=== PATIENT | female | born 1955 | race Caucasian/White ===

== ENCOUNTER 2018-07-26 14:33 | Emergency (ER) | payer MEDICARE, MEDICAID, SELFPAY ==
[2018-07-26 14:34] VITALS: BP 142/93; PULSE 95; RESP 18; TEMP 35.7; O2SAT 98; BMI 23.3
[2018-07-26 16:33] LABS: Absolute Lymphocyte Count 1.51 X10^3/ul (0.83-4.51); Absolute Neutrophil Count 7.2 X10^3/uL (2.0-7.7); Basophil# 0.06 X10^3/uL; Basophil% 0.6 % (0-1); Eosinophil# 0.08 X10^3/uL; Eosinophils% 0.8 % (0-5); Hematocrit 46.2 % (37-47); Hemoglobin 15.4 g/dl (12.0-15.0); Lymphocyte # 1.51 X10^3/ul (4.0); Mean Corp Hgb Conc 33.3 g/gl (32-36); Mean Corpuscular Hgb 28.5 pg (27.0-32.0); Mean Corpuscular Volume 85.4 fL (81-99); Mean Platelet Vol. 11.2 fl (6.2-12.0); Monocyte# 0.58 X10^3/uL; Monocyte% 6.2 % (0-10); Neutrophil # 7.18 X10^3/uL (2.7-7.7); Neutrophil % 76.3 % (47-70); Platelet Count 330 K/mm3 (150-450); RBC Distribution Width CV 13.2 % (11.6-14.6); RBC Distribution Width SD 40.9 fl (35.1-43.9); Red Blood Count 5.41 M/mm3 (4.2-5.4); White Blood Count 9.4 K/mm3 (4.4-11.0)
[2018-07-26 16:34] LABS: POSITIVE COUNT NO; POSITIVE DIFFERENTIAL NO; POSITIVE MORPHOLOGY NO
[2018-07-26 16:39] LABS: Anion Gap 11 (5-15); BUN 21 mg/dL (7-18); BUN/Creat Ratio 22.4 RATIO (10-20); Calcium,Total 8.9 mg/dL (8.5-10.1); Chloride 109 mmol/L (98-107); Creatinine, Serum 0.94 mg/dL (0.55-1.02); EST Glomerular Filtration Rate 65 mL/min (>60); Est Glom Filt Rate - Afr Amer 78 mL/min (>60); Estimated Creatinine Clearance 58.84 ml/min; Glucose 91 mg/dL (74-106); Potassium 3.7 mmol/L (3.5-5.1); Sodium Level 142 mmol/L (136-145)
[2018-07-26 16:40] LABS: Mucous, Urine 0 SEEN /hpf (<or=2+)
[2018-07-26 16:43] LABS: Color, Urine Yellow (Yellow); Glucose, Dipstick Normal (Normal); Ketone-Dipstick 15 mg/dl (Negative); Leukocyte Esterase-Dipstick 100 /ul (Negative); Nitrite-Dipstick Positive (Negative); Occult Blood-Urine Negative /ul (Negative); Protein-Dipstick Negative (Negative); Specific Gravity, Urine 1.015 (1.002-1.030); Urine Bilirubin Dipstick Negative (Negative); Urine Clarity Clear (Clear); Urine Urobilinogen Normal (Normal)
[2018-07-26 16:53] LABS: Red Blood Cells-Urine 0-5 SEEN /hpf (0-5); White Blood Cells 25-50 SEEN /hpf (0-5)
[2018-07-26 16:54] LABS: Bacteria 4+ /hpf (None Seen); Squamous Epithelial Cells - UA 0-5 SEEN /hpf (5-10)
[2018-07-26 17:08] VITALS: RESP 18
--- NOTE | 2018-07-26 17:24 | ED.VISSUMM ---
- ER Visit Summary Date of Service: 07/26/18 Chief Complaint: Emesis x1, not eating well and possible UTI History of Present Illness: The patient is a 63 F who is profoundly cognitively impaired and nonverbal who was sent from her primary care physician because of emesis x1. According to caregiver she is not appear in any distress. There is no documented fever. She has not been eating as much as she normally has for the past 1-3 weeks. History is limited Physical Examination: Vital signs noted. She is afebrile. She is not tachycardic. Examination is limited. HEENT is grossly unremarkable with no evidence of exam tonsillitis or otitis media. Lungs are clear to auscultation. Abdomen is soft uncertain whether she does or does not have discomfort. Unable to determine she has CVA tenderness. Lungs are clear to auscultation. She moves all extremities. Test Results: CBC is unremarkable. Basic metabolic panel is unremarkable. UA is consistent with infection positive leukoesterase and nitrites with 25-50 WBCs 0-5 RBCs and 4+ bacteria on a cath specimen. Emergency Department Course and Treatment: Evaluation for UTI and kidney function since she has not been eating well. Treatment Plan: Patient was given first dose of Macrobid in the department and prescription for Macrobid. Disposition: Discharge to senior living Impression: 1. UTI 2. Emesis x1 3. MRDD 4. Nonverbal This note was generated with Musicplayr dictation software. It may contain incorrect words, spelling, and punctuation that were not noted in review of the chart prior to signing ED Disposition - Plan for ED Patient: Disposition: Home or Assisted Living Chief Complaint: Nausea/Vomiting Instructions: ED UTI Cystitis Female Prescriptions: Nitrofurantoin Macrocrystals [Macrobid] 100 mg PO Q12 #10 cap Referrals: Issac Buchanan MD [Primary Care Provider] - 3-5 Days if not improving
--- NOTE | 2018-07-26 17:28 | ED.DCSUM_ITS ---
- ER Visit Summary Date of Service: 07/26/18 Chief Complaint: Emesis x1, not eating well and possible UTI History of Present Illness: The patient is a 63 F who is profoundly cognitively impaired and nonverbal who was sent from her primary care physician because of emesis x1. According to caregiver she is not appear in any distress. There is no documented fever. She has not been eating as much as she normally has for the past 1-3 weeks. History is limited Physical Examination: Vital signs noted. She is afebrile. She is not tachycardic. Examination is limited. HEENT is grossly unremarkable with no evidence of exam tonsillitis or otitis media. Lungs are clear to auscultation. Abdomen is soft uncertain whether she does or does not have discomfort. Unable to determine she has CVA tenderness. Lungs are clear to auscultation. She moves all extremities. Test Results: CBC is unremarkable. Basic metabolic panel is unremarkable. UA is consistent with infection positive leukoesterase and nitrites with 25-50 WBCs 0-5 RBCs and 4+ bacteria on a cath specimen. Emergency Department Course and Treatment: Evaluation for UTI and kidney function since she has not been eating well. Treatment Plan: Patient was given first dose of Macrobid in the department and prescription for Macrobid. Disposition: Discharge to detention Impression: 1. UTI 2. Emesis x1 3. MRDD 4. Nonverbal This note was generated with Balaya dictation software. It may contain incorrect words, spelling, and punctuation that were not noted in review of the chart p rior to signing ED Disposition - Plan for ED Patient: Disposition: Home or Assisted Living Chief Complaint: Nausea/Vomiting Instructions: ED UTI Cystitis Female Prescriptions: Nitrofurantoin Macrocrystals [Macrobid] 100 mg PO Q12 #10 cap Referrals: sIsac Buchanan MD [Primary Care Provider] - 3-5 Days if not improving
[2018-07-26 17:49] VITALS: RESP 18
[2018-07-26] MEDS: Nitrofurantoin Macrocrystals 100 MG Capsule PO (17:49)
== END 2018-07-26 17:51 | disposition home or self-care (01) ==
PROVIDERS: Emergency Provider Emergency Medicine; Family Provider Family Medicine; PCP Family Medicine
DX: N39.0 Urinary tract infection, site not specified (principal); R11.10 Vomiting, unspecified; F79 Unspecified intellectual disabilities
CPT/HCPCS: 80048; 81001; 85025; 87086; 87088; 87186; 99285; P9612; A4216

== ENCOUNTER → 2018-08-15 13:28 | Outpatient (CLI) | payer MEDICARE, MEDICAID, SELFPAY ==
--- NOTE | 2018-08-15 13:34 | RAD_ITS ---
STUDY: SWALLOWING STUDY REASON FOR EXAM: Female, 63 years old. Dysphagia. TECHNIQUE: The examination was performed with Speech Pathology in attendance. Under fluoroscopic observation, the patient ingested thin barium, thick barium, barium pudding, and barium coated cracker. FLUOROSCOPY TIME: 2:44 minutes/seconds. [id number] fluoroscopic images were obtained. RADIOLOGIST INVOLVEMENT: Radiologist was present and providing direct supervision. COMPARISON: None. FINDINGS: The following was observed during swallowing of the various mixtures of barium: Thin Barium: Silent aspiration with thin liquids. Thick Barium: Silent aspiration with ingestion of nectar thickened liquids. Penetration with evacuation with ingestion of honey thickened liquids. Barium Pudding: There was no evidence of aspiration or laryngeal penetration. RAD/Swallowing Function w/Video IMPRESSION: Solid aspiration with ingestion of thin liquids and nectar thickened liquids. Penetration with evacuation with ingestion of honey thickened liquids. The swallow study findings were discussed with the patient by the speech pathologist at the conclusion of the examination. Please see speech pathology report for more information and recommendations. Electronically Signed: Jose Bhakta MD at 15:42 EST Tel [phone], Service support ,
--- NOTE | 2018-08-15 13:45 | SP.MBSS_ITS ---
PRIMARY / SECONDARY DIAGNOSIS: dysphagia (R13.10) REFERRING PHYSICIAN: Dr. Eric Santana MD CURRENT DIET: pureed textures, thin liquids DENTITION: edentulous MENTAL STATUS: profoundly impaired RESPIRATORY STATUS: O2 via room air PREVIOUS MODIFIED BARIUM SWALLOW STUDY: none REASON FOR REFERRAL: Patient is a 63 year old female referred for a modified barium swallow (MBS) study to objectively assess the Patients oropharyngeal swallow function under fluoroscopy secondary to concerns with PO intake tolerance, with the Patient reportedly ?gagging? during PO intake that is not directly associated with any texture / consistency, flavor, temperature, etc., with occurrences unexplained and inconsistent. The Patient was accompanied by her caregiver; the Patient resides in a long term, and is profoundly cognitively impaired. The Patient has recently lost upwards of 20lbs, though this is a common occurrence, with the Patients caregiver reporting that the Patient has fluctuated between 180 and 130 lbs. frequently across a 27 year span. Recently, the Patient has begun gagging during intake, with the Patient recently treated in the emergency department on 07/26/2018 (urinary tract infection) with noted emesis prior to admission (1 additional bout of emesis following treatment). The Patient is currently placed on a pureed textured, thin liquid diet, with all liquids via nose cup, typically messy with double portions provided; occasionally able to feed self through routinely requires assistance; strong tendency to rapidly ingest food (tachyphagia) with supports in place (reduced utensil size). 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 STUDY FINDINGS: Patient participated in a Modified Barium Swallow (MBS) study on 08/15/2018. Dr. Bhakta was the radiologist present for this evaluation. This study was recorded in the lateral view and images were sent to PACs for storage. The following consistencies were presented to this patient for analysis of oropharyngeal swallow function: thin liquids, nectar thickened liquids, honey thickened liquids, and pudding textures. Results of the MBS are as follows: PENETRATION / ASPIRATION SCALE (NINA): 1 = does not enter airway 2 = enters airway/above vocal folds/ejected 3 = enters airway/above vocal folds/not ejected 4 = enters airway/contacts vocal folds/ejected 5 = enters airway/contacts vocal folds/not ejected 6 = enters airway/below vocal folds/ejected 7 = enters airway/below vocal folds/not ejected despite effort 8 = enters airway/below vocal folds/no effort VIDEOFLOROSCOPIC SCALE SCORE (NINA): Grade I = aspiration of material that has penetrated into the laryngeal vestibule, intact cough reflex Grade II = aspiration < 10 % of the bolus, intact cough reflex Grade III = aspiration of < 10 % of the bolus, reduced cough reflex or aspiration of > 10 % of the bolus, intact cough reflex Grade IV = aspiration of > 10 % of the bolus, reduced cough reflex PENETRATION / ASPIRATION SCALE (SCORE) WITH VIDEOFLOROSCOPIC SCALE SCORE: Thin liquid - 5 mL tsp.: 1 Thin liquids via cup (single sip): 1 Thin liquids via cup (single sip): 1 Thin liquids via cup (single sip): 1 Thin liquids via cup (single sip): 1, 6* - Grade III Thin liquids via cup (single sip): 1, 6* - Grade III Thin liquids via cup (single sip): 1, 8* - Grade III [place] thickened liquids via cup (single sip): 2 [place] thickened liquids via cup (single sip): 3 [place] thickened liquids via cup (single sip): 3, 5* [place] thickened liquids via cup (single sip): 3, 8* - Grade III Honey thickened liquids via cup (single sip): 1 Honey thickened liquids via cup (single sip): 2 Honey thickened liquids via cup (single sip): 1 Pudding via spoon: 2 Pudding via spoon: 1 Pudding via spoon: 1 Pudding via spoon: 1 * denotes continuous consolidation and eventual aspiration of residue that was not ejected from the laryngeal vestibule IMPRESSION: DIAGNOSIS: moderate oropharyngeal dysphagia (R13.12) ORAL PHASE CHARACTERIZED BY: LABIAL SEAL: escape beyond mid chin TONGUE CONTROL DURING BOLUS MANIPULATION: posterior escape of greater than half of bolus BOLUS TRANSPORT / LINGUAL MOTION: brisk albeit disorganized tongue motion ORAL RESIDUE: residue collection on oral structures PHARYNGEAL PHASE CHARACTERIZED BY: INITIATION OF PHARYNGEAL SWALLOW: bolus head in pyriforms at first hyoid excursion SOFT PALATE ELEVATION: no bolus between soft palate and pharyngeal wall LARYNGEAL ELEVATION: complete superior movement of thyroid cartilage with complete approximation of arytenoids cartilage to epiglottic petiole ANTERIOR HYOID EXCURSION: partial anterior movement EPIGLOTTIC MOVEMENT: complete epiglottic inversion LARYNGEAL VESTIBULE CLOSURE AT HEIGHT OF SWALLOW: incomplete laryngeal vestibule closure with narrow column of air/contrast in laryngeal vestibule PHARYNGEAL STRIPPING WAVE: pharyngeal stripping wave present / complete PHARYNGOESOPHAGEAL SEGMENT OPENING: complete distension and complete duration with no obstruction of flow TONGUE BASE RETRACTION: trace column of contrast between tongue base and posterior pharyngeal wall PHARYNGEAL RESIDUE: trace residue within or on pharyngeal structures ESOPHAGEAL PHASE CHARACTERIZED BY: ESOPHAGEAL BOLUS CLEARANCE IN THE UPRIGHT POSITION: complete clearance; esophageal coating DIET TEXTURE RECOMMENDATIONS: Will recommend a pureed textured, honey thickened liquid diet. COMPENSATORY STRATEGIES RECOMMENDED: Direct supervision with assistance as needed, all liquids via nose cup, reduced bolus size with reduced utensil size to combat tachyphagia if independently feeding, reduced rate of intake, seated upright at 90 degrees during PO intake, remain upright for 30-60 minutes post meal (GERD precaution), medications with liquid chaser, medications crushed with purees, INTERPRETATION OF RESULTS: Patient presents with moderate oropharyngeal dysphagia (R13.12) secondary to baseline profound developmental disabilities. Oral phase primarily marked by rather quick oral transpiration lacking bolus formation, with resulting intermittent posterior bolus loss and inconsistent oral clearance; noted anterior bolus loss likely increased due to feeding dependency (furthermore cannot utilize a straw due to significance of cognitive impairment); unnecessary chewing / munching movements with all viscosities. Pharyngeal phase primarily marked by impaired pharyngeal swallow onset timing / coordination with intermittent pharyngeal bolus dwell time between 1-3 seconds directly contributing to persistent penetration of thin and nectar thickened liquids; and insufficient laryngeal vestibule pressure generated to expel penetrated material particularly with less viscous textures leading to consolidation of penetrated materials and eventual aspiration. All deficits appear to be managed with bolus viscosity adjustments. No response to aspiration (atussia), with the Patient unable to generate a volitional cough due to the extent of cognitive impairments. No anatomic or physiologic abnormalities noted that would explain the Patients ?gagging? response, with said reactions occurring during ingestion of pureed textures with the bolus notably within the middle portions of the oral cavity, no occurrence with any significant amounts of contrast anywhere near the nasopharynx or pharyngeal burnette. Patient noted to SILENTLY aspirate with trace amounts of thin and nectar thickened liquids, with clinical assessment at bedside relying on identification of classic overt signs and symptoms of aspiration unreliable. RECOMMENDATIONS: Cannot guarantee placement on more restrictive diet will result in intermediate teacher reduction in aspiration and subsequent pulmonary complication risk, particularly when considering the Patients intake patterns (tachyphagia, intermittent ?gagging? without a clear physiologic cause). Would consider this Patient to be at higher risk for both malnutrition and dehydration due to the recommended diet texture restrictions, as increased liquid viscosities may lead to reduced liquid intake, desire for PO intake, and quicker satiety during meals. Would consider the Patient at higher risk of penetration and subsequent aspiration with volume overload during ingestion of larger bolus volumes / rapid ingestion (tachyphagia). Anticipate uptake in ?gagging? response that is likely behavioral in nature with adjustments in liquid viscosity. Would consider this Patient to be at higher risk for pulmonary complications associated with aspiration (due to the profound nature of the Patient?s cognitive impairments). Would consider implementation of the Kay Free Water Protocol (FFWP) following Patient caregiver education. The Patient may benefit from continued skilled speech-language intervention targeting continued diet texture management; caregiver training / implementation of recommended compensatory strategies; caregiver training / education regarding implementation of the FFWP if clinically appropriate; caregiver training targeting meal preparation / thickened liquid preparation; though the Patients primary caregiver present for the evaluation clearly demonstrates excellent insight, knowledge, and awareness in regards to the Patients abilities; would recommend intervention focusing on training other staff members if needed. The Patient is unable to follow any directions to suggest that any intervention strategies targeting oropharyngeal strengthening or Patient training focusing on posture / strategy adjustments would not be remotely beneficial. Recommend an aggressive oral care promote optimal oral health and reduce aspiration risk despite edentulous status. Would consider quality of life if the Patient?s family request advancement to less restrictive diet, with no anticipated improvement in performance, ONLY if all parties comprehend the severity of the Patient?s swallow deficits and concomitant medical complications associated with silent aspiration. Will otherwise strongly discourage advancement past honey thickened liquids without completion of a repeat modified barium swallow study due to the extent of aspirate identified that was SILENT in nature. ADDITIONAL COMMENTS/RECOMMENDATIONS: Results and recommendations were discussed with the Patient's caregiver immediately following MBS completion, with the Patient's caregiver verbalizing understanding and agreement with all recommendations and education provided. IMAGE COUNT: [id number] G-CODES: SWALLOWING [id number] Current Status: CK SWALLOWING G8997 Goal Status: CJ SWALLOWING G8998 Discharge Status: CK Gage Joseph M.A., CCC-CONTINUOUS IMPROVEMENT ANALYST [facility] Speech-Language Pathology Department [email or web address]
--- NOTE | 2018-08-15 14:12 | CT_ITS ---
STUDY: CT BRAIN WITHOUT CONTRAST REASON FOR EXAM: Female, 63 years old. Dysphagia RADIATION DOSAGE (If Supplied By Facility): CTDIvol = ( 60.81 ) mGy, DLP = ( 2088.55 ) mGycm TECHNIQUE: Transaxial CT imaging of the brain was performed without administration of intravenous contrast material. Individualized dose optimization techniques were used for this CT. COMPARISON: None. FINDINGS: There is no acute bleed or infarct. There are mild chronic ischemic changes. The ventricles are normal in configuration. There is no hydrocephalus. The visualized paranasal sinuses are clear. The mastoid air cells are well aerated. There is no skull fracture. CT/Brain/Head without Contrast IMPRESSION: Mild chronic ischemic changes. No acute bleed or infarct. Electronically Signed: Nick Gong, at 15:19 EST Tel , Service support ,
== END ==
PROVIDERS: Family Provider Family Medicine; PCP Family Medicine; Referring Provider Family Medicine; Visit Provider Family Medicine
DX: R19.8 Other specified symptoms and signs involving the digestive system and abdomen (principal)
CPT/HCPCS: 70450; 74230; 92611; G8996; G8997; G8998

== ENCOUNTER 2018-12-10 10:55 | Emergency (ER) | payer MEDICARE, MEDICAID, SELFPAY ==
[2018-12-10 10:56] VITALS: BP 124/56; PULSE 100; RESP 16; TEMP 36.8; O2SAT 96; BMI 21.6
--- NOTE | 2018-12-10 11:23 | RAD_ITS ---
STUDY: X-RAY - LEFT ANKLE REASON FOR EXAM: Female, 63 years old. Vein swelling TECHNIQUE: 3 view(s) of the ankle. COMPARISON: None. FINDINGS: Demineralized distal tibia and fibula. Normal medial and lateral malleoli. Normal tibiotalar articulation and ankle mortise. Normal visualized talus and calcaneus. The visualized subtalar, talonavicular, calcaneocuboid and tarsal articulations are normal. There is mild soft tissue edema. RAD/Ankle min 3 Views IMPRESSION: Bony osteopenia. No evidence of an acute fracture. Mild diffuse soft tissue swelling. Electronically Signed: Carol Frank MD at 12:06 EDT Tel , Service support ,
--- NOTE | 2018-12-10 11:30 | RAD_ITS ---
STUDY: X-RAY - LEFT FOOT CLINICAL: Female, 63 years old. Pain and swelling. Patient continuously banging foot against bladder floor. TECHNIQUE: 3 view(s) of the foot. COMPARISON: None. FINDINGS: Normal talus, calcaneus, and tarsal bones. Normal visualized subtalar, talonavicular, calcaneocuboid, tarsal and tarsometatarsal articulations. Normal metatarsi. Normal metatarsophalangeal joint of the great toe. Normal tibial and fibular sesamoid bones. Normal interphalangeal joint of the great toe. Normal phalanges of the great toe. Normal second through fifth metatarsophalangeal joints. Normal interphalangeal joints and phalanges of the lesser toes. The soft tissue structures are unremarkable. RAD/Foot min 3 Views IMPRESSION: Normal x-ray examination of the foot. Electronically Signed: Marcos Ahmadi DO at 12:48 EDT Tel [phone], Service support ,
--- NOTE | 2018-12-10 13:08 | ED.DCSUM_ITS ---
- ER Visit Summary Date of Service: 12/10/18 Chief Complaint: Right foot and ankle swelling History of Present Illness: The patient is a 63 F here with caregivers, history of MRDD, reports after awakening would not put weight on left foot. Patient ambulates without assistance. Reports she does stop her feet for extension. There is no witness injuries. Reports on arrival she did start bearing weight. She is baseline. No history of fractures. Physical Examination: General: Awake, baseline, no acute distress HEENT: Normocephalic, atraumatic. Moist mucosa membranes Neck: supple, nontender. Cardiovascular: Regular rate and rhythm, no murmurs Respiratory: Normal breath sounds, symmetric, no distress Abdomen: Soft, nontender, nondistended Extremities: Left lower extremity: No knee tenderness. There is no tenderness of leg deformities. Slight swelling lateral malleolus and tenderness lateral aspect of the foot. No proximal fifth base or midfoot tenderness. Skin intact. Neurovascular intact distally. Neuro: no focal neurological deficits. Test Results: X-ray right foot and ankle: No acute process soft tissue swelling lateral malleolus. Emergency Department Course and Treatment: Patient's history, with no witnessed injuries. There is swelling. X-rays negative. Patient placed in a air cast, ambulated in the department with no difficulties. Discussed monitoring symptoms. Following up with PCP. All questions were answered. Treatment Plan: [] Disposition: Discharge Impression: Left ankle and foot sprain This note was generated with Flotype dictation software. It may contain incorrect words, spelling, and punctuation that were not noted in review of the chart prior to signing ED Disposition - Plan for ED Patient: Disposition: Home or Assisted Living Diagnosis: Left ankle and foot sprain Instructions: ED Sprain Ankle W X Ray, ED Sprain Foot Referrals: Issac Buchanan MD [Primary Care Provider] - 1 Week
[2018-12-10 13:16] VITALS: BP 147/80; PULSE 92; RESP 18
== END 2018-12-10 13:16 | disposition home or self-care (01) ==
PROVIDERS: Emergency Provider Emergency Medicine; Family Provider Family Medicine; PCP Family Medicine
DX: S93.602A Unspecified sprain of left foot, initial encounter (principal); S93.402A Sprain of unspecified ligament of left ankle, initial encounter; X58.XXXA Exposure to other specified factors, initial encounter; Y93.89 Activity, other specified; Y92.9 Unspecified place or not applicable; Y99.9 Unspecified external cause status
CPT/HCPCS: 73610; 73630; 99283

== ENCOUNTER 2020-10-21 10:23 | Emergency (ER) | payer MEDICARE, MEDICAID, SELFPAY ==
[2020-10-21 10:24] VITALS: BP 93/75; PULSE 82; RESP 20; TEMP 37.3; O2SAT 93; BMI 27.3
--- NOTE | 2020-10-21 10:48 | CT_ITS ---
STUDY: CT BRAIN WITHOUT CONTRAST REASON FOR EXAM: Female, 65 years old. Syncopal episode, eyes rolled up into head per jail staff, MRDD, COVID + RADIATION DOSAGE (If Supplied By Facility): CTDIvol = ( 44.99 ) mGy, DLP = ( 796.11 ) mGycm TECHNIQUE: Transaxial CT imaging of the brain was performed without administration of intravenous contrast material. Individualized dose optimization techniques were used for this CT. COMPARISON: No relevant priors. FINDINGS: Normal soft tissue structures. There is hyperostosis frontalis internus. There is mild cerebral atrophy with widening of the extra-axial spaces and ventricular dilatation. Normal white matter tracts of the cerebral hemispheres. Normal basal ganglia and thalami. Normal brainstem. Normal cerebellum. There is no intracranial hemorrhage. There are no findings of an acute ischemic infarction. Mild mucosal thickening of the right maxillary sinus as well as the ethmoid sinuses. Mucosal thickening of the left frontal sinus. CT/Brain/Head without Contrast IMPRESSION: Chronic involutional changes of the brain. Electronically Signed: Jose Bhakta MD at 12:58 EST , Service support ,
--- NOTE | 2020-10-21 10:48 | RAD_ITS ---
STUDY: X-RAY CHEST REASON FOR EXAM: Female, 65 years old. Pt lives in a custodial. Pt is non verbal and mrdd. per staff at home eyes rolled in the back of her head and she was unresponsive for a few seconds. pt is at baseline now. someone in the custodial is pos for covid TECHNIQUE: Single AP portable view of the chest. COMPARISON: None. FINDINGS: EKG electrodes are seen. Elevation of the right hemidiaphragm. No acute infiltrate is seen. There is no demonstrated pleural abnormality. Normal size heart. Normal mediastinum and denisha. Normal visualized pulmonary arteries. Normal visualized aortic arch and descending thoracic aorta. Normal visualized thoracic spine. Normal visualized ribs, clavicles, and shoulders. There is no demonstrated abnormality of the visualized soft tissue structures of the upper abdomen. RAD/Chest 1 View (Portable) IMPRESSION: No acute abnormality is seen. Electronically Signed: Jose Bhakta MD at 12:08 EST , Service support ,
--- NOTE | 2020-10-21 10:48 | EKG12_ITS ---
Test Reason : HYPERTENSION Blood Pressure : / mmHG Vent. Rate : 080 BPM Atrial Rate : 080 BPM P-R Int : 136 ms QRS Dur : 056 ms QT Int : 352 ms P-R-T Axes : 048 -30 024 degrees QTc Int : 405 ms Sinus rhythm with Premature atrial complexes with Aberrant conduction Possible Left atrial enlargement Left axis deviation Nonspecific ST abnormality Abnormal ECG Confirmed by EDUARDO BAIRD, RICHARD ([id number]), clinical editor KATERIN ASCENCIO ([id number]) on 10/23/2020 1:29:18 PM Referred By: RICCI Confirmed By:RICHARD CLARK MD
--- NOTE | 2020-10-21 10:51 | ED.VISSUMM ---
- ER Visit Summary Date of Service: 10/21/20 Chief Complaint: Syncope History of Present Illness: The patient is a 65 F presenting after syncopal episode. Patient is nonverbal at baseline and lives in a care home. nursing home staff stated that she was seated at the breakfast table her eyes rolled back and she was unresponsive for a few seconds. Her mental status is now back to baseline. Another resident of the care home tested positive for Covid recently. Physical Examination: Blood pressure 93/70, temperature 99.1, heart rate 82, respiratory 20, pulse ox 93% on room air. Alert no acute distress. HEENT exam dry mucous membranes Neck is supple. Lungs are clear and equal bilaterally. Heart is regular rate and rhythm. Abdomen is soft nontender nondistended. Extremities are unremarkable. Skin is warm and dry. No focal neurologic deficit. Remainder of exam is unremarkable. Emergency Department Course and Treatment: Patient was given IV fluids. EKG is sinus rhythm rate of 80 with no acute ischemic changes. CBC, chemistries unremarkable. Troponin is negative. Lactic acid normal. Chest x-ray read by myself and radiology shows no acute process. Covid is positive. CT head shows chronic involutional changes of the brain. She has had no hypoxia or tachycardia. She remains hemodynamically stable. She will be discharged back to the care home. Advised to return to the ED for worsening complaints. Disposition: Discharge home Impression: Syncope, Covid-19 This note was generated with EDMdesigner dictation software. It may contain incorrect words, spelling, and punctuation that were not noted in review of the chart prior to signing ED Disposition - Plan for ED Patient: Instructions: Coronavirus Disease 2019 (COVID-19): Overview, ED Fainting, Uncertain Cause Referrals: Issac Buchanan MD [Primary Care Provider] -
[2020-10-21] MEDS: 0.9% Normal Saline 1,000 ML 1000 ML IV (11:28)
[2020-10-21 11:45] LABS: Absolute Lymphocyte Count 0.83 X10^3/uL (0.83-4.51); Absolute Neutrophil Count 2.7 X10^3/uL (2.0-7.7); Basophil# 0.01 X10^3/uL; Basophil% 0.3 % (0-1); Eosinophil# 0.01 X10^3/uL; Eosinophils% 0.3 % (0-5); Hematocrit 45.3 % (37-47); Lymphocyte # 0.83 X10^3/ul (4.0); Lymphocyte % 21.3 % (19-41); Mean Corp Hgb Conc 30.9 g/dL (32-36); Mean Corpuscular Hgb 26.6 pg (27.0-32.0); Mean Corpuscular Volume 86.1 fL (81-99); Mean Platelet Vol. 11.4 fl (6.2-12.0); Monocyte# 0.37 X10^3/uL; Monocyte% 9.5 % (0-10); NRBC Flagged by Analyzer 0 % (0-5); Neutrophil # 2.66 X10^3/uL (2.7-7.7); Neutrophil % 68.3 % (47-70); Platelet Count 166 K/mm3 (150-450); RBC Distribution Width SD 40.8 fl (35.1-43.9); Red Blood Count 5.26 M/mm3 (4.2-5.4); White Blood Count 3.9 K/mm3 (4.4-11.0)
[2020-10-21 12:04] VITALS: BP 108/83; PULSE 79; RESP 20; O2SAT 97
[2020-10-21 12:05] LABS: Lactic Acid 1.3 mmol/L (0.4-1.9)
[2020-10-21 12:06] LABS: ALB/GLOB Ratio 0.8 RATIO (0.9-2.4); AST(SGOT) 22 U/L (15-37); Alanine Aminotransfer ALT/SGPT 22 U/L (13-56); Albumin, Serum 3.2 g/dL (3.2-5.0); Alkaline Phosphatase 108 U/L (45-117); Anion Gap 8 (5-15); BUN 20 mg/dL (7-18); Calcium,Total 8.5 mg/dL (8.5-10.1); Chloride 107 mmol/L (98-107); Creatinine, Serum 1.05 mg/dL (0.55-1.02); EST Glomerular Filtration Rate 56 mL/min (>60); Est Glom Filt Rate - Afr Amer 68 mL/min (>60); Estimated Creatinine Clearance 47.36 ml/min; Globulin 4.2 g/dL (2.2-4.2); Glucose 99 mg/dL (74-106); Potassium 3.6 mmol/L (3.5-5.1); Protein, Total 7.4 g/dL (6.4-8.2); Sodium Level 142 mmol/L (136-145)
[2020-10-21 13:02] LABS: Mucous, Urine 0 SEEN /hpf (<or=2+); Red Blood Cells-Urine 0 SEEN /hpf (0-5); Squamous Epithelial Cells - UA 0 SEEN /hpf (5-10)
[2020-10-21 13:04] LABS: Color, Urine Yellow (Yellow); Glucose, Dipstick Normal (Normal); Ketone-Dipstick 50 mg/dl (Negative); Leukocyte Esterase-Dipstick 25 /ul (Negative); Nitrite-Dipstick Negative (Negative); Occult Blood-Urine 10 /ul (Negative); Protein-Dipstick Negative (Negative); Urine Bilirubin Dipstick Negative (Negative); Urine Clarity Clear (Clear); Urine Urobilinogen Normal (Normal)
[2020-10-21 13:11] LABS: Bacteria RARE /hpf (None Seen); White Blood Cells 0-5 SEEN /hpf (0-5)
--- NOTE | 2020-10-21 13:56 | DCINST.ED_ITS ---
ED Disposition - Plan for ED Patient: Instructions: ED Fainting, Uncertain Cause, Coronavirus Disease 2019 (COVID- 19): Overview Referrals: Issac Buchanan MD [Primary Care Provider] -
--- NOTE | 2020-10-21 13:56 | ED.DEP ---
ED Disposition - Plan for ED Patient: Instructions: ED Fainting, Uncertain Cause, Coronavirus Disease 2019 (COVID-19): Overview Referrals: Issac Buchanan MD [Primary Care Provider] -
[2020-10-21 14:23] VITALS: BP 127/83; PULSE 72; RESP 16; O2SAT 98
--- NOTE | 2020-10-21 14:35 | ED.RN ---
IV DC'ED, CATHETER INTACT, SMALL GAUZE DRESSING PLACED. DISCHARGE INSTRUCTIONS GIVEN TO AND REVIEWED WITH CAREGIVER WHO DENIES QUESTIONS OR CONCERNS AND VOICES UNDERSTANDING OF DISCHARGE INSTRUCTIONS. PT TO PRIVATE VEHICLE VIA WHEELCHAIR.
== END 2020-10-21 14:36 | disposition home or self-care (01) ==
PROVIDERS: Emergency Provider Emergency Medicine; PCP Family Medicine
DX: R55 Syncope and collapse (principal); U07.1 COVID-19; F79 Unspecified intellectual disabilities
CPT/HCPCS: 70450; 71045; 80053; 81001; 83605; 84484; 85025; 87426; 93005; 96360; 99285; J7030; P9612

== ENCOUNTER 2021-08-11 16:50 | Emergency (ER) | payer MEDICARE, MEDICAID, SELFPAY ==
[2021-08-11 16:51] VITALS: BP 136/108; PULSE 88; RESP 14; TEMP 36.4; O2SAT 94; BMI 23.1
--- NOTE | 2021-08-11 17:22 | RAD_ITS ---
STUDY: X-RAY - LEFT ANKLE REASON FOR EXAM: Female, 66 years old. trauma TECHNIQUE: 3 view(s) of the ankle. COMPARISON: None. FINDINGS: Diffuse osteopenia. Nondisplaced fracture of the lateral malleolus the left tibiotalar joint. Sclerotic defect along the medial talar dome, likely OCD. Mild widening of the medial tibiotalar joint. Normal visualized talus and calcaneus. The visualized subtalar, talonavicular, calcaneocuboid and tarsal articulations are normal. There is lateral ankle soft tissue swelling. RAD/Ankle min 3 Views IMPRESSION: 1. Beltran B lateral malleolus fracture. Soft tissue swelling. 2. Mild widening of the medial ankle mortice. 3. OCD of the medial talus. Electronically Signed: Curtis Garcia MD ([place]) at 18:00 EST , Service support ,
--- NOTE | 2021-08-11 17:44 | ED.VIS.LOWEX ---
HPI History of Present Illness Chief Complaint: Lower Extremity Injury Informant: friend Narrative Narrative: History her provider who is known her for 30 years. This patient evidently stepped down off the bus and complained of her left ankle hurting. It is not certain if she twisted it when stepping down or if there was a prior injury today. But the ankle now has some swelling and bruising that was not present this morning. The patient also has a history of stomping her feet very hard if she is upset or stressed and the provider is wondering if this could have happened today. Nothing new or different other than the lateral left ankle. She does have a history of osteoporosis. Palpation or walking makes it worse and rest makes it better. PFSH PFSH Home Medications Lactobacillus acidophilus [Acidophilus] 2 ea PO BID 07/26/18 [History Last Taken Unknown] calcium carbonate-vitamin D3 [Oyster Shell Calcium-Vit D Tab] 1 ea PO BID 07/26/18 [History Last Taken Unknown] cetirizine [24Hour Allergy] 10 mg PO QHS 07/26/18 [History Last Taken Unknown] lactulose 15 g PO DAILY 07/26/18 [History Last Taken Unknown] oxybutynin chloride 5 mg PO BID 07/26/18 [History Last Taken Unknown] Pinxav 30% 1 applic TP BID 10/21/20 [History Last Taken Unknown] acetaminophen 650 mg PO Q4H PRN PRN 10/21/20 [History Last Taken Unknown] acetaminophen 1,000 mg PO TID #20 tab 08/11/21 [Rx Last Taken Unknown] Allergy/AdvReac Type Severity Reaction Status Date / Time shellfish derived Allergy Hives Verified 08/11/21 16:54 Social History Smoking Status: Never smoker ROS ROS ED Review of Systems ROS Unobtainable: due to mental condition Constitutional Constitutional ED: Denies fever(s) Gastrointestinal Gastrointestinal: Denies diarrhea or vomiting Musculoskeletal Musculoskeletal: Reports other Details: See history of present illness Integumentary Denies rash EXAM Physical Exam Const Vital Signs: 08/11/21 16:51 Temperature 97.5 F L Temperature Source Temporal Pulse Rate 88 Respiratory Rate 14 Blood Pressure 136/108 H Blood Pressure Mean 117 Pulse Ox 94 Oxygen Delivery Method Room Air Positive well nourished and well developed; Negative for unkempt General Appearance ED: well developed and NAD; Negative for unkempt HEENT atraumatic Resp normal respiratory effort Extremity Extremity Narrative: There is prominence, swelling and some mild ecchymosis over the lateral malleolus of the left foot ankle area. No tenderness of the calcaneus foot proximal leg or knee. Neuro Neuro Narrative: Patient is acting normally per her care provider who is known her for 30 years. Sensorium / Orientation: alert Psych mental status grossly normal Appearance: Negative for unkempt Skin Skin Narrative: Slight bruising as above. MDM MDM MDM Narrative Medical decision making narrative: X-ray looked at by me and read by radiology shows a Beltran B fracture. There is some questionable slight tilt of the mortise. There is an osteochondral defect in the medial talus that does not definitively look new. Do this patient's developmental disabilities, it is a little harder to manage. Rather than a splint I will placed her in a boot orthosis that can be removed so we can check skin frequently. Also, if she pulls at her remove this boot it can be replaced easily. I think this is the best way to manage this at this time. I did tell her care provider that she needs to follow-up with orthopedics. She will need repeat x-ray. Some of these do end up getting surgery and because of the mortise change it is possible this will need surgery. She will use Tylenol for pain. She can go to her daytime activities but she should be nonweightbearing in a wheel chair. She does have a wheelchair already. Radiography Diagnostic Testing: Clinical Impression(s) from Imaging Studies Ankle X-Ray 08/11/21 17:22 IMPRESSION: 1. Beltran B lateral malleolus fracture. Soft tissue swelling. 2. Mild widening of the medial ankle mortice. 3. OCD of the medial talus. Electronically Signed: Curtis Garcia MD ([place]) at 18:00 EST , Service support , Discharge Plan Triage Chief Complaint: Lower Extremity Injury ED Provider: Mathesu Ramsey Dx/Rx/DC Orders Clinical Impression: Fracture of distal end of left fibula Instructions: ED Ankle Fracture, Distal Fibula Prescriptions: New acetaminophen 500 mg tablet 1,000 mg PO TID Qty: 20 RF: 0 No Action cetirizine [24Hour Allergy] 10 MG tablet 10 mg PO QHS RF: 0 Lactobacillus acidophilus [Acidophilus] 1 EACH capsule 2 ea PO BID RF: 0 oxybutynin chloride 5 MG tablet 5 mg PO BID RF: 0 lactulose 10 GM/15 ML solution 15 g PO DAILY RF: 0 calcium carbonate-vitamin D3 [Oyster Shell Calcium-Vit D3] 1 EACH tablet 1 ea PO BID RF: 0 acetaminophen 325 MG capsule 650 mg PO Q4H PRN PRN (Reason: pain/fever) RF: 0 Pinxav 30% 1 applic TP BID RF: 0 Stand Alone Forms: ED Work / School Excuse Primary Care Provider: Issac Buchanan Referrals: Umang Costello DO [STAFF PHYSICIAN] - As soon as possible Issac Buchanan MD [Primary Care Provider] - Disposition Disposition: Home, Self Care
[2021-08-11 19:13] VITALS: BP 152/102; PULSE 76; RESP 16; O2SAT 98
[2021-08-11] MEDS: Acetaminophen 500 MG Tablet 1000 MG PO (19:21)
--- NOTE | 2021-08-11 19:23 | ED.RN ---
Patient caregiver has yellow copy of DME for walking boot and is aware patient is non-weight bearing and can have 1000mg tylenol tid. 8am, 4pm, 12am. She is aware can go to her day activity as long as non-weight baring. Aware can do this with her wheel chair that has a seatbelt. Will follow up with Dr Costello next jacky and will call in the am
== END 2021-08-11 19:22 | disposition home or self-care (01) ==
PROVIDERS: Emergency Provider Emergency Medicine; PCP Family Medicine
DX: S82.62XA Displaced fracture of lateral malleolus of left fibula, initial encounter for closed fracture (principal); X58.XXXA Exposure to other specified factors, initial encounter; F42.9 Obsessive-compulsive disorder, unspecified; M81.0 Age-related osteoporosis without current pathological fracture
CPT/HCPCS: 73610; 99283

== ENCOUNTER 2023-01-08 12:37 | Outpatient (RCR) | payer MEDICARE, MEDICAID, SELFPAY ==
--- NOTE | 2023-01-08 13:54 | HP.PTEVAL ---
Patient's Visit Information ZO AMIN is a 67 year old F referred to Physical Therapy by ADY Crocker with a diagnosis of Profound intellectual disability. Date of Evaluation: 01/08/23 Physical Therapist: Jim Yadav PT, ATC - Visit Plan Frequency: 1x/Week Duration: 1 Week Plan: Pt was assessed for a wheelchair today. Pt is now discharged with the recommendation for a custom wheelchair at this time secondary to limited mobility and overall weakness - Subjective 5'8 female who weighs 150 # enters the clinic today with her caregiver for an evaluation for a new wheelchair. Pt is mentally handicapped and non verbal. History is given by her caregiver. Pt is non ambulatory at this time. Pt sits in her manual wheelchair and caregiver is concerned about patient developing pressure ulcers secondary to her sliding down in her chair. Pt also relies on caregiver to eat at this time secondary to poor posture and having no support from her trunk region. Pt's L leg is contractured at approximately 90 degrees at this time secondary to an injury that occurred 1 1/2 years ago which resulted in a L ankle fracture. Pt lives in a long term and has the same caregiver 24 hours per day. Pt appears not to be in pain at this time. Pt has no History of falls. - Objective Posture: Pt sits with sig decrease in L/S lordosis, and increase in T/S kyphosis. Pt sits with L concavity througtout T/S with R sided convexity. Pt is unable to sit with proper posture secondary to core weakness. MMT: L knee is contractured and unable to assess. All other UE and LE MMT is grossly rated at 3-/5 as she is able to lift her extremities against gravity throughout a limited ROM. ROM: L knee is contractured at 100 degrees of flexion. R LE is WFL. B shoulder elevation to approximately 90 degrees. Transfers: Pt is Dependent with all transfers. Gait: Pt is non ambulatory at this time. - Goals Goal 1:: NA - Rehabilitation Potential Physical Therapy Diagnosis: Pt is in need of a custom wheelchair at this time secondary to poor posture and overall weakness Rehabilitation Potential: Fair - Anticipated Interventions Patient/Client Instruction: Educate patient on: Condition, Plan of Care For the Purpose of:: To facilitate caregiver knowledge Thank you for the opportunity to evaluate your patient. For Medicare and Medicare HMO plans, please review the plan of care and approve it. It will need to be FAXED BACK to us at [phone] for Medicare purposes. For Medicare only, by signing this I certify the plan of care. Please let me know if there are questions or concerns regarding this plan of care. Physician Signature: Date:
== END 2023-01-08 19:00 | disposition home or self-care (01) ==
LOC: PT 12:37
PROVIDERS: PCP Family Medicine; Referring Provider Registered Nurse; Visit Provider Registered Nurse
DX: M24.562 Contracture, left knee (principal); F89 Unspecified disorder of psychological development; R26.89 Other abnormalities of gait and mobility
CPT/HCPCS: 97161

== ENCOUNTER 2023-07-16 13:51 | Outpatient (CLI) | payer MEDICARE, MEDICAID, SELFPAY ==
[2023-07-16 14:12] VITALS: BP 117/95; PULSE 91; RESP 16; TEMP 36.7; O2SAT 95; BMI 22.7
[2023-07-16] MEDS: DENOSUMAB 60 MG/ML SC (14:18)
== END 2023-07-16 13:52 | disposition home or self-care (01) ==
PROVIDERS: PCP Family Medicine; Referring Provider Family Medicine; Visit Provider Family Medicine
DX: M81.0 Age-related osteoporosis without current pathological fracture (principal)
CPT/HCPCS: 96372; J0897

== ENCOUNTER 2024-01-12 14:11 | Outpatient (CLI) | payer MEDICARE, MEDICAID, SELFPAY ==
[2024-01-12 14:41] VITALS: BP 114/52; PULSE 64; RESP 16; TEMP 36; O2SAT 96
[2024-01-12] MEDS: DENOSUMAB 60 MG/ML SC (14:44)
== END 2024-01-12 14:12 | disposition home or self-care (01) ==
PROVIDERS: PCP Family Medicine; Referring Provider Family Medicine; Visit Provider Family Medicine
DX: M81.0 Age-related osteoporosis without current pathological fracture (principal)
CPT/HCPCS: 96372; J0897

== ENCOUNTER 2024-08-22 14:18 | Outpatient (CLI) | payer MEDICARE, MEDICAID, SELFPAY ==
[2024-08-22 14:28] VITALS: BP 110/54; PULSE 64; RESP 16; TEMP 35.9; BMI 20.7
[2024-08-22] MEDS: DENOSUMAB 60 MG/ML SC (14:59)
== END 2024-08-22 23:59 | disposition home or self-care (01) ==
LOC: MEDOUTP 14:18
PROVIDERS: PCP Family Medicine; Referring Provider Family Medicine; Visit Provider Family Medicine
DX: M81.0 Age-related osteoporosis without current pathological fracture (principal)
CPT/HCPCS: 96372; J0897

== ENCOUNTER 2025-02-23 10:32 | Outpatient (CLI) | payer MEDICARE, MEDICAID, SELFPAY ==
[2025-02-23 10:49] VITALS: BP 115/89; PULSE 81; RESP 16; TEMP 35.9; O2SAT 99; BMI 19.2
[2025-02-23] MEDS: DENOSUMAB 60 MG/ML SC (10:50)
== END 2025-02-23 23:59 | disposition home or self-care (01) ==
PROVIDERS: PCP Family Medicine; Referring Provider Family Medicine; Visit Provider Family Medicine
DX: M81.0 Age-related osteoporosis without current pathological fracture (principal)
CPT/HCPCS: 96372; J0897

== ENCOUNTER → 2025-03-16 | Outpatient (CLI) | payer MEDICARE, MEDICAID, SELFPAY ==
[2025-03-16 18:42] LABS: Hemoglobin A1c 5.4 % (<=5.6)
[2025-03-16 18:52] LABS: T3 Total - Triiodothyronine 0.93 ng/mL (0.80-2.00); T4 Total, Thyroxin 6.7 ug/dL (4.8-13.9)
== END | disposition home or self-care (01) ==
PROVIDERS: PCP Family Medicine; Referring Provider Family Medicine; Visit Provider Family Medicine
DX: R73.9 Hyperglycemia, unspecified (principal); E78.1 Pure hyperglyceridemia
CPT/HCPCS: 36415; 83036; 84436; 84443; 84480

== ENCOUNTER 2025-08-31 12:01 | Outpatient (CLI) | payer MEDICARE, MEDICAID, SELFPAY ==
[2025-08-31 12:08] VITALS: BP 133/71; PULSE 62; RESP 16; TEMP 36.6; O2SAT 100; BMI 21.4
[2025-08-31] MEDS: DENOSUMAB 60 MG/ML SC (12:19)
--- OUTSIDE RECORDS SUMMARY | 2025-08-31 12:25 | XMS RPT_ITS | CCD ---
Author Organization [facility] Care Team Providers Care Welding Pantograph Operator Name Role Phone Issac Wilkes MD Primary Care Provider Issac Wilkes MD Primary Care Provider Yolanda BAIRD, Jennifer P Unavailable Yolanda ABIRD, Jennifer P Unavailable Merly PT, Isha Unavailable Issac Wilkes MD Primary Care Provider Yolanda BAIRD, Jennifer P Unavailable Yolanda BAIRD, Jennifer P Unavailable Merly PT, Isha Unavailable Merly PT, Isha Unavailable Issac Wilkes MD Primary Care Provider Haagen ASSOCIATE SOFTWARE DEVELOPMENT ENGINEER.PHOTOENGRAVING PROOFER APPRENTICE, Debi Unavailable Suppan ASSOCIATE SOFTWARE DEVELOPMENT ENGINEER.PHOTOENGRAVING PROOFER APPRENTICE, Meg A Unavailable Suppan ASSOCIATE SOFTWARE DEVELOPMENT ENGINEER.PHOTOENGRAVING PROOFER APPRENTICE, Meg A Unavailable [phone] Suppan ASSOCIATE SOFTWARE DEVELOPMENT ENGINEER.PHOTOENGRAVING PROOFER APPRENTICE, Meg A Unavailable [phone] Dr. Issac Wilkes MD Primary Care Provider Dr. Issac Wilkes MD Attending Provider Dr. Issac Wilkes MD Referring Provider Issac Wilkes Attending Unavailable Issac Wilkes Primary Care Unavailable Issac Wilkes Referring Unavailable Issac Wilkes Attending Unavailable Issac Wilkes Primary Care Unavailable Issac Wilkes Referring Unavailable Issac Wilkes Attending Unavailable Issac Wilkes Primary Care Unavailable Issac Wilkes Referring Unavailable DEBI MEJIA Attending Unavailable ISSAC WILKES Primary Care Unavailable ISSAC WILKES Primary Care Unavailable ISSAC WILKES Attending Unavailable ISSAC WILKES Primary Care Unavailable ISSAC WILKES Attending Unavailable ISSAC WILKES Primary Care Unavailable ISSAC WILKES Referring Unavailable ISSAC WILKES Primary Care Unavailable DEBI MEJIA Attending Unavailable SELF Referring Unavailable ISSAC WILKES Primary Care Unavailable Medications Current Medications Medication Drug Class(es) Dates Sig (Normalized) Sig (Original) acetaminophen 325 mg oral tablet (20 sources) Start: 11-20-2022 End: 11-20-2023 take 2 tablets by mouth every six hours as needed acetaminophen (TYLENOL) 325 mg tablet Take 2 tablets by mouth every 6 hours as needed (of 100.4 F or greater.). Not to exceed 8 tablets in 24 hours. 30 tablet 11 11/20/2022 11/20/2023 Active Start: 08-11-2021 End: 01-12-2024 take 2 tablets by mouth three times daily Acetaminophen 500 mg tablet Discontinued 1000 mg PO THREE TIMES A DAY August 11, 2021 1:00am January 12, 2024 2:38pm Start: 08-11-2021 End: 01-12-2024 take 1000 mg by mouth three times daily Acetaminophen Discontinued 1000 MG PO THREE TIMES A DAY August 11, 2021 1:00am January 12, 2024 2:38pm Start: 10-21-2020 take 2 capsules by m outh every four hours as needed for pain Acetaminophen 325 MG capsule Active 650 mg PO EVERY 4 HOURS NEEDED as needed for pain/fever October 21, 2020 1:00am Start: 10-21-2020 take 650 mg by mouth every four hours as needed Acetaminophen Active 650 MG PO EVERY 4 HOURS NEEDED October 21, 2020 1:00am Comment on above: Take 2 tablets by mo uth every 6 hours as needed (of 100.4 F or greater.). Not to exceed 8 tablets in 24 hours. baclofen 10 mg oral tablet (20 sources) gamma-Aminobutyric Acid-ergic Agonist Start: 01-19-2025 take 1 tablet by mouth every twelve hours baclofen 10 mg tablet Take 1 tablet by mouth every 12 hours. 180 tablet 3 01/19/2025 Active Start: 09-03-2023 End: 01-19-2025 take 1 tablet by mouth every twelve hours baclofen 10 mg tablet take 1 tablet by mouth twice a day 180 tablet 3 02/01/2024 01/19/2025 Discontinued Start: 07-16-2023 take 1 tablet by helene once daily Baclofen 10 mg tablet Active 10 mg PO DAILY July 16, 2023 12:00am Start: 03-25-2023 take 1 tablet by helene twice daily baclofen 10 mg tablet TAKE 1 TABLET BY MOUTH TWICE A DAY 60 tablet 5 03/25/2023 Active Start: 01-16-2022 End: 11-09-2022 take 1 tablet by mouth twice daily baclofen (LIORESAL) 10 mg tablet TAKE 1 TABLET BY MOUTH TWICE A DAY 60 tablet 5 11/09/2022 Active Comment on above: Take 1 tablet by helene twice daily. TAKE 1 TABLET BY HELENE TWICE A DAY calcium carbonate 1250 mg / cholecalciferol 200 unt oral tablet (20 sources) Vitamin D Start: 07-26-20 End: 02-01-20 25 take 1 tablet by mouth twice daily at mealtime calcium-carbonate- vitamin D3 ([place] CALCIUM-VITAMIN D) 500 mg-5 mcg (200 unit) per tablet Indications: Well adult exam Take 1 tablet by mouth two times a day with meals. Take with meals or food. 62 tablet 01/31/2025 Active Comment on above: Take 1 tablet by helene twice daily with meals. TAKE 1 TABLET BY HELENE TWICE A DAY WITH MEALS Take 1 tablet by helene twice daily with meals. Take with meals or food. cetirizine hydrochloride 10 mg oral tablet (20 sources) Histamine-1 Receptor Antagonist Start: 07-26-20 End: 11-01-19 25 take 1 tablet by mouth once daily at bedtime cetirizine (ZYRTEC) 10 mg tablet Indications: Dermatitis Take 1 tablet by mouth daily at bedtime. 31 tablet 11/01/2024 Active Comment on above: Take 1 tablet by helene daily at bedtime. 1 ml denosumab 60 mg/ml prefilled syringe (20 sources) RANK Ligand Inhibitor Start: 11-19-19 End: 11-12-19 24 denosumab 60 mg injection (PROLIA) Start: 11-17-2022 End: 11-17-2022 inject 1 mL by subcutaneous injection once denosumab (PROLIA) 60 mg/mL Inject 1 mL subcutaneously one time only for 1 dose. 1 mL 0 11/17/2022 11/17/2022 Comment on above: Inject 1 mL subcutan eously one time only for 1 dose. Diaper,Brief, Adult,Disposable (20 sources) Start: 03-03-2021 Diaper,Brief, Adult,Disposable Indications: Other urinary incontinence , Sensory deprivation, initial encounter Use as directed. Size XL (N39.498) Other urinary incontinence, (T73.8XXA) Sensory deprivation, initial encounter 170 Each 03/03/2021 Active Comment on above: Use as directed. Siz e XL (N39.498) Other urinary incontinence, (T73.8XXA) Sensory deprivation, initial encounter Diaper,Brief, Adult,Disposable (BRIEFS) misc (20 sources) Start: 02-07-2019 Diaper,Brief, Adult,Disposable (BRIEFS) misc Indications: Other urinary incontinence , Sensory deprivation, initial encounter Pull ups size XL Use as directed (N39.498) Other urinary incontinence, (T73.8XXA) Sensory deprivation, initial encounter 30 Each 02/07/2019 Active Comment on above: Pull ups size XL Use as directed (N39.498) Other urinary incontinence, (T73.8XXA) Sensory deprivation, initial encounter Diaper,Brief, Adult,Disposable misc (20 sources) Start: 02-18-2017 Diaper,Brief, Adult,Disposable misc Indications: Other urinary incontinence , Sensory deprivation, initial encounter Use as directed. Size XL (N39.498) Other urinary incontinence, (T73.8XXA) Sensory deprivation, initial encounter 30 Each 02/18/2017 Active Comment on above: Use as directed. Siz e XL (N39.498) Other urinary incontinence, (T73.8XXA) Sensory deprivation, initial encounter Disposable Gloves misc (20 sources) Start: 03-03-2021 Disposable Gloves misc Indications: Other urinary incontinence , Sensory deprivation, initial encounter Use as directed, latex, XL, N39.498, T73.8XXA 300 Each 03/03/2021 Active Comment on above: Use as directed, lat ex, XL, N39.498, T73.8XXA Lactobacillus Acidophilus (Acidophilus) 1 EACH capsule (5 sources) Start: 07-26-2018 Lactobacillus Acidophilus (Acidophilus) 1 EACH capsule Active 2 NMA PO TWICE A DAY July 26, 2018 1:00am Start: 07-26-2018 Lactobacillus Acidophilus (Acidophilus) 1 EACH capsule Active 2 EACH PO TWICE A DAY July 26, 2018 1:00am Miscellaneous Medical Supply (20 sources) Start: 03-03-2021 Miscellaneous Medical Supply Indications: Other urinary incontinence , Sensory deprivation, initial encounter Washable chux pads 6 Each 1 03/03/2021 Active Comment on above: Washable chux pads nzotqxjjmjtf-ybc-zsb n-FA-vit K (ONE DAILY WOMEN'S) 18 mg iron-400 mcg-25 mcg tab (20 sources) Start: 10-06-2024 take 2 tablets by mouth once daily mslfuobmqzae-fvd-mh on-FA-vit K (ONE DAILY WOMEN'S) 18 mg iron-400 mcg-25 mcg tab Take 2 tablets by mouth once daily. 60 tablet 11 10/06/2024 Active Start: 11-12-2023 End: 10-06-2024 take 2 tablets by mouth once daily ultjcdqbpvka-hiq-ukjw-FA-vit K (ONE VERN Y WOMEN'S) 18 mg iron-400 mcg-25 mcg tab Take 2 tablets by mouth once daily. 60 tablet 11 11/12/2023 10/06/2024 Discontinued Start: 11-12-2023 take 2 tablets by mo [facility] once daily tkpsazrajckd-nld-urdu-FA-vit K (ONE VERN Y WOMEN'S) 18 mg iron-400 mcg-25 mcg tab Take 2 tablets by mouth once daily. 60 tablet 11 11/12/2023 Active Start: 11-08-2023 End: 11-12-2023 take 1 tablet by mouth once daily pcnfmjtuhkqt-eqv-ycqg-FA-vit K (ONE VERN Y WOMEN'S) 18 mg iron-400 mcg-25 mcg tab Take 1 tablet by mouth once daily. 30 tablet 11 11/08/2023 11/12/2023 Discontinued Start: 11-08-2023 take 1 tablet by helene once daily ucvrzjjtrdda-oco-xgqf-FA-vit K (ONE VERN Y WOMEN'S) 18 mg iron-400 mcg-25 mcg tab Take 1 tablet by mouth once daily. 30 tablet 11 11/08/2023 Active Start: 11-18-2022 End: 11-08-2023 take 1 tablet by mouth once daily zbkoocokjugp-luz-memp-FA-vit K (ONE VERN Y WOMEN'S) 18 mg iron-400 mcg-25 mcg tab Take 1 tablet by mouth once daily. 30 tablet 11 11/18/2022 11/08/2023 Discontinued Start: 11-18-2022 take 1 tablet by helene once daily rnklghhqzgwq-gzo-cyzb-FA-vit K (ONE VERN Y WOMEN'S) 18 mg iron-400 mcg-25 mcg tab Take 1 tablet by mouth once daily. 30 tablet 11 11/18/2022 Active Start: 10-05-2022 End: 11-18-2022 take 2 tablets by mouth once daily ljxdfadfdzpn-yvg-exxy-FA-vit K (ONE VERN Y WOMEN'S) 18 mg iron-400 mcg-25 mcg tab Take 2 tablets by mouth once daily. 60 tablet 11 10/05/2022 11/18/2022 Discontinued Start: 10-05-2022 take 2 tablets by mo ut once daily dtodnleljiuv-dny-zpkg-FA-vit K (ONE VERN Y WOMEN'S) 18 mg iron-400 mcg-25 mcg tab Take 2 tablets by mouth once daily. 60 tablet 10/05/2022 Active Start: 10-02-2022 End: 10-02-2022 take 1 tablet by mouth once daily rsxrckpxhuts-bwn-vuci-FA-vit K (ONE VERN Y WOMEN'S) 18 mg iron-400 mcg-25 mcg tab Take 1 tablet by mouth once daily. 31 tablet 11 10/02/2022 10/02/2022 Discontinued Start: 10-02-2022 End: 10-05-2022 take 1 tablet by mouth once daily wlzwizlqwtyy-hvq-chea-FA-vit K (ONE VERN Y WOMEN'S) 18 mg iron-400 mcg-25 mcg tab Take 1 tablet by mouth once daily. 60 tablet 11 10/02/2022 10/05/2022 Discontinued Comment on above: Take 2 tablets by mo uth once daily. Take 1 tablet by helene once daily. omeprazole 20 mg delayed release oral capsule (20 sources) Proton Pump Inhibitor Start: 07-16-2023 Omeprazole Active MG July 16, 2023 12:00am Start: 10-03-2021 End: 08-29-2025 take 1 capsule by mouth once daily at mealtime omeprazole (PRILOSEC) 20 mg capsule Indications: Decreased appetite Take 1 capsule by mouth once daily. Take 30 -60 minutes before first meal of the day. Okay to use gloves, open capsule and sprinkle contents on food (ie applesauce, etc). 30 capsule 03/02/2025 08/29/2025 Active Comment on above: Take 1 capsule by mo uth once daily. Take 1 capsule by mo uth once daily. Take 30 -60 minutes before first meal of the day. Okay to use gloves, open capsule and sprinkle contents on food (ie applesauce, etc). oxybutynin chloride 5 mg oral tablet (20 sources) Cholinergic Muscarinic Antagonist Start: 07-26-2018 End: 11-01-2024 take 1 tablet by mouth twice daily oxybutynin (DITROPAN) 5 mg tablet Indications: Drooling Take 1 tablet by mouth two times a day. (for drooling) 62 tablet 11/01/2024 Active Comment on above: Take 1 tablet by helene th twice daily. (for drooling) Take 1 tablet by helene th two times a day. (for drooling) Pinxav 30% (5 sources) Start: 10-21-2020 Pinxav 30% Active 1 NMA TP TWICE A DAY October 21, 2020 1:00am Start: 10-21-2020 Pinxav 30% Act anna 1 APPLIC TP TWICE A DAY October 21, 2020 1:00am traZODone hydrochloride 50 mg oral tablet (6 sources) Serotonin Reuptake Inhibitor Start: 02-28-2025 End: 02-28-2026 take 1 tablet by mouth once daily at bedtime traZODone (DESYREL) 50 mg tablet Indications: Chronic insomnia Take 1 tablet by mouth daily at bedtime. 30 tablet 02/28/2025 02/28/2026 Active zinc bfsna-zvbm-zcihqcw E-clove oil (PINXAV) oint (20 sources) Start: 11-24-2024 zinc gnxbj-srov-chxexto E-clove oil (PINXAV) oint Indications: Developmental disability , Drooling Apply liberally topically to chest and topically to buttocks with each diaper change 341.2 g 11 11/24/2024 Active Start: 12-08-2023 End: 11-24-2024 zinc ggeiu-hhxh-lztemlb E-cl ove oil (PINXAV) oint Indications: Developmental disability , Drooling Apply liberally topically to chest and topically to buttocks with each diaper change 341.2 g 11 12/08/2023 11/24/2024 Discontinued Start: 12-08-2023 zinc oxide-manohar e-vitamin E-clove oil (PINXAV) oint Indications: Developmental disability , Drooling Apply liberally topically to chest and topically to buttocks with each diaper change 341.2 g 11 12/08/2023 Active Start: 12-09-2022 End: 12-08-2023 zinc erooc-xxrs-zzlejfu E-cl ove oil (PINXAV) oint Indications: Developmental disability , Drooling Apply liberally topically to chest and topically to buttocks with each diaper change 341.2 g 11 12/09/2022 12/08/2023 Discontinued Start: 12-09-2022 zinc oxide-manohar e-vitamin E-clove oil (PINXAV) oint Indications: Developmental disability , Drooling Apply liberally topically to chest and topically to buttocks with each diaper change 341.2 g 11 12/09/2022 Active Start: 11-18-2022 End: 12-09-2022 zinc ipzuu-ggrq-bynrpiy E-cl ove oil (PINXAV) oint Indications: Developmental disability , Drooling Apply 1 application topically with each diaper change. Apply liberally to chest and buttocks. 341.2 g 11/18/2022 12/09/2022 Discontinued Start: 11-18-2022 zinc oxide-manohar e-vitamin E-clove oil (PINXAV) oint Indications: Developmental disability , Drooling Apply 1 application topically with each diaper change. Apply liberally to chest and buttocks. 341.2 g 11 11/18/2022 Active Start: 03-12-2022 End: 11-18-2022 zinc xdzew-fxnb-xfwcvjc E-cl ove oil (PINXAV) oint Indications: Developmental disability , Drooling [The details of the medication are not available because there are pending changes by a home health clinician.] 341.2 g 11 03/12/2022 11/18/2022 Discontinued (Adjust Sig - Block E-Cancel) Start: 03-12-2022 End: 03-12-2023 zinc thhsp-xccf-wpdyfuy E-cl ove oil (PINXAV) oint Indications: Developmental disability , Drooling [The details of the medication are not available because there are pending changes by a home health clinician.] 341.2 g 03/12/2022 03/12/2023 Active Start: 03-12-2022 End: 03-12-2023 zinc glkvf-dxwr-shhurjm E-cl ove oil (PINXAV) oint Indications: Developmental disability , Drooling Apply with each diaper change. 341.2 g 03/12/2022 03/12/2023 Active Start: 03-10-2022 End: 03-10-2023 zinc lxyqo-kuvw-awzowwy E-cl ove oil (PINXAV) oint Indications: Developmental disability , Drooling Apply with each diaper change. 341.2 g 11 03/10/2022 03/10/2023 Active Start: 02-25-2022 End: 03-10-2022 zinc igjoi-xbrx-ilevgxv E-cl ove oil (PINXAV) oint Indications: Developmental disability , Drooling Apply with each diaper change. 341.2 g 11 02/25/2022 03/10/2022 Discontinued Start: 02-25-2022 End: 02-25-2023 zinc nlrkz-oxjk-oezkwkw E-cl ove oil (PINXAV) oint Indications: Developmental disability , Drooling Apply with each diaper change. 341.2 g 11 02/25/2022 02/25/2023 Active Start: 03-03-2021 End: 02-25-2022 zinc hlbsc-xuim-vcwbrtn E-cl ove oil (PINXAV) oint Indications: Developmental disability , Drooling Apply with each diaper change. 341.2 g 11 03/03/2021 02/25/2022 Discontinued Start: 03-03-2021 zinc oxide-manohar e-vitamin E-clove oil (PINXAV) oint Indications: Developmental disability , Drooling Apply with each diaper change. 341.2 g 11 03/03/2021 Active Comment on above: Apply with each diap er change. [The details of the medication are not available because there are pending changes by a home health clinician.] Apply 1 application topically with each diaper change. Apply liberally to chest and buttocks. Apply liberally topi nitish to chest and topically to buttocks with each diaper change Completed/Discontinued Medications Medication Drug Class(es) Dates Sig (Normalized) Sig (Original) onabotulinumtoxina 100 unt injection (20 sources) Acetylcholine Release Inhibitor Start: 01-16-2022 End: 11-18-2022 onabotulinum toxin type A (BOTOX) 100 unit solr Injected every 3 months for spasticity as directed. 0 01/16/2022 11/18/2022 Discontinued (Other) Comment on above: Injected every 3 mon ths for spasticity as directed. calcium carbonate 500 mg chewable tablet (20 sources) Start: 10-23-2020 End: 11-18-2022 take 1 tablet by mouth twice daily calcium carbonate (TUMS) 500 mg chew Take 1 tablet by mouth twice daily for 7 days. 14 tablet 0 10/23/2020 11/18/2022 Discontinued (Other) Comment on above: Take 1 tablet by helene th twice daily for 7 days. COMPOUNDED PRESCRIPTION (20 sources) Start: 05-09-2019 End: 11-18-2022 COMPOUNDED PRESCRIPTION Indications: Silent aspiration, subsequent encounter Liquid thickener. All liquids should be consistency of honey-thickened liquid. 1 Container 5 05/09/2019 11/18/2022 Discontinued Start: 05-09-2019 COMPOUNDED PRE SCRIPTION Indications: Silent aspiration, subsequent encounter Liquid thickener. All liquids should be consistency of honey-thickened liquid. 1 Container 5 05/09/2019 Active Start: 07-19-2018 COMPOUNDED PRE SCRIPTION Indications: Other urinary incontinence , Sensory deprivation, initial encounter Washable cloth chux pad, use as directed. (N39.498) Other urinary incontinence, (T73.8XXA) Sensory deprivation, initial encounter 6 Device 1 07/19/2018 Active Start: 03-12-2017 COMPOUNDED PRE SCRIPTION Washable chucks: urinary incontinence n39.498, sensory deprivation t73.8xxa 6 Each 11 03/12/2017 Active Start: 02-09-2017 COMPOUNDED PRE SCRIPTION Washable chucks: urinary incontinence n39.498, sensory deprivation t73.8xxa 1 Each 11 02/09/2017 Active Comment on above: Washable chucks: uri nary incontinence n39.498, sensory deprivation t73.8xxa Washable cloth chux pad, use as directed. (N39.498) Other urinary incontinence, (T73.8XXA) Sensory deprivation, initial encounter Liquid thickener. Al l liquids should be consistency of honey-thickened liquid. fluticasone propionate 0.05 mg/actuat metered dose nasal spray (20 sources) Corticosteroid Start: 10-22-19 End: 11-19-19 23 take 2 spray(s) nasal route once daily fluticasone (FLONASE) 50 mcg/actuation nasal spray Indications: COVID-19 virus infection Use 2 Sprays in each nostril once daily. X 2 weeks. 1 Bottle 0 10/22/2020 11/18/2022 Discontinued (Other) Comment on above: Use 2 Sprays in each nostril once daily. X 2 weeks. 12 hr guaiFENesin 600 mg extended release oral tablet (20 sources) Start: 10-22-19 End: 11-19-19 23 take 2 tablets by mouth twice daily guaiFENesin (MUCINEX) 600 mg 12 hr tablet Indications: COVID-19 virus infection Take 2 tablets by mouth twice daily. X 2 week. Okay to crush 56 tablet 0 10/22/2020 11/18/2022 Discontinued (Other) Comment on above: Take 2 tablets by mo uth twice daily. X 2 week. Okay to crush Lactobacillus acidophilus (20 sources) Start: 11-01-19 25 take 2 tablets by mouth twice daily Lactobacillus Acidophilus (ACIDOPHILUS) chew Indications: Recurrent urinary tract infection , Constipation, unspecified constipation type 2 caplets by mouth twice daily. Pt with complete edentulism -- please crush. 124 tablet 11 11/01/2024 Active Start: 11-08-2023 End: 11-01-2024 take 2 tablets by mouth twice daily Lactobacillus Acidophilus (ACIDOPHILUS) chew Indications: Recurrent urinary tract infection , Constipation, unspecified constipation type 2 caplets by mouth twice daily. Pt with complete edentulism -- please crush. 124 tablet 11 11/08/2023 11/01/2024 Discontinued Start: 11-08-2023 take 2 tablets by mo uth twice daily Lactobacillus Acidophilus (ACIDOPHILUS) chew Indications: Recurrent urinary tract infection , Constipation, unspecified constipation type 2 caplets by mouth twice daily. Pt with complete edentulism -- please crush. 124 tablet 11 11/08/2023 Active Start: 11-18-2022 End: 11-08-2023 take 2 tablets by mouth twice daily Lactobacillus Acidophilus (ACIDOPHILUS) chew Indications: Recurrent urinary tract infection , Constipation, unspecified constipation type 2 caplets by mouth twice daily. Pt with complete edentulism -- please crush. 124 tablet 11 11/18/2022 11/08/2023 Discontinued Start: 11-18-2022 take 2 tablets by mo uth twice daily Lactobacillus Acidophilus (ACIDOPHILUS) chew Indications: Recurrent urinary tract infection , Constipation, unspecified constipation type 2 caplets by mouth twice daily. Pt with complete edentulism -- please crush. 124 tablet 11 11/18/2022 Active Start: 11-05-2022 End: 11-18-2022 take 2 tablets by mouth twice daily Lactobacillus Acidophilus (ACIDOPHILUS) chew Indications: Recurrent urinary tract infection , Constipation, unspecified constipation type 2 caplets by mouth twice daily 124 tablet 11 11/05/2022 11/18/2022 Discontinued (Adjust Sig - Block E-Cancel) Start: 11-05-2022 take 2 tablets by mo uth twice daily Lactobacillus Acidophilus (ACIDOPHILUS) chew Indications: Recurrent urinary tract infection , Constipation, unspecified constipation type 2 caplets by mouth twice daily 124 tablet 11 11/05/2022 Active Start: 11-05-2021 End: 11-04-2022 take 2 tablets by mouth twice daily Lactobacillus Acidophilus (ACIDOPHILUS) chew Indications: Recurrent urinary tract infection , Constipation, unspecified constipation type 2 caplets by mouth twice daily 124 tablet 11 11/05/2021 11/04/2022 Discontinued Start: 11-05-2021 take 2 tablets by mo uth twice daily Lactobacillus Acidophilus (ACIDOPHILUS) chew Indications: Recurrent urinary tract infection , Constipation, unspecified constipation type 2 caplets by mouth twice daily 124 tablet 11 11/05/2021 Active Comment on above: 2 caplets by mouth t wice daily 2 caplets by mouth t wice daily. Pt with complete edentulism -- please crush. lactulose 667 mg/ml oral solution (20 sources) Osmotic Laxative Start: End: take 15 g by mouth once daily Lactulose 10 GM/15 ML solution Discontinued 15 g PO DAILY July 26, 2018 1:00am July 16, 2023 2:11pm Comment on above: Take 15 mL by mouth once daily. Take 15 mL by mouth once daily as needed. [The details of the medication are not available because there are pending changes by a home health clinician.] Take 15 mL by mouth once daily as needed (constipation). mirtazapine 30 mg oral tablet (20 sources) Start: Mirtazapine Active MG July 16, 2023 12:00am Start: 07-31-2021 End: 11-04-2025 take 1 tablet by mouth once daily at bedtime mirtazapine (REMERON) 30 mg tablet Indications: Difficulty sleeping Take 1 tablet by mouth daily at bedtime. 30 tablet 5 11/24/2024 05/08/2025 Discontinued Comment on above: Take 1 tablet by helene th daily at bedtime. cmnhliwm-otmt-UR-calc ium-mins (ONE-A-DAY WOMEN'S PETITES) 9 mg iron-200 mcg tab (20 sources) Start: 04-30-2022 End: 11-18-2022 cglrgsuv-uvlg-ZT-calcium-m ins (ONE-A-DAY WOMEN'S PETITES) 9 mg iron-200 mcg tab Take 2 tablets by mouth once daily. 60 tablet 5 04/30/2022 11/18/2022 Discontinued (Other) Start: 04-30-2022 multivit-iron- AF-jotkzkv-puyq (ONE-A-DAY WOMEN'S PETITES) 9 mg iron-200 mcg tab Take 2 tablets by mouth once daily. 60 tablet 5 04/30/2022 Active Comment on above: Take 2 tablets by mo [facility] once daily. ch-yi-fydd-FA-Ca carb-vit K (WOMEN'S MULTIVITAMIN) 18 mg iron-400 mcg-500 mg tab (14 sources) Start: 02-21-20 21 take 1 tablet by mouth once daily mu-gf-iqzd-FA-Ca carb-vit K (WOMEN'S MULTIVITAMIN) 18 mg iron-400 mcg-500 mg tab Take 1 tablet by mouth once daily. 30 tablet 11 02/20/2021 Active Comment on above: Take 1 tablet by helene once daily. ondansetron 4 mg disintegrating oral tablet (20 sources) Serotonin-3 Receptor Antagonist Start: 10-23-19 21 End: 11-19-19 23 take 1 tablet by mouth twice daily ondansetron orally disintegrating (ZOFRAN ODT) 4 mg disintegrating tablet Take 1 tablet by mouth twice daily. X 1 week 14 tablet 0 10/23/2020 11/18/2022 Discontinued (Other) Comment on above: [facility] ONE DAILY W[facility]EN'S 18 mg iron-400 mcg-25 mcg tab (20 sources) Start: 01-31-20 22 take 1 tablet by mouth once daily ONE DAILY WOMEN'S 18 mg iron-400 mcg-25 mcg tab TAKE 1 TABLET BY MOUTH DAILY 31 tablet 11 01/30/2022 Active Comment on above: TAKE 1 TABLET BY HELENE DAILY salmon calcitonin 200 unt/actuat nasal spray (20 sources) Calcitonin Start: 07-15-20 End: 11-19-19 23 take 1 spray(s) nasal route once daily calcitonin,salmon, (MIACALCIN, FORTICAL) 200 unit/actuation nasal spray Indications: Age-related osteoporosis without current pathological fracture Use 1 [place] in the nose once daily. Alternate nostrils. Discontinue the day before prolia started. 3.7 mL 5 11/16/2022 11/18/2022 Discontinued (Other) Comment on above: Use 1 [place] in the n ose once daily. Alternate nostrils. Use 1 [place] in the n ose once daily. Alternate nostrils. Discontinue the day before prolia started. Starch, Thickening, (THICK-IT) powd (20 sources) Start: 08-19-20 25 Starch, Thickening, (THICK-IT) powd Indications: Complete edentulism, unspecified edentulism class Honey-thickened liquids every liquid except pleasure foods (ie jello, ice cream) 1020 g 5 05/08/2025 Active Start: 11-01-2024 End: 05-08-2025 Starch, Thickening, (THICK-I T) powd Indications: Complete edentulism, unspecified edentulism class Honey-thickened liquids every liquid except pleasure foods (ie jello, ice cream) 1020 g 5 11/01/2024 05/08/2025 Discontinued Start: 11-01-2024 Starch, Thicke david, (THICK-IT) powd Indications: Complete edentulism, unspecified edentulism class Honey-thickened liquids every liquid except pleasure foods (ie jello, ice cream) 1020 g 5 11/01/2024 Active Start: 05-03-2024 End: 11-01-2024 Starch, Thickening, (THICK-I T) powd Indications: Complete edentulism, unspecified edentulism class Honey-thickened liquids every liquid except pleasure foods (ie jello, ice cream) 1020 g 5 05/03/2024 11/01/2024 Discontinued Start: 05-03-2024 Starch, Thicke david, (THICK-IT) powd Indications: Complete edentulism, unspecified edentulism class Honey-thickened liquids every liquid except pleasure foods (ie jello, ice cream) 1020 g 5 05/03/2024 Active Start: 11-08-2023 End: 05-03-2024 Starch, Thickening, (THICK-I T) powd Indications: Complete edentulism, unspecified edentulism class Honey-thickened liquids every liquid except pleasure foods (ie jello, ice cream) 1020 g 5 11/08/2023 05/03/2024 Discontinued Start: 11-08-2023 Starch, Thicke david, (THICK-IT) powd Indications: Complete edentulism, unspecified edentulism class Honey-thickened liquids every liquid except pleasure foods (ie jello, ice cream) 1020 g 5 11/08/2023 Active Start: 05-04-2023 End: 11-08-2023 Starch, Thickening, (THICK-I T) powd Indications: Complete edentulism, unspecified edentulism class Honey-thickened liquids every liquid except pleasure foods (ie jello, ice cream) 1020 g 5 05/04/2023 11/08/2023 Discontinued Start: 05-04-2023 Starch, Thicke david, (THICK-IT) powd Indications: Complete edentulism, unspecified edentulism class Honey-thickened liquids every liquid except pleasure foods (ie jello, ice cream) 1020 g 5 05/04/2023 Active Start: 11-18-2022 End: 05-04-2023 Starch, Thickening, (THICK-I T) powd Indications: Complete edentulism, unspecified edentulism class Honey-thickened liquids every liquid except pleasure foods (ie jello, ice cream) 1020 g 5 11/18/2022 05/04/2023 Discontinued Start: 11-18-2022 Starch, Thicke david, (THICK-IT) powd Indications: Complete edentulism, unspecified edentulism class Honey-thickened liquids every liquid except pleasure foods (ie jello, ice cream) 1020 g 5 11/18/2022 Active Start: 11-05-2022 End: 11-18-2022 take 1020 g by mouth once daily Starch, Thickening, (THICK-IT) powd Take by mouth daily as indicated. 1020 g 5 11/05/2022 11/18/2022 Discontinued (Adjust Sig - Block E-Cancel) Start: 11-05-2022 take 1020 g by mouth once daily Starch, Thickening, (THICK-IT) powd Take by mouth daily as indicated. 1020 g 5 11/05/2022 Active Start: 04-24-2022 End: 11-04-2022 Starch, Thickening, (THICK-I T) powd [The details of the medication are not available because there are pending changes by a home health clinician.] 1020 g 5 04/24/2022 11/04/2022 Discontinued Start: 04-24-2022 Starch, Thicke david, (THICK-IT) powd [The details of the medication are not available because there are pending changes by a home health clinician.] 1020 g 5 04/24/2022 Active Start: 04-24-2022 take 1020 g by mouth once daily Starch, Thickening, (THICK-IT) powd Take by mouth daily as indicated. 1020 g 5 04/24/2022 Active Start: 11-05-2021 End: 04-24-2022 take 1020 g by mouth once daily Starch, Thickening, (THICK-IT) powd Take by mouth daily as indicated. 1020 g 5 11/05/2021 04/24/2022 Discontinued Start: 11-05-2021 take 1020 g by mouth once daily Starch, Thickening, (THICK-IT) powd Take by mouth daily as indicated. 1020 g 5 11/05/2021 Active Comment on above: Take by mouth daily as indicated. [The details of the medication are not available because there are pending changes by a home health clinician.] Honey-thickened liqu ids every liquid except pleasure foods (ie jello, ice cream) sunscreen lotn (20 sources) Start: 02-28-2016 End: 11-18-2022 sunscreen lotn Indications: History of sunburn Apply 1 application to affected area as needed. SPF 30 240 mL 0 02/28/2016 11/18/2022 Discontinued (Other) Start: 02-28-2016 sunscreen lotn Indications: History of sunburn Apply 1 application to affected area as needed. SPF 30 240 mL 0 02/28/2016 Active Comment on above: Apply 1 application to affected area as needed. SPF 30 Problems Active Problems Problem Classification Problem Date Documented Date Episodic/Chronic Developmental disorders (20 sources) Intellectual disability; Translations: [Unspecified intellectual disabilities] Onset: 03-01-2016 03-28-2020 Chronic Diabetes mellitus without complication (3 sources) Increased glucose level; Translations: [Other abnormal glucose] Onset: 03-21-2025 07-16-2023 Episodic Disorders of lipid metabolism (3 sources) Hypertriglyceridemia; Translations: [Pure hyperglyceridemia] Onset: 02-28-2025 02-28-2025 Chronic Disorders of teeth and jaw (20 sources) Acquired absence of all teeth; Translations: [Complete loss of teeth, unspecified cause, unspecified class] Onset: 11-18-2022 Chronic Esophageal disorders (2 sources) Gastroesophageal reflux disease without esophagitis; Translations: [Gastro-esophageal reflux disease without esophagitis] Chronic Fluid and electrolyte disorders (1 source) Hypokalemia; Translations: [Hypokalemia] Episodic Fracture of lower limb (5 sources) Fracture of distal end of fibula; Translations: [Other fracture of upper and lower end of left fibula, initial encounter for closed fracture] 08-19-2021 Episodic Genitourinary symptoms and ill-defined conditions (20 sources) Urinary incontinence; Translations: [Unspecified urinary incontinence] Onset: 03-01-2016 03-01-2016 Chronic Miscellaneous mental health disorders (2 sources) Chronic insomnia; Translations: [Psychophysiologic insomnia] Onset: 02-28-2025 02-28-2025 Chronic Nutritional deficiencies (20 sources) Vitamin D deficiency; Translations: [Vitamin D deficiency, unspecified] Onset: 03-01-2016 03-01-2016 Chronic Osteoporosis (20 sources) Osteoporosis; Translations: [Age-related osteoporosis without current pathological fracture] Onset: 09-08-2021 09-08-2021 Chronic Other acquired deformities (9 sources) Contracture of left knee joint; Translations: [Contracture, left knee] Chronic Other acquired deformities (1 source) Contracture, unspecified hand; Translations: [Contracture of hand] Onset: 06-11-2025 Chronic Other connective tissue disease (2 sources) Spasticity; Translations: [Cramp and spasm] Episodic Other endocrine disorders (20 sources) Hypoglycemia; Translations: [Hypoglycemia, unspecified] 02-18-2017 Chronic Other endocrine disorders (1 source) Hypoglycemia, unspecified; Translations: [Hypoglycemia] Onset: 11-18-2022 Chronic Other eye disorders (1 source) Ptosis of eyelid; Translations: [Unspecified ptosis of bilateral eyelids] 02-28-2025 Episodic Other hereditary and degenerative nervous system conditions (2 sources) Dystonia; Translations: [Dystonia, unspecified] Chronic Other liver diseases (1 source) Alkaline phosphatase raised; Translations: [Abnormal levels of other serum enzymes] Episodic Other nervous system disorders (1 source) Abnormal gait; Translations: [Unspecified abnormalities of gait and mobility] Episodic Other nervous system disorders (5 sources) Reduced mobility; Translations: [Other abnormalities of gait and mobility] Episodic Other non-traumatic joint disorders (4 sources) Pain in left knee; Translations: [Pain in joint, lower leg] Episodic Other nutritional; endocrine; and metabolic disorders (10 sources) Decrease in appetite; Translations: [Anorexia] Episodic Other screening for suspected conditions (not mental disorders or infectious disease) (9 sources) Patient encounter status; Translations: [Encounter for screening for malignant neoplasm of colon] Episodic Other upper respiratory disease (20 sources) Allergic rhinitis; Translations: [Allergic rhinitis, unspecified] Onset: 03-01-2016 03-01-2016 Chronic Paralysis (20 sources) Cerebral palsy; Translations: [Cerebral palsy, unspecified] Onset: 02-29-2024 Chronic Residual codes; unclassified (7 sources) Difficulty sleeping ; Translations: [Sleep disorder, unspecified] Episodic Residual codes; unclassified (1 source) Postmenopausal state; Translations: [Asymptomatic menopausal state] 08-10-2023 Episodic Residual codes; unclassified (1 source) Physical activity finding; Translations: [Other general symptoms and signs] 02-29-2024 Episodic Unclassified (1 source) NO SHOW 01-03-2025 Urinary tract infections (4 sources) Recurrent urinary tract infection; Translations: [Urinary tract infection, site not specified] Episodic Past or Other Problems Problem Classification Problem Date Documented Da te Episodic/Chronic Allergic reactions (20 sources) Diaper rash; Translations: [Diaper dermatitis] Onset: 03-01-2016 03-01-2016 Episodic Diseases of mouth; excluding dental (20 sources) Dribbling from mouth; Translations: [Disturbances of salivary secretion] Onset: 03-01-2016 03-01-2016 Episodic Other ear and sense organ disorders (20 sources) Impacted cerumen of bilateral ears; Translations: [Impacted cerumen, bilateral] Onset: 03-01-2016 Resolved: 09-08-2021 09-08-2021 Episodic Other ear and sense organ disorders (1 source) Impacted cerumen, bilateral; Translations: [Bilateral impacted cerumen] Onset: 02-28-2025 Episodic Other eye disorders (1 source) Unspecified ptosis of bilateral eyelids; Translations: [Ptosis of both eyelids] Onset: 02-28-2025 Episodic Other gastrointestinal disorders (20 sources) Constipation; Translations: [Constipation, unspecified] Onset: 03-01-2016 03-01-2016 Episodic Other gastrointestinal disorders (1 source) Constipation, unspecified; Translations: [Constipation, unspecified constipation type] Onset: 03-01-2016 Episodic Other injuries and conditions due to external causes (20 sources) Aspiration into respiratory tract; Translations: [Unspecified foreign body in respiratory tract, part unspecified causing other injury, initial encounter] Onset: 09-06-2018 09-06-2018 Episodic Other injuries and conditions due to external causes (1 source) Unspecified foreign body in respiratory tract, part unspecified causing other injury, subsequent encounter; Translations: [Aspiration into airway, subsequent encounter] Onset: 09-06-2018 Episodic Residual codes; unclassified (20 sources) Procedure and treatment not carried out because of patient's decision for other reasons; Translations: [Surgical or other procedure not carried out because of patient's decision] Onset: 11-18-2022 11-18-2022 Episodic Results Test Name Value Interpretation Reference Range Facility [facility] 06-21-[facility]25 T[facility] Telephone (NATHAN) MALKA KIMBALL ([id number]) 1955 F Date Time Provider Department 06/21/25 DEBI MEJIA During your visit today, we recorded the following information about you: Theresa Boateng 06/21/2025 2:14 PM Signed Patients career based intervention coordinator Eliza Morris called requesting a bone density scan to be ordered Can be reached at [phone] Please advise Debi Mejia APRN.RILEY 06/22/2025 8:41 AM Signed Orders are in. Debi Mejia APRN.Lilia Ferraro 06/22/2025 10:38 AM Signed Contacted caregiver scheduled Bone density for Darren Allergies As of Date: 06/21/2025 (No Known Allergies) Date Reviewed: 02/28/2025 Reviewed by: Igor Manuel LPN - Fully Assessed Reason for Visit: Orders [681] Cmt: bone density Primary Visit Diagnosis:Asymptomati c postmenopausal state [Z78.0] Other Visit Diagnosis:Osteoporosi s, unspecified osteoporosis type, unspecified pathological fracture presence [M81.0] Order(s):DXA-AXIAL SKELETON [0041285] Order #: [id number] FUTURE BD DXA TRABECULAR BONE SCORE (TBS) [[id number]] Order #: [id number] FUTURE Prescriptions as of 06/22/2025 - mirtazapine (REMERON) 30 mg tablet Take 1 tablet by mouth daily at bedtime. - Starch, Thickening, (THICK-IT) powd Honey-thickened liquids every liquid except pleasure foods (ie jello, ice cream) - omeprazole (PRILOSEC) 20 mg capsule Take 1 capsule by mouth once daily. Take 30 -60 minutes before first meal of the day. Okay to use gloves, open capsule and sprinkle contents on food (ie applesauce, etc). - traZODone (DESYREL) 50 mg tablet Take 1 tablet by mouth daily at bedtime. - brqahda-orgrcefnx-mvt dennis D3 (OYSTER SHELL CALCIUM-VITAMIN D) 500 mg-5 mcg (200 unit) per tablet Take 1 tablet by mouth two times a day with meals. Take with meals or food. - baclofen 10 mg tablet Take 1 tablet by mouth every 12 hours. - zinc sjkad-cqri-xfdnegm E-clove oil (PINXAV) oint Apply liberally topically to chest and topically to buttocks with each diaper change - cetirizine (ZYRTEC) 10 mg tablet Take 1 tablet by mouth daily at bedtime. - Lactobacillus Acidophilus (ACIDOPHILUS) chew 2 caplets by mouth twice daily. Pt with complete edentulism -- please crush. - oxybutynin (DITROPAN) 5 mg tablet Take 1 tablet by mouth two times a day. (for drooling) - coexqlnqevcp-nhx-zexp -FA-vit K (ONE DAILY WOMEN'S) 18 mg iron-400 mcg-25 mcg tab Take 2 tablets by mouth once daily. - Diaper,Brief, Adult,Disposable Use as directed. Size XL (N39.498) Other urinary incontinence, (T73.8XXA) Sensory deprivation, initial encounter - Disposable Gloves misc Use as directed, latex, XL, N39.498, T73.8XXA - Miscellaneous Medical Supply Washable chux pads - Diaper,Brief, Adult,Disposable (BRIEFS) misc Pull ups size XL Use as directed (N39.498) Other urinary incontinence, (T73.8XXA) Sensory deprivation, initial encounter ? - COMPOUNDED PRESCRIPTION Washable cloth chux pad, use as directed. (N39.498) Other urinary incontinence, (T73.8XXA) Sensory deprivation, initial encounter - COMPOUNDED PRESCRIPTION Washable chucks: urinary incontinence n39.498, sensory deprivation t73.8xxa - Diaper,Brief, Adult,Disposable misc Use as directed. Size XL (N39.498) Other urinary incontinence, (T73.8XXA) Sensory deprivation, initial encounter - COMPOUNDED PRESCRIPTION Washable chucks: urinary incontinence n39.498, sensory deprivation t73.8xxa Problem List As Of Date 06/21/2025 Noted Resolved Intellectual disability [F79] 03/01/2016 Urinary incontinence [R32] 03/01/2016 Constipation [K59.00] 03/01/2016 Bilateral impacted cerumen [H61.23] 03/01/2016 09/08/2021 Mixed incontinence [N39.46] 03/01/2016 Drooling [K11.7] 03/01/2016 Diaper dermatitis [L22] 03/01/2016 Vitamin D deficiency [E55.9] 03/01/2016 Allergic rhinitis [J30.9] 03/01/2016 Hypoglycemia [E16.2] Aspiration into airway [T17.908A] 09/06/2018 Developmental disability [F89] 09/06/2018 Osteoporosis [M81.0] 09/08/2021 Complete edentulism [K08.109] 11/18/2022 Care refused by patient [Z53.29] 11/18/2022 Cerebral palsy, unspecified type (HCC) [G80.9] 02/29/2024 Encounter Status:Closed by LILIA ISAAC on 06/22/25 [facility][id number]) 1955 F Date Time Provider Department 06/14/25 ISSAC WILKES During your visit today, we recorded the following information about you: Erinn Vergara RN 06/14/2025 4:23 PM Signed Vivi Pt's caregiver called in and was asking if the Pt has to get the Cologuard done. She states she had the IFOBT done on 08/28/24 and it came back negative. I told her I didn't see the order or results for that. She said she thought that Dr Wilkes had told them they didn't need to get it again right now. I didn't see anything about this in OV note. I told her I would have provider get back to them. She was going to have [facility] send Pt's last labs to PCP. FOX Castellano William J, MD 06/15/2025 8:49 AM Signed I am not sure what is going on with cologuard unless insurance sent in? Will be due for another stool test in just about two months. If she has a cologuard and does it, would not need redone again for three years instead of one. Igor Manuel LPN 06/15/2025 1:32 PM Signed Spoke with Vivi and this is something that insurance ordered. She isn't going to complete will wait until she is due from our office. Allergies As of Date: 06/14/2025 (No Known Allergies) Date Reviewed: 02/28/2025 Reviewed by: Igor Manuel LPN - Fully Assessed Reason for Visit: Patient Question [1477] Prescriptions as of 06/15/2025 - mirtazapine (REMERON) 30 mg tablet Take 1 tablet by mouth daily at bedtime. - Starch, Thickening, (THICK-IT) powd Honey-thickened liquids every liquid except pleasure foods (ie jello, ice cream) - omeprazole (PRILOSEC) 20 mg capsule Take 1 capsule by mouth once daily. Take 30 -60 minutes before first meal of the day. Okay to use gloves, open capsule and sprinkle contents on food (ie applesauce, etc). - traZODone (DESYREL) 50 mg tablet Take 1 tablet by mouth daily at bedtime. - yuaxmwp-xdvzdzamr-aai dennis D3 (OYSTER SHELL CALCIUM-VITAMIN D) 500 mg-5 mcg (200 unit) per tablet Take 1 tablet by mouth two times a day with meals. Take with meals or food. - baclofen 10 mg tablet Take 1 tablet by mouth every 12 hours. - zinc fekmz-lpnx-qjzamyj E-clove oil (PINXAV) oint Apply liberally topically to chest and topically to buttocks with each diaper change - cetirizine (ZYRTEC) 10 mg tablet Take 1 tablet by mouth daily at bedtime. - Lactobacillus Acidophilus (ACIDOPHILUS) chew 2 caplets by mouth twice daily. Pt with complete edentulism -- please crush. - oxybutynin (DITROPAN) 5 mg tablet Take 1 tablet by mouth two times a day. (for drooling) - wqjpvnykkklk-tot-pxro -FA-vit K (ONE DAILY WOMEN'S) 18 mg iron-400 mcg-25 mcg tab Take 2 tablets by mouth once daily. - Diaper,Brief, Adult,Disposable Use as directed. Size XL (N39.498) Other urinary incontinence, (T73.8XXA) Sensory deprivation, initial encounter - Disposable Gloves misc Use as directed, latex, XL, N39.498, T73.8XXA - Miscellaneous Medical Supply Washable chux pads - Diaper,Brief, Adult,Disposable (BRIEFS) misc Pull ups size XL Use as directed (N39.498) Other urinary incontinence, (T73.8XXA) Sensory deprivation, initial encounter ? - COMPOUNDED PRESCRIPTION Washable cloth chux pad, use as directed. (N39.498) Other urinary incontinence, (T73.8XXA) Sensory deprivation, initial encounter - COMPOUNDED PRESCRIPTION Washable chucks: urinary incontinence n39.498, sensory deprivation t73.8xxa - Diaper,Brief, Adult,Disposable misc Use as directed. Size XL (N39.498) Other urinary incontinence, (T73.8XXA) Sensory deprivation, initial encounter - COMPOUNDED PRESCRIPTION Washable chucks: urinary incontinence n39.498, sensory deprivation t73.8xxa Problem List As Of Date 06/14/2025 Noted Resolved Intellectual disability [F79] 03/01/2016 Urinary incontinence [R32] 03/01/2016 Constipation [K59.00] 03/01/2016 Bilateral impacted cerumen [H61.23] 03/01/2016 09/08/2021 Mixed incontinence [N39.46] 03/01/2016 Drooling [K11.7] 03/01/2016 Diaper dermatitis [L22] 03/01/2016 Vitamin D deficiency [E55.9] 03/01/2016 Allergic rhinitis [J30.9] 03/01/2016 Hypoglycemia [E16.2] Aspiration into airway [T17.908A] 09/06/2018 Developmental disability [F89] 09/06/2018 Osteoporosis [M81.0] 09/08/2021 Complete edentulism [K08.109] 11/18/2022 Care refused by patient [Z53.29] 11/18/2022 Cerebral palsy, unspecified type (HCC) [G80.9] 02/29/2024 En[facility] Status:[facility]NATHAN[facility] MALKA KIMBALL ([id number]) 1955 F Date Time Provider Department 06/11/25 DEBI MEJIA During your visit today, we recorded the following information about you: Debi Mejia APRN.RILEY 06/11/2025 10:56 PM Signed Can please fax OT order to [employer] as caregiver requested. Debi Mejia APRN.Jhonny Navarro LPN 06/12/2025 8:13 AM Signed Order faxed. Jhonny Darling LPN Allergies As of Date: 06/11/2025 (No Known Allergies) Date Reviewed: 02/28/2025 Reviewed by: Igor Manuel LPN - Fully Assessed Prescriptions as of 06/12/2025 - mirtazapine (REMERON) 30 mg tablet Take 1 tablet by mouth daily at bedtime. - Starch, Thickening, (THICK-IT) powd Honey-thickened liquids every liquid except pleasure foods (ie jello, ice cream) - omeprazole (PRILOSEC) 20 mg capsule Take 1 capsule by mouth once daily. Take 30 -60 minutes before first meal of the day. Okay to use gloves, open capsule and sprinkle contents on food (ie applesauce, etc). - traZODone (DESYREL) 50 mg tablet Take 1 tablet by mouth daily at bedtime. - kzrgjcq-gypnkivwf-xjf dennis D3 (OYSTER SHELL CALCIUM-VITAMIN D) 500 mg-5 mcg (200 unit) per tablet Take 1 tablet by mouth two times a day with meals. Take with meals or food. - baclofen 10 mg tablet Take 1 tablet by mouth every 12 hours. - zinc dzssh-oswl-qakdxjp E-clove oil (PINXAV) oint Apply liberally topically to chest and topically to buttocks with each diaper change - cetirizine (ZYRTEC) 10 mg tablet Take 1 tablet by mouth daily at bedtime. - Lactobacillus Acidophilus (ACIDOPHILUS) chew 2 caplets by mouth twice daily. Pt with complete edentulism -- please crush. - oxybutynin (DITROPAN) 5 mg tablet Take 1 tablet by mouth two times a day. (for drooling) - ekuivpgbcchq-ujk-zhlk -FA-vit K (ONE DAILY WOMEN'S) 18 mg iron-400 mcg-25 mcg tab Take 2 tablets by mouth once daily. - Diaper,Brief, Adult,Disposable Use as directed. Size XL (N39.498) Other urinary incontinence, (T73.8XXA) Sensory deprivation, initial encounter - Disposable Gloves misc Use as directed, latex, XL, N39.498, T73.8XXA - Miscellaneous Medical Supply Washable chux pads - Diaper,Brief, Adult,Disposable (BRIEFS) misc Pull ups size XL Use as directed (N39.498) Other urinary incontinence, (T73.8XXA) Sensory deprivation, initial encounter ? - COMPOUNDED PRESCRIPTION Washable cloth chux pad, use as directed. (N39.498) Other urinary incontinence, (T73.8XXA) Sensory deprivation, initial encounter - COMPOUNDED PRESCRIPTION Washable chucks: urinary incontinence n39.498, sensory deprivation t73.8xxa - Diaper,Brief, Adult,Disposable misc Use as directed. Size XL (N39.498) Other urinary incontinence, (T73.8XXA) Sensory deprivation, initial encounter - COMPOUNDED PRESCRIPTION Washable chucks: urinary incontinence n39.498, sensory deprivation t73.8xxa Problem List As Of Date 06/11/2025 Noted Resolved Intellectual disability [F79] 03/01/2016 Urinary incontinence [R32] 03/01/2016 Constipation [K59.00] 03/01/2016 Bilateral impacted cerumen [H61.23] 03/01/2016 09/08/2021 Mixed incontinence [N39.46] 03/01/2016 Drooling [K11.7] 03/01/2016 Diaper dermatitis [L22] 03/01/2016 Vitamin D deficiency [E55.9] 03/01/2016 Allergic rhinitis [J30.9] 03/01/2016 Hypoglycemia [E16.2] Aspiration into airway [T17.908A] 09/06/2018 Developmental disability [F89] 09/06/2018 Osteoporosis [M81.0] 09/08/2021 Complete edentulism [K08.109] 11/18/2022 Care refused by patient [Z53.29] 11/18/2022 Cerebral palsy, unspecified type (HCC) [G80.9] 02/29/2024 Encounter Status:Closed by JHONNY DARLING on 06/12/25 [facility] 03-16-2025 HbA1c (Bld) [Mass fraction] 5.4 % Normal <=5.6 [facility] Comment on above: Result Comment: Norm al < 5.7 % Prediabetic 5.7 - 6.4 % Diabetic >or= 6.5 % Please note range changes. Performed By: #### L 501.9985, L501.9187, L501.9310, L501.9520 #### [facility] [address] [place], [place], [id number] Hemoglobin A1c percentageOrd ered By: Issca Wilkes on 03-16-2025 HbA1c (Bld) [Mass fraction] 5.4 % <5.7 [facility] Comment on above: Normal < 5.7 % Predi abetic 5.7 - 6.4 % Diabetic >or= 6.5 % Please note range changes. L501.9187on 03-16-2025 T3 Total 0.93 ng/mL Normal 0.80-2.00 [facility] Comment on above: Performed By: #### L 501.9985, L501.9187, L501.9310, L501.9520 #### [facility] [address] [place], [place], [id number] Serum or plasma triiodothyro nine (T3) measurement (mass/volume)Ordered By: Issac Wilkes on 03-16-2025 T3 [Mass/Vol] 0.93 ng/mL 0.80-2.00 [facility] T4 Total, Thyroxinon T4 [Mass/Vol] 6.7 ug/dL Normal 4.8-13.9 [facility] Comment on above: Performed By: #### L 501.9985, L501.9187, L501.9310, L501.9520 #### [facility] [address] [place], [place], [id number] TSH DL <= 0.005 mIU/L QnOrde red By: Issac Wilkes on 03-16-2025 TSH Qn 2.530 uIU/mL 0.300-4.200 [facility] Thyroid Stim Hormone (TSH)on 03-16-2025 TSH 2.530 uIU/mL Normal 0.300-4.200 [facility] Comment on above: Performed By: #### L 501.9985, L501.9187, L501.9310, L501.9520 #### [facility] [address] [place], [address] ThyroxineOrdered By: Issac Wilkes on 03-16-2025 T4 [Mass/Vol] 6.7 ug/dL 4.8-13.9 [facility] CNPNon 03-02-2025 CNPN Telephone (FAMWS) MALKA KIMBALL ([id number]) 1955 F Date Time Provider Department 03/02/25 ISSAC WILKES [facility] During your visit today, we recorded the following information about you: Issac Wilkes MD 03/02/2025 5:03 PM Signed Labs are stable. Thyroid is ? Borderline abnormal. Sugar is slightly up. Recheck A1c and tsh and t4, t3 in a few weeks Ernestina Merida RN 03/03/2025 8:30 AM Signed Left vm for Vivi to return call to triage nurse for provider's message. Igor Manuel LPN 03/19/2025 7:26 PM Signed Follow up labs were completed at [facility]. View External Labs - Chemistry [ID [id number]] Allergies As of Date: 03/02/2025 (No Known Allergies) Date Reviewed: 02/28/2025 Reviewed by: Igor Manuel LPN - Fully Assessed Reason for Visit: Results [95] Primary Visit Diagnosis:Hyperglycem ia [R73.9] Other Visit Diagnoses:Abnormal TSH [R79.89] Hypertriglyceridemia [E78.1] Order(s):HEMOGLOBIN A1C [NHTHC4V] Order #: [id number] FUTURE THYROID STIMULATING HORMONE [SQTSH] Order #: [id number] FUTURE T3 [SQT3] Order #: [id number] FUTURE T4/FTI/T4U [VBP2PON] Order #: [id number] FUTURE Prescriptions as of 03/28/2025 - omeprazole (PRILOSEC) 20 mg capsule Take 1 capsule by mouth once daily. Take 30 -60 minutes before first meal of the day. Okay to use gloves, open capsule and sprinkle contents on food (ie applesauce, etc). - traZODone (DESYREL) 50 mg tablet Take 1 tablet by mouth daily at bedtime. - qgxxpok-lqhnwolly-swy dennis D3 (OYSTER SHELL CALCIUM-VITAMIN D) 500 mg-5 mcg (200 unit) per tablet Take 1 tablet by mouth two times a day with meals. Take with meals or food. - baclofen 10 mg tablet Take 1 tablet by mouth every 12 hours. - mirtazapine (REMERON) 30 mg tablet Take 1 tablet by mouth daily at bedtime. - zinc fodvp-nevr-dlwjzjh E-clove oil (PINXAV) oint Apply liberally topically to chest and topically to buttocks with each diaper change - cetirizine (ZYRTEC) 10 mg tablet Take 1 tablet by mouth daily at bedtime. - Lactobacillus Acidophilus (ACIDOPHILUS) chew 2 caplets by mouth twice daily. Pt with complete edentulism -- please crush. - oxybutynin (DITROPAN) 5 mg tablet Take 1 tablet by mouth two times a day. (for drooling) - Starch, Thickening, (THICK-IT) powd Honey-thickened liquids every liquid except pleasure foods (ie jello, ice cream) - zgakxdoktwqt-vbk-mmcn -FA-vit K (ONE DAILY WOMEN'S) 18 mg iron-400 mcg-25 mcg tab Take 2 tablets by mouth once daily. - Diaper,Brief, Adult,Disposable Use as directed. Size XL (N39.498) Other urinary incontinence, (T73.8XXA) Sensory deprivation, initial encounter - Disposable Gloves misc Use as directed, latex, XL, N39.498, T73.8XXA - Miscellaneous Medical Supply Washable chux pads - Diaper,Brief, Adult,Disposable (BRIEFS) misc Pull ups size XL Use as directed (N39.498) Other urinary incontinence, (T73.8XXA) Sensory deprivation, initial encounter ? - COMPOUNDED PRESCRIPTION Washable cloth chux pad, use as directed. (N39.498) Other urinary incontinence, (T73.8XXA) Sensory deprivation, initial encounter - COMPOUNDED PRESCRIPTION Washable chucks: urinary incontinence n39.498, sensory deprivation t73.8xxa - Diaper,Brief, Adult,Disposable misc Use as directed. Size XL (N39.498) Other urinary incontinence, (T73.8XXA) Sensory deprivation, initial encounter - COMPOUNDED PRESCRIPTION Washable chucks: urinary incontinence n39.498, sensory deprivation t73.8xxa Problem List As Of Date 03/02/2025 Noted Resolved Intellectual disability [F79] 03/01/2016 Urinary incontinence [R32] 03/01/2016 Constipation [K59.00] 03/01/2016 Bilateral impacted cerumen [H61.23] 03/01/2016 09/08/2021 Mixed incontinence [N39.46] 03/01/2016 Drooling [K11.7] 03/01/2016 Diaper dermatitis [L22] 03/01/2016 Vitamin D deficiency [E55.9] 03/01/2016 Allergic rhinitis [J30.9] 03/01/2016 Hypoglycemia [E16.2] Aspiration into airway [T17.908A] 09/06/2018 Developmental disability [F89] 09/06/2018 Osteoporosis [M81.0] 09/08/2021 Complete edentulism [K08.109] 11/18/2022 Care refused by patient [Z53.29] 11/18/2022 Cerebral palsy, unspecified type (HCC) [G80.9] 02/29/2024 Encounter Status:Closed by ISSAC WILKES on 03/28/25 Normal [facility] 25(OH)D3 Oren-Bertrand 2024 25-hydroxyvitamin D3 [Mass/Vol] 39.2 ng/mL Normal 31.0-80.0 [facility] Comment on above: Order Comment: Speci men Type: BLOOD SPECIMENOrdering Facility: [facility] [address] [address] [place] [place] [address] Result Comment: Clas sification of 25 [place] Vitamin D status: Deficiency/Insufficiency: < or = 30 ng/ml. Sufficiency/Optimal Levels: 31-80 ng/mL Toxicity: > 100 ng/mL. Test performed by chemiluminescent immunoassay. Performed By: #### 1 989-3 ####[facility] [id number] [place] [address] [place] CBC W Auto Differential pane l (Bld)on 02-28-2025 Basophils (Bld) [#/Vol] 0.09 10*3/uL [facility] Basophils/100 WBC (Bld) 1.1 % [facility] Differential cell count method Nom (Bld) Auto [facility] Eosinophils (Bld) [#/Vol] 0.12 10*3/uL [facility] Eosinophils/100 WBC (Bld) 1.4 % [facility] Erythrocyte distribution width (RBC) [Ratio] 12.4 % 11.5 - 15.0 % [facility] Hematocrit (Bld) [Volume fraction] 43.2 % 36.0 - 46.0 % [facility] Hemoglobin (Bld) [Mass/Vol] 14.5 g/dL 11.5 - 15.5 g/dL [facility] Immature granulocytes (Bld) [#/Vol] [facility] Immature granulocytes/100 WBC (Bld) 0.2 % [facility] Lymphocytes (Bld) [#/Vol] 1.55 10*3/uL [facility] Lymphocytes/100 WBC (Bld) 18.4 % [facility] MCH (RBC) [Entitic mass] 28.5 pg 26.0 - 34.0 pg [facility] MCHC (RBC) [Mass/Vol] 33.6 g/dL 30.5 - 36.0 g/dL [facility] MCV (RBC) [Entitic vol] 85 fL 80.0 - 100.0 fL [facility] Monocytes (Bld) [#/Vol] 0.49 10*3/uL [facility] Monocytes/100 WBC (Bld) 5.8 % [facility] Neutrophils (Bld) [#/Vol] 6.17 10*3/uL [facility] Neutrophils/100 WBC (Bld) 73.1 % [facility] Nucleated RBC (Bld) [#/Vol] [facility] Nucleated RBC/100 WBC (Bld) [Ratio] 0 % /100 WBC [facility] Platelet mean volume (Bld) [Entitic vol] 11.4 fL 9.0 - 12.7 fL [facility] Platelets (Bld) [#/Vol] 286 10*3/uL [facility] RBC (Bld) [#/Vol] 5.08 10*6/uL 3.90 - 5.2 0 m/uL [facility] WBC (Bld) [#/Vol] 8.44 10*3/uL [facility] Basophils (Bld) [#/Vol] 0.09 10*3/uL Normal <0.11 [facility] Comment on above: Order Comment: Speci men Type: BLOOD SPECIMENOrdering Facility: [facility] Address: [address] [place] [address] Performed By: #### 5 7021-8 ####[facility]CLIA [id number] [place] [address] [place] Basophils/100 WBC (Bld) 1.1 % Normal [facility] Comment on above: Order Comment: Speci men Type: BLOOD SPECIMENOrdering Facility: [facility] Address: [address] [place] [address] Performed By: #### 5 7021-8 ####[facility]CLIA [id number] [place] [address] [place] Differential cell count method Nom (Bld) Auto Normal [facility] Comment on above: Order Comment: Speci men Type: BLOOD SPECIMENOrdering Facility: [facility] Address: [address] [place] [address] Performed By: #### 5 7021-8 ####[facility] LABIA [id number] [place] [address] [place] Eosinophils (Bld) [#/Vol] 0.12 10*3/uL Normal <0.46 [facility] Comment on above: Order Comment: Speci men Type: BLOOD SPECIMENOrdering Facility: [facility] Address: [address] [place] [address] Performed By: #### 5 7021-8 ####[facility] LABCLIA [id number] [address] [place] [address] [place] Eosinophils/100 WBC (Bld) 1.4 % Normal [facility] Comment on above: Order Comment: Speci men Type: BLOOD SPECIMENOrdering Facility: [facility] Address: [address] [place] [address] Performed By: #### 5 7021-8 ####[facility] LABCLIA [id number] [address], [place] [address] [place] Erythrocyte distribution width (RBC) [Ratio] 12.4 % Normal 11.5-15.0 [facility] Comment on above: Order Comment: Speci men Type: BLOOD SPECIMENOrdering Facility: [facility] Address: [address] [place] [address] Performed By: #### 5 7021-8 ####[facility] LABCLIA [id number] [address], [place] [address] [place] Hematocrit (Bld) [Volume fraction] 43.2 % Normal 36.0-46.0 [facility] Comment on above: Order Comment: Speci men Type: BLOOD SPECIMENOrdering Facility: [facility] Address: [address] [place] [address] Performed By: #### 5 7021-8 ####[facility] LABCLIA [id number] [address], [place] [address] [place] Hemoglobin (Bld) [Mass/Vol] 14.5 g/dL Normal 11.5-15.5 [facility] Comment on above: Order Comment: Speci men Type: BLOOD SPECIMENOrdering Facility: [facility] Address: [address] [place] [address] Performed By: #### 5 7021-8 ####[facility]CLIA [id number] [address], [facility] [place] Immature granulocytes (Bld) [#/Vol] 10*3/uL Normal <0.10 [facility] Comment on above: Order Comment: Speci men Type: BLOOD SPECIMENOrdering Facility: [facility] Address: [address] [place] [address] Performed By: #### 5 7021-8 ####[facility] LABCLIA [id number] [place] [id number] [place] Immature granulocytes/100 WBC (Bld) 0.2 % Normal [facility] Comment on above: Order Comment: Speci men Type: BLOOD SPECIMENOrdering Facility: [facility] Address: [address] [place] [address] Performed By: #### 5 7021-8 ####[facility] LABIA [id number] [place] [address] [place] Lymphocytes (Bld) [#/Vol] 1.55 10*3/uL Normal 1.00-4.00 [facility] Comment on above: Order Comment: Speci men Type: BLOOD SPECIMENOrdering Facility: [facility] Address: [address] [place] [address] Performed By: #### 5 7021-8 ####[facility] LABIA [id number] [place] [address] [place] Lymphocytes/100 WBC (Bld) 18.4 % Normal [facility] Comment on above: Order Comment: Speci men Type: BLOOD SPECIMENOrdering Facility: [facility] Address: [address] [place] [address] Performed By: #### 5 7021-8 ####[facility] LABCLIA [id number] [place] [id number] [place] MCH (RBC) [Entitic mass] 28.5 pg Normal 26.0-34.0 [facility] Comment on above: Order Comment: Speci men Type: BLOOD SPECIMENOrdering Facility: [facility] Address: [address] [place] [address] Performed By: #### 5 7021-8 ####[facility]CLIA [id number] [place] [address] [place] MCHC (RBC) [Mass/Vol] 33.6 g/dL Normal 30.5-36.0 [facility] Comment on above: Order Comment: Speci men Type: BLOOD SPECIMENOrdering Facility: [facility] Address: [address] [place] [address] Performed By: #### 5 7021-8 ####[facility] LABIA [id number] [place] [address] [place] MCV (RBC) [Entitic vol] 85.0 fL Normal 80.0-100.0 [facility] Comment on above: Order Comment: Speci men Type: BLOOD SPECIMENOrdering Facility: [facility] Address: [address] [place] [address] Performed By: #### 5 7021-8 ####[facility] LABIA [id number] [place] [address] [place] Monocytes (Bld) [#/Vol] 0.49 10*3/uL Normal <0.87 [facility] Comment on above: Order Comment: Speci men Type: BLOOD SPECIMENOrdering Facility: [facility] Address: [address] [place] [address] Performed By: #### 5 7021-8 ####[facility] LABCLIA [id number] [place] [address] [place] Monocytes/100 WBC (Bld) 5.8 % Normal [facility] Comment on above: Order Comment: Speci men Type: BLOOD SPECIMENOrdering Facility: [facility] Address: [address] [place] [address] Performed By: #### 5 7021-8 ####[facility] LABIA [id number] [place] [address] [place] Neutrophils (Bld) [#/Vol] 6.17 10*3/uL Normal 1.45-7.50 [facility] Comment on above: Order Comment: Speci men Type: BLOOD SPECIMENOrdering Facility: [facility] Address: [address] [place] [address] Performed By: #### 5 7021-8 ####[facility] LABCLIA [id number] [place] [address] [place] Neutrophils/100 WBC (Bld) 73.1 % Normal [facility] Comment on above: Order Comment: Speci men Type: BLOOD SPECIMENOrdering Facility: [facility] Address: [address] [place] [address] Performed By: #### 5 7021-8 ####[facility] LABCLIA [id number] [place] [address] [place] Nucleated RBC (Bld) [#/Vol] 10*3/uL Normal <0.01 [facility] Comment on above: Order Comment: Speci men Type: BLOOD SPECIMENOrdering Facility: [facility] Address: [address] [place] [address] Performed By: #### 5 7021-8 ####[facility] LABIA [id number] [place] [address] [place] Nucleated RBC/100 WBC (Bld) [Ratio] 0.0 /100 WBC Normal [facility] Comment on above: Order Comment: Speci men Type: BLOOD SPECIMENOrdering Facility: [facility] Address: [address] [place] [address] Performed By: #### 5 7021-8 ####[facility] LABCLIA [id number] [place] [address] [place] Platelet mean volume (Bld) [Entitic vol] 11.4 fL Normal 9.0-12.7 [facility] Comment on above: Order Comment: Speci men Type: BLOOD SPECIMENOrdering Facility: [facility] Address: [address] [place] [address] Performed By: #### 5 7021-8 ####[facility] LABIA [id number] [place] [address] [place] Platelets (Bld) [#/Vol] 286 10*3/uL Normal 150-400 [facility] Comment on above: Order Comment: Speci men Type: BLOOD SPECIMENOrdering Facility: [facility] Address: [address] [place] [address] Performed By: #### 5 7021-8 ####[facility] LABIA [id number] [place] [address] [place] RBC (Bld) [#/Vol] 5.08 10*6/uL Normal 3.90-5.20 [facility] Comment on above: Order Comment: Speci men Type: BLOOD SPECIMENOrdering Facility: [facility] Address: [address] [place] [address] Performed By: #### 5 7021-8 ####[facility] [id number] [place] [address] [place] WBC (Bld) [#/Vol] 8.44 10*3/uL Normal 3.70-11.00 [facility] Comment on above: Order Comment: Speci men Type: BLOOD SPECIMENOrdering Facility: [facility] Address: [address] [place] [address] Performed By: #### 5 7021-8 ####[facility] LABIA [id number] [place] [id number] [facility] [place] CNOVon 02-28-2025 CNOV Office Visit (FAMPWS ) MALKA [id number]) 1955 F Date Time Provider Department 02/28/25 1:00 PM ISSAC WILKES During your visit today, we recorded the following information about you: Pulse Blood pressure 120/minute 110/72 Issac Wilkes MD 02/28/2025 5:30 PM Signed Makla Kimball is a 70 year old female here for a Medicare wellness visit. Medicare Health Risk Assessment General Health Good. Exercise: Minutes/Day no Exercise: Days/Week no Alcohol: Daily Use no Alcohol: Drinks/Day no Alcohol: 6 or more drinks no Feel off balance Some. Is total assist. Concerns: Teeth/Dentures No teeth. Concerns: Sexual function Inappropriate behavior Troubled by feelings Some anxiety ? Frequency: Eating healthy diet Up and down. Better with remeron. ADLs requiring help Total assist Safety precautions in home/vehicle none Smoke, vape, chews tobacco none Difficulty hearing Issues with ears. Difficulty seeing Functions well. Current Providers Specialists: I have reviewed specialist-related care of the patient in the medical record. Current care team: Patient Care Team: Issac Wilkes MD as PCP - General (Family Medicine) Jennifer Guerrero MD as Referring (Physical Medicine and Rehab) Jennifer Guerrero MD as Home Care Provider (Physical Medicine and Rehab) Debi Mejia APRN.[employer]ENG[employer]ING [employer]OO[employer] APPRENTICE as Phd Intern (Family Medicine) Meg Tomas APRN.RILEY as Phd Intern (Family Medicine) Medical/Family history review Reviewed and updated problem list, medical/surgical/fami ly/social history, medications, and allergies. Opioid use review Opioid Medications (last 90 days) No data to display Anxiety/Depression screening Unable to perform Recommendation: continuing current treatment plan Cognitive screening Unable to perform. Cognitive screening reviewed and Patient has known cognitive impairment. Functional Observation Was the patient's Timed Up AND Go test unsteady or >= 12 seconds? Yes Advance Care Planning Surrogate decision maker and/or advance care plan documented Measurements BP 110/72 Pulse 120 SpO2 96% Vision Screening: Declines visual acuity screen, unable to assess. Suzy Kimball is a 70-year-old female with a history of anxiety, anorexia, and osteoporosis, seen today for an annual wellness visit. HPI Annual Wellness Exam: - Total assist with ADLs. - Edentulous; no known oral issues. - No known vision issues; does not see an eye doctor unless symptomatic. - No known hearing issues; has a history of earwax buildup. - No known skin issues; sensitive skin. - No known swelling in legs or syncope. - No known foul-smelling urine or hematuria. - No known unusual moles or rashes. - No known chronic cough, dyspnea, or wheezing. - No known hematochezia or melena. - No known pain. - No known tobacco use. - No alcohol use; difficult to get her to drink fluids. - Incontinent of bowel and bladder; history of UTIs. - Family history of lung issues in mother and aunt; aunt from it. Anxiety: - Constant movement and pacing, exacerbated by inability to walk due to ankle fracture. - Described as twitching and moving constantly. - Mirtazapine initially helped with anxiety but effects have diminished over time. Anorexia: - History of weight fluctuations; currently on mirtazapine to stabilize weight. - Appetite described as good, but recently recovering from a period of decreased interest in food. - Consumes large amounts of food, including high-calorie items like butter, mayonnaise, and peanut butter. Osteoporosis: - Receiving Prolia injections. MEDICATIONS: Current Outpatient Medications Medication Sig tcdyyxs-vjpihgqmt-ydp dennis D3 (OYSTER SHELL CALCIUM-VITAMIN D) 500 mg-5 mcg (200 unit) per tablet Take 1 tablet by mouth two times a day with meals. Take with meals or food. baclofen 10 mg tablet Take 1 tablet by mouth every 12 hours. mirtazapine (REMERON) 30 mg tablet Take 1 tablet by mouth daily at bedtime. cetirizine (ZYRTEC) 10 mg tablet Take 1 tablet by mouth daily at bedtime. Lactobacillus Acidophilus (ACIDOPHILUS) chew 2 caplets by mouth twice daily. Pt with complete edentulism -- please crush. oxybutynin (DITROPAN) 5 mg tablet Take 1 tablet by mouth two times a day. (for drooling) omeprazole (PRILOSEC) 20 mg capsule Take 1 capsule by mouth once daily. Take 30 -60 minutes before first meal of the day. Okay to use gloves, open capsule and sprinkle contents on food (ie applesauce, etc). traZODone (DESYREL) 50 mg tablet Take 1 tablet by mouth daily at bedtime. zinc zjyry-ewbr-qmcjgxe E-clove oil (PINXAV) oint Apply liberally topically to chest and topically to buttocks with each diaper change Starch, Thickening, (THICK-IT) powd Honey-thickened liquids every liquid except pleasure foods (ie jello, ice cream) multi (more content not included)... Normal [facility] Comprehensive metabolic 2000 panelon 02-28-2025 Albumin [Mass/Vol] 4.2 g/dL Normal 3.9-4.9 [facility] Comment on above: Order Comment: Speci men Type: BLOOD SPECIMENOrdering Facility: [facility] Address: [address] [place] [address] Performed By: #### 2 4323-8, LIPNF, 3015-3 ####[facility] LABIA [id number] [place] [address] [place] ALP [Catalytic activity/Vol] 97 U/L Normal 34-123 [facility] Comment on above: Order Comment: Speci men Type: BLOOD SPECIMENOrdering Facility: [facility] Address: [address] [place] [address] Performed By: #### 2 4323-8, LIPNF, 3015-3 ####[facility] LABIA [id number] [place] [address] [place] ALT [Catalytic activity/Vol] 21 U/L Normal 7-38 [facility] Comment on above: Order Comment: Speci men Type: BLOOD SPECIMENOrdering Facility: [facility] Address: [address] [place] [address] Performed By: #### 2 4323-8, LIPNF, 6-3 ####[facility] LABIA [id number] [place] [address] [place] Anion gap [Moles/Vol] 13 mmol/L Normal 8-15 [facility] Comment on above: Order Comment: Speci men Type: BLOOD SPECIMENOrdering Facility: [facility] Address: [address] [place] [address] Performed By: #### 2 4323-8, LIPNF, 6-3 ####[facility] LABCLIA [id number] [place] [address] [place] AST [Catalytic activity/Vol] 23 U/L Normal 13-35 [facility] Comment on above: Order Comment: Speci men Type: BLOOD SPECIMENOrdering Facility: [facility] Address: [address] [place] [address] Performed By: #### 2 4323-8, LIPNF, 3015-3 ####[facility] LABIA [id number] [place] [address] [place] Bilirubin [Mass/Vol] 0.2 mg/dL Normal 0.2-1.[address] [facility] Comment on above: Order Comment: Speci men Type: BLOOD SPECIMENOrdering Facility: [facility] Address: [address] [place] [address] Performed By: #### 2 4323-8, LIPNF, 6-3 ####[facility] LABIA [id number] [place] [address] [place] Calcium [Mass/Vol] 9.1 mg/dL Normal 8.5-10.2 [facility] Comment on above: Order Comment: Speci men Type: BLOOD SPECIMENOrdering Facility: [facility] [facility] Address: [address] [place] [address] Performed By: #### 2 4323-8, LIPNF, 6-3 ####[facility] LABIA [id number] [place] [address] [place] Chloride [Moles/Vol] 103 mmol/L Normal 98-[address] [facility] Comment on above: Order Comment: Speci men Type: BLOOD SPECIMENOrdering Facility: [facility] Address: [address] [place] [address] Performed By: #### 2 4323-8, LIPNF, 3015-3 ####[facility] LABCLIA [id number] [place] [address] [place] CO2 [Moles/Vol] 21 mmol/L Low 22-30 [facility] Comment on above: Order Comment: Speci men Type: BLOOD SPECIMENOrdering Facility: [facility] Address: [address] [place] [address] Performed By: #### 2 4323-8, LIPNF, 3015-3 ####[facility] LABIA [id number] [place] [address] [place] Creatinine [Mass/Vol] 0.58 mg/dL Normal 0.58-0.96 [facility] Comment on above: Order Comment: Speci men Type: BLOOD SPECIMENOrdering Facility: [facility] Address: [address] [place] [address] Performed By: #### 2 4323-8, LIPNF, 3015-3 ####[facility] LABIA [id number] [place] [address] [place] Creatinine and Glomerular filtration rate.predicted panel (S/P/Bld) 99 mL/min/1.73m??? Normal >=60 [facility] Comment on above: Order Comment: Speci men Type: BLOOD SPECIMENOrdering Facility: [facility] Address: [address] [place] [address] Result Comment: Saida mated Glomerular Filtration Rate (eGFR) is calculated using the 2020 CKD-EPI creatinine equation. This equation utilizes serum creatinine, sex, and age as parameters. The creatinine assay has traceable calibration to isotope dilution-mass spectrometry. Refer to KDIGO guidelines for clinical interpretation. In patients with unstable renal function, e.g. those with acute kidney injury, the eGFR may not accurately reflect actual GFR. Performed By: #### 2 4323-8, LIPNF, 3015-3 ####[facility] LABIA [id number] [address] [address] [place] Glucose [Mass/Vol] 127 mg/dL High 74-99 [facility] Comment on above: Order Comment: Speci men Type: BLOOD SPECIMENOrdering Facility: [facility] Address: [address] [place] [address] Result Comment: The [place] Diabetes Association (ADA) provides guidance for cutoff values for fasting glucose and random glucose. The ADA defines fasting as no caloric intake for at least 8 hours. Fasting plasma glucose results between 100 to 125 mg/dL indicate increased risk for diabetes (prediabetes). Fasting plasma glucose results greater than or equal to 126 mg/dL meet the criteria for diagnosis of diabetes. In the absence of unequivocal hyperglycemia, results should be confirmed by repeat testing. In a patient with classic symptoms of hyperglycemia or hyperglycemic crisis, random plasma glucose results greater than or equal to 200 mg/dL meet the criteria for diagnosis of diabetes. Reference: Standards of Medical Care in Diabetes 2016, [place] Diabetes Association. Diabetes Care. 2016.39(Suppl 1). Performed By: #### 2 4323-8, LIPNF, 3015-3 ####[facility] LABCLIA [id number] [place] [address] [place] Potassium [Moles/Vol] 4.5 mmol/L Normal 3.7-5.1 [facility] Comment on above: Order Comment: Speci men Type: BLOOD SPECIMENOrdering Facility: [facility] Address: [address] [place] [address] Performed By: #### 2 4323-8, LIPNF, 3015-3 ####[facility] LABCLIA [id number] [place] [address] [place] Protein [Mass/Vol] 7.1 g/dL Normal 6.3-8.0 [facility] Comment on above: Order Comment: Speci men Type: BLOOD SPECIMENOrdering Facility: [facility] Address: [address] [place] [address] Performed By: #### 2 4323-8, LIPNF, 6-3 ####[facility] LABCLIA [id number] [address] [address] [place] Sodium [Moles/Vol] 137 mmol/L Normal 136-144 [facility] Comment on above: Order Comment: Speci men Type: BLOOD SPECIMENOrdering Facility: [facility] Address: [address] [place] [address] Performed By: #### 2 4323-8, LIPNF, 3016-3 ####[facility] LABCLIA [id number] [place] [address] [place] Urea nitrogen [Mass/Vol] 15 mg/dL Normal 7-21 [facility] Comment on above: Order Comment: Speci men Type: BLOOD SPECIMENOrdering Facility: [facility] Address: [address] [place] [address] Performed By: #### 2 4323-8, LIPNF, 3016-3 ####[facility] LABIA [id number] [place] [address] [place] LIPID PANEL, NONFASTINGon Cholesterol [Mass/Vol] 177 mg/dL Normal <200 [facility] Comment on above: Order Comment: Speci men Type: BLOOD SPECIMENOrdering Facility: [facility] Address: [address] [place] [address] Result Comment: <200 mg/dL, Desirable 200-239 mg/dL, Borderline high >239 mg/dL, High Performed By: #### 2 4323-8, LIPNF, 3016-3 ####[facility] LABCLIA [id number] [place] [id number] [place] HDL CHOLESTEROL, NF 48 mg/dL Normal >39 [facility] Comment on above: Order Comment: Speci men Type: BLOOD SPECIMENOrdering Facility: [facility] Address: [address] [place] [address] Result Comment: 40-5 9 mg/dL, Acceptable >59 mg/dL, High: Negative risk factor for coronary heart disease <40 mg/dL, Low: Positive risk factor for coronary heart disease Performed By: #### 2 4323-8, LIPNF, 3015-3 ####[facility] LABCLIA [id number] [place] [id number] [facility] [place] LDL CHOLESTEROL CALCULATED, NF 97 mg/dL Normal <100 [facility] Comment on above: Order Comment: Speci men Type: BLOOD SPECIMENOrdering Facility: [facility] Address: [address] [place] [address] Result Comment: <100 mg/dL, Optimal 100-129 mg/dL, Near optimal/above optimal 130-159 mg/dL, Borderline high 160-189 mg/dL, High >189 mg/dL, Very high Secondary prevention optimal LDL Cholesterol levels are recommended to be <70 mg/dL LDL cholesterol is calculated using the Rivera-NIH equation. Performed By: #### 2 4323-8, LIPNF, 3015- ####[facility] LABCLIA [id number] [address] STATES OF [facility] LDL/HDL RATIO, NF 2.02 mg/dL Normal <2.54 [facility] Comment on above: Order Comment: Speci men Type: BLOOD SPECIMENOrdering Facility: [facility] Address: [address] [place] [address] Result Comment: Lester osman: 1. National Cholesterol Education Program ATP III Guideline At-A-Glance Quick Desk Reference: National Heart, Lung, and Blood [place]. National Institutes of Health. 2001: NIH Publication No. 01-3305. 2. An International Atherosclerosis Society position paper: global recommendations for the management of dyslipidemia: executive summary, Atherosclerosis. 2014: 232(2):410-413. Performed By: #### 2 4323-8, LIPNF, 3015-3 ####[facility] LABIA [id number] [place] [id number] [place] [facility] NON HDL CHOL, NF 129 mg/dL Normal <130 [facility] Comment on above: Order Comment: Speci men Type: BLOOD SPECIMENOrdering Facility: [facility] Address: [address] [place] [address] Result Comment: <130 mg/dL, Optimal 130-159 mg/dL, Near optimal/above optimal 160-189 mg/dL, Borderline high 190-219 mg/dL, High >219 mg/dL, Very high Secondary prevention optimal non HDL Cholesterol levels are recommended to be <100 mg/dL Performed By: #### 2 4323-8, LIPNF, 3016-3 ####[facility] LABCLIA [id number] [place] [address] [place] T CHOL/HDL RATIO NF 3.69 mg/dL Normal <5.10 [facility] Comment on above: Order Comment: Speci men Type: BLOOD SPECIMENOrdering Facility: [facility] Address: [address] [place] [address] Performed By: #### 2 4323-8, LIPNF, 6-3 ####[facility] LABCLIA [id number] [place] [address] [place] TRIGLYCERIDES, NF 184 mg/dL High <150 [facility] Comment on above: Order Comment: Speci men Type: BLOOD SPECIMENOrdering Facility: [facility] Address: [address] [place] [address] Result Comment: <150 mg/dL, Normal 150-199 mg/dL, Borderline high 200-499 mg/dL, High >499 mg/dL, Very high Performed By: #### 2 4323-8, LIPNF, 6-3 ####[facility] LABCLIA [id number] [place] [id number] [place] VLDL CHOLESTEROL, NF 30 mg/dL High <[address] [facility] Comment on above: Order Comment: Speci men Type: BLOOD SPECIMENOrdering Facility: [facility] Address: [address] [place] [address] Performed By: #### 2 4323-8, LIPNF, 6-3 ####[facility] LABCLIA [id number] [place] [id number] [place] TSH SerPl-aCncon 02-28-2025 TSH Qn 4.980 m[IU]/L High 0.270-4.200 [facility] Comment on above: Order Comment: Speci men Type: BLOOD SPECIMENOrdering Facility: [facility] Address: [address] [place] [address] Performed By: #### 2 4323-8, LIPMAREK, 3016-3 ####[facility] LABCLIA [id number] DAVIE SARABIADESJacques [address] OF 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 Reports pharmacy called the original prescriber of this medication and they prescriber said he does not want to continue prescribing it. Vivi asking if pcp wants pt to take this medication? Please phone Vivi with reply. If yes, please send refill to [facility]. Issac Wilkes MD 01/19/2025 2:07 PM Signed We did not have that listed. How long has she been on it. Do we know why they won't write it? Ernestina Merida RN 01/19/2025 2:38 PM Signed The medication caregiver called about was baclofen 10 mg bid. Issac Wilkes MD 01/19/2025 3:31 PM Signed Rx sent Erinn Vergara RN 01/19/2025 4:10 PM Signed Pts career based intervention coordinator Vivi called and is notified of providers message. She voices understanding. Erinn Vergara RN Allergies As of Date: 01/19/2025 (No Known Allergies) Date Reviewed: 02/29/2024 Reviewed by: Jhonny Darling LPN - Fully Assessed Reason for Visit: Medication Problem [65] Order(s):baclofen 10 mg tabletTake 1 tablet by mouth every 12 hours.Disp: 180 tabletRfl: 3 Prescriptions as of 01/19/2025 - baclofen 10 mg tablet Take 1 tablet by mouth every 12 hours. - mirtazapine (REMERON) 30 mg tablet Take 1 tablet by mouth daily at bedtime. - zinc cdoak-lkrg-abrwohz E-clove oil (PINXAV) oint Apply liberally topically to chest and topically to buttocks with each diaper change - cetirizine (ZYRTEC) 10 mg tablet Take 1 tablet by mouth daily at bedtime. - Lactobacillus Acidophilus (ACIDOPHILUS) chew 2 caplets by mouth twice daily. Pt with complete edentulism -- please crush. - oxybutynin (DITROPAN) 5 mg tablet Take 1 tablet by mouth two times a day. (for drooling) - Starch, Thickening, (THICK-IT) powd Honey-thickened liquids every liquid except pleasure foods (ie jello, ice cream) - ttswjhwzvxde-jjs-ronr -FA-vit K (ONE DAILY WOMEN'S) 18 mg iron-400 mcg-25 mcg tab Take 2 tablets by mouth once daily. - omeprazole (PRILOSEC) 20 mg capsule Take 1 capsule by mouth once daily. Take 30 -60 minutes before first meal of the day. Okay to use gloves, open capsule and sprinkle contents on food (ie applesauce, etc). - rupdexl-eryonyopg-cxj dennis D3 (OYSTER SHELL CALCIUM-VITAMIN D) 500 mg-5 mcg (200 unit) per tablet Take 1 tablet by mouth two times a day with meals. Take with meals or food. - Diaper,Brief, Adult,Disposable Use as directed. Size XL (N39.498) Other urinary incontinence, (T73.8XXA) Sensory deprivation, initial encounter - Disposable Gloves misc Use as directed, latex, XL, N39.498, T73.8XXA - Miscellaneous Medical Supply Washable chux pads - Diaper,Brief, Adult,Disposable (BRIEFS) misc Pull ups size XL Use as directed (N39.498) Other urinary incontinence, (T73.8XXA) Sensory deprivation, initial encounter ? - COMPOUNDED PRESCRIPTION Washable cloth chux pad, use as directed. (N39.498) Other urinary incontinence, (T73.8XXA) Sensory deprivation, initial encounter - COMPOUNDED PRESCRIPTION Washable chucks: urinary incontinence n39.498, sensory deprivation t73.8xxa - Diaper,Brief, Adult,Disposable misc Use as directed. Size XL (N39.498) Other urinary incontinence, (T73.8XXA) Sensory deprivation, initial encounter - COMPOUNDED PRESCRIPTION Washable chucks: urinary incontinence n39.498, sensory deprivation t73.8xxa Problem List As Of Date 01/19/2025 Noted Resolved Intellectual disability [F79] 03/01/2016 Urinary incontinence [R32] 03/01/2016 Constipation [K59.00] 03/01/2016 Bilateral impacted cerumen [H61.23] 03/01/2016 09/08/2021 Mixed incontinence [N39.46] 03/01/2016 Drooling [K11.7] 03/01/2016 Diaper dermatitis [L22] 03/01/2016 Vitamin D deficiency [E55.9] 03/01/2016 Allergic rhinitis [J30.9] 03/01/2016 Hypoglycemia [E16.2] Aspiration into airway [T17.908A] 09/06/2018 Developmental disability [F89] 09/06/2018 Osteoporosis [M81.0] 09/08/2021 Complete edentulism [K08.109] 11/18/2022 Care refused by patient [Z53.29] 11/18/2022 Cerebral palsy, unspecified type (HCC) [G80.9] 02/29/2024 Prescriptions ordered this encounter Disp Refills Start End BACLOFEN 10 MG TABLET 180 * 3 01/19/2025 Route: ORAL Sig: Take 1 tablet by mouth every 12 hours. Medications Discontinued During This Encounter Prescriptions - baclofen 10 mg tablet (Discontinued) take 1 tablet by mouth twice a day Encounter Status:Closed by ERINN VERGARA on 01/19/25 Normal [facility] RILEYJeimy 12-01-2024 [facility] Telephone (FAMWS) MALKA KIMBALL ([id number]) 1955 F Date Time Provider Department 12/01/24 ISSAC WILKES [facility] During your visit today, we recorded the following information about you: Aicha Gutierrez RN 12/01/2024 3:01 PM Signed Barbara with [facility] calls to check on status of request for Pinxav. Barbara reports they did not receive prescription from 11/24/2024. Reports it is usually faxed to them. Please re-fax. FOX Dennis Tara, LPN 12/01/2024 3:53 PM Signed Faxed as requested. Allergies As of Date: 12/01/2024 (No Known Allergies) Date Reviewed: 02/29/2024 Reviewed by: Jhonny Darling LPN - Fully Assessed Reason for Visit: Medication Problem [65] Prescriptions as of 12/01/2024 - mirtazapine (REMERON) 30 mg tablet Take 1 tablet by mouth daily at bedtime. - zinc idgte-cjdb-rztiuaq E-clove oil (PINXAV) oint Apply liberally topically to chest and topically to buttocks with each diaper change - cetirizine (ZYRTEC) 10 mg tablet Take 1 tablet by mouth daily at bedtime. - Lactobacillus Acidophilus (ACIDOPHILUS) chew 2 caplets by mouth twice daily. Pt with complete edentulism -- please crush. - oxybutynin (DITROPAN) 5 mg tablet Take 1 tablet by mouth two times a day. (for drooling) - Starch, Thickening, (THICK-IT) powd Honey-thickened liquids every liquid except pleasure foods (ie jello, ice cream) - tchszgogkttv-ewy-kzxs -FA-vit K (ONE DAILY WOMEN'S) 18 mg iron-400 mcg-25 mcg tab Take 2 tablets by mouth once daily. - omeprazole (PRILOSEC) 20 mg capsule Take 1 capsule by mouth once daily. Take 30 -60 minutes before first meal of the day. Okay to use gloves, open capsule and sprinkle contents on food (ie applesauce, etc). - baclofen 10 mg tablet take 1 tablet by mouth twice a day - rgzuqym-apslhqxxv-bks dennis D3 (OYSTER SHELL CALCIUM-VITAMIN D) 500 mg-5 mcg (200 unit) per tablet Take 1 tablet by mouth two times a day with meals. Take with meals or food. - Diaper,Brief, Adult,Disposable Use as directed. Size XL (N39.498) Other urinary incontinence, (T73.8XXA) Sensory deprivation, initial encounter - Disposable Gloves misc Use as directed, latex, XL, N39.498, T73.8XXA - Miscellaneous Medical Supply Washable chux pads - Diaper,Brief, Adult,Disposable (BRIEFS) misc Pull ups size XL Use as directed (N39.498) Other urinary incontinence, (T73.8XXA) Sensory deprivation, initial encounter ? - COMPOUNDED PRESCRIPTION Washable cloth chux pad, use as directed. (N39.498) Other urinary incontinence, (T73.8XXA) Sensory deprivation, initial encounter - COMPOUNDED PRESCRIPTION Washable chucks: urinary incontinence n39.498, sensory deprivation t73.8xxa - Diaper,Brief, Adult,Disposable misc Use as directed. Size XL (N39.498) Other urinary incontinence, (T73.8XXA) Sensory deprivation, initial encounter - COMPOUNDED PRESCRIPTION Washable chucks: urinary incontinence n39.498, sensory deprivation t73.8xxa Problem List As Of Date 12/01/2024 Noted Resolved Intellectual disability [F79] 03/01/2016 Urinary incontinence [R32] 03/01/2016 Constipation [K59.00] 03/01/2016 Bilateral impacted cerumen [H61.23] 03/01/2016 09/08/2021 Mixed incontinence [N39.46] 03/01/2016 Drooling [K11.7] 03/01/2016 Diaper dermatitis [L22] 03/01/2016 Vitamin D deficiency [E55.9] 03/01/2016 Allergic rhinitis [J30.9] 03/01/2016 Hypoglycemia [E16.2] Aspiration into airway [T17.908A] 09/06/2018 Developmental disability [F89] 09/06/2018 Osteoporosis [M81.0] 09/08/2021 Complete edentulism [K08.109] 11/18/2022 Care refused by patient [Z53.29] 11/18/2022 Cerebral palsy, unspecified type (HCC) [G80.9] 02/29/2024 Encounter Status:Closed by IGOR [facility]UEL [facility]01/[facility] MALKA KIMBALL ([id number]) 1955 F Date Time Provider Department 08/28/24 ISS[facility] WILKES [facility] During your visit today, we recorded the following information about you: Elif Paiz MA 08/28/2024 3:58 PM Signed ----- Message from Meg Tomas sent at 08/28/2024 3:36 PM EST ----- Stool card is negative for blood. Elif Paiz MA 08/28/2024 4:16 PM Signed Shredding SpecialistVivi was made aware of the results and verbalizes understanding. Elif Paiz Ma Allergies As of Date: 08/28/2024 (No Known Allergies) Date Reviewed: 02/29/2024 Reviewed by: Jhonny Darling LPN - Fully Assessed Reason for Visit: Results [95] Prescriptions as of 08/28/2024 - mirtazapine (REMERON) 30 mg tablet Take 1 tablet by mouth daily at bedtime. - Starch, Thickening, (THICK-IT) powd Honey-thickened liquids every liquid except pleasure foods (ie jello, ice cream) - omeprazole (PRILOSEC) 20 mg capsule Take 1 capsule by mouth once daily. Take 30 -60 minutes before first meal of the day. Okay to use gloves, open capsule and sprinkle contents on food (ie applesauce, etc). - baclofen 10 mg tablet take 1 tablet by mouth twice a day - hcehopc-qpuzfllnt-big dennis D3 (OYSTER SHELL CALCIUM-VITAMIN D) 500 mg-5 mcg (200 unit) per tablet Take 1 tablet by mouth two times a day with meals. Take with meals or food. - zinc dsoue-bsqy-dgilttv E-clove oil (PINXAV) oint Apply liberally topically to chest and topically to buttocks with each diaper change - acvlmppeprli-xwj-veei -FA-vit K (ONE DAILY WOMEN'S) 18 mg iron-400 mcg-25 mcg tab Take 2 tablets by mouth once daily. - Lactobacillus Acidophilus (ACIDOPHILUS) chew 2 caplets by mouth twice daily. Pt with complete edentulism -- please crush. - oxybutynin (DITROPAN) 5 mg tablet Take 1 tablet by mouth two times a day. (for drooling) - cetirizine (ZYRTEC) 10 mg tablet Take 1 tablet by mouth daily at bedtime. - Diaper,Brief, Adult,Disposable Use as directed. Size XL (N39.498) Other urinary incontinence, (T73.8XXA) Sensory deprivation, initial encounter - Disposable Gloves misc Use as directed, latex, XL, N39.498, T73.8XXA - Miscellaneous Medical Supply Washable chux pads - Diaper,Brief, Adult,Disposable (BRIEFS) misc Pull ups size XL Use as directed (N39.498) Other urinary incontinence, (T73.8XXA) Sensory deprivation, initial encounter ? - COMPOUNDED PRESCRIPTION Washable cloth chux pad, use as directed. (N39.498) Other urinary incontinence, (T73.8XXA) Sensory deprivation, initial encounter - COMPOUNDED PRESCRIPTION Washable chucks: urinary incontinence n39.498, sensory deprivation t73.8xxa - Diaper,Brief, Adult,Disposable misc Use as directed. Size XL (N39.498) Other urinary incontinence, (T73.8XXA) Sensory deprivation, initial encounter - COMPOUNDED PRESCRIPTION Washable chucks: urinary incontinence n39.498, sensory deprivation t73.8xxa Problem List As Of Date 08/28/2024 Noted Resolved Intellectual disability [F79] 03/01/2016 Urinary incontinence [R32] 03/01/2016 Constipation [K59.00] 03/01/2016 Bilateral impacted cerumen [H61.23] 03/01/2016 09/08/2021 Mixed incontinence [N39.46] 03/01/2016 Drooling [K11.7] 03/01/2016 Diaper dermatitis [L22] 03/01/2016 Vitamin D deficiency [E55.9] 03/01/2016 Allergic rhinitis [J30.9] 03/01/2016 Hypoglycemia [E16.2] Aspiration into airway [T17.908A] 09/06/2018 Developmental disability [F89] 09/06/2018 Osteoporosis [M81.0] 09/08/2021 Complete edentulism [K08.109] 11/18/2022 Care refused by patient [Z53.29] 11/18/2022 Cerebral palsy, unspecified type (HCC) [G80.9] 02/29/2024 Encounter Status:Closed by ELIF PAIZ on 08/28/24 Normal [facility] Hemoccult Stl Ql IAon 2023 Lower GI hemoglobin IA Ql (Stl) Negative Normal Negative [facility] Comment on above: Order Comment: Speci men Type: STOOL SPECIMENOrdering Facility: [facility] Address: [address] [place] [address] Performed By: #### 2 9771-3 ####[facility] LABCLIA [id number] [place] [address] [place] HbA1c (Bld)on 07-16-2023 Average glucose Estimated from glycated hemoglobin (Bld) [Mass/Vol] 103 mg/dL [facility] HbA1c (Bld) [Mass fraction] 5.2 % 4.3 - 5.6 % [facility] CBC W Auto Differential pane l (Bld)on 05-27-2022 Abs Immature Gran <0.10 k/uL [facility] Basophils (Bld) [#/Vol] 0.09 10*3/uL <0.11 k/uL [facility] Basophils/100 WBC (Bld) 1.4 % [facility] Differential cell count method Nom (Bld) Auto [facility] Eosinophils (Bld) [#/Vol] 0.14 10*3/uL <0.46 k/uL [facility] Eosinophils/100 WBC (Bld) 2.3 % [facility] Erythrocyte distribution width (RBC) [Ratio] 12.6 % 11.5 - 15.0 % [facility] Hematocrit (Bld) [Volume fraction] 47.1 % High 36.0 - 46.0 % [facility] Hemoglobin (Bld) [Mass/Vol] 15.1 g/dL 11.5 - 15.5 g/dL [facility] Immature Gran % 0.2 % [facility] Lymphocytes (Bld) [#/Vol] 1.53 10*3/uL 1.00 - 4.00 k/uL [facility] Lymphocytes/100 WBC (Bld) 24.6 % [facility] MCH (RBC) [Entitic mass] 27.5 pg 26.0 - 34.0 pg [facility] MCHC (RBC) [Mass/Vol] 32.1 g/dL 30.5 - 36.0 g/dL [facility] MCV (RBC) [Entitic vol] 85.8 fL 80.0 - 100.0 fL [facility] Monocytes (Bld) [#/Vol] 0.46 10*3/uL <0.87 k/uL [facility] Monocytes/100 WBC (Bld) 7.4 % [facility] Neutrophils (Bld) [#/Vol] 3.99 10*3/uL 1.45 - 7.50 k/uL [facility] Neutrophils/100 WBC (Bld) 64.1 % [facility] Nucleated RBC (Bld) [#/Vol] <0.01 k/uL [facility] Nucleated RBC/100 WBC (Bld) [Ratio] 0.0 /100 WBC [facility] Platelet mean volume (Bld) [Entitic vol] 11.3 fL 9.0 - 12.7 fL [facility] Platelets (Bld) [#/Vol] 245 10*3/uL 150 - 400 k/uL [facility] RBC (Bld) [#/Vol] 5.49 10*6/uL High 3.90 - 5.2 0 m/uL [facility] WBC (Bld) [#/Vol] 6.22 10*3/uL 3.70 - 11. 00 k/uL [facility] Vital Signs Date Time Vital Sign Value Performing Clinician Facility 02-28-2025 12:54-0400 Diastolic blood pressure 72 mm[Hg] Issac Wilkes MD Work Phone: [facility] 02-28-2025 12:54-0400 Heart rate 120 /min Issac Wilkes MD Work Phone: [facility] 02-28-2025 12:54-0400 SaO2% (BldA) [Mass fraction] 96 % Issac Wilkes MD Work Phone: [facility] 02-28-2025 12:54-0400 Systolic blood pressure 110 mm[Hg] Issac Wilkes MD Work Phone: [facility] 02-23-2025 10:49-0400 Body height 175.[address] Issac Wilkes MD Work Phone: [facility] 02-23-2025 10:49-0400 Body mass index (BMI) [Ratio] 19.2 kg/m2 Dr. Issac Wilkes MD Work Phone: [facility] 02-23-2025 10:49-0400 Body temperature 96.7 [degF] Dr. Issac Wilkes MD Work Phone: [facility] 02-23-2025 10:49-0400 Body weight 58.[address] Issac Wilkes MD Work Phone: [facility] 02-23-2025 10:49-0400 Diastolic blood pressure 89 mm[Hg] Dr. Issac Wilkes MD Work Phone: [facility] 02-23-2025 10:49-0400 Heart rate 81 /min Dr. Issac Wilkes MD Work Phone: [facility] 02-23-2025 10:49-0400 Respiratory rate 16 /min Dr. Issac Wilkes MD Work Phone: [facility] 02-23-2025 10:49-0400 SaO2% (BldA) [Mass fraction] 99 % Dr. Issac Wilkes MD Work Phone: [facility] 02-23-2025 10:49-0400 Systolic blood pressure 115 mm[Hg] Dr. Issac Wilkes MD Work Phone: [facility] 02-29-2024 10:59-0400 Diastolic blood pressure 90 mm[Hg] Debi Haagen ASSOCIATE SOFTWARE DEVELOPMENT ENGINEER.PHOTOENGRAVING PROOFER APPRENTICE Work Phone: [facility] 02-29-2024 10:59-0400 Heart rate 50 /min Debi Haagen ASSOCIATE SOFTWARE DEVELOPMENT ENGINEER.PHOTOENGRAVING PROOFER APPRENTICE Work Phone: [facility] 02-29-2024 10:59-0400 Respiratory rate 16 /min Debi Haagen ASSOCIATE SOFTWARE DEVELOPMENT ENGINEER.PHOTOENGRAVING PROOFER APPRENTICE Work Phone: [facility] 02-29-2024 10:59-0400 Systolic blood pressure 142 mm[Hg] Debi Haagen ASSOCIATE SOFTWARE DEVELOPMENT ENGINEER.PHOTOENGRAVING PROOFER APPRENTICE Work Phone: [facility] 01-12-2024 14:41-0400 Body height 175.26 cm [facility] 01-12-2024 14:41-0400 Body mass index (BMI) [Ratio] 20 kg/m2 [facility] 01-12-2024 14:41-0400 Body temperature 96.8 [degF] [facility] 01-12-2024 14:41-0400 Body weight 61.59 kg [facility] 01-12-2024 14:41-0400 Diastolic blood pressure 52 mm[Hg] [facility] 01-12-2024 14:41-0400 Heart rate 64 /min [facility] 01-12-2024 14:41-0400 Respiratory rate 16 /min [facility] 01-12-2024 14:41-0400 SaO2% (BldA) [Mass fraction] 96 % [facility] 01-12-2024 14:41-0400 Systolic blood pressure 114 mm[Hg] [facility] 07-16-2023 14:12-0400 Body height 170.18 cm [facility] 07-16-2023 14:12-0400 Body mass index (BMI) [Ratio] 22.7 kg/m2 [facility] 07-16-2023 14:12-0400 Body temperature 98.1 [degF] [facility] 07-16-2023 14:12-0400 Body weight 65.77 kg [facility] 07-16-2023 14:12-0400 Diastolic blood pressure 95 mm[Hg] [facility] 07-16-2023 14:12-0400 Heart rate 91 /min [facility] 07-16-2023 14:12-0400 Respiratory rate 16 /min [facility] 07-16-2023 14:12-0400 SaO2% (BldA) [Mass fraction] 95 % [facility] 07-16-2023 14:12-0400 Systolic blood pressure 117 mm[Hg] [facility] 07-14-2023 14:09-0400 Diastolic blood pressure 89 mm[Hg] Debi Haagen ASSOCIATE SOFTWARE DEVELOPMENT ENGINEER.PHOTOENGRAVING PROOFER APPRENTICE Work Phone: [facility] 07-14-2023 14:09-0400 Heart rate 67 /min Debi Haagen ASSOCIATE SOFTWARE DEVELOPMENT ENGINEER.PHOTOENGRAVING PROOFER APPRENTICE Work Phone: [facility] 07-14-2023 14:09-0400 Respiratory rate 16 /min Debi Haagen ASSOCIATE SOFTWARE DEVELOPMENT ENGINEER.PHOTOENGRAVING PROOFER APPRENTICE Work Phone: [facility] 07-14-2023 14:09-0400 Systolic blood pressure 138 mm[Hg] Debi Haagen ASSOCIATE SOFTWARE DEVELOPMENT ENGINEER.PHOTOENGRAVING PROOFER APPRENTICE Work Phone: [facility] 08-17-2022 15:00-0500 Body temperature 98.2 [degF] Isha Moreland PT Work Phone: [facility] 08-17-2022 15:00-0500 Diastolic blood pressure 70 mm[Hg] Isha Moreland PT Work Phone: [facility] 08-17-2022 15:00-0500 Heart rate 64 /min Isha Moreland PT Work Phone: [facility] 08-17-2022 15:00-0500 Respiratory rate 16 /min Isha Moreland PT Work Phone: [facility] 08-17-2022 15:00-0500 SaO2% (BldA) [Mass fraction] 99 % Isha Moreland PT Work Phone: [facility] 08-17-2022 15:00-0500 Systolic blood pressure 110 mm[Hg] Isha Moreland PT Work Phone: [facility] 08-11-2022 13:28-0500 Body temperature 97.7 [degF] Shellie Sylvester DESCRIPTIVE CATALOG LIBRARIAN Work Phone: [facility] 08-11-2022 13:28-0500 Diastolic blood pressure 78 mm[Hg] Shellie Sylvester DESCRIPTIVE CATALOG LIBRARIAN Work Phone: [facility] 08-11-2022 13:28-0500 Heart rate 77 /min Shellie Sylvester DESCRIPTIVE CATALOG LIBRARIAN Work Phone: [facility] 08-11-2022 13:28-0500 Respiratory rate 16 /min Shellie Sylvester DESCRIPTIVE CATALOG LIBRARIAN Work Phone: [facility] 08-11-2022 13:28-0500 SaO2% (BldA) [Mass fraction] 98 % Shellie Sylvester DESCRIPTIVE CATALOG LIBRARIAN Work Phone: [facility] 08-11-2022 13:28-0500 Systolic blood pressure 122 mm[Hg] Shellie Sylvester DESCRIPTIVE CATALOG LIBRARIAN Work Phone: [facility] 08-06-2022 12:06-0500 Heart rate 75 /min Shellie Sylvester DESCRIPTIVE CATALOG LIBRARIAN Work Phone: [facility] 08-06-2022 12:06-0500 SaO2% (BldA) [Mass fraction] 98 % Shellie Sylvester DESCRIPTIVE CATALOG LIBRARIAN Work Phone: [facility] 07-30-2022 15:42-0500 Body temperature 98.91 [degF] Neha Johnson PT Work Phone: [facility] 07-30-2022 15:42-0500 Diastolic blood pressure 78 mm[Hg] Neha Elizabeth PT Work Phone: [facility] 07-30-2022 15:42-0500 Heart rate 80 /min Neha Elizabeth PT Work Phone: [facility] 07-30-2022 15:42-0500 SaO2% (BldA) [Mass fraction] 99 % Neha Elizabeth PT Work Phone: [facility] 07-30-2022 15:42-0500 Systolic blood pressure 126 mm[Hg] Neha Johnson PT Work Phone: [facility] 05-27-2022 10:52-0400 Heart rate 74 /min Debi Haagen ASSOCIATE SOFTWARE DEVELOPMENT ENGINEER.PHOTOENGRAVING PROOFER APPRENTICE Work Phone: [facility] 05-27-2022 10:24-0400 Diastolic blood pressure 70 mm[Hg] Debi Haagen ASSOCIATE SOFTWARE DEVELOPMENT ENGINEER.PHOTOENGRAVING PROOFER APPRENTICE Work Phone: [facility] 05-27-2022 10:24-0400 Respiratory rate 18 /min Debi Haagen ASSOCIATE SOFTWARE DEVELOPMENT ENGINEER.PHOTOENGRAVING PROOFER APPRENTICE Work Phone: [facility] 05-27-2022 10:24-0400 SaO2% (BldA) [Mass fraction] 98 % Debi Haagen ASSOCIATE SOFTWARE DEVELOPMENT ENGINEER.PHOTOENGRAVING PROOFER APPRENTICE Work Phone: [facility] 05-27-2022 10:24-0400 Systolic blood pressure 124 mm[Hg] Debi Haagen ASSOCIATE SOFTWARE DEVELOPMENT ENGINEER.PHOTOENGRAVING PROOFER APPRENTICE Work Phone: [facility] Encounters Encounter Date Encounter Type Care Provider Facility Start: 07-31-2025 End: 07-31-2025 ambulatory [facility] [place] Facility:[facility] Start: 06-11-2025 End: 06-11-2025 ambulatory [facility] [place] Facility:[facility] Start: 05-08-2025 End: 05-08-2025 Refill Issac Wilkes MD Work Phone: [facility] Comment on above: Refill Request Start: 03-19-2025 End: 03-19-2025 ambulatory Issac Wilkes MD Work Phone: [facility] Comment on above: labs Start: 03-19-2025 End: 03-19-2025 E-mail encounter from caregiver Issac Wilkes MD Work Phone: [facility] Start: 03-16-2025 End: 03-16-[address] Issac Wilkes MD Work Phone: [facility] [place] Start: 03-16-2025 End: 03-16-[address] Issac Wilkes MD [facility] [place] Work Phone: Start: 03-16-2025 End: 03-16-2025 ambulatory Issac Wilkes Facility:[facility] Start: 03-06-2025 End: 03-06-2025 ambulatory Michael Rodríguez RN NURSE DATA PROCESSOR Comment on above: FYI-No Action Needed Start: 03-02-2025 End: 03-28-2025 Refill Issac Wilkes MD Work Phone: [facility] Comment on above: Refill Request Results Start: 02-28-2025 End: 02-28-2025 ambulatory ISSAC WILKES Facility:[facility] Start: 02-28-2025 End: 02-28-2025 ambulatory ISSAC WILKES Facility:[facility] Start: 02-28-2025 End: 02-28-2025 Patient encounter procedure Issac Wilkes MD Work Phone: [facility] Comment on above: Medicare annual well ness visit, subsequent (Primary Dx); Cerebral palsy, unspecified type (HCC); Aspiration into airway, subsequent encounter; Constipation, unspecified constipation type; Osteoporosis, unspecified osteoporosis type, unspecified pathological fracture presence; Complete edentulism, unspecified edentulism class; Intellectual disability; Mixed incontinence; Drooling; Hypoglycemia; Developmental disability; Ptosis of both eyelids; Hypertriglyceridemia; Chronic insomnia; Bilateral impacted cerumen Start: 02-23-2025 End: 02-23-[address] Issac Wilkes MD -Medical Out Work Phone: Start: 02-23-2025 End: 02-23-[address] Issac Wilkes MD Work Phone: [facility] Work Phone: Start: 02-15-2025 End: 02-15-2025 ambulatory Issac Wilkes MD Work Phone: [facility] Comment on above: Suzy Bach test Start: 02-05-2025 End: 02-05-2025 ambulatory John Long RN Work Phone: [facility] [employer] [facility] Comment on above: Case Review Start: 01-31-2025 End: 01-31-2025 Patient encounter status Issac Wilkes MD Work Phone: [facility] Start: 01-31-2025 End: 01-31-2025 Refill Issac Wilkes MD Work Phone: [facility] Comment on above: Refill Request Start: 01-19-2025 End: 01-19-2025 Telephone encounter Issac Wilkes MD Work Phone: [facility] Comment on above: Medication Problem Start: 01-03-2025 End: 01-03-2025 ambulatory ISSAC WILKES Facility:[facility] Start: 01-03-2025 End: 01-03-2025 ambulatory Issac Wilkes MD Work Phone: [facility] Comment on above: NO SHOW (Primary Dx) Start: 01-03-2025 End: 01-03-2025 Telemedicine consultation with patient Issac Wilkes MD Work Phone: [facility] Start: 12-13-2024 End: 12-13-2024 ambulatory Calvin Sarmiento MA [facility] Start: 12-13-2024 End: 12-13-2024 Patient encounter procedure Calvin Sarmiento MA [facility] Comment on above: Population Health Na vigation Outreach ([employer] high risk attempt 2) Start: 12-01-2024 End: 12-01-2024 Telephone encounter Issac Wilkes MD Work Phone: [facility] Comment on above: Medication Problem Start: 11-26-2024 End: 11-26-2024 ambulatory Jerri Madrid MA [facility] Start: 11-26-2024 End: 11-26-2024 Patient encounter procedure Jerri Madrid MA [facility] Comment on above: Population Health Na vigation Outreach ([employer] High Risk- Attempt 1 ) Start: 11-24-2024 End: 11-24-2024 Refill Issac Wilkes MD Work Phone: [facility] Comment on above: Refill Request Start: 11-01-2024 End: 11-01-2024 Refill Issac Wilkes MD Work Phone: [facility] Comment on above: Refill Request Start: 10-06-2024 End: 10-06-2024 Refill Issac Wilkes MD Work Phone: [facility] Comment on above: Refill Request Start: 08-28-2024 End: 08-28-2024 Telephone encounter Issac Wilkes MD Work Phone: [facility] Comment on above: Results Start: 08-22-2024 End: 08-22-2024 ambulatory Issac Wilkes Facility:[facility] Start: 08-14-2024 End: 08-14-2024 ambulatory Ernestine Mary Janeen [facility] Start: 08-14-2024 End: 08-14-2024 Patient encounter procedure Ernestine Usman Munozes [facility] Comment on above: Population Health Na vigation Outreach (Arin [facility] [place] ) Start: 07-05-2024 End: 07-06-2024 Refill Issac Wilkes MD Work Phone: [facility] Comment on above: Refill Request Start: 06-21-2024 End: 06-21-2024 ambulatory Issac Wilkes MD Work Phone: [facility] Comment on above: Diapers and disposab le chucks . Gloves and washable pads Start: 06-21-2024 End: 06-21-2024 Telephone encounter Issac Wilkes MD Work Phone: [facility] Comment on above: Forms Start: 05-03-2024 Refill Issac Wilkes MD Work Phone: [facility] Comment on above: Refill Request Start: 04-06-2024 ambulatory Tarah Anguiano MA [facility] [place] Start: 04-06-2024 Patient encounter [facility] Comment on above: Population Health Na vigation Outreach ([employer] AWV/HCC and care gaps ) Start: 02-29-2024 End: 02-29-2024 Office outpatient visit 25 minutes Debi Mejia APRN.CNP Work Phone: [facility] Comment on above: Decreased mobility ( Primary Dx); Developmental disability; Intellectual disability; Complete edentulism, unspecified edentulism class; Gastroesophageal reflux disease without esophagitis; Decreased activity tolerance; Cerebral palsy, unspecified type (HCC) Start: 02-01-2024 Patient encounter status Rl Wilkes MD Work Phone: [facility] Start: 02-01-2024 Refill [facility] MD [facility] Comment on above: Refill Request Start: 02-01-2024 Refill Hector rodriguez PA-C Work Phone: [facility] Comment on above: Refill Request Start: 01-12-2024 End: 01-12-2024 ambulatory [facility] Work Phone: Start: 01-12-2024 End: 01-12-2024 Patient encounter procedure [facility] Work Phone: Start: 01-11-2024 Telephone encounter Issac Wilkes MD Work Phone: [facility] Comment on above: Orders Start: 12-08-2023 Refill Issac Wilkes MD Work Phone: [facility] Comment on above: Refill Request Orders Start: 11-12-2023 Refill Issac Wilkes MD Work Phone: [facility] Comment on above: Refill Request Start: 11-08-2023 Refill Issac Wilkes MD Work Phone: [facility] Comment on above: Refill Request Start: 09-03-2023 Refill Issac Wilkes MD Work Phone: [facility] Comment on above: Refill Request Start: 08-10-2023 End: 08-10-2023 Subsequent hospital visit by physician [facility] Work Phone: Radiology Comment on above: Asymptomatic postmen opausal status [Z78.0] Start: 08-07-2023 Telephone encounter Debi myers APRN.PHOTOENGRAVING PROOFER APPRENTICE Work Phone: [facility] Comment on above: Results Start: 07-30-2023 Telephone encounter Debi myers APRN.PHOTOENGRAVING PROOFER APPRENTICE Work Phone: [facility] Comment on above: Forms Start: 07-16-2023 Telephone encounter Debi myers APRN.PHOTOENGRAVING PROOFER APPRENTICE Work Phone: [facility] Start: 07-16-2023 End: 07-16-2023 ambulatory [facility] Work Phone: Start: 07-16-2023 End: 07-16-2023 Patient encounter procedure [facility] Work Phone: Start: 07-14-2023 End: 07-14-2023 Patient encounter procedure Debi Mejia ASSOCIATE SOFTWARE DEVELOPMENT ENGINEER.PHOTOENGRAVING PROOFER APPRENTICE Work Phone: [facility] Comment on above: Osteoporosis, unspec ified osteoporosis type, unspecified pathological fracture presence (Primary Dx); Encounter for immunization; Screening for colon cancer; Screening for hyperlipidemia; Constipation, unspecified constipation type; Complete edentulism, unspecified edentulism class; Intellectual disability; Decreased appetite Start: 07-01-2023 Refill Issac Wilkes MD Work Phone: [facility] Comment on above: Refill Request Start: 06-09-2023 Telephone encounter Issac Wilkes MD Work Phone: [facility] Comment on above: Forms Start: 05-12-2023 Telephone encounter Issac Wilkes MD Work Phone: [facility] Comment on above: Forms Start: 05-11-2023 Telephone encounter Issac Wilkes MD Work Phone: [facility] Comment on above: Forms Start: 05-04-2023 Refill Issac Wilkes MD Work Phone: [facility] Comment on above: Refill Request Start: 02-02-2023 Patient encounter status Willi aracelis Wilkes MD Work Phone: [facility] Start: 02-02-2023 Refill Issac Wilkes MD Work Phone: [facility] Comment on above: Refill Request Start: 01-26-2023 Telephone encounter Debi myers APRN.PHOTOENGRAVING PROOFER APPRENTICE Work Phone: [facility] Comment on above: Forms Start: 01-08-2023 End: 01-08-2023 ambulatory [facility] Work Phone: Start: 01-08-2023 End: 01-08-2023 Discharged Recurring [facility] Work Phone: Start: 12-09-2022 Telephone encounter Issac Wilkes MD Work Phone: [facility] Comment on above: Orders Start: 12-02-2022 End: 12-02-2022 Nursing evaluation of patient and report Mi Nurse Work Phone: [facility] Comment on above: Osteoporosis, unspec ified osteoporosis type, unspecified pathological fracture presence (Primary Dx) Start: 11-20-2022 Refill Issac Wilkes MD Work Phone: [facility] Comment on above: Refill Request Start: 11-18-2022 End: 11-18-2022 ambulatory Debi Mejia APRN.PHOTOENGRAVING PROOFER APPRENTICE Work Phone: [facility] Comment on above: Complete edentulism, unspecified edentulism class (Primary Dx); Recurrent urinary tract infection; Constipation, unspecified constipation type; Decreased appetite; Developmental disability; Drooling; Well adult exam; Hypoglycemia; Care refused by patient; Screening for hyperlipidemia; Decreased mobility Start: 11-18-2022 End: 11-18-2022 Patient encounter status Debi Mejia ASSOCIATE SOFTWARE DEVELOPMENT ENGINEER.PHOTOENGRAVING PROOFER APPRENTICE Work Phone: [facility] Start: 11-18-2022 End: 11-18-2022 Telemedicine consultation with patient Debi Mejia APRN.PHOTOENGRAVING PROOFER APPRENTICE Work Phone: [facility] Start: 11-16-2022 Telephone encounter Debi myers ASSOCIATE SOFTWARE DEVELOPMENT ENGINEER.PHOTOENGRAVING PROOFER APPRENTICE Work Phone: [facility] [place] Comment on above: Appointment Start: 11-16-2022 End: 11-16-2022 ambulatory Debi Mejia ASSOCIATE SOFTWARE DEVELOPMENT ENGINEER.PHOTOENGRAVING PROOFER APPRENTICE Work Phone: [facility] [place] Comment on above: Osteoporosis, unspec ified osteoporosis type, unspecified pathological fracture presence (Primary Dx); Age-related osteoporosis without current pathological fracture; Contracture of left knee; Decreased mobility; Developmental disability; Constipation, unspecified constipation type Start: 11-16-2022 End: 11-16-2022 Telemedicine consultation with patient Debi Mejia APRN.PHOTOENGRAVING PROOFER APPRENTICE Work Phone: [facility] Start: 11-06-2022 Refill Issac Wilkes MD Work Phone: [facility] Comment on above: Refill Request Start: 11-06-2022 Refill Jamey Sánchez MD Work Phone: [facility] Comment on above: Refill Request Start: 11-04-2022 Refill Issac Wilkes MD Work Phone: [facility] [place] Comment on above: Refill Request Start: 10-13-2022 Telephone encounter Issac Wilkes MD Work Phone: [facility] Comment on above: Orders Start: 10-05-2022 Refill Issac Wilkes MD Work Phone: [facility] Comment on above: Refill Request Start: 10-02-2022 Telephone encounter Issac Wilkes MD Work Phone: [facility] Comment on above: Medication Problem Start: 09-29-2022 End: 09-29-2022 ambulatory Jennifer Guerrero MD Work Phone: [facility] Comment on above: Spasticity (Primary Dx); Contracture of left knee; Cerebral palsy, unspecified type (HCC) Start: 09-29-2022 End: 09-29-2022 Telemedicine consultation with patient Jennifer Guerrero MD Work Phone: [facility] Start: 08-31-2022 Refill Issac Wlikes MD Work Phone: [facility] Comment on above: Refill Request Start: 08-19-2022 End: 08-19-2022 Home visit Isha Moreland PT Work Phone: [facility] Comment on above: PT AGENCY DC WO VISI T Start: 08-18-2022 Telephone encounter Debi myers APRN.PHOTOENGRAVING PROOFER APPRENTICE Work Phone: [facility] Comment on above: Patient Question; Or ders Start: 08-18-2022 End: 08-18-2022 ambulatory Debi Mejia APRN.PHOTOENGRAVING PROOFER APPRENTICE Work Phone: [facility] Comment on above: Contracture of left knee (Primary Dx); Decreased mobility Start: 08-18-2022 End: 08-18-2022 Telemedicine consultation with patient Debi Mejia APRN.PHOTOENGRAVING PROOFER APPRENTICE Work Phone: [facility] Start: 08-17-2022 End: 08-17-2022 Home visit Isha Moreland PT Work Phone: [facility] Comment on above: PT REASSESSMENT Start: 08-17-2022 Telephone encounter Isha Moreland PT Work Phone: [facility] Comment on above: Home Care Start: 08-14-2022 End: 08-14-2022 Home visit Isha Moreland PT Work Phone: [facility] Comment on above: PT UNMADE VISIT Start: 08-11-2022 End: 08-11-2022 Home visit Shellie Phan DESCRIPTIVE CATALOG LIBRARIAN Work Phone: [facility] Comment on above: DESCRIPTIVE CATALOG LIBRARIAN ROUTINE Start: 08-06-2022 End: 08-06-2022 Home visit Shellie Phan DESCRIPTIVE CATALOG LIBRARIAN Work Phone: [facility] Comment on above: DESCRIPTIVE CATALOG LIBRARIAN ROUTINE Start: 08-05-2022 Telephone encounter Isha GilbertjaspreetdandreGeorge PT Work Phone: [facility] Comment on above: Home Care (/Missed v isit) Start: 08-04-2022 End: 08-04-2022 Home visit Isha GilbertjaspreetmistiLeon PT Work Phone: [facility] Comment on above: PT UNMADE VISIT Start: 08-03-2022 Telephone encounter Ezra Júnior sanchez PT Work Phone: [facility] Comment on above: Erroneous encounter- disregard Start: 08-02-2022 Telephone encounter Neha Johnson PT Work Phone: [facility] Comment on above: Home Care (Order nee ded for caregiver training) Start: 07-30-2022 End: 07-30-2022 Home visit Neha Elizabeth PT Work Phone: [facility] Comment on above: PT SOC Start: 07-29-2022 Telephone encounter Ezra bradford PT Work Phone: [facility] Comment on above: Home Care Refill Request Start: 07-29-2022 End: 07-29-2022 Home visit zEra Burgess PT Work Phone: [facility] Comment on above: PT UNMADE VISIT Start: 07-02-2022 Refill Issac Wilkes MD Work Phone: [facility] Comment on above: Refill Request Start: 06-23-2022 ambulatory Issac Wilkes MD Work Phone: [facility] [place] Comment on above: Botox Start: 06-09-2022 Refill Issac Wilkes MD Work Phone: [facility] Comment on above: Refill Request Start: 06-09-2022 Refill Jamey Sánchez MD Work Phone: [facility] Comment on above: Refill Request Start: 05-27-2022 End: 05-27-2022 Office outpatient visit 15 minutes Debi Mejia APRN.PHOTOENGRAVING PROOFER APPRENTICE Work Phone: [facility] Comment on above: Constipation, unspec ified constipation type (Primary Dx); Hypokalemia; Elevated alkaline phosphatase level; Hypoglycemia; Screening for colon cancer; Screening for hyperlipidemia; Gastroesophageal reflux disease without esophagitis; Contracture of left knee Start: 05-19-2022 Telephone encounter sIsac Wilkes MD Work Phone: [facility] [place] Comment on above: Consult Start: 04-24-2022 Refill Issac Wilkes MD Work Phone: [facility] Comment on above: Refill Request Start: 04-09-2022 ambulatory Issac Wilkse MD Work Phone: [facility] Comment on above: Obgyn Start: 04-01-2022 Refill Issac Wilkes MD Work Phone: [facility] Comment on above: Refill Request Start: 03-10-2022 Refill Issac Wilkes MD Work Phone: [facility] Comment on above: Refill Request Start: 02-25-2022 Refill Issac Wilkes MD Work Phone: [facility] [place] Comment on above: Refill Request Start: 02-10-2022 End: 02-10-2022 Patient encounter procedure Lisa Samuel APRN.PHOTOENGRAVING PROOFER APPRENTICE Work Phone: [facility] Comment on above: Spasticity (Primary Dx); Dystonia; Contracture of left knee; Abnormality of gait; Cerebral palsy, unspecified type (HCC) Start: 01-30-2022 Patient encounter status Sophia Chacon APRN.PHOTOENGRAVING PROOFER APPRENTICE Work Phone: [facility] [place] Start: 01-30-2022 Refill Cassidy Chacon APRN.PHOTOENGRAVING PROOFER APPRENTICE Work Phone: [facility] [place] Comment on above: Refill Request Start: 01-16-2022 End: 01-16-2022 Patient encounter procedure Jamey Sánchez MD Work Phone: [facility] Comment on above: Dystonia (Primary Dx ); Cerebral palsy, unspecified type (HCC); Acute pain of left knee; Contracture of left knee Start: 01-05-2022 Refill Issac Wilkes MD Work Phone: [facility] [place] Comment on above: Refill Request Start: 12-22-2021 Telephone encounter Issac Wilkes MD Work Phone: [facility] [place] Comment on above: fish bait picker letter from 12-18-21 Start: 12-18-2021 Telephone encounter Issac Wilkes MD Work Phone: [facility] [place] Comment on above: Letter Start: 12-11-2021 End: 12-11-2021 Patient encounter procedure Ramses Campbell MD Work Phone: Orthopaedics Comment on above: Contracture of left knee; Acute pain of left knee Start: 12-11-2021 End: 12-11-2021 Subsequent hospital visit by physician Pablo [facility] [place] Yee Work Phone: Radiology Procedures Date Procedure Procedure Detail Performing Clinician Start: 02-28-2025 Lipid 1995 panel - S hollie or Plasma Issac Wilkes MD Work Phone: Start: 07-14-2023 INFLUENZA VACCINE, P RSV FREE, AGE 65+ YR, HIGH DOSE, QUADRIVALENT (FLUZONE HIGH-DOSE) Debi Mejia APRN.PHOTOENGRAVING PROOFER APPRENTICE Work Phone: Start: 07-14-2023 Lipid 1996 panel - S hollie or Plasma Debi Mejia APRN.PHOTOENGRAVING PROOFER APPRENTICE Work Phone: Start: 11-18-2022 Refusal of treatment by patient Care refused by patient Debi Mejia APRN.PHOTOENGRAVING PROOFER APPRENTICE Work Phone: Start: 05-27-2022 Lipid 1996 panel - S hollie or Plasma Issac Wilkes MD Work Phone: Start: 04-22-2016 Adult depression screening assessment Ramses Campbell MD Work Phone: Plan of Treatment Date Care Activity Detail Author Start: 01-11-2032 RSV Vaccine (1 - 1-dose 75+ series) RSV Vaccine (1 - 1-dose 75+ series) [facility] Start: 02-28-2030 Lipid panel Lipid Screening [facility] Start: 07-14-2028 Lipid 1996 panel - Serum or Plasma Lipid Screening [facility] Start: 07-14-2028 Lipid panel Lipid Screening [facility] Start: 02-29-2028 Diabetes Screening Diabetes Screening [facility] Start: 05-27-2027 Lipid 1996 panel - Serum or Plasma Lipid Screening [facility] Start: 05-27-2027 LIPID SCREEN LIPID SCREEN [facility] Start: 07-14-2026 Diabetes Screening Diabetes Screening [facility] Start: 02-28-2026 Covid-19 Vaccine ( season) Covid-19 Vaccine () [facility] Comment on above: Postponed from 05/21/2024 (Declined at t his time) Start: 02-28-2026 Urine microalbumin profile DTaP,Tdap,Td Vaccine (3 - Tdap) [facility] Comment on above: Postponed from 02/07/2024 (Declined at t his time) Start: 08-22-2025 Screening for malignant neoplasm of colon [facility] Start: 08-10-2025 Screening for osteoporosis Bone Density Screening [facility] Start: 05-27-2025 DIABETES SCREEN DIABETES SCREEN [facility] Start: 05-27-2025 Diabetes Screening Diabetes Screening [facility] Start: 05-21-2025 Influenza vaccination [facility] Start: 03-16-2025 End: 06-15-2025 Hemoglobin A1c in Blood HEMOGLOBIN A1C Lab Routine Hyperglycemia Abnormal TSH Expected: 03/16/2025, Expires: 06/15/2025 [facility] Work Phone: Comment on above: Expected: 03/16/2025, Expires: Start: 03-16-2025 End: 06-15-2025 T4/FTI/T4U T4/FTI/T4U Lab Routine Hyperglycemia Abnormal TSH Hypertriglyceridemia Expected: 03/16/2025, Expires: 06/15/2025 [facility] Comment on above: Expected: 03/16/2025, Expires: Start: 03-16-2025 End: 06-15-2025 Thyrotropin [Units/volume] in Serum or Plasma THYROID STIMULATING HORMONE Lab Routine Hyperglycemia Abnormal TSH Hypertriglyceridemia Expected: 03/16/2025, Expires: 06/15/2025 [facility] Comment on above: Expected: 03/16/2025, Expires: Start: 03-16-2025 End: 06-15-2025 Triiodothyronine (T3) [Mass/volume] in Serum or Plasma T3 Lab Routine Hyperglycemia Abnormal TSH Hypertriglyceridemia Expected: 03/16/2025, Expires: 06/15/2025 [facility] Comment on above: Expected: 03/16/2025, Expires: Start: 02-28-2025 End: 05-30-2025 25-hydroxyvitamin D3 [Mass/volume] in Serum or Plasma [facility] Comment on above: Expected: 02/28/2025, Expires: Start: 02-28-2025 End: 05-30-2025 Comprehensive metabolic 2000 panel - Serum or Plasma [facility] Work Phone: Comment on above: Expected: 02/28/2025, Expires: Start: 02-28-2025 End: 05-30-2025 LIPID PANEL, NONFASTING [facility] Comment on above: Expected: 02/28/2025, Expires: Start: 02-28-2025 End: 05-30-2025 Thyrotropin [Units/volume] in Serum or Plasma [facility] Comment on above: Expected: 02/28/2025, Expires: Start: 02-28-2025 End: 02-28-2025 Patient encounter procedure 02/28/2025 1:00 PM EDT Office Visit Family [facility] [place] [address] [place] [address] Issac Wilkes MD [address] [place] [address] 2024 Medicare Wellness Z00.00 [facility] [place] Comment on above: 2024 Medicare Wellness Z00.00 Start: 09-20-2024 Advance Directive Discussion Advance Directive Discussion [facility] Start: 08-04-2024 Colorectal Cancer Screening Colorectal Cancer Screening [facility] Start: 08-04-2024 Fecal Occult Blood Fecal Occult Blood [facility] Start: 08-04-2024 Screening for malignant neoplasm of colon [facility] Start: 05-21-2024 Covid-19 Vaccine () Covid-19 Vaccine () [facility] Start: 05-21-2024 Influenza vaccination Influenza Vaccine (#1) [facility] Start: 02-22-2024 End: 02-22-2024 Patient encounter procedure 02/22/2024 11:00 AM EDT Office Visit Family [facility] [address] [place], [place] [id number] Debi Mejia APRN.PHOTOENGRAVING PROOFER APPRENTICE [address] [place] [address] physical Family Medicine [facility] Comment on above: physical Start: 02-21-2024 DIABETES SCREEN DIABETES SCREEN [facility] Start: 02-07-2024 Urine microalbumin profile [facility] Start: 10-13-2023 COLORECTAL CANCER SCREENING COLORECTAL CANCER SCREENING [facility] Start: 10-13-2023 FECAL OCCULT BLOOD FECAL OCCULT BLOOD [facility] Start: 09-20-2023 Advance Directive Discussion Advance Directive Discussion [facility] Start: 09-20-2023 Behavioral Health Screening Behavioral Health Screening [facility] Start: 09-20-2023 Depression Assessment Depression Assessment [facility] Start: 07-14-2023 End: 10-13-2023 LIPID PANEL, NONFASTING [facility] Work Phone: Comment on above: Expected: 07/14/2023, Expires: Start: 05-21-2023 Covid-19 Vaccine () Covid-19 Vaccine () [facility] Start: 05-21-2023 Influenza vaccination [facility] Start: 03-20-2023 End: 11-19-2023 CBC W Auto Differential panel - Blood CBC + DIFF Lab Routine Well adult exam Expected: 03/20/2023, Expires: 11/19/2023 [facility] Work Phone: Comment on above: Expected: 03/20/2023, Expires: 4 Start: 03-20-2023 End: 11-19-2023 Comprehensive metabolic 1999 panel - Serum or Plasma COMP METABOLIC PANEL Lab Routine Hypoglycemia Expected: 03/20/2023, Expires: 11/19/2023 [facility] Work Phone: Comment on above: Expected: 03/20/2023, Expires: 4 Start: 03-20-2023 End: 11-19-2023 Lipid 1996 panel - Serum or Plasma LIPID PANEL BASIC Lab Routine Well adult exam Screening for hyperlipidemia Expected: 03/20/2023, Expires: 11/19/2023 [facility] Work Phone: Comment on above: Expected: 03/20/2023, Expires: 4 Start: 03-20-2023 End: 11-19-2023 Magnesium [Mass/volume] in Serum or Plasma MAGNESIUM BLD Lab Routine Well adult exam Expected: 03/20/2023, Expires: 11/19/2023 [facility] Work Phone: Comment on above: Expected: 03/20/2023, Expires: 4 Start: 09-20-2022 ADVANCE DIRECTIVE DISCUSSION ADVANCE DIRECTIVE DISCUSSION [facility] Start: 09-20-2022 DEPRESSION ASSESSMENT DEPRESSION ASSESSMENT [facility] Start: 05-27-2022 End: 07-27-2022 Comprehensive metabolic 2000 panel - Serum or Plasma [facility] Work Phone: Comment on above: Expected: 05/27/2022, Expires: 2 Start: 05-27-2022 End: 07-27-2022 Lipid 1996 panel - Serum or Plasma [facility] Work Phone: Comment on above: Expected: 05/27/2022, Expires: 2 Start: 05-27-2022 End: 07-27-2022 Magnesium [Mass/volume] in Serum or Plasma [facility] Work Phone: Comment on above: Expected: 05/27/2022, Expires: 2 Start: 05-21-2022 Influenza vaccination INFLUENZA (#1) [facility] Start: 04-16-2022 COLORECTAL CANCER SCREENING COLORECTAL CANCER SCREENING [facility] Start: 04-16-2022 FECAL OCCULT BLOOD FECAL OCCULT BLOOD [facility] Start: 04-13-2022 COVID-19 VACCINE (4 - Booster for Moderna series) COVID-19 VACCINE (4 - Booster for Moderna series) [facility] Start: 02-06-2022 COVID-19 VACCINE (4 - Booster for Moderna series) COVID-19 VACCINE (4 - Booster for Moderna series) [facility] Start: 02-06-2022 COVID-19 VACCINE (4 - Moderna series) COVID-19 VACCINE (4 - Moderna series) [facility] Start: 2022 ADVANCE DIRECTIVE DISCUSSION ADVANCE DIRECTIVE DISCUSSION [facility] Start: 2022 Pneumococcal Vaccine: 65+ (2 - PCV) Pneumococcal Vaccine: 65+ (2 - PCV) [facility] Start: 2022 PNEUMOCOCCAL: 65+ (1 - PCV) PNEUMOCOCCAL: 65+ (1 - PCV) [facility] Start: 2022 PNEUMOCOCCAL: 65+ (2 - PCV) PNEUMOCOCCAL: 65+ (2 - PCV) [facility] Start: 2022 PNEUMOVAX AGE 65 AND OVER WITH 5YR LOOKBACK (#1) PNEUMOVAX AGE 65 AND OVER WITH 5YR LOOKBACK (#1) [facility] Start: 09-20-2021 DEPRESSION ASSESSMENT DEPRESSION ASSESSMENT [facility] Start: 05-20-2021 COVID-19 VACCINE (3 - Booster for Moderna series) COVID-19 VACCINE (3 - Booster for Moderna series) [facility] Start: 03-02-2021 LIPID SCREEN LIPID SCREEN [facility] Start: 12-22-2019 TWO PNEUMOVAX 5 YEARS APART PRIOR TO AGE 65 (#2) TWO PNEUMOVAX 5 YEARS APART PRIOR TO AGE 65 (#2) [facility] Start: 04-22-2017 Adult depression screening assessment DEPRESSION SCREENING [facility] Start: 2017 RSV Vaccine (1 - 1-dose 60+ series) RSV Vaccine (1 - 1-dose 60+ series) [facility] Start: 12-22-2015 PNEUMOCOCCAL: 65+ (2 - PCV) PNEUMOCOCCAL: 65+ (2 - PCV) [facility] Start: 2007 SHINGRIX VACCINE (1 of 2) SHINGRIX VACCINE (1 of 2) [facility] Start: 2002 COLOGUARD (FIT-DNA) COLOGUARD (FIT-DNA) [facility] Start: 2002 Colonoscopy COLONOSCOPY [facility] Start: [address] COLONOGRAPHY [facility] Start: 2002 Screening for malignant neoplasm of colon [facility] Start: 2002 SIGMOIDOSCOPY SIGMOIDOSCOPY [facility] Start: 01-11-1976 ADULT PREVNAR-13 ADULT PREVNAR-13 [facility] Start: 1975 Anxiety Screening Anxiety Screening [facility] Start: 1975 Depression Screening Depression Screening [facility] Start: 1975 HIV SCREENING HIV SCREENING [facility] DXA-AXIAL SKELETON DXA-AXIAL SKE LETON Radiology Routine Asymptomatic postmenopausal status Senile osteoporosis 08/10/2023 10:51 AM EST [facility] Work Phone: Hemoglobin.gastroint saida nal.lower [Presence] in Stool by Immunoassay FECAL OCCULT BLOOD TEST Lab Routine Screening for colon cancer Ordered: 05/27/2022 [facility] Work Phone: Comment on above: Ordered: 05/27/2022 Hemoglobin.gastroint saida nal.lower [Presence] in Stool by Immunoassay FECAL OCCULT BLOOD TEST Lab Routine Screening for colon cancer 10/13/2022 9:00 AM EST [facility] Work Phone: Hemoglobin.gastroint saida nal.lower [Presence] in Stool by Immunoassay FECAL OCCULT BLOOD TEST Lab Routine Screening for colon cancer Ordered: 07/14/2023 [facility] Work Phone: Comment on above: Ordered: 07/14/2023 Hemoglobin.gastroint saida nal.lower [Presence] in Stool by Immunoassay IMMUNOCHEMICAL FECAL OCCULT BLOOD TEST Lab Routine Screening for colon cancer Ordered: 08/14/2024 [facility] Work Phone: Comment on above: Ordered: 08/14/2024 Removal impacted cer umen irrigation/lvg unilat AMBULATORY EAR LAVAGE/IRRIGATION Procedures Routine Bilateral impacted cerumen Ordered: 02/28/2025 [facility] Comment on above: Ordered: 02/28/2025 [facility] Immunizations Immunization Date Immunization Notes Care Provider [facility] 08-02-2024 influenza virus vacc ine, unspecified formulation Issac Wilkes MD Work Phone: [facility] 07-14-2023 influenza (HD-IIV4) vaccine, age 65+ yr, high dose, quadrivalent, PF (FLUZONE HIGH-DOSE) Debi Mejia APRN.CNP Work Phone: [facility] 07-14-2023 influenza virus vacc ine, unspecified formulation Tarah Anguiano MA [facility] 07-03-2022 influenza virus vacc ine, unspecified formulation Issac Wilkes MD Work Phone: [facility] 08-28-2021 influenza, injectabl e, quadrivalent, contains preservative Issac Wilkes MD Work Phone: [facility] 08-28-2021 influenza, seasonal, injectable Ramses Campbell MD Work Phone: [facility] 07-17-2020 influenza, injectabl e, quadrivalent, contains preservative Ramses Campbell MD Work Phone: [facility] 08-11-2019 influenza, injectabl e, quadrivalent, contains preservative Ramses Campbell MD Work Phone: [facility] Work Phone: 08-05-2018 influenza, injectabl e, quadrivalent, contains preservative Ramses Campbell MD Work Phone: [facility] Work Phone: 07-24-2017 influenza, injectabl e, quadrivalent, contains preservative Ramses Campbell MD Work Phone: [facility] Work Phone: 08-21-2016 influenza, injectabl e, quadrivalent, contains preservative Ramses Campbell MD Work Phone: [facility] Work Phone: 03-02-2016 tuberculin skin test ; purified protein derivative solution, intradermal Issac Wilkes MD Work Phone: [facility] 07-24-2015 influenza, seasonal, injectable Ramses Campbell MD Work Phone: [facility] 02-25-2015 tuberculin skin test ; purified protein derivative solution, intradermal Issac Wilkes MD Work Phone: [facility] 12-21-2014 pneumococcal polysaccharide vaccine, 23 valent Ramses Campbell MD Work Phone: [facility] 02-06-2014 diphtheria, tetanus toxoids and acellular pertussis vaccine Ramses Campbell MD Work Phone: [facility] 02-06-2014 diphtheria, tetanus toxoids and acellular pertussis vaccine, unspecified formulation Issac Wilkes MD Work Phone: [facility] Payers Date Payer Category Payer Self-pay [id number] 2022 Medicare (Managed Care) [employer] [id number] 2022 Private Health Insurance [facility] [id number] 2016 Medicaid MEDICAID [facility] MEDICAID [id number] 2016-Present [phone] [address] [place] [address] Medicaid [id number] 2016 Medicaid [id number] 2016 Medicaid [id number] 1999 Medicare MEDICARE MEDICAR E A AND B [id number] 1999-Present [phone] [address] [address] [place] [address] Medicare [id number] 1999 Medicare [id number] Medicare [id number] Unknown [id number] Unknown [id number] Unknown [id number] Social History Date Type Detail Facility Start: 02-26-2016 End: 05-27-2022 Tobacco smoking status NHIS Never smoked tobacco [facility] Start: 02-26-2016 End: 05-27-2022 Tobacco use and exposure Smokeless tobacco non-user [facility] Start: 09-08-2021 End: 02-28-2025 Alcohol intake Current non-drinker of alcohol (finding) [facility] Start: 11-13-2021 End: 08-18-2022 History SDOH Housing Unable to Pay 3 [facility] Start: 1955 Sex Assigned At Female [facility] Start: 10-14-2021 End: 07-28-2022 Exposure to SARS-CoV-2 (event) Not sure [facility] Start: 03-02-2022 End: 05-22-2022 Exposure to SARS-CoV-2 (event) Unable to assess [facility] Start: 11-13-2021 History SDOH Alcohol Frequency 98 [facility] Start: 08-18-2022 History SDOH Alcohol Std Drinks 0 [facility] Start: 08-18-2022 History SDOH Alcohol Binge 1 [facility] Start: 08-18-2022 History SDOH Social Connections Get Together 2 [facility] Start: 08-18-2022 History SDOH Social Connections Living 7 [facility] Start: 08-11-2021 Tobacco smoking stat [facility] Unknown if ever smoked [facility] Start: 08-18-2022 End: 01-03-2025 History of Social function [facility] Start: 08-18-2022 End: 01-03-2025 Social connection and isolation panel [facility] Do you belong to any clubs or organizations such as congregational groups, unions, fraternal or athletic groups, or school groups? No [facility] Are you now , , , , never or living with a partner? Never [facility] Start: 02-13-2016 Frequency of Alcohol Consumption Not on file [facility] How often do you hav e 6 or more drinks on 1 occasion? Never [facility] (I/We) worried wheth er (my/our) food would run out before (I/we) got money to buy more. Never true [facility] Start: 03-26-2020 Gender identity Identifies as female gender (finding) [facility] Start: 03-26-2020 Sexual orientation Choose not to dis close [facility] Mental Status Date Assessment Result Facility 02-23-2025 Cognitive function Voice/Name [facility] Work Phone: 01-12-2024 Cognitive function Voice/Name [facility] Work Phone: 07-16-2023 Cognitive function Voice/Name [facility] Work Phone: Clinical Notes 03-01-2016 to 07-31-2025 Telephone Encounter - Erinn Vergara RN - 05/08/2025 2:25 PM EDTTelephone Encounter - Erinn Vergara RN - 05/08/2025 2:25 PM EDTTelephone Encounter - Igor Manuel LPN - 03/19/2025 7:25 PM EDT Note Date & Type Note Facility 07-31-2025 Note HNO ID: [id number] Author: DEBI MEJIA APRN.PHOTOENGRAVING PROOFER APPRENTICE Service: ? Author Type: Nurse Practitioner Type: Progress Notes Filed: 07/31/2025 23:24 Note Text: Chief Complaint Patient presents with: Telemedicine I have communicated my name and active licensure. The patient's identity and physical location were verified at the time of this visit. Either the patient or their legal shipping services sales representative has been informed of the risks and benefits of -- and alternatives to -- treatment through a remote evaluation and consents to proceed with the evaluation remotely. Video was used for evaluation of this patient. Patient is aware of limitations of performing the visit without a face to face visit in the office setting and agrees. Patient agrees to the visit: Yes Patient Location: [facility] Malka Kimball is a 70 year old female who is contacted today for a virtual visit This is an established patient of Issac Wilkes MD Presents today with caregiver to discuss concerns of new budgetary restrictions on food for the month. - Profound developmental disability; nonverbal. - Caregiver has been providing care since 1990 and has had Michelle in her home since February 2016. - Caregiver is seeking support and validation for the current feeding method, which requires more food than the $257/month budget allows. - Caregiver is concerned about the financial implications of the current feeding method and is seeking guidance on how to proceed. - Caregiver reports significant challenges with feeding due to gross and fine motor skill deficiencies. - Caregiver prepares meals by pureeing food to a texture that sticks to the spoon to help minimize waste. - Uses adaptive equipment. - Suzy does eat a lot. She never stops moving. - Caregiver reports that Suzy will start screaming at 2:00 am because she wants a snack. - Suzy will go through phases where she will not eat. Unfortunately, Suzy is non-verbal and is unable to relay that message prior to the meal being prepared and offered to her. - Suzy is receptive to assistance with eating; however, she also does have spillage of food, as well. Past medical history, appointments, medications, allergies reviewed 07/31/2025 Previous Medical History PAST MEDICAL HISTORY Diagnosis Date Leo's palsy mild Chronic constipation hx of Swazi measles hx of Hypoglycemia Profound mental retardation Skin sensitivity UTI (urinary tract infection) hx of Vitamin D deficiency Previous Surgical History PAST SURGICAL HISTORY Procedure Laterality Date TONSILLECTOMY PRIMARY/SECONDARY Tonsillectomy TOTAL ABDOMINAL HYSTERECT W/WO RMVL TUBE OVARY Hysterectomy, MARCIA Family History FAMILY HISTORY Problem Relation Age of Onset Heart Mother other (htn [Other]) Mother other (arteriosclerosis [Other]) Father Heart Father Stroke Father Colon Cancer Mother Glaucoma Mother Glaucoma Sister Patient Allergies ALLERGIES No Known Allergies Current Medications Current Outpatient Medications on File Prior to Visit Medication Sig zinc qlafw-cqxd-eulgtro E-clove oil (PINXAV) oint Apply liberally topically to chest and topically to buttocks with each diaper change mirtazapine (REMERON) 30 mg tablet Take 1 tablet by mouth daily at bedtime. Starch, Thickening, (THICK-IT) powd Honey-thickened liquids every liquid except pleasure foods (ie jello, ice cream) omeprazole (PRILOSEC) 20 mg capsule Take 1 capsule by mouth once daily. Take 30 -60 minutes before first meal of the day. Okay to use gloves, open capsule and sprinkle contents on food (ie applesauce, etc). traZODone (DESYREL) 50 mg tablet Take 1 tablet by mouth daily at bedtime. swlonds-yxwcjiezz-yoigucs D3 (OYSTER SHELL CALCIUM-VITAMIN D) 500 mg-5 mcg (200 unit) per tablet Take 1 tablet by mouth two times a day with meals. Take with meals or food. baclofen 10 mg tablet Take 1 tablet by mouth every 12 hours. cetirizine (ZYRTEC) 10 mg tablet Take 1 tablet by mouth daily at bedtime. Lactobacillus Acidophilus (ACIDOPHILUS) chew 2 caplets by mouth twice daily. Pt with complete edentulism -- please crush. oxybutynin (DITROPAN) 5 mg tablet Take 1 tablet by mouth two times a day. (for drooling) obqqslxxcbit-xnk-nimb-FA-vit K (ONE DAILY WOMEN'S) 18 mg iron-400 mcg-25 mcg tab Take 2 tablets by mouth once daily. Diaper,Brief, Adult,Disposable Use as directed. Size XL (N39.498) Other urinary incontinence, (T73.8XXA) Sensory deprivation, initial encounter Disposable Gloves misc Use as directed, latex, XL, N39.498, T73.8XXA Miscellaneous Medical Supply Washable chux pads Diaper,Brief, Adult,Disposable (BRIEFS) misc Pull ups size XL Use as directed (N39.498) Other urinary incontinence, (T73.8XXA) Sensory deprivation, initial encounter COMPOUNDED PRESCRIPTION Washable cloth chux pad, use as directed. (N39.498) Other urinary incontinence, (T73.8XXA) Sensory deprivation, initial encounter COMPO (more content not included)... [facility] 06-11-2025 Note HNO ID: [id number] Author: DEBI MEJIA APRN.PHOTOENGRAVING PROOFER APPRENTICE Service: ? Author Type: Nurse Practitioner Type: Progress Notes Filed: 06/11/2025 22:56 Note Text: Chief Complaint Patient presents with: Telemedicine I have communicated my name and active licensure. The patient's identity and physical location were verified at the time of this visit. Either the patient or their legal shipping services sales representative has been informed of the risks and benefits of -- and alternatives to -- treatment through a remote evaluation and consents to proceed with the evaluation remotely. Video was used for evaluation of this patient. Patient is aware of limitations of performing the visit without a face to face visit in the office setting and agrees. Patient agrees to the visit: Yes Patient Location: [facility] Malka Kimball is a 70 year old female who is contacted today for a virtual visit This is an established patient of Issac Wilkes MD Presents w/ caregiver. 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 - Holds hands in a flexed position, particularly when relaxed, eating, or sleeping. - Able to move hands but increasingly holds them in a contracted position. - Considering custom braces to prevent further contracture and maintain hand function. - Interested in starting brace use during sleep to increase tolerance. Requesting referral to OT at [facility]. Previous Medical History PAST MEDICAL HISTORY Diagnosis Date Leo's palsy mild Chronic constipation hx of Swazi measles hx of Hypoglycemia Profound mental retardation Skin sensitivity UTI (urinary tract infection) hx of Vitamin D deficiency Previous Surgical History PAST SURGICAL HISTORY Procedure Laterality Date TONSILLECTOMY PRIMARY/SECONDARY Tonsillectomy TOTAL ABDOMINAL HYSTERECT W/WO RMVL TUBE OVARY Hysterectomy, MARCIA Family History FAMILY HISTORY Problem Relation Age of Onset Heart Mother other (htn [Other]) Mother other (arteriosclerosis [Other]) Father Heart Father Stroke Father Colon Cancer Mother Glaucoma Mother Glaucoma Sister Patient Allergies ALLERGIES No Known Allergies Current Medications Current Outpatient Medications on File Prior to Visit Medication Sig mirtazapine (REMERON) 30 mg tablet Take 1 tablet by mouth daily at bedtime. Starch, Thickening, (THICK-IT) powd Honey-thickened liquids every liquid except pleasure foods (ie jello, ice cream) omeprazole (PRILOSEC) 20 mg capsule Take 1 capsule by mouth once daily. Take 30 -60 minutes before first meal of the day. Okay to use gloves, open capsule and sprinkle contents on food (ie applesauce, etc). traZODone (DESYREL) 50 mg tablet Take 1 tablet by mouth daily at bedtime. iywcohh-wqybieruk-pmiidjk D3 (OYSTER SHELL CALCIUM-VITAMIN D) 500 mg-5 mcg (200 unit) per tablet Take 1 tablet by mouth two times a day with meals. Take with meals or food. baclofen 10 mg tablet Take 1 tablet by mouth every 12 hours. zinc rheev-jcjb-fhajsau E-clove oil (PINXAV) oint Apply liberally topically to chest and topically to buttocks with each diaper change cetirizine (ZYRTEC) 10 mg tablet Take 1 tablet by mouth daily at bedtime. Lactobacillus Acidophilus (ACIDOPHILUS) chew 2 caplets by mouth twice daily. Pt with complete edentulism -- please crush. oxybutynin (DITROPAN) 5 mg tablet Take 1 tablet by mouth two times a day. (for drooling) ajxindwzvlzc-yjc-aeae-FA-vit K (ONE DAILY WOMEN'S) 18 mg iron-400 mcg-25 mcg tab Take 2 tablets by mouth once daily. Diaper,Brief, Adult,Disposable Use as directed. Size XL (N39.498) Other urinary incontinence, (T73.8XXA) Sensory deprivation, initial encounter Disposable Gloves misc Use as directed, latex, XL, N39.498, T73.8XXA Miscellaneous Medical Supply Washable chux pads Diaper,Brief, Adult,Disposable (BRIEFS) misc Pull ups size XL Use as directed (N39.498) Other urinary incontinence, (T73.8XXA) Sensory deprivation, initial encounter COMPOUNDED PRESCRIPTION Washable cloth chux pad, use as directed. (N39.498) Other urinary incontinence, (T73.8XXA) Sensory deprivation, initial encounter COMPOUNDED PRESCRIPTION Washable chucks: urinary incontinence n39.498, sensory deprivation t73.8xxa Diaper,Brief, Adult,Disposable misc Use as directed. Size XL (N39.498) Other urinary incontinence, (T73.8XXA) Sensory deprivation, initial encounter COMPOUNDED PRESCRIPTION Washable chucks: urinary incontinence n39.498, sensory deprivation t73.8xxa No current facility-administered medications on file prior to visit. Social History SOCIAL HISTORY[1] EXAM: There were no vitals taken for this visit. Limited exam as visit was completed over the virtual platform. Virtual visit completed using video, limited exam completed. Patient sounds or appears ill: No General Appearance: Well appearing, alert, in no acute distress, well-hydrated, well nourished. (more content not included)... [facility] 05-08-2025 Telephone encounter Note The patient has been identified by name and date of : Yes Caregiver verified no other encounters exist for this prescription request: Yes Caregiver confirmed with patient/requestor that no other refills are due, in the near future, with this provider at this time: Yes The last office visit in the department: 02/28/2025 Does the patient have a future office visit with this provider/department: No Visit date not found Requested Prescriptions Pending Prescriptions Disp Refills mirtazapine (REMERON) 30 mg tablet 30 tablet 5 Sig: Take 1 tablet by mouth daily at bedtime. Starch, Thickening, (THICK-IT) powd 1020 g 5 Sig: Honey-thickened liquids every liquid except pleasure foods (ie jello, ice cream) Erinn Vergara RN May 08, 2025 2:26 PM [facility] 05-08-2025 Miscellaneous Notes The patient has been identified by name and date of : Yes Caregiver verified no other encounters exist for this prescription request: Yes Caregiver confirmed with patient/requestor that no other refills are due, in the near future, with this provider at this time: Yes The last office visit in the department: 02/28/2025 Does the patient have a future office visit with this provider/department: No Visit date not found Requested Prescriptions Pending Prescriptions Disp Refills mirtazapine (REMERON) 30 mg tablet 30 tablet 5 Sig: Take 1 tablet by mouth daily at bedtime. Starch, Thickening, (THICK-IT) powd 1020 g 5 Sig: Honey-thickened liquids every liquid except pleasure foods (ie jello, ice cream) Erinn Vergara RN May 08, 2025 2:26 PM documented in this encounter [facility] 03-19-2025 Telephone encounter Note Follow up labs were completed at [facility]. View External Labs - Chemistry [ID [id number]] [facility] 03-19-2025 Miscellaneous Notes Follow up labs were completed at [facility]. View External Labs - Chemistry [ID [id number]] Left vm for Vivi to return call to triage nurse for provider's message. Labs are stable. Thyroid is ? Borderline abnormal. Sugar is slightly up. Recheck A1c and tsh and t4, t3 in a few weeks documented in this encounter [facility] 03-06-2025 Telephone encounter Note Caregiver calling with return call/Message from office: Message from office reviewed - see telephone encounter dated 03/02/25. Patient verbalized understanding of message given. Caregiver denies any new or worsening symptoms of which a provider is not aware:Yes Caregiver Eliza Morris was told to call back for message and message from Dr Wilkes was given to her about patient and need to repeat labs in a few weeks. Caregiver verbalized understanding of message and has no questions or concerns at this time. GO TO THE EMERGENCY ROOM OR CALL 911 IF: * You develop any new symptoms * Your condition worsens * You are concerned or anxious about your condition for any other reason. If you have any questions, you can call Nurse retail consultant back. [facility] 03-06-2025 Miscellaneous Notes Caregiver calling with return call/Message from office: Message from office reviewed - see telephone encounter dated 03/02/25. Patient verbalized understanding of message given. Caregiver denies any new or worsening symptoms of which a provider is not aware:Yes Caregiver Eliza Morris was told to call back for message and message from Dr Wilkes was given to her about patient and need to repeat labs in a few weeks. Caregiver verbalized understanding of message and has no questions or concerns at this time. GO TO THE EMERGENCY ROOM OR CALL 911 IF: * You develop any new symptoms * Your condition worsens * You are concerned or anxious about your condition for any other reason. If you have any questions, you can call Nurse retail consultant back. documented in this encounter [facility] 03-03-2025 Telephone encounter Note Left vm for Vivi to return call to triage nurse for provider's message. [facility] 03-02-2025 Telephone encounter Note Labs are stable. Thyroid is ? Borderline abnormal. Sugar is slightly up. Recheck A1c and tsh and t4, t3 in a few weeks [facility] 03-02-2025 Telephone encounter Note Prescription Refill Information The patient has been identified by name and date of : Yes Caregiver verified no other encounters exist for this prescription request: Yes Caregiver confirmed with patient/requestor that no other refills are due, in the near future, with this provider at this time: Yes The last office visit in the department: 02/28/25 Does the patient have a future office visit with this provider/department: No Requested Prescriptions Pending Prescriptions Disp Refills omeprazole (PRILOSEC) 20 mg capsule 30 capsule 5 Sig: Take 1 capsule by mouth once daily. Take 30 -60 minutes before first meal of the day. Okay to use gloves, open capsule and sprinkle contents on food (ie applesauce, etc). Jeni Hancock RN March 02, 2025 4:23 PM [facility] 03-02-2025 Miscellaneous Notes Prescription Refill Information The patient has been identified by name and date of : Yes Caregiver verified no other encounters exist for this prescription request: Yes Caregiver confirmed with patient/requestor that no other refills are due, in the near future, with this provider at this time: Yes The last office visit in the department: 02/28/25 Does the patient have a future office visit with this provider/department: No Requested Prescriptions Pending Prescriptions Disp Refills omeprazole (PRILOSEC) 20 mg capsule 30 capsule 5 Sig: Take 1 capsule by mouth once daily. Take 30 -60 minutes before first meal of the day. Okay to use gloves, open capsule and sprinkle contents on food (ie applesauce, etc). Jeni Hancock RN March 02, 2025 4:23 PM documented in this encounter [facility] 02-28-2025 Note HNO ID: [id number] Author: IGOR MANUEL LPN Service: ? Author Type: LICENSED NURSE Type: Progress Notes Filed: 02/28/2025 17:30 Note Text: Ambulatory Ear Lavage Pre-treatment: Warm water Treatment: Both ears Equipment and Irrigation solution and Volume used: Single use syringe with single use irrigation tip Return flow appearance: Cloudy Debris Patient tolerated procedure: yes Tympanic membrane assessment: Tympanic membrane assessed by LIP pre and post procedure [facility] 02-28-2025 History of Present illness Narrative Ambulatory Ear Lavage Pre-treatment: Warm water Treatment: Both ears Equipment and Irrigation solution and Volume used: Single use syringe with single use irrigation tip Return flow appearance: Cloudy Debris Patient tolerated procedure: yes Tympanic membrane assessment: Tympanic membrane assessed by LIP pre and post procedure Images from the original note were not included. Malka Kimball is a 70 year old female here for a Medicare wellness visit. Medicare Health Risk Assessment General Health Good. Exercise: Minutes/Day no Exercise: Days/Week no Alcohol: Daily Use no Alcohol: Drinks/Day no Alcohol: 6 or more drinks no Feel off balance Some. Is total assist. Concerns: Teeth/Dentures No teeth. Concerns: Sexual function Inappropriate behavior Troubled by feelings Some anxiety ? Frequency: Eating healthy diet Up and down. Better with remeron. ADLs requiring help Total assist Safety precautions in home/vehicle none Smoke, vape, chews tobacco none Difficulty hearing Issues with ears. Difficulty seeing Functions well. Current Providers Specialists: I have reviewed specialist-related care of the patient in the medical record. Current care team: Patient Care Team: Issac Wilkes MD as PCP - General (Family Medicine) Jennifer Guerrero MD as Referring (Physical Medicine and Rehab) Jennifer Guerrero MD as Home Care Provider (Physical Medicine and Rehab) Debi Mejia APRN.RILEY as Phd Intern (Family Medicine) Meg Tomas APRN.RILEY as Phd Intern (Family Medicine) Medical/Family history review Reviewed and updated problem list, medical/surgical/family/social history, medications, and allergies. Opioid use review Opioid Medications (last 90 days) No data to display Anxiety/Depression screening Unable to perform Recommendation: continuing current treatment plan Cognitive screening Unable to perform. Cognitive screening reviewed and Patient has known cognitive impairment. Functional Observation Was the patient's Timed Up & Go test unsteady or >= 12 seconds? Yes Advance Care Planning Surrogate decision maker and/or advance care plan documented Measurements BP 110/72 Pulse 120 SpO2 96% Vision Screening: Declines visual acuity screen, unable to assess. Suzy Kimball is a 70-year-old female with a history of anxiety, anorexia, and osteoporosis, seen today for an annual wellness visit. HPI Annual Wellness Exam: - Total assist with ADLs. - Edentulous; no known oral issues. - No known vision issues; does not see an eye doctor unless symptomatic. - No known hearing issues; has a history of earwax buildup. - No known skin issues; sensitive skin. - No known swelling in legs or syncope. - No known foul-smelling urine or hematuria. - No known unusual moles or rashes. - No known chronic cough, dyspnea, or wheezing. - No known hematochezia or melena. - No known pain. - No known tobacco use. - No alcohol use; difficult to get her to drink fluids. - Incontinent of bowel and bladder; history of UTIs. - Family history of lung issues in mother and aunt; aunt from it. Anxiety: - Constant movement and pacing, exacerbated by inability to walk due to ankle fracture. - Described as twitching and moving constantly. - Mirtazapine initially helped with anxiety but effects have diminished over time. Anorexia: - History of weight fluctuations; currently on mirtazapine to stabilize weight. - Appetite described as good, but recently recovering from a period of decreased interest in food. - Consumes large amounts of food, including high-calorie items like butter, mayonnaise, and peanut butter. Osteoporosis: - Receiving Prolia injections. MEDICATIONS: Current Outpatient Medications Medication Sig csnxfgv-fdaacndoe-vyudswp D3 (OYSTER SHELL CALCIUM-VITAMIN D) 500 mg-5 mcg (200 unit) per tablet Take 1 tablet by mouth two times a day with meals. Take with meals or food. baclofen 10 mg tablet Take 1 tablet by mouth every 12 hours. mirtazapine (REMERON) 30 mg tablet Take 1 tablet by mouth daily at bedtime. cetirizine (ZYRTEC) 10 mg tablet Take 1 tablet by mouth daily at bedtime. Lactobacillus Acidophilus (ACIDOPHILUS) chew 2 caplets by mouth twice daily. Pt with complete edentulism -- please crush. oxybutynin (DITROPAN) 5 mg tablet Take 1 tablet by mouth two times a day. (for drooling) omeprazole (PRILOSEC) 20 mg capsule Take 1 capsule by mouth once daily. Take 30 -60 minutes before first meal of the day. Okay to use gloves, open capsule and sprinkle contents on food (ie applesauce, etc). traZODone (DESYREL) 50 mg tablet Take 1 tablet by mouth daily at bedtime. zinc bsexk-nops-echkmav E-clove oil (PINXAV) oint Apply liberally topically to chest and topically to buttocks with each diaper change Starch, Thickening, (THICK-IT) powd Honey-thickened liquids every liquid except pleasure foods (ie jello, ice cream) ektxhziblkzk-uvg-atxm-FA-vit K (ONE DAILY WOMEN'S) 18 mg iron-400 mcg-25 mcg tab Take 2 tablets by mouth once daily. Diaper,Brief, Adult,Disposable Use as directed. Size XL (N39.498) Other urinary incontinence, (T73.8XXA) Sensory deprivation, initial encounter Disposable Gloves misc Use as directed, latex, XL, N39.498, T73.8XXA Miscellaneous Medical Supply Washable chux pads Diaper,Brief, Adult,Disposable (BRIEFS) misc Pull ups size XL Use as directed (N39.498) Other urinary incontinence, (T73.8XXA) Sensory deprivation, initial encounter COMPOUNDED PRESCRIPTION Washable cloth chux pad, use as directed. (N39.498) Other urinary incontinence, (T73.8XXA) Sensory deprivation, initial encounter COMPOUNDED PRESCRIPTION Washable chucks: urinary incontinence n39.498, sensory deprivation t73.8xxa Diaper,Brief, Adult,Disposable misc Use as directed. Size XL (N39.498) Other urinary incontinence, (T73.8XXA) Sensory deprivation, initial encounter COMPOUNDED PRESCRIPTION Washable chucks: urinary incontinence n39.498, sensory deprivation t73.8xxa No current facility-administered medications for this visit. ALLERGIES: ALLERGIES No Known Allergies PAST MEDICAL HISTORY Diagnosis Date Leo's palsy mild Chronic constipation hx of Swazi measles hx of Hypoglycemia Profound mental retardation Skin sensitivity UTI (urinary tract infection) hx of Vitamin D deficiency PAST SURGICAL HISTORY Procedure Laterality Date TONSILLECTOMY PRIMARY/SECONDARY <AGE 14 Tonsillectomy TOTAL ABDOMINAL HYSTERECT W/WO RMVL TUBE OVARY Hysterectomy, MARCIA FAMILY HISTORY Problem Relation Age of Onset Heart Mother other (htn [Other]) Mother other (arteriosclerosis [Other]) Father Heart Father Stroke Father Colon Cancer Mother Glaucoma Mother Glaucoma Sister Social History Tobacco Use Smoking status: Never Smokeless tobacco: Never Substance Use Topics Alcohol use: No Reviewed current medications, allergies, past medical history, surgical history, family history and social history today. REVIEW OF SYSTEMS Constitutional: (+) insomnia, (+) weight fluctuation Eyes: (+) ocular redness Ears/Nose/Mouth/Throat: (+) cerumen impaction, (-) oral discomfort Cardiovascular: (-) lower extremity edema, (-) syncope Respiratory: (-) chronic cough, (-) dyspnea, (-) wheezing Gastrointestinal: (-) melena Genitourinary: (+) urinary incontinence, (-) malodorous urine, (-) hematuria Musculoskeletal: (+) impaired ambulation, (-) ankle pain Skin: (+) sensitive skin, (-) skin rash Neurological: (+) involuntary movements Psychiatric: (+) anxiety, (+) sexual disinhibition HEALTH MAINTENANCE: Reviewed health maintenance issues today and recommended the following in detail. Medicare Advantage Annual Wellness Visit Never done LAB REVIEWED: Labs: (August) Stool test for colon cancer screening: Negative VITALS: BP 110/72 Pulse 120 SpO2 96% Last 4 Encounter Wt Readings: Date: Wt: 09/15/2023 61.6 kg (135 lb 12.8 oz) 07/28/2022 0 kg () 03/03/2021 57.2 kg (126 lb) 02/20/2021 58.8 kg (129 lb 9.6 oz) PHYSICAL EXAMINATION: GENERAL: NAD, alert and oriented. SKIN: Unremarkable, no rash or skin lesions. HEAD: Normocephalic. EYES: PERRLA, EOMI, conjunctiva clear. Mild ptosis noted bilaterally. EARS: bilateral cerumen NOSE/SINUSES: Nares normal. Septum midline. OROPHARYNX: Edentulous. Lips, mucosa, and tongue normal. No oral lesions noted. NECK: Supple, no lymphadenopathy, normal thyroid, no carotid bruits. LUNGS: Clear to auscultation bilaterally, no wheezes/rhonchi/rales. HEART: Regular rate and rhythm, no murmurs. No ectopy. EXTREMITIES: Normal, no deformities, no skin discoloration, no edema. ABDOMEN: Soft, non-tender, normal bowel sounds. NEURO: Awake, alert and oriented x3, cranial nerves II-XII grossly intact, normal gait, no involuntary motions. ASSESSMENT AND PLAN 1. Medicare annual wellness visit, subsequent (Z00.00) - Completed Medicare annual wellness visit. - Discussed patient's overall health status, including current medications and recent medical history. - Ordered non-fasting lipid panel, CBC, CMP, and thyroid function tests. - Discussed immunizations; patient will pass on tetanus and COVID vaccines. - Reviewed family history of lung issues; no current symptoms of chronic cough, shortness of breath, or wheezing. - Patient's mother will provide more information on family lung issues for further evaluation. 2. Cerebral palsy, unspecified type (HCC) (G80.9) 3. Developmental disability (F89) 4. Intellectual disability (F79) - Patient is total assist with ADLs, able to stand and bear weight on one leg with assistance. - No current physical therapy due to cognitive limitations. - Continue current management. 5. Aspiration into airway, subsequent encounter (T17.908D) - Patient on honey-thickened liquids; no recent episodes of coughing or choking. - Continue current dietary modifications. 6. Constipation, unspecified constipation type (K59.00) - Lactulose discontinued. - Monitor bowel movements; no current issues reported. 7. Osteoporosis, unspecified osteoporosis type, unspecified pathological fracture presence (M81.0) - Continue Prolia injections. - Next bone density scan due in fall. 8. Complete edentulism, unspecified edentulism class (K08.109) - Oral examination shows normal gums, tongue, and throat. - No dental issues observed. 9. Mixed incontinence (N39.46) - Continue current management. 10. Drooling (K11.7) - No skin breakdown around the mouth observed. - Continue current skin care regimen. 11. Hypoglycemia (E16.2) - Continue mirtazapine to help stabilize weight fluctuations. 12. Ptosis of both eyelids (H02.403) - Mild ptosis observed, likely due to aging. - Discussed surgical options; not recommended due to patient's activity level and potential complications. 13. Hypertriglyceridemia (E78.1) - Ordered non-fasting lipid panel to monitor triglyceride levels. 14. Chronic insomnia (F51.04) - Initiated trazodone 50 mg at bedtime to improve sleep and potentially reduce anxiety. - Monitor for effectiveness and any side effects. 15. Bilateral impacted cerumen (H61.23) - Ear irrigation performed. warm tap water used. tolerated well. - Discontinued ear drops due to difficulty in administration. (See patient after visit summary for additional instructions to patient) Issac Wilkes MD Recording using [employer] software for draft documentation of the visit was discussed with the patient/authorized shipping services sales representative; all questions welcomed and answered. Patient/authorized shipping services sales representative agreed to proceed documented in this encounter [facility] 02-28-2025 Instructions Issac Wilkes MD - 02/28/2025 1:34 PM EDT - Start trazodone 50 mg at bedtime for sleep; prescription has been sent to your pharmacy. - Continue your current medications as before: mirtazapine, baclofen, Ditropan, Prilosec, and honey-thickened liquids. - Stop taking lactulose. - Your ears were irrigated today to remove wax; discontinue the prescribed ear drops. - Blood was drawn today for lab tests: CBC, CMP (kidney/liver function and blood sugar), non-fasting lipid panel, TSH, and vitamin D level. - Continue your scheduled Prolia injections for osteoporosis. - If you experience excessive drowsiness from trazodone or if it does not help your sleep, call our office to discuss next steps. documented in this encounter [facility] 02-28-2025 Note HNO ID: [id number] Author: ISSAC WILKES MD Service: ? Author Type: Physician Type: Progress Notes Filed: 02/28/2025 17:30 Note Text: Malka Kimball is a 70 year old female here for a Medicare wellness visit. Medicare Health Risk Assessment General Health Good. Exercise: Minutes/Day no Exercise: Days/Week no Alcohol: Daily Use no Alcohol: Drinks/Day no Alcohol: 6 or more drinks no Feel off balance Some. Is total assist. Concerns: Teeth/Dentures No teeth. Concerns: Sexual function Inappropriate behavior Troubled by feelings Some anxiety ? Frequency: Eating healthy diet Up and down. Better with remeron. ADLs requiring help Total assist Safety precautions in home/vehicle none Smoke, vape, chews tobacco none Difficulty hearing Issues with ears. Difficulty seeing Functions well. Current Providers Specialists: I have reviewed specialist-related care of the patient in the medical record. Current care team: Patient Care Team: Issac Wilkes MD as PCP - General (Family Medicine) Jennifer Guerrero MD as Referring (Physical Medicine and Rehab) Jennifer Guerrero MD as Home Care Provider (Physical Medicine and Rehab) Debi Mejia APRN.RILEY as Phd Intern (Family Medicine) Meg Tomas APRN.CNP as Phd Intern (Family Medicine) Medical/Family history review Reviewed and updated problem list, medical/surgical/family/social history, medications, and allergies. Opioid use review Opioid Medications (last 90 days) No data to display Anxiety/Depression screening Unable to perform Recommendation: continuing current treatment plan Cognitive screening Unable to perform. Cognitive screening reviewed and Patient has known cognitive impairment. Functional Observation Was the patient's Timed Up AND Go test unsteady or >= 12 seconds? Yes Advance Care Planning Surrogate decision maker and/or advance care plan documented Measurements BP 110/72 Pulse 120 SpO2 96% Vision Screening: Declines visual acuity screen, unable to assess. Suzy Kimball is a 70-year-old female with a history of anxiety, anorexia, and osteoporosis, seen today for an annual wellness visit. [facility] Annual Wellness Exam: - Total assist with ADLs. - Edentulous; no known oral issues. - No known vision issues; does not see an eye doctor unless symptomatic. - No known hearing issues; has a history of earwax buildup. - No known skin issues; sensitive skin. - No known swelling in legs or syncope. - No known foul-smelling urine or hematuria. - No known unusual moles or rashes. - No known chronic cough, dyspnea, or wheezing. - No known hematochezia or melena. - No known pain. - No known tobacco use. - No alcohol use; difficult to get her to drink fluids. - Incontinent of bowel and bladder; history of UTIs. - Family history of lung issues in mother and aunt; aunt from it. Anxiety: - Constant movement and pacing, exacerbated by inability to walk due to ankle fracture. - Described as twitching and moving constantly. - Mirtazapine initially helped with anxiety but effects have diminished over time. Anorexia: - History of weight fluctuations; currently on mirtazapine to stabilize weight. - Appetite described as good, but recently recovering from a period of decreased interest in food. - Consumes large amounts of food, including high-calorie items like butter, mayonnaise, and peanut butter. Osteoporosis: - Receiving Prolia injections. MEDICATIONS: Current Outpatient Medications Medication Sig jilxuvn-rtuaxxerv-bcxcbhv D3 (OYSTER SHELL CALCIUM-VITAMIN D) 500 mg-5 mcg (200 unit) per tablet Take 1 tablet by mouth two times a day with meals. Take with meals or food. baclofen 10 mg tablet Take 1 tablet by mouth every 12 hours. mirtazapine (REMERON) 30 mg tablet Take 1 tablet by mouth daily at bedtime. cetirizine (ZYRTEC) 10 mg tablet Take 1 tablet by mouth daily at bedtime. Lactobacillus Acidophilus (ACIDOPHILUS) chew 2 caplets by mouth twice daily. Pt with complete edentulism -- please crush. oxybutynin (DITROPAN) 5 mg tablet Take 1 tablet by mouth two times a day. (for drooling) omeprazole (PRILOSEC) 20 mg capsule Take 1 capsule by mouth once daily. Take 30 -60 minutes before first meal of the day. Okay to use gloves, open capsule and sprinkle contents on food (ie applesauce, etc). traZODone (DESYREL) 50 mg tablet Take 1 tablet by mouth daily at bedtime. zinc gdgjd-jzwg-iaylvof E-clove oil (PINXAV) oint Apply liberally topically to chest and topically to buttocks with each diaper change Starch, Thickening, (THICK-IT) powd Honey-thickened liquids every liquid except pleasure foods (ie jello, ice cream) ojzzohlmujlg-yqo-sxaw-FA-vit K (ONE DAILY WOMEN'S) 18 mg iron-400 mcg-25 mcg tab Take 2 tablets by mouth once daily. Diaper,Brief, Adult,Disposable Use as directed. Size XL (N39.498) Other urinary incontinence, (T73.8XXA) Sensory depriv (more content not included)... [facility] 02-05-2025 Note HNO ID: [id number] Author: JOHN LONG, RN Service: ? Author Type: Registered Nurse Type: Progress Notes Filed: 02/05/2025 15:34 Note Text: Value Based Care Coordination Chart Review Provider Action / FYI: N/A Upon review of patient chart, the patient is excluded from Chronic Disease Management Patient is not a candidate for CDM at this time and placed in the following status: Deferred No CDM Criteria noted at this time. [employer] message sent, if applicable, with Healthy at Home information. Action taken: No action needed . John Long RN February 05, 2025 3:34 PM [facility] 02-05-2025 History of Present illness Narrative Value Based Care Coordination Chart Review Provider Action / FYI: N/A Upon review of patient chart, the patient is excluded from Chronic Disease Management Patient is not a candidate for CDM at this time and placed in the following status: Deferred No CDM Criteria noted at this time. [employer] message sent, if applicable, with Healthy at Home information. Action taken: No action needed . John Long RN February 05, 2025 3:34 PM documented in this encounter [facility] 02-05-2025 Note Patient Outreach ([facility]) MALKA KIMBALL ([id number]) 1955 F Date Time Provider Department 02/05/25 JOHN LONG [facility] During your visit today, we recorded the following information about you: John Long, RN 02/05/2025 3:34 PM Signed Value Based Care Coordination Chart Review Provider Action / FYI: N/A Upon review of patient chart, the patient is excluded from Chronic Disease Management Patient is not a candidate for CDM at this time and placed in the following status: Deferred No CDM Criteria noted at this time. [employer] message sent, if applicable, with Healthy at Home information. Action taken: No action needed . John Long RN February 05, 2025 3:34 PM Allergies As of Date: 02/05/2025 (No Known Allergies) Date Reviewed: 02/29/2024 Reviewed by: Jhonny Darling LPN - Fully Assessed Reason for Visit: Case Review [3651] Prescriptions as of 02/05/2025 - fkylrvg-tcyuqziuh-chsxvvs D3 (OYSTER SHELL CALCIUM-VITAMIN D) 500 mg-5 mcg (200 unit) per tablet Take 1 tablet by mouth two times a day with meals. Take with meals or food. - baclofen 10 mg tablet Take 1 tablet by mouth every 12 hours. - mirtazapine (REMERON) 30 mg tablet Take 1 tablet by mouth daily at bedtime. - zinc exrts-cpee-xhhhsyf E-clove oil (PINXAV) oint Apply liberally topically to chest and topically to buttocks with each diaper change - cetirizine (ZYRTEC) 10 mg tablet Take 1 tablet by mouth daily at bedtime. - Lactobacillus Acidophilus (ACIDOPHILUS) chew 2 caplets by mouth twice daily. Pt with complete edentulism -- please crush. - oxybutynin (DITROPAN) 5 mg tablet Take 1 tablet by mouth two times a day. (for drooling) - Starch, Thickening, (THICK-IT) powd Honey-thickened liquids every liquid except pleasure foods (ie jello, ice cream) - xauxnbfuhnph-vnz-egen-FA-vit K (ONE DAILY WOMEN'S) 18 mg iron-400 mcg-25 mcg tab Take 2 tablets by mouth once daily. - omeprazole (PRILOSEC) 20 mg capsule Take 1 capsule by mouth once daily. Take 30 -60 minutes before first meal of the day. Okay to use gloves, open capsule and sprinkle contents on food (ie applesauce, etc). - Diaper,Brief, Adult,Disposable Use as directed. Size XL (N39.498) Other urinary incontinence, (T73.8XXA) Sensory deprivation, initial encounter - Disposable Gloves misc Use as directed, latex, XL, N39.498, T73.8XXA - Miscellaneous Medical Supply Washable chux pads - Diaper,Brief, Adult,Disposable (BRIEFS) misc Pull ups size XL Use as directed (N39.498) Other urinary incontinence, (T73.8XXA) Sensory deprivation, initial encounter ? - COMPOUNDED PRESCRIPTION Washable cloth chux pad, use as directed. (N39.498) Other urinary incontinence, (T73.8XXA) Sensory deprivation, initial encounter - COMPOUNDED PRESCRIPTION Washable chucks: urinary incontinence n39.498, sensory deprivation t73.8xxa - Diaper,Brief, Adult,Disposable misc Use as directed. Size XL (N39.498) Other urinary incontinence, (T73.8XXA) Sensory deprivation, initial encounter - COMPOUNDED PRESCRIPTION Washable chucks: urinary incontinence n39.498, sensory deprivation t73.8xxa Problem List As Of Date 02/05/2025 Noted Resolved Intellectual disability [F79] 03/01/2016 Urinary incontinence [R32] 03/01/2016 Constipation [K59.00] 03/01/2016 Bilateral impacted cerumen [H61.23] 03/01/2016 09/08/2021 Mixed incontinence [N39.46] 03/01/2016 Drooling [K11.7] 03/01/2016 Diaper dermatitis [L22] 03/01/2016 Vitamin D deficiency [E55.9] 03/01/2016 Allergic rhinitis [J30.9] 03/01/2016 Hypoglycemia [E16.2] Aspiration into airway [T17.908A] 09/06/2018 Developmental disability [F89] 09/06/2018 Osteoporosis [M81.0] 09/08/2021 Complete edentulism [K08.109] 11/18/2022 Care refused by patient [Z53.29] 11/18/2022 Cerebral palsy, unspecified type (HCC) [G80.9] 02/29/2024 Encounter Status:Closed by JOHN LONG on 02/05/25 [facility] 01-31-2025 Telephone encounter Note The patient has been identified by name and date of : Yes Caregiver verified no other encounters exist for this prescription request: Yes Caregiver confirmed with patient/requestor that no other refills are due, in the near future, with this provider at this time: Yes The last office visit in the department: 02/29/2024 Does the patient have a future office visit with this provider/department: Yes 02/28/2025 Requested Prescriptions Pending Prescriptions Disp Refills ounwtpp-tmilewxsr-kyzives D3 (OYSTER SHELL CALCIUM-VITAMIN D) 500 mg-5 mcg (200 unit) per tablet 62 tablet 11 Sig: Take 1 tablet by mouth two times a day with meals. Take with meals or food. Ernestina Merida RN January 31, 2025 9:36 AM [facility] 01-31-2025 Miscellaneous Notes The patient has been identified by name and date of : Yes Caregiver verified no other encounters exist for this prescription request: Yes Caregiver confirmed with patient/requestor that no other refills are due, in the near future, with this provider at this time: Yes The last office visit in the department: 02/29/2024 Does the patient have a future office visit with this provider/department: Yes 02/28/2025 Requested Prescriptions Pending Prescriptions Disp Refills rwdhryc-dvvgbdzvu-rybwamy D3 (OYSTER SHELL CALCIUM-VITAMIN D) 500 mg-5 mcg (200 unit) per tablet 62 tablet 11 Sig: Take 1 tablet by mouth two times a day with meals. Take with meals or food. Ernestina Merida RN January 31, 2025 9:36 AM documented in this encounter [facility] 01-19-2025 Telephone encounter Note Pts career based intervention coordinator Vivi called and is notified of providers message. She voices understanding. Erinn Vergara RN [facility] 01-19-2025 Miscellaneous Notes Pts career based intervention coordinator Vivi called and is notified of providers message. She voices understanding. Erinn Vergara RN Rx sent The medication caregiver called about was baclofen 10 mg bid. We did not have that listed. How long has she been on it. Do we know why they won't write it? Vivi- grain grader- reports pt takes buspar 10 mg bid. Reports pharmacy called the original prescriber of this medication and they prescriber said he does not want to continue prescribing it. Vivi asking if pcp wants pt to take this medication? Please phone Vivi with reply. If yes, please send refill to [facility]. documented in this encounter [facility] 01-19-2025 Telephone encounter Note Rx sent [facility] 01-19-2025 Telephone encounter Note The medication caregiver called about was baclofen 10 mg bid. [facility] 01-19-2025 Telephone encounter Note We did not have that listed. How long has she been on it. Do we know why they won't write it? [facility] 01-19-2025 Telephone encounter Note Vivi- grain grader- reports pt takes buspar 10 mg bid. Reports pharmacy called the original prescriber of this medication and they prescriber said he does not want to continue prescribing it. Vivi asking if pcp wants pt to take this medication? Please phone Vivi with reply. If yes, please send refill to [facility]. [facility] 01-03-2025 Note HNO ID: [id number] Author: ISSAC WILKES MD Service: ? Author Type: Physician Type: Progress Notes Filed: 01/03/2025 17:22 Note Text: Never checked in. Called with no answer. Left message [facility] 01-03-2025 History of Present illness Narrative Never checked in. Called with no answer. Left message documented in this encounter [facility] 12-13-2024 Note HNO ID: [id number] Author: CALVIN SARMIENTO MA Service: ? Author Type: [employer] Tender Type: Progress Notes Filed: 12/13/2024 08:33 Note Text: POPULATION HEALTH NAVIGATION OUTREACH Action/FYI Gaps due: FU (high risk, has awv schd) [place] (08/22/25) Spoke to small animal caretaker, declined, pt does fob for colos which will be done in Aug, declined additional pcp visit. Reason for Outreach Care Gap/HCC or Scheduling Wellness Visits Care Gaps due: Follow-up Appointment Colorectal Cancer Screening Patient Contacted: Spoke to patient/parent/or legal guardian Patient identified by name and : No Navigation Signature: Calvin Sarmiento MA December 13, 2024 8:29 AM [facility] 12-13-2024 History of Present illness Narrative POPULATION HEALTH NAVIGATION OUTREACH Action/FYI Gaps due: FU (high risk, has awv schd) [place] (08/22/25) Spoke to small animal caretaker, declined, pt does fob for colos which will be done in Dec, declined additional pcp visit. Reason for Outreach Care Gap/HCC or Scheduling Wellness Visits Care Gaps due: Follow-up Appointment Colorectal Cancer Screening Patient Contacted: Spoke to patient/parent/or legal guardian Patient identified by name and : No Navigation Signature: Calvin Sarmiento MA December 13, 2024 8:29 AM documented in this encounter [facility] 12-13-2024 Note Patient Outreach ([facility]) MALKA KIMBALL ([id number]) 1955 F Date Time Provider Department 12/13/24 CALVIN SARMIENTO NETSELAM During your visit today, we recorded the following information about you: Calvin Sarmiento MA 12/13/2024 8:33 AM Signed POPULATION HEALTH NAVIGATION OUTREACH Action/FYI Gaps due: FU (high risk, has awv schd) [place] (08/22/25) Spoke to small animal caretaker, declined, pt does fob for colos which will be done in Dec, declined additional pcp visit. Reason for Outreach Care Gap/HCC or Scheduling Wellness Visits Care Gaps due: Follow-up Appointment Colorectal Cancer Screening Patient Contacted: Spoke to patient/parent/or legal guardian Patient identified by name and : No Navigation Signature: Calvin Sarmiento MA December 13, 2024 8:29 AM Allergies As of Date: 12/13/2024 (No Known Allergies) Date Reviewed: 02/29/2024 Reviewed by: Jhonny Darling LPN - Fully Assessed Reason for Visit: Population Health Navigation Outreach [3910] Cmt: Bryn high risk attempt 2 Prescriptions as of 12/13/2024 - mirtazapine (REMERON) 30 mg tablet Take 1 tablet by mouth daily at bedtime. - zinc vsupc-lgls-cswefcc E-clove oil (PINXAV) oint Apply liberally topically to chest and topically to buttocks with each diaper change - cetirizine (ZYRTEC) 10 mg tablet Take 1 tablet by mouth daily at bedtime. - Lactobacillus Acidophilus (ACIDOPHILUS) chew 2 caplets by mouth twice daily. Pt with complete edentulism -- please crush. - oxybutynin (DITROPAN) 5 mg tablet Take 1 tablet by mouth two times a day. (for drooling) - Starch, Thickening, (THICK-IT) powd Honey-thickened liquids every liquid except pleasure foods (ie jello, ice cream) - migafsgwsjda-eem-ccbs-FA-vit K (ONE DAILY WOMEN'S) 18 mg iron-400 mcg-25 mcg tab Take 2 tablets by mouth once daily. - omeprazole (PRILOSEC) 20 mg capsule Take 1 capsule by mouth once daily. Take 30 -60 minutes before first meal of the day. Okay to use gloves, open capsule and sprinkle contents on food (ie applesauce, etc). - baclofen 10 mg tablet take 1 tablet by mouth twice a day - gcoupxn-poawlqxcp-hndhwzw D3 (OYSTER SHELL CALCIUM-VITAMIN D) 500 mg-5 mcg (200 unit) per tablet Take 1 tablet by mouth two times a day with meals. Take with meals or food. - Diaper,Brief, Adult,Disposable Use as directed. Size XL (N39.498) Other urinary incontinence, (T73.8XXA) Sensory deprivation, initial encounter - Disposable Gloves misc Use as directed, latex, XL, N39.498, T73.8XXA - Miscellaneous Medical Supply Washable chux pads - Diaper,Brief, Adult,Disposable (BRIEFS) misc Pull ups size XL Use as directed (N39.498) Other urinary incontinence, (T73.8XXA) Sensory deprivation, initial encounter ? - COMPOUNDED PRESCRIPTION Washable cloth chux pad, use as directed. (N39.498) Other urinary incontinence, (T73.8XXA) Sensory deprivation, initial encounter - COMPOUNDED PRESCRIPTION Washable chucks: urinary incontinence n39.498, sensory deprivation t73.8xxa - Diaper,Brief, Adult,Disposable misc Use as directed. Size XL (N39.498) Other urinary incontinence, (T73.8XXA) Sensory deprivation, initial encounter - COMPOUNDED PRESCRIPTION Washable chucks: urinary incontinence n39.498, sensory deprivation t73.8xxa Problem List As Of Date 12/13/2024 Noted Resolved Intellectual disability [F79] 03/01/2016 Urinary incontinence [R32] 03/01/2016 Constipation [K59.00] 03/01/2016 Bilateral impacted cerumen [H61.23] 03/01/2016 09/08/2021 Mixed incontinence [N39.46] 03/01/2016 Drooling [K11.7] 03/01/2016 Diaper dermatitis [L22] 03/01/2016 Vitamin D deficiency [E55.9] 03/01/2016 Allergic rhinitis [J30.9] 03/01/2016 Hypoglycemia [E16.2] Aspiration into airway [T17.908A] 09/06/2018 Developmental disability [F89] 09/06/2018 Osteoporosis [M81.0] 09/08/2021 Complete edentulism [K08.109] 11/18/2022 Care refused by patient [Z53.29] 11/18/2022 Cerebral palsy, unspecified type (HCC) [G80.9] 02/29/2024 Encounter Status:Closed by CALVIN SARMIENTO on 12/13/24 [facility] 12-01-2024 Telephone encounter Note Faxed as requested. [facility] 12-01-2024 Miscellaneous Notes Faxed as requested. Barbara with [facility] calls to check on status of request for Pinxav. Barbara reports they did not receive prescription from 11/24/2024. Reports it is usually faxed to them. Please re-fax. Aicha Gutierrez RN documented in this encounter [facility] 12-01-2024 Telephone encounter Note Barbara with [facility] calls to check on status of request for Pinxav. Barbara reports they did not receive prescription from 11/24/2024. Reports it is usually faxed to them. Please re-fax. Aicha Gutierrez RN [facility] 11-26-2024 Note HNO ID: [id number] Author: JERRI MADRID MA Service: ? Author Type: [employer] Tender Type: Progress Notes Filed: 11/26/2024 10:26 Note Text: POPULATION HEALTH NAVIGATION OUTREACH Action/FYI Due to patient being on high risk list it is recommended they have 2 appointments per calendar year. P/C to schedule 6month recheck, no answer. Left message for patient to return call. My chart message sent. Reason for Outreach Care Gap/HCC or Scheduling Wellness Visits Care Gaps due: Follow-up Appointment Patient Contacted: Unable or unnecessary to reach patient: Left message Plext message sent Navigation Signature: Jerri Madrid MA November 26, 2024 10:24 AM [facility] 11-26-2024 History of Present illness Narrative POPULATION HEALTH NAVIGATION OUTREACH Action/FYI Due to patient being on high risk list it is recommended they have 2 appointments per calendar year. P/C to schedule 6month recheck, no answer. Left message for patient to return call. My chart message sent. Reason for Outreach Care Gap/HCC or Scheduling Wellness Visits Care Gaps due: Follow-up Appointment Patient Contacted: Unable or unnecessary to reach patient: Left message MyChart message sent Navigation Signature: Jerri Madrid MA November 26, 2024 10:24 AM documented in this encounter [facility] 11-26-2024 Note Patient Outreach ([facility]) MALKA KIMBALL ([id number]) 1955 F Date Time Provider Department 11/26/24 JERRI MADRID During your visit today, we recorded the following information about you: Jerri Madrid MA 11/26/2024 10:26 AM Signed POPULATION HEALTH NAVIGATION OUTREACH / Due to patient being on high risk list it is recommended they have 2 appointments per calendar year. P/C to schedule 6month recheck, no answer. Left message for patient to return call. My chart message sent. Reason for Outreach Care Gap/HCC or Scheduling Wellness Visits Care Gaps due: Follow-up Appointment Patient Contacted: Unable or unnecessary to reach patient: Left message Plext message sent Navigation Signature: Jerri Madrid MA November 26, 2024 10:24 AM Allergies As of Date: 11/26/2024 (No Known Allergies) Date Reviewed: 02/29/2024 Reviewed by: Jhonny Darling LPN - Fully Assessed Reason for Visit: Population Health Navigation Outreach [3910] Cmt: [employer] High Risk- Attempt 1 Prescriptions as of 11/26/2024 - mirtazapine (REMERON) 30 mg tablet Take 1 tablet by mouth daily at bedtime. - zinc qjpch-soxa-bxyykkj E-clove oil (PINXAV) oint Apply liberally topically to chest and topically to buttocks with each diaper change - cetirizine (ZYRTEC) 10 mg tablet Take 1 tablet by mouth daily at bedtime. - Lactobacillus Acidophilus (ACIDOPHILUS) chew 2 caplets by mouth twice daily. Pt with complete edentulism -- please crush. - oxybutynin (DITROPAN) 5 mg tablet Take 1 tablet by mouth two times a day. (for drooling) - Starch, Thickening, (THICK-IT) powd Honey-thickened liquids every liquid except pleasure foods (ie jello, ice cream) - bmobzbvomwyr-etw-hpub-FA-vit K (ONE DAILY WOMEN'S) 18 mg iron-400 mcg-25 mcg tab Take 2 tablets by mouth once daily. - omeprazole (PRILOSEC) 20 mg capsule Take 1 capsule by mouth once daily. Take 30 -60 minutes before first meal of the day. Okay to use gloves, open capsule and sprinkle contents on food (ie applesauce, etc). - baclofen 10 mg tablet take 1 tablet by mouth twice a day - fumhjhr-hfvbqcbke-acqmwow D3 (OYSTER SHELL CALCIUM-VITAMIN D) 500 mg-5 mcg (200 unit) per tablet Take 1 tablet by mouth two times a day with meals. Take with meals or food. - Diaper,Brief, Adult,Disposable Use as directed. Size XL (N39.498) Other urinary incontinence, (T73.8XXA) Sensory deprivation, initial encounter - Disposable Gloves misc Use as directed, latex, XL, N39.498, T73.8XXA - Miscellaneous Medical Supply Washable chux pads - Diaper,Brief, Adult,Disposable (BRIEFS) misc Pull ups size XL Use as directed (N39.498) Other urinary incontinence, (T73.8XXA) Sensory deprivation, initial encounter ? - COMPOUNDED PRESCRIPTION Washable cloth chux pad, use as directed. (N39.498) Other urinary incontinence, (T73.8XXA) Sensory deprivation, initial encounter - COMPOUNDED PRESCRIPTION Washable chucks: urinary incontinence n39.498, sensory deprivation t73.8xxa - Diaper,Brief, Adult,Disposable misc Use as directed. Size XL (N39.498) Other urinary incontinence, (T73.8XXA) Sensory deprivation, initial encounter - COMPOUNDED PRESCRIPTION Washable chucks: urinary incontinence n39.498, sensory deprivation t73.8xxa Problem List As Of Date 11/26/2024 Noted Resolved Intellectual disability [F79] 03/01/2016 Urinary incontinence [R32] 03/01/2016 Constipation [K59.00] 03/01/2016 Bilateral impacted cerumen [H61.23] 03/01/2016 09/08/2021 Mixed incontinence [N39.46] 03/01/2016 Drooling [K11.7] 03/01/2016 Diaper dermatitis [L22] 03/01/2016 Vitamin D deficiency [E55.9] 03/01/2016 Allergic rhinitis [J30.9] 03/01/2016 Hypoglycemia [E16.2] Aspiration into airway [T17.908A] 09/06/2018 Developmental disability [F89] 09/06/2018 Osteoporosis [M81.0] 09/08/2021 Complete edentulism [K08.109] 11/18/2022 Care refused by patient [Z53.29] 11/18/2022 Cerebral palsy, unspecified type (HCC) [G80.9] 02/29/2024 Encounter Status:Closed by JERRI MADRID on 11/26/24 [facility] 11-24-2024 Telephone encounter Note The patient has been identified by name and date of : Yes, pharmacy Caregiver verified no other encounters exist for this prescription request: Yes Caregiver confirmed with patient/requestor that no other refills are due, in the near future, with this provider at this time: Yes The last office visit in the department: 02/29/2024 Does the patient have a future office visit with this provider/department: Yes 02/28/2025 Requested Prescriptions Pending Prescriptions Disp Refills mirtazapine (REMERON) 30 mg tablet 30 tablet 5 Sig: Take 1 tablet by mouth daily at bedtime. zinc txelj-gzxq-dmhzkxh E-clove oil (PINXAV) oint 341.2 g 11 Sig: Apply liberally topically to chest and topically to buttocks with each diaper change Harmony Meadows LPN November 24, 2024 9:33 AM [facility] 11-24-2024 Miscellaneous Notes The patient has been identified by name and date of : Yes, pharmacy Caregiver verified no other encounters exist for this prescription request: Yes Caregiver confirmed with patient/requestor that no other refills are due, in the near future, with this provider at this time: Yes The last office visit in the department: 02/29/2024 Does the patient have a future office visit with this provider/department: Yes 02/28/2025 Requested Prescriptions Pending Prescriptions Disp Refills mirtazapine (REMERON) 30 mg tablet 30 tablet 5 Sig: Take 1 tablet by mouth daily at bedtime. zinc tyflm-gcie-glacpiq E-clove oil (PINXAV) oint 341.2 g 11 Sig: Apply liberally topically to chest and topically to buttocks with each diaper change Harmony Meadows LPN November 24, 2024 9:33 AM documented in this encounter [facility] 11-01-2024 Telephone encounter Note The patient has been identified by name and date of : Yes Caregiver verified no other encounters exist for this prescription request: Yes Caregiver confirmed with patient/requestor that no other refills are due, in the near future, with this provider at this time: Yes The last office visit in the department: 02/29/2024 Does the patient have a future office visit with this provider/department: Yes 02/28/2025 Requested Prescriptions Pending Prescriptions Disp Refills cetirizine (ZYRTEC) 10 mg tablet 31 tablet 11 Sig: Take 1 tablet by mouth daily at bedtime. Lactobacillus Acidophilus (ACIDOPHILUS) chew 124 tablet 11 Si caplets by mouth twice daily. Pt with complete edentulism -- please crush. oxybutynin (DITROPAN) 5 mg tablet 62 tablet 11 Sig: Take 1 tablet by mouth two times a day. (for drooling) Starch, Thickening, (THICK-IT) powd 1020 g 5 Sig: Honey-thickened liquids every liquid except pleasure foods (ie jello, ice cream) Ernestina Merida RN November 01, 2024 1:48 PM [facility] 11-01-2024 Miscellaneous Notes The patient has been identified by name and date of : Yes Caregiver verified no other encounters exist for this prescription request: Yes Caregiver confirmed with patient/requestor that no other refills are due, in the near future, with this provider at this time: Yes The last office visit in the department: 02/29/2024 Does the patient have a future office visit with this provider/department: Yes 02/28/2025 Requested Prescriptions Pending Prescriptions Disp Refills cetirizine (ZYRTEC) 10 mg tablet 31 tablet 11 Sig: Take 1 tablet by mouth daily at bedtime. Lactobacillus Acidophilus (ACIDOPHILUS) chew 124 tablet 11 Si caplets by mouth twice daily. Pt with complete edentulism -- please crush. oxybutynin (DITROPAN) 5 mg tablet 62 tablet 11 Sig: Take 1 tablet by mouth two times a day. (for drooling) Starch, Thickening, (THICK-IT) powd 1020 g 5 Sig: Honey-thickened liquids every liquid except pleasure foods (ie jello, ice cream) Ernestina Merida RN November 01, 2024 1:48 PM documented in this encounter [facility] 10-06-2024 Telephone encounter Note The patient has been identified by name and date of : Yes Caregiver verified no other encounters exist for this prescription request: Yes Caregiver confirmed with patient/requestor that no other refills are due, in the near future, with this provider at this time: Yes The last office visit in the department: 02/29/2024 Does the patient have a future office visit with this provider/department: Yes 02/28/2025 Requested Prescriptions Pending Prescriptions Disp Refills ebwdikzszzfc-ptn-ufsf-FA-vit K (ONE DAILY WOMEN'S) 18 mg iron-400 mcg-25 mcg tab 60 tablet 11 Sig: Take 2 tablets by mouth once daily. omeprazole (PRILOSEC) 20 mg capsule 30 capsule 5 Sig: Take 1 capsule by mouth once daily. Take 30 -60 minutes before first meal of the day. Okay to use gloves, open capsule and sprinkle contents on food (ie applesauce, etc). Jerrica Barr RN October 06, 2024 3:15 PM [facility] 10-06-2024 Miscellaneous Notes The patient has been identified by name and date of : Yes Caregiver verified no other encounters exist for this prescription request: Yes Caregiver confirmed with patient/requestor that no other refills are due, in the near future, with this provider at this time: Yes The last office visit in the department: 02/29/2024 Does the patient have a future office visit with this provider/department: Yes 02/28/2025 Requested Prescriptions Pending Prescriptions Disp Refills sfhpjfeczich-jiu-wvig-FA-vit K (ONE DAILY WOMEN'S) 18 mg iron-400 mcg-25 mcg tab 60 tablet 11 Sig: Take 2 tablets by mouth once daily. omeprazole (PRILOSEC) 20 mg capsule 30 capsule 5 Sig: Take 1 capsule by mouth once daily. Take 30 -60 minutes before first meal of the day. Okay to use gloves, open capsule and sprinkle contents on food (ie applesauce, etc). Jerrica Barr RN October 06, 2024 3:15 PM documented in this encounter [facility] 08-28-2024 Telephone encounter Note Vivi Pathak was made aware of the results and verbalizes understanding. Elif Paiz Ma [facility] 08-28-2024 Miscellaneous Notes Vivi Pathak was made aware of the results and verbalizes understanding. Elif Paiz Ma ----- Message from Meg Tomas sent at 08/28/2024 3:36 PM EST ----- Stool card is negative for blood. documented in this encounter [facility] 08-28-2024 Telephone encounter Note ----- Message from Meg Tomas sent at 08/28/2024 3:36 PM EST ----- Stool card is negative for blood. [facility] 08-14-2024 Note Addended by: Yaya WILKES on: 08/14/2024 12:11 PM Modules accepted: Orders [facility] 08-14-2024 Miscellaneous Notes Addended by: ISSAC WILKES on: 08/14/2024 12:11 PM Modules accepted: Orders documented in this encounter [facility] 08-14-2024 Note HNO ID: [id number] Author: ERNESTINE KIM MA Service: ? 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 Arin Clemente [place] Discuss/Due for: Medicare Wellness, Influenza Vaccination, Colorectal Cancer Screening HCC Score: 0 Outcome: 1st attempt - Spoke to Vivi Patient lives in a senior care Vivi reports patient had Influenza Vaccination Scheduled Medicare Wellness Reason for Outreach Care Gap/HCC or Scheduling Wellness Visits Care Gaps due: Medicare Annual Wellness Visit Colorectal Cancer Screening Flu Vaccine Patient Contacted: Spoke to patient/parent/or legal guardian Patient identified by name and : Yes Care Gap/HCC/Scheduling Wellness actions taken: Patient scheduled/pended orders: Medicare Annual Wellness Visit Colorectal Cancer Screening Flu Vaccine 02/28/2025 in [facility] with ISSAC WILKES - 2024 Medicare Wellness Z00.00 Navigation Signature: Ernestine Kim MA August 14, 2024 11:43 AM [facility] 08-14-2024 History of Present illness Narrative POPULATION HEALTH NAVIGATION OUTREACH Action/FYI: Caregiver requesting IFOBT, 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 Arin Clemente [place] Discuss/Due for: Medicare Wellness, Influenza Vaccination, Colorectal Cancer Screening HCC Score: 0 Outcome: 1st attempt - Spoke to Vivi Patient lives in a senior care Vivi reports patient had Influenza Vaccination Scheduled Medicare Wellness Reason for Outreach Care Gap/HCC or Scheduling Wellness Visits Care Gaps due: Medicare Annual Wellness Visit Colorectal Cancer Screening Flu Vaccine Patient Contacted: Spoke to patient/parent/or legal guardian Patient identified by name and : Yes Care Gap/HCC/Scheduling Wellness actions taken: Patient scheduled/pended orders: Medicare Annual Wellness Visit Colorectal Cancer Screening Flu Vaccine 02/28/2025 in [facility] with ISSAC WILKES - 2024 Medicare Wellness Z00.00 Navigation Signature: Ernestine Kim MA August 14, 2024 11:43 AM documented in this encounter [facility] 08-14-2024 Note Patient Outreach (NE TNAV) MALKA KIMBALL ([id number]) 1955 F Date Time Provider Department 08/14/24 ERNESTINE KIM NETKERVINV During your visit today, we recorded the following information about you: Ernestine Kim MA 08/14/2024 12:04 PM Signed POPULATION HEALTH NAVIGATION OUTREACH Action/FYI: Caregiver requesting IFOBT, 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 Arin Clemente [place] Discuss/Due for: Medicare Wellness, Influenza Vaccination, Colorectal Cancer Screening HCC Score: 0 Outcome: 1st attempt - Spoke to Vivi Patient lives in a senior care Vivi reports patient had Influenza Vaccination Scheduled Medicare Wellness Reason for Outreach Care Gap/HCC or Scheduling Wellness Visits Care Gaps due: Medicare Annual Wellness Visit Colorectal Cancer Screening Flu Vaccine Patient Contacted: Spoke to patient/parent/or legal guardian Patient identified by name and : Yes Care Gap/HCC/Scheduling Wellness actions taken: Patient scheduled/pended orders: Medicare Annual Wellness Visit Colorectal Cancer Screening Flu Vaccine 02/28/2025 in [facility] with ISSAC WILKES - 2024 Medicare Wellness Z00.00 Navigation Signature: Ernestine Kim MA August 14, 2024 11:43 AM Issac Wilkes MD 08/14/2024 12:11 PM Signed Addended by: ISSAC WILKES on: 08/14/2024 12:11 PM Modules accepted: Orders Allergies As of Date: 08/14/2024 (No Known Allergies) Date Reviewed: 02/29/2024 Reviewed by: Jhonny Darling LPN - Fully Assessed Reason for Visit: Population Health Navigation Outreach [3910] Cmt: Arin Clemente [place] Primary Visit Diagnosis:Screening for colon cancer [Z12.11] Order(s):IMMUNOCHEMICAL FECAL OCCULT BLOOD TEST [SQIFOBT] Order #: [id number]. #:[id number] Prescriptions as of 08/14/2024 - mirtazapine (REMERON) 30 mg tablet Take 1 tablet by mouth daily at bedtime. - Starch, Thickening, (THICK-IT) powd Honey-thickened liquids every liquid except pleasure foods (ie jello, ice cream) - omeprazole (PRILOSEC) 20 mg capsule Take 1 capsule by mouth once daily. Take 30 -60 minutes before first meal of the day. Okay to use gloves, open capsule and sprinkle contents on food (ie applesauce, etc). - baclofen 10 mg tablet take 1 tablet by mouth twice a day - mfyyblg-dspxdpovs-cokeylg D3 (OYSTER SHELL CALCIUM-VITAMIN D) 500 mg-5 mcg (200 unit) per tablet Take 1 tablet by mouth two times a day with meals. Take with meals or food. - zinc tsois-caam-cymnfwt E-clove oil (PINXAV) oint Apply liberally topically to chest and topically to buttocks with each diaper change - jqcbsmyxyygn-tnv-xphx-FA-vit K (ONE DAILY WOMEN'S) 18 mg iron-400 mcg-25 mcg tab Take 2 tablets by mouth once daily. - Lactobacillus Acidophilus (ACIDOPHILUS) chew 2 caplets by mouth twice daily. Pt with complete edentulism -- please crush. - oxybutynin (DITROPAN) 5 mg tablet Take 1 tablet by mouth two times a day. (for drooling) - cetirizine (ZYRTEC) 10 mg tablet Take 1 tablet by mouth daily at bedtime. - Diaper,Brief, Adult,Disposable Use as directed. Size XL (N39.498) Other urinary incontinence, (T73.8XXA) Sensory deprivation, initial encounter - Disposable Gloves misc Use as directed, latex, XL, N39.498, T73.8XXA - Miscellaneous Medical Supply Washable chux pads - Diaper,Brief, Adult,Disposable (BRIEFS) misc Pull ups size XL Use as directed (N39.498) Other urinary incontinence, (T73.8XXA) Sensory deprivation, initial encounter ? - COMPOUNDED PRESCRIPTION Washable cloth chux pad, use as directed. (N39.498) Other urinary incontinence, (T73.8XXA) Sensory deprivation, initial encounter - COMPOUNDED PRESCRIPTION Washable chucks: urinary incontinence n39.498, sensory deprivation t73.8xxa - Diaper,Brief, Adult,Disposable misc Use as directed. Size XL (N39.498) Other urinary incontinence, (T73.8XXA) Sensory deprivation, initial encounter - COMPOUNDED PRESCRIPTION Washable chucks: urinary incontinence n39.498, sensory deprivation t73.8xxa Problem List As Of Date 08/14/2024 Noted Resolved Intellectual disability [F79] 03/01/2016 Urinary incontinence [R32] 03/01/2016 Constipation [K59.00] 03/01/2016 Bilateral impacted cerumen [H61.23] 03/01/2016 09/08/2021 Mixed incontinence [N39.46] 03/01/2016 Drooling [K11.7] 03/01/2016 Diaper dermatitis [L22] 03/01/2016 Vitamin D deficiency [E55.9] 03/01/2016 Allergic rhinitis [J30.9] 03/01/2016 Hypoglycemia [E16.2] Aspiration into airway [T17.908A] 09/06/2018 Developmental disability [F89] 09/06/2018 Osteoporosis [M81.0] 09/08/2021 Complete edentulism [K08.109] 11/18/2022 Care refused by patient [Z53.29] 11/18/2022 Cerebral palsy, unspecified type (HCC) [G80.9] 02/29/2024 Encounter Status:Closed by ERNESTINE KIM on 08/14/24 [facility] 07-05-2024 Telephone encounter Note The patient has been identified by name and date of : Yes Caregiver verified no other encounters exist for this prescription request: Yes Caregiver confirmed with patient/requestor that no other refills are due, in the near future, with this provider at this time: Yes The last office visit in the department: 02/29/2024 Does the patient have a future office visit with this provider/department: No Requested Prescriptions Pending Prescriptions Disp Refills mirtazapine (REMERON) 30 mg tablet 30 tablet 5 Sig: Take 1 tablet by mouth daily at bedtime. Aicha Gutierrez RN July 05, 2024 4:12 PM [facility] 07-05-2024 Miscellaneous Notes The patient has been identified by name and date of : Yes Caregiver verified no other encounters exist for this prescription request: Yes Caregiver confirmed with patient/requestor that no other refills are due, in the near future, with this provider at this time: Yes The last office visit in the department: 02/29/2024 Does the patient have a future office visit with this provider/department: No Requested Prescriptions Pending Prescriptions Disp Refills mirtazapine (REMERON) 30 mg tablet 30 tablet 5 Sig: Take 1 tablet by mouth daily at bedtime. Aicha Gutierrez RN July 05, 2024 4:12 PM documented in this encounter [facility] 06-21-2024 Telephone encounter Note See MyChart message from caregiver Eliza that they have switched to [facility] and will filled out they form for them and faxed back as documented. Not able to reach Michelle. [facility] 06-21-2024 Miscellaneous Notes See MyChart message from caregiver Eliza that they have switched to [facility] and will filled out they form for them and faxed back as documented. Not able to reach Michelle. Michelle from [employer] calling asking if incontinence form was received via fax and completed? She would like a call back please. Completed and faxed. [facility] form in office for incontinence supplies. documented in this encounter [facility] 06-21-2024 Telephone encounter Note Michelle from [employer] calling asking if incontinence form was received via fax and completed? She would like a call back please. [facility] 06-21-2024 Telephone encounter Note Completed and faxed. [facility] 06-21-2024 Telephone encounter Note [facility] form in office for incontinence supplies. [facility] 05-03-2024 Telephone encounter Note The patient has been identified by name and date of : Yes Caregiver verified no other encounters exist for this prescription request: Yes Caregiver confirmed with patient/requestor that no other refills are due, in the near future, with this provider at this time: Yes The last office visit in the department: 02/29/2024 Does the patient have a future office visit with this provider/department: No Visit date not found Requested Prescriptions Pending Prescriptions Disp Refills Starch, Thickening, (THICK-IT) powd 1020 g 5 Sig: Honey-thickened liquids every liquid except pleasure foods (ie jello, ice cream) omeprazole (PRILOSEC) 20 mg capsule 30 capsule 5 Sig: Take 1 capsule by mouth once daily. Take 30 -60 minutes before first meal of the day. Okay to use gloves, open capsule and sprinkle contents on food (ie applesauce, etc). Theresa Turner LPN May 03, 2024 3:00 PM [facility] 05-03-2024 Miscellaneous Notes The patient has been identified by name and date of : Yes Caregiver verified no other encounters exist for this prescription request: Yes Caregiver confirmed with patient/requestor that no other refills are due, in the near future, with this provider at this time: Yes The last office visit in the department: 02/29/2024 Does the patient have a future office visit with this provider/department: No Visit date not found Requested Prescriptions Pending Prescriptions Disp Refills Starch, Thickening, (THICK-IT) powd 1020 g 5 Sig: Honey-thickened liquids every liquid except pleasure foods (ie jello, ice cream) omeprazole (PRILOSEC) 20 mg capsule 30 capsule 5 Sig: Take 1 capsule by mouth once daily. Take 30 -60 minutes before first meal of the day. Okay to use gloves, open capsule and sprinkle contents on food (ie applesauce, etc). Theresa Turner LPN May 03, 2024 3:00 PM documented in this encounter [facility] 04-06-2024 History of Present illness Narrative POPULATION HEALTH NAVIGATION OUTREACH Action/FYI Spoke to Vivi. Patient just had AWV with Debi. No further scheduling needed at this time Reason for Outreach Care Gap/HCC or Scheduling Wellness Visits Care Gaps due: N/A Patient Contacted: Spoke to patient/parent/or legal guardian Patient identified by name and : Yes Care Gap/HCC/Scheduling Wellness actions taken: Appointment already scheduled. Navigation Signature: Tarah Anguiano MA April 06, 2024 3:29 PM documented in this encounter [facility] 02-29-2024 History of Present illness Narrative This is a 69 year old female who presents today with: Patient presents with: Follow Up Yearly Exam HISTORY OF PRESENT ILLNESS: Malka Kimball is a 69 year old female. Patient presents with: Follow Up Yearly Exam Pt presents today to follow-up on chronic conditions. Only concern is posture. Posture. More leaning. Concern re: the concern when she eats and if it is affecting her swallow. On honey thickened liquids and pureed diet. No choking. Does have an adaptive wheelchair. REVIEW OF SYSTEMS GENERAL: No weight loss, malaise or fevers/chills HEENT: Negative for frequent or significant headaches, No known changes in hearing or vision. RESPIRATORY: Negative for cough, hemoptysis, wheezing, dyspnea or shortness of breath CARDIOVASCULAR: Negative for , leg swelling, orthopnea. GI: No nausea, vomiting. Incontinent of stool. No or diarrhea/constipation. No hematochezia/melena. Heartburn or reflux controlled w/ PPI. : incontinent of urine. MUSCULOSKELETAL: wheelchair bound. SKIN: Negative for lesions, rash, and itching NEURO: wheelchair bound. + developmental disability. Eats good. Drinking good. Breathing good. No cough. Weight stable. Health has been good. Activities curtailed d/t mobility limitations and incontinence. Edentulous. No known problems in mouth. PAST MEDICAL HISTORY: PAST MEDICAL HISTORY Diagnosis Date Leo's palsy mild Chronic constipation hx of Swazi measles hx of Hypoglycemia Profound mental retardation Skin sensitivity UTI (urinary tract infection) hx of Vitamin D deficiency PAST SURGICAL HISTORY Procedure Laterality Date TONSILLECTOMY PRIMARY/SECONDARY <AGE 14 Tonsillectomy TOTAL ABDOMINAL HYSTERECT W/WO RMVL TUBE OVARY Hysterectomy, MARCIA ALLERGIES Patient has no known allergies. MEDICATIONS Current Outpatient Medications Medication Sig baclofen 10 mg tablet take 1 tablet by mouth twice a day sxhpawd-wgqkingdo-cqfwsox D3 (OYSTER SHELL CALCIUM-VITAMIN D) 500 mg-5 mcg (200 unit) per tablet Take 1 tablet by mouth two times a day with meals. Take with meals or food. mirtazapine (REMERON) 30 mg tablet Take 1 tablet by mouth daily at bedtime. omeprazole (PRILOSEC) 20 mg capsule Take 1 capsule by mouth once daily. Take 30 -60 minutes before first meal of the day. Okay to use gloves, open capsule and sprinkle contents on food (ie applesauce, etc). zinc vgdzi-xyjd-yonokqt E-clove oil (PINXAV) oint Apply liberally topically to chest and topically to buttocks with each diaper change tysgrgkbdwgz-yoe-vsnh-FA-vit K (ONE DAILY WOMEN'S) 18 mg iron-400 mcg-25 mcg tab Take 2 tablets by mouth once daily. Starch, Thickening, (THICK-IT) powd Honey-thickened liquids every liquid except pleasure foods (ie jello, ice cream) Lactobacillus Acidophilus (ACIDOPHILUS) chew 2 caplets by mouth twice daily. Pt with complete edentulism -- please crush. oxybutynin (DITROPAN) 5 mg tablet Take 1 tablet by mouth two times a day. (for drooling) cetirizine (ZYRTEC) 10 mg tablet Take 1 tablet by mouth daily at bedtime. Diaper,Brief, Adult,Disposable Use as directed. Size XL (N39.498) Other urinary incontinence, (T73.8XXA) Sensory deprivation, initial encounter Disposable Gloves misc Use as directed, latex, XL, N39.498, T73.8XXA Miscellaneous Medical Supply Washable chux pads Diaper,Brief, Adult,Disposable (BRIEFS) misc Pull ups size XL Use as directed (N39.498) Other urinary incontinence, (T73.8XXA) Sensory deprivation, initial encounter COMPOUNDED PRESCRIPTION Washable cloth chux pad, use as directed. (N39.498) Other urinary incontinence, (T73.8XXA) Sensory deprivation, initial encounter COMPOUNDED PRESCRIPTION Washable chucks: urinary incontinence n39.498, sensory deprivation t73.8xxa Diaper,Brief, Adult,Disposable misc Use as directed. Size XL (N39.498) Other urinary incontinence, (T73.8XXA) Sensory deprivation, initial encounter COMPOUNDED PRESCRIPTION Washable chucks: urinary incontinence n39.498, sensory deprivation t73.8xxa No current facility-administered medications for this visit. FAMILY HISTORY Problem Relation Age of Onset Heart Mother other (htn [Other]) Mother other (arteriosclerosis [Other]) Father Heart Father Stroke Father Colon Cancer Mother Glaucoma Mother Glaucoma Sister Social History Tobacco Use Smoking status: Never Smokeless tobacco: Never Substance Use Topics Alcohol use: No EXAM: BP 142/90 Pulse (!) 50 Resp 16 PHYSICAL EXAM: General Appearance: Well appearing, alert, in no acute distress, well-hydrated, well nourished.. Skin: Skin color, texture, turgor normal, no suspicious rashes or lesions. Head: Normocephalic, no masses, lesions, tenderness or abnormalities. Eyes: Anicteric sclera. Extraocular movements are intact. . Oropharynx: Edentulous. Limited exam shows no lesions or masses in mouth. Neck: Supple, no adenopathy; thyroid symmetric, normal size, no bruits. Lungs: Lungs clear to auscultation. No wheezing, rhonchi, rales.. Heart: RRR without murmur, gallop, or rubs. No ectopy. Abdomen: Abdomen soft, non-tender. Bowel sounds normal. Extremities: No deformities, edema, skin discoloration, clubbing or cyanosis. Good capillary refill. . Neurologic: wheelchair bound. Non-verbal. ASSESSMENT/PLAN: 1. Decreased mobility - ICD9: 781.99, ICD10: R26.89 (primary diagnosis) Consult to OT to assist with possible positioning device to improve posture during eating. - CONSULT TO PT/OT WHEELCHAIR EVALUATION 2. Developmental disability - ICD9: 315.9, ICD10: F89 As above. - CONSULT TO PT/OT WHEELCHAIR EVALUATION 3. Intellectual disability - ICD9: 319, ICD10: F79 As above. - CONSULT TO PT/OT WHEELCHAIR EVALUATION 4. Complete edentulism, unspecified edentulism class - ICD9: 525.40, 525.10, ICD10: K08.109 Limited exam reveals no concerns today. 5. Gastroesophageal reflux disease without esophagitis - ICD9: 530.81, ICD10: K21.9 Controlled with PPI. 6. Decreased activity tolerance - ICD9: 780.99, ICD10: R68.89 Pt with decreased activity tolerance d/t aging. Okay to participate in activities as tolerated. Discussed treatment plan and patient voices understanding. Patient's questions answered appropriately. Medications and potential side effects were discussed and patient voices understanding. Return to the office as scheduled or as needed for worsening/no improvement. Debi Mejia APRN.PHOTOENGRAVING PROOFER APPRENTICE documented in this encounter [facility] 02-01-2024 Telephone encounter Note The following approved medication requests have been transmitted electronically. Requested Prescriptions Signed Prescriptions Disp Refills baclofen 10 mg tablet 180 tablet 3 Sig: take 1 tablet by mouth twice a day Authorizing Provider: HECTOR LOVE PA-C [facility] 02-01-2024 Miscellaneous Notes The following approved medication requests have been transmitted electronically. Requested Prescriptions Signed Prescriptions Disp Refills baclofen 10 mg tablet 180 tablet 3 Sig: take 1 tablet by mouth twice a day Authorizing Provider: HECTOR LOVE PA-C Source : electronic from pharmacy requesting refill. Delivery : e-script Requested Prescriptions Pending Prescriptions Disp Refills baclofen 10 mg tablet [Pharmacy Med Name: Baclofen 10MG TABS] 62 tablet Sig: take 1 tablet by mouth twice a day DX : Patient last seen 09/29/2022 Next Appointment : rebecca Samantha Corrales documented in this encounter [facility] 02-01-2024 Telephone encounter Note Source : electronic from pharmacy requesting refill. Delivery : e-script Requested Prescriptions Pending Prescriptions Disp Refills baclofen 10 mg tablet [Pharmacy Med Name: Baclofen 10MG TABS] 62 tablet Sig: take 1 tablet by mouth twice a day DX : Patient last seen 09/29/2022 Next Appointment : rebecca Samantha Corrales [facility] 02-01-2024 Miscellaneous Notes Patient has been identified by name and date of : Yes, Provider Dr. Wilkes Date 02/01/24 Time 2:15 pm Pharmacy phones for refill(s): Requested Prescriptions Pending Prescriptions Disp Refills mnwxohz-vetipvgps-cdtfkot D3 (OYSTER SHELL CALCIUM-VITAMIN D) 500 mg-5 mcg (200 unit) per tablet 62 tablet 11 Sig: Take 1 tablet by mouth two times a day with meals. Take with meals or food. mirtazapine (REMERON) 30 mg tablet 30 tablet 5 Sig: Take 1 tablet by mouth daily at bedtime. Date of last office visit in primary care: 09/15/2023 Date of next office visit in primary care: 02/22/2024 Thank you. Natty Phillip LPN. documented in this encounter [facility] 02-01-2024 Telephone encounter Note Patient has been identified by name and date of : Yes, Provider Dr. Chanel Guardado 02/01/24 Time 2:15 pm Pharmacy phones for refill(s): Requested Prescriptions Pending Prescriptions Disp Refills lcmbsyd-dfobvgiyh-kxyfhmx D3 (OYSTER SHELL CALCIUM-VITAMIN D) 500 mg-5 mcg (200 unit) per tablet 62 tablet 11 Sig: Take 1 tablet by mouth two times a day with meals. Take with meals or food. mirtazapine (REMERON) 30 mg tablet 30 tablet 5 Sig: Take 1 tablet by mouth daily at bedtime. Date of last office visit in primary care: 09/15/2023 Date of next office visit in primary care: 02/22/2024 Thank you. Natty Phillip LPN. [facility] 01-11-2024 Telephone encounter Note Completed form faxed [facility] 01-11-2024 Miscellaneous Notes Completed form faxed Type of form: Outpatient Infusion Prescription Form received via fax When form is completed, Fax form to [facility] [phone] Form has been forwarded to Physician Desk: Dr. Chanel Pearce LPN documented in this encounter [facility] 01-11-2024 Telephone encounter Note Type of form: Outpatient Infusion Prescription Form received via fax When form is completed, Fax form to [facility] [phone] Form has been forwarded to Physician Desk: Dr. Chanel Pearce LPN [facility] 12-08-2023 Miscellaneous Notes Faxed to [facility] at [phone]. Jeni Taylor LPN Please fax order for Pinxav to [facility]. Prescription in my out box. Leann Renner APRN.RILEY documented in this encounter [facility] 12-08-2023 Miscellaneous Notes Patient has been identified by name and date of : Yes, Provider Date Time Pharmacy phones for refill(s): Requested Prescriptions Pending Prescriptions Disp Refills omeprazole (PRILOSEC) 20 mg capsule 30 capsule 5 Sig: Take 1 capsule by mouth once daily. Take 30 -60 minutes before first meal of the day. Okay to use gloves, open capsule and sprinkle contents on food (ie applesauce, etc). zinc sbzcc-oojy-eifvauu E-clove oil (PINXAV) oint 341.2 g 11 Sig: Apply liberally topically to chest and topically to buttocks with each diaper change Date of last office visit in primary care: 09/15/2023 Date of next office visit in primary care: Visit date not found Please advise. Thank you. Paty Ye RN. documented in this encounter [facility] 11-12-2023 Miscellaneous Notes [facility] calling regarding pt's MVI-states on the bottle the recommended dosage is 2 tablets daily. Asking if they could have a new prescription with quantity of 60 and sig take 2 tablets daily. Call only if problem. documented in this encounter [facility] 11-08-2023 Miscellaneous Notes Pharmacy phones for refill(s): Requested Prescriptions Pending Prescriptions Disp Refills Starch, Thickening, (THICK-IT) powd 1020 g 5 Sig: Honey-thickened liquids every liquid except pleasure foods (ie jello, ice cream) ngjeuupaqsix-sgm-eioe-FA-vit K (ONE DAILY WOMEN'S) 18 mg iron-400 mcg-25 mcg tab 30 tablet 11 Sig: Take 1 tablet by mouth once daily. Lactobacillus Acidophilus (ACIDOPHILUS) chew 124 tablet 11 Si caplets by mouth twice daily. Pt with complete edentulism -- please crush. oxybutynin (DITROPAN) 5 mg tablet 62 tablet 11 Sig: Take 1 tablet by mouth two times a day. (for drooling) cetirizine (ZYRTEC) 10 mg tablet 31 tablet 11 Sig: Take 1 tablet by mouth daily at bedtime. Date of last office visit in primary care: 09/15/2023 Date of next office visit in primary care: Visit date not found Jane Liang RN. documented in this encounter [facility] 09-03-2023 Miscellaneous Notes Patient has been identified by name and date of : Yes Pharmacy phones for refill(s): Requested Prescriptions Pending Prescriptions Disp Refills mirtazapine (REMERON) 30 mg tablet 30 tablet 5 Sig: Take 1 tablet by mouth daily at bedtime. Date of last office visit in primary care: 07/14/2023 Date of next office visit in primary care: not scheduled Jane Liang RN. documented in this encounter [facility] 08-10-2023 History of Present illness Narrative Radiology Service Progress Note PATIENT NAME: Malka Kimball DATE OF SERVICE: August 10, 2023 TIME: 10:25 AM PATIENT IDENTITY VERIFICATION COMPLETED USING TWO (2) IDENTIFIERS: Name and Date of confirmed by patient verbally. FALL SCREENING: Has the patient had 2 falls in the last year or 1 fall with injury or currently using an Ambulatory Assistive Device (Walker, Cane, Wheelchair, Crutches, etc.)? No PATIENT GENDER DATA: Female. status: : No status: NO. PATIENT RELEVANT IMPLANT DATA REVIEWED: Not Applicable RADIOLOGY DEPARTMENT: Bone Density PERIPHERAL IV DATA: Not applicable SIGNED BY: RT Venice(R) August 10, 2023 10:25 AM documented in this encounter [facility] 08-09-2023 Miscellaneous Notes Vivi notified. Aurea Espinoza Ma Phoned caregiver and left message to return call and ask to speak to triage nurse for results. ----- Message from Debi Mejia APRN.CNP sent at 08/06/2023 5:39 PM EST ----- Can please let patient/caregiver know that stool for occult (hidden) blood was negative/normal. Debi Mejia APRN.CNP documented in this encounter [facility] 08-03-2023 Miscellaneous Notes [facility] provider notified. 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 Tonya Nolen MA Form complete. Debi Mejia APRN.CNP To Debi who saw patient and ordered test. Type of form: Doctors Orders sheet for medication hold of calcium supplement prior to BMD on 08/03/23 Form received via walk in When form is completed, call caregiver Vivi when signed and ready for fish bait picker. [phone] Form has been forwarded to Provider Mailbox: KAREL Muñiz documented in this encounter [facility] 07-16-2023 Miscellaneous Notes TC to lab client services, A1C will be added on. Jhonny Darling LPN Can we please see if lab can add on an A1C. The order is in. Debi Mejia APRN.RILEY documented in this encounter [facility] 07-14-2023 Instructions Debi Mejia APRN.RILEY - 07/14/2023 2:53 PM EDT Get labwork. Do the stool for occult blood. Schedule dexa scan. documented in this encounter [facility] 07-14-2023 History of Present illness Narrative This is a 68 year old female who presents today with: Patient presents with: Recheck: Annual medication review HISTORY OF PRESENT ILLNESS: Malka Kimball is a 68 year old female. Patient presents with: Recheck: Annual medication review Pt presents today for annual recheck. Osteoporosis: Continues on prolia. Continues on calcium and vitamin D. 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 Having a difficult time getting to new dentist for mouth inspection d/t patient condition/incontinence. Mood/appetite Stable on the remeron. REVIEW OF SYSTEMS GENERAL: No weight loss, malaise or fevers/chills HEENT: No known changes in hearing or vision. Honey thickened liquids. NECK: Negative for lumps, goiter, pain and significant neck swelling. RESPIRATORY: Negative for cough, hemoptysis, wheezing, dyspnea or shortness of breath CARDIOVASCULAR: No known chest pain, leg swelling, orthopnea, or palpitations GI: No nausea, vomiting, or diarrhea. + constipation. No hematochezia/melena. No known heartburn or reflux symptoms -- on PPI. : + incontinence. Per caregiver urine per normal and not malodorous. MUSCULOSKELETAL: decreased mobility -- chair confined. SKIN: Negative for lesions, rash, and itching ENDOCRINE: no excessive thirst/urination. NEURO: Nonverbal. Unable to make needs known. PAST MEDICAL HISTORY: PAST MEDICAL HISTORY Diagnosis Date Loe's palsy mild Chronic constipation hx of Swazi measles hx of Hypoglycemia Profound mental retardation Skin sensitivity UTI (urinary tract infection) hx of Vitamin D deficiency PAST SURGICAL HISTORY Procedure Laterality Date TONSILLECTOMY PRIMARY/SECONDARY <AGE 14 Tonsillectomy TOTAL ABDOMINAL HYSTERECT W/WO RMVL TUBE OVARY Hysterectomy, MARCIA ALLERGIES Patient has no known allergies. MEDICATIONS Current Outpatient Medications Medication Sig omeprazole (PRILOSEC) 20 mg capsule Take 1 capsule by mouth once daily. Take 30 -60 minutes before first meal of the day. Okay to use gloves, open capsule and sprinkle contents on food (ie applesauce, etc). Starch, Thickening, (THICK-IT) powd Honey-thickened liquids every liquid except pleasure foods (ie jello, ice cream) mirtazapine (REMERON) 30 mg tablet Take 1 tablet by mouth daily at bedtime. baclofen 10 mg tablet TAKE 1 TABLET BY MOUTH TWICE A DAY fykcopf-mwsigjnzl-yxobxra D3 (OYSTER SHELL CALCIUM-VITAMIN D) 500 mg-5 mcg (200 unit) per tablet Take 1 tablet by mouth twice daily with meals. Take with meals or food. zinc dwvmn-kvvt-cryreav E-clove oil (PINXAV) oint Apply liberally topically to chest and topically to buttocks with each diaper change acetaminophen (TYLENOL) 325 mg tablet Take 2 tablets by mouth every 6 hours as needed (of 100.4 F or greater.). Not to exceed 8 tablets in 24 hours. Lactobacillus Acidophilus (ACIDOPHILUS) chew 2 caplets by mouth twice daily. Pt with complete edentulism -- please crush. xwuegaiizcex-lti-cvgd-FA-vit K (ONE DAILY WOMEN'S) 18 mg iron-400 mcg-25 mcg tab Take 1 tablet by mouth once daily. cetirizine (ZYRTEC) 10 mg tablet Take 1 tablet by mouth daily at bedtime. oxybutynin (DITROPAN) 5 mg tablet Take 1 tablet by mouth twice daily. (for drooling) Diaper,Brief, Adult,Disposable Use as directed. Size XL (N39.498) Other urinary incontinence, (T73.8XXA) Sensory deprivation, initial encounter Disposable Gloves misc Use as directed, latex, XL, N39.498, T73.8XXA Miscellaneous Medical Supply Washable chux pads Diaper,Brief, Adult,Disposable (BRIEFS) misc Pull ups size XL Use as directed (N39.498) Other urinary incontinence, (T73.8XXA) Sensory deprivation, initial encounter COMPOUNDED PRESCRIPTION Washable cloth chux pad, use as directed. (N39.498) Other urinary incontinence, (T73.8XXA) Sensory deprivation, initial encounter COMPOUNDED PRESCRIPTION Washable chucks: urinary incontinence n39.498, sensory deprivation t73.8xxa Diaper,Brief, Adult,Disposable misc Use as directed. Size XL (N39.498) Other urinary incontinence, (T73.8XXA) Sensory deprivation, initial encounter COMPOUNDED PRESCRIPTION Washable chucks: urinary incontinence n39.498, sensory deprivation t73.8xxa Current Facility-Administered Medications Medication Dose Route Frequency denosumab 60 mg injection (PROLIA) 60 mg SUBCUTANEOUS Q 6 MONTH FAMILY HISTORY Problem Relation Age of Onset Heart Mother other (htn [Other]) Mother other (arteriosclerosis [Other]) Father Heart Father Stroke Father Colon Cancer Mother Glaucoma Mother Glaucoma Sister Social History Tobacco Use Smoking status: Never Smokeless tobacco: Never Substance Use Topics Alcohol use: No EXAM: BP 138/89 Pulse 67 Resp 16 PHYSICAL EXAM: General Appearance: Well appearing, alert, in no acute distress, well-hydrated, well nourished. Nonverbal. Skin: warm/dry. Head: Normocephalic, no masses, lesions, tenderness or abnormalities. Eyes: Anicteric sclera. Extraocular movements are intact. . Ears: External ears normal. Oropharynx: Lips, mucosa, and tongue normal, and gums normal, oropharynx normal. No ulcerations, sores, discolorations, lesions noted in mouth upon inspection. Neck: Supple, no adenopathy; thyroid symmetric, normal size, no bruits. Lungs: Lungs clear to auscultation. No wheezing, rhonchi, rales.. Heart: RRR without murmur, gallop, or rubs. No ectopy. Abdomen: Abdomen soft, non-tender. Bowel sounds normal. Neurologic: nonverbal. ASSESSMENT/PLAN: 1. Osteoporosis, unspecified osteoporosis type, unspecified pathological fracture presence - ICD9: 733.00, ICD10: M81.0 (primary diagnosis) - continue tx with prolia Schedule next dexa. 2. Encounter for immunization - ICD9: V03.89, ICD10: Z23 - INFLUENZA VACCINE, PRSV FREE, AGE 65+ YR, HIGH DOSE, QUADRIVALENT (FLUZONE HIGH-DOSE) 3. Screening for colon cancer - ICD9: V76.51, ICD10: Z12.11 Will be due for ifob next year. - FECAL OCCULT BLOOD TEST 4. Screening for hyperlipidemia - ICD9: V77.91, ICD10: Z13.220 Get labs. - LIPID PANEL, NONFASTING 5. Constipation, unspecified constipation type - ICD9: 564.00, ICD10: K59.00 Stable. 6. Complete edentulism, unspecified edentulism class - ICD9: 525.40, 525.10, ICD10: K08.109 No mouth lesions noted on exam today. 7. Intellectual disability - ICD9: 319, ICD10: F79 Stable. Needs met. 8. Decreased appetite - ICD9: 783.0, ICD10: R63.0 Mood and appetite stable on remeron. Discussed treatment plan and patient voices understanding. Patient's questions answered appropriately. Medications and potential side effects were discussed and patient voices understanding. Return to the office as scheduled or as needed for worsening/no improvement. Debi Mejia APRN.PHOTOENGRAVING PROOFER APPRENTICE documented in this encounter [facility] 07-01-2023 Miscellaneous Notes Patient has been identified by name and date of : Yes, Provider Dr. Wilkes Date 07/01/23 Time 3:33 pm Pharmacy phones for refill(s): Requested Prescriptions Pending Prescriptions Disp Refills omeprazole (PRILOSEC) 20 mg capsule 30 capsule 5 Sig: Take 1 capsule by mouth once daily. Take 30 -60 minutes before first meal of the day. Okay to use gloves, open capsule and sprinkle contents on food (ie applesauce, etc). Date of last office visit in primary care: 05/27/2022 Date of next office visit in primary care: 07/14/2023 Last 2 Encounter Wt Readings: Date: Wt: 07/28/2022 0 kg () 03/03/2021 57.2 kg (126 lb) Previous labs/tests for medication: Not applicable Thank you. Natty Phillip LPN. documented in this encounter [facility] 06-14-2023 Miscellaneous Notes Form faxed back Auth received. Will get provider sig on form, then fax back to [facility] Outpatient infusion from [facility] sends fax asking for referral from patient insurance for patient to get Prolia injection with them. Referral entered into system. Will await approval to complete and send back so can be scheduled. I did speak with Sammi @ [facility] to confirm that this is what she was asking for and not a prior auth for Prolia. 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 Copy mailed to guardian. done Lorena, phoned back in and asked the difference b/t a full code and a DNR. Advised a Full Code means that CPR is initiated in the event of a cardiac and / or respiratory arrest. Advised a DNR Comfort Care Arrest order activates the DNR protocol at the time of a cardiac and / or respiratory arrest. Standard therapies are administered before an arrest occurs, but resuscitative therapies are not administered at the time of an arrest. Lorena states she wants patient to have the DNRCCA order. States she wants them to keep patient comfortable and do anything they can until patient's heart stops or breathing stops. Does not want chest compressions, artificial airway, defibrillate or cardiovert, or administer resuscitative medications. Advised the DNR order will suction the airway administer oxygen, position for comfort, splint or immobilize, control bleeding, provide pain medication, provide emotional support, and contact other appropriate health care providers. Advised a DNR will not administer chest compressions, insert artificial airway, administer resuscitative medications, defibrilate or cardiovert, provide respiratory assistance (other than listed in what they will do above), initiate resuscitative intravenous access, or initiate cardiac monitoring. Lorena verbalized understanding. Asking pcp to mail the form to her at: Lorena Molina [facility] [place] [phone] I need forms back. Will need signed by the poa Lorena patient guardian returned call and went over notes below. She asked what a full code would be and what a DNR would be. Explained both to her and she wants to go with DNR. Lorena said she is 87 years old and said Suzy is in good health right now, she wants to go with the DNR. Left message for Lorena to call office back and speak with nurse to discuss what she wishes for patient code status to be. (We have no immediate concerns these forms were just dropped off by caregiver. Can also remain full code if this is what she so chooses.) Caregiver Vivi drops of DNR forms to office that are blank. Call to caregiver about code status wishes. She states that she included names of guardians because that would be up to them to decide. Lorena Lua [phone] documented in this encounter [facility] 05-11-2023 Miscellaneous Notes Completed form faxed Type of form: Request form for Incontinence Supplies Form received via fax When form is completed, Fax form to [employer] Form has been forwarded to Physician Desk: Dr. Chanel Paiz Ma documented in this encounter [facility] 05-04-2023 Miscellaneous Notes Patient has been identified by name and date of : Yes, Provider Chanel Date 05-04-23 Time 2:10 pm Pharmacy phones for refill(s): Requested Prescriptions Pending Prescriptions Disp Refills Starch, Thickening, (THICK-IT) powd 1020 g 5 Sig: Honey-thickened liquids every liquid except pleasure foods (ie jello, ice cream) Date of last office visit with pcp: 11-16-22. Next appt: none Last 2 Encounter Wt Readings: Date: Wt: 07/28/2022 0 kg () 03/03/2021 57.2 kg (126 lb) Previous labs/tests for medication: Blood Pressure: BUN (mg/dL) Date Value 05/27/2022 13 02/20/2021 22 Sodium (mmol/L) Date Value 05/27/2022 143 02/20/2021 145 Last 1 Encounter BP Readings: Date: BP: 08/17/2022 110/70 Liver Function: ALT (U/L) Date Value 05/27/2022 16 02/20/2021 14 AST (U/L) Date Value 05/27/2022 20 02/20/2021 20 Please advise. Thank you. Ernestina Merida RN documented in this encounter [facility] 02-02-2023 Miscellaneous Notes Last entry for medication below was a med update. Patient has been identified by name and date of : Yes, Provider Dr. Wilkes Date 02/02/23 Time 4:31 pm Pharmacy phones for refill(s): Requested Prescriptions Pending Prescriptions Disp Refills omeprazole (PRILOSEC) 20 mg capsule 30 capsule 5 Sig: Take 1 capsule by mouth once daily. Take 30 -60 minutes before first meal of the day. Okay to use gloves, open capsule and sprinkle contents on food (ie applesauce, etc). wayujzf-shkjtsybm-kstsjqq D3 (OYSTER SHELL CALCIUM-VITAMIN D) 500 mg-5 mcg (200 unit) per tablet 62 tablet 11 Sig: Take 1 tablet by mouth twice daily with meals. Take with meals or food. Date of last office visit in primary care: 11/18/22 next apt 03/03/23 Last 2 Encounter Wt Readings: Date: Wt: 07/28/2022 0 kg () 03/03/2021 57.2 kg (126 lb) Previous labs/tests for medication: Not applicable Thank you. Natty Phillip LPN documented in this encounter [facility] 01-27-2023 Miscellaneous Notes Form faxed. Jhonny Darling LPN Form complete. Please return, as requested. Debi Mejia APRN.PHOTOENGRAVING PROOFER APPRENTICE Type of form: [facility] exam form Form received via fax When form is completed, Fax form to [phone] Form has been forwarded to Nurse Practictioner: RILEY Marcum LPN documented in this encounter [facility] 12-09-2022 Miscellaneous Notes Faxed as requested. Reprinted. Already basically did say that Needs new orders for pinxav ointment: needs to be more specific to apply liberally to chest topically and buttocks topically area with each diaper change . Please review and order with new sig. Nasra Wisdom LPN documented in this encounter [facility] 12-02-2022 History of Present illness Narrative Patient presents with Caregiver for Prolia injection. Denies any problems at this time. Brought own medication. Patient instructed on any SE of medication, verbalized understanding and agreed to proceed with treatment. Tolerated injection well. Darcy Eng LPN documented in this encounter [facility] 11-20-2022 Miscellaneous Notes Caregiver (Eliza) calls to request a tylenol order for patient with specific directions (senior care guidelines for non-licensed professionals) for fever. Pended per request. Aicha Gutierrez RN documented in this encounter [facility] 11-18-2022 History of Present illness Narrative Chief Complaint Patient presents with: Telemedicine Patient was offered a virtual/telemedicine appointment in lieu of an office visit due to recommendations to reduce patient exposure to COVID-19. Video was used for evaluation of this patient. Patient is aware of limitations of performing the visit without a face to face visit in the office setting and agrees. Patient/caregiver agrees to the visit: Yes Patient Location: [facility] Malka Kimball is a 67 year old female who is contacted today for a virtual visit This is an established patient of Dr. Issac Wilkes MD Reports: medication list update. Presents with Caregiver Vivi. Reports that she will be starting prolia on 12/02/22. She is aware to D/C miacalcin on 12/01/22. Reports: Complete edentulism. Pureed foods. Crushed/opened pills on with food. Honey thickened liquids, except pleasure foods (ie jello, ice cream). Hx of hypoglycemia on her medication list. Patient is encouraged to eat regular meals with healthy snacks between meals. Pt is not ambulatory. Mobility is per a custom wheelchair with belt. Vivi (caregiver) has been in contact with Suzy's guardian and they have decided that she does not need to see MEDIA ANALYTICS MANAGER or get mammograms unless she is symptomatic. Past medical history, appointments, medications, allergies reviewed 11/18/2022 Previous Medical History PAST MEDICAL HISTORY Diagnosis Date Leo's palsy mild Chronic constipation hx of Swazi measles hx of Hypoglycemia Profound mental retardation Skin sensitivity UTI (urinary tract infection) hx of Vitamin D deficiency Previous Surgical History PAST SURGICAL HISTORY Procedure Laterality Date TONSILLECTOMY PRIMARY/SECONDARY <AGE 14 Tonsillectomy TOTAL ABDOMINAL HYSTERECT W/WO RMVL TUBE OVARY Hysterectomy, MARCIA Family History FAMILY HISTORY Problem Relation Age of Onset Heart Mother other (htn [Other]) Mother other (arteriosclerosis [Other]) Father Heart Father Stroke Father Colon Cancer Mother Glaucoma Mother Glaucoma Sister Patient Allergies ALLERGIES No Known Allergies Current Medications Current Outpatient Medications on File Prior to Visit Medication Sig calcitonin,salmon, (MIACALCIN, FORTICAL) 200 unit/actuation nasal spray Use 1 [place] in the nose once daily. Alternate nostrils. Discontinue the day before prolia started. baclofen (LIORESAL) 10 mg tablet TAKE 1 TABLET BY MOUTH TWICE A DAY mirtazapine (REMERON) 30 mg tablet Take 1 tablet by mouth daily at bedtime. Starch, Thickening, (THICK-IT) powd Take by mouth daily as indicated. Lactobacillus Acidophilus (ACIDOPHILUS) chew 2 caplets by mouth twice daily cetirizine (ZYRTEC) 10 mg tablet Take 1 tablet by mouth daily at bedtime. oxybutynin (DITROPAN) 5 mg tablet Take 1 tablet by mouth twice daily. (for drooling) mcvwaipgfkir-hyf-mgri-FA-vit K (ONE DAILY WOMEN'S) 18 mg iron-400 mcg-25 mcg tab Take 2 tablets by mouth once daily. omeprazole (PRILOSEC) 20 mg capsule Take 1 capsule by mouth once daily. klwgsjhq-bjzg-CG-calcium-mins (ONE-A-DAY WOMEN'S PETITES) 9 mg iron-200 mcg tab Take 2 tablets by mouth once daily. zinc nkrsk-ytdp-gnmkczc E-clove oil (PINXAV) oint Apply with each diaper change. (Patient taking differently: Apply 1 application topically with each diaper change.) OYSTER SHELL CALCIUM-VITAMIN D 500 mg-5 mcg (200 unit) per tablet TAKE 1 TABLET BY MOUTH TWICE A DAY WITH MEALS Diaper,Brief, Adult,Disposable Use as directed. Size XL (N39.498) Other urinary incontinence, (T73.8XXA) Sensory deprivation, initial encounter Disposable Gloves misc Use as directed, latex, XL, N39.498, T73.8XXA Miscellaneous Medical Supply Washable chux pads COMPOUNDED PRESCRIPTION Liquid thickener. All liquids should be consistency of honey-thickened liquid. Diaper,Brief, Adult,Disposable (BRIEFS) misc Pull ups size XL Use as directed (N39.498) Other urinary incontinence, (T73.8XXA) Sensory deprivation, initial encounter COMPOUNDED PRESCRIPTION Washable cloth chux pad, use as directed. (N39.498) Other urinary incontinence, (T73.8XXA) Sensory deprivation, initial encounter COMPOUNDED PRESCRIPTION Washable chucks: urinary incontinence n39.498, sensory deprivation t73.8xxa Diaper,Brief, Adult,Disposable misc Use as directed. Size XL (N39.498) Other urinary incontinence, (T73.8XXA) Sensory deprivation, initial encounter COMPOUNDED PRESCRIPTION Washable chucks: urinary incontinence n39.498, sensory deprivation t73.8xxa Current Facility-Administered Medications on File Prior to Visit Medication denosumab 60 mg injection (PROLIA) Social History Social History Tobacco Use Smoking status: Never Smokeless tobacco: Never Substance Use Topics Alcohol use: No EXAM: There were no vitals taken for this visit. Limited exam as visit was completed over the virtual platform. Virtual visit completed using video, limited exam completed. Patient sounds or appears ill: No General Appearance: Well appearing, alert, in no acute distress, well-hydrated, well nourished. Skin: Skin color normal Head: Normocephalic. No facial swelling or redness. EENT: Eyes nonreddened. No discharge. External ears nonreddened and no swelling. Neck: No mass or lesions. No swelling. FROM Patient is unable to speak in complete sentences: N/A Patient has labored breathing: No. Patient is audibly coughing: No Health Maintenance List SHINGRIX VACCINE(1 of 2) Never done PNEUMOCOCCAL: 65+(2 - PCV) due on 12/22/2015 COVID-19 VACCINE(4 - Booster for Moderna series) due on 02/06/2022 ADVANCE DIRECTIVE DISCUSSION Never done DEPRESSION ASSESSMENT Never done COLORECTAL CANCER SCREENING due on 10/13/2023 DTAP,TDAP,TD(2 - Tdap) due on 02/07/2024 DIABETES SCREEN due on 05/27/2025 LIPID SCREEN due on 05/27/2027 BONE DENSITY Completed INFLUENZA Completed HEPATITIS C SCREENING Completed MAMMOGRAM Discontinued HIV SCREENING Discontinued Data reviewed Last 5 Encounter BP Readings: Date: BP: 08/17/2022 110/70 08/11/2022 122/78 07/30/2022 126/78 07/28/2022 [pt don't sit still[ 05/27/2022 124/70 BMI Readings from Last 5 Encounters: 05/21/21 : (P) 20.35 kg/m 03/03/21 : 20.03 kg/m 02/20/21 : 20.60 kg/m 03/09/19 : 24.64 kg/m 12/12/18 : 23.37 kg/m Last 5 Encounter Wt Readings: Date: Wt: 07/28/2022 0 kg () 03/03/2021 57.2 kg (126 lb) 02/20/2021 58.8 kg (129 lb 9.6 oz) 03/09/2019 70.3 kg (155 lb) 12/12/2018 66.7 kg (147 lb) Medication and allergy list reviewed, reconciled and updated 11/18/2022 ASSESSMENT/PLAN: 1. Complete edentulism, unspecified edentulism class - ICD9: 525.40, 525.10, ICD10: K08.109 (primary diagnosis) As noted above, patient has completed edentulism. She is on honey thickened liquids with every liquid except pleasure foods. Her medications need to be crushed or opened and sprinkled on soft foods. - THICK-IT ORAL POWDER 2. Recurrent urinary tract infection - ICD9: 599.0, ICD10: N39.0 - ACIDOPHILUS CHEWABLE TABLET Okay to crush medication. 3. Constipation, unspecified constipation type - ICD9: 564.00, ICD10: K59.00 As above. - ACIDOPHILUS CHEWABLE TABLET 4. Decreased appetite - ICD9: 783.0, ICD10: R63.0 - OMEPRAZOLE 20 MG CAPSULE,DELAYED RELEASE Okay to open capsule and sprinkle on soft foods. 5. Developmental disability - ICD9: 315.9, ICD10: F89 May use liberally, as noted above. - ZINC OXIDE-METHYL CHDWWPOJOT-HZLRTKEZEV-ESWGW OIL OINTMENT 6. Drooling - ICD9: 527.7, ICD10: K11.7 As above. - ZINC OXIDE-METHYL BLNQCNHYMA-VQVBTYREVT-DJVWE OIL OINTMENT 7. Well adult exam - ICD9: V70.0, ICD10: Z00.00 She will be due for lab work in May. - CALCIUM CARBONATE 500 MG-VITAMIN D3 5 MCG (200 UNIT) TABLET - LIPID PANEL BASIC - CBC + DIFF - MAGNESIUM BLD Caregiver to check with insurance/pharmacy re: shingrix and pneumonia vaccines. 8. Hypoglycemia - ICD9: 251.2, ICD10: E16.2 Encouraged to eat regular meals with healthy snacks in between meals. - COMP METABOLIC PANEL 9. Care refused by patient - ICD9: V64.2, ICD10: Z53.29 Guardian reported that she did not proceed with MEDIA ANALYTICS MANAGER exams or mammograms unless she is symptomatic. 10. Screening for hyperlipidemia - ICD9: V77.91, ICD10: Z13.220 - LIPID PANEL BASIC 11. Decreased mobility - ICD9: 781.99, ICD10: R26.89 As noted above, patient uses a custom wheelchair with a belt for mobility. Discussed treatment plan and patient voices understanding. Patient's questions answered appropriately. Medications and potential side effects were discussed and patient voices understanding. Return to the office as scheduled or as needed for worsening/no improvement. Debi Mejia APRN.RILEY This note was partially generated using [employer] voice recognition system. Note was reviewed for accuracy. There may be minor misspellings or grammar miscues with [employer] voice recognition. documented in this encounter [facility] 11-17-2022 Miscellaneous Notes FYI- scripts sent to [facility]. Will await determination. Script sent to [facility]. Eliza says to run it uner prescription and if it does not work then to submit under medical. She could not get a straight answer. Eliza says to submit the request for the prolio to [facility]. Spoke with Eliza, caregiver, at this time to help schedule appt to receive Prolia. Did advise her to check with pt's insurance to determine if medication would be covered under medical coverage ([facility] would provide), or script would need sent to pharmacy to be covered under prescription coverage. She will notify office of which is needed. Appt was scheduled at this time. Darcy Eng LPN Darcy, Patient/caregiver would like to start prolia. Is this something you can facilitate? Thanks, Debi Mejia APRN.PHOTOENGRAVING PROOFER APPRENTICE documented in this encounter [facility] 11-16-2022 History of Present illness Narrative Chief Complaint Patient presents with: Telemedicine Patient was offered a virtual/telemedicine appointment in lieu of an office visit due to recommendations to reduce patient exposure to COVID-19. Video was used for evaluation of this patient. Patient is aware of limitations of performing the visit without a face to face visit in the office setting and agrees. Patient agrees to the visit: Yes Patient Location: [facility] Malka Kimball is a 67 year old female who is contacted today for a virtual visit This is an established patient of Dr. Issac Wilkes MD Presents with caregiver. Awaiting custom chair. Sherri Jernigan. Awaiting medical records for custom chair. Phone -- [phone]. Paperwork received -- needs script for pt/ot eval for wheelchair. Gets lactulose. Hx of constipation. Was changed to prn. She has since retired. Hasn't noticed any issues. Has been managed with just diet changes if needed. Requesting discontinue the lactulose. On a nasal spray. Calcitonin for osteoporosis. Last dexa 2020 and consistent with osteoporosis. She is interested in having this discontinued. She is interested in the prolia. With patient's cognitive status, would like not tolerate IV therapy without sedation/restraints. Past medical history, appointments, medications, allergies reviewed 11/16/2022 Previous Medical History PAST MEDICAL HISTORY Diagnosis Date Leo's palsy mild Chronic constipation hx of Swazi measles hx of Hypoglycemia Profound mental retardation Skin sensitivity UTI (urinary tract infection) hx of Vitamin D deficiency Previous Surgical History PAST SURGICAL HISTORY Procedure Laterality Date TONSILLECTOMY PRIMARY/SECONDARY <AGE 14 Tonsillectomy TOTAL ABDOMINAL HYSTERECT W/WO RMVL TUBE OVARY Hysterectomy, MARCIA Family History FAMILY HISTORY Problem Relation Age of Onset Heart Mother other (htn [Other]) Mother other (arteriosclerosis [Other]) Father Heart Father Stroke Father Colon Cancer Mother Glaucoma Mother Glaucoma Sister Patient Allergies ALLERGIES No Known Allergies Current Medications Current Outpatient Medications on File Prior to Visit Medication Sig baclofen (LIORESAL) 10 mg tablet TAKE 1 TABLET BY MOUTH TWICE A DAY mirtazapine (REMERON) 30 mg tablet Take 1 tablet by mouth daily at bedtime. Starch, Thickening, (THICK-IT) powd Take by mouth daily as indicated. Lactobacillus Acidophilus (ACIDOPHILUS) chew 2 caplets by mouth twice daily cetirizine (ZYRTEC) 10 mg tablet Take 1 tablet by mouth daily at bedtime. oxybutynin (DITROPAN) 5 mg tablet Take 1 tablet by mouth twice daily. (for drooling) bzbwydkxjphf-xon-rnec-FA-vit K (ONE DAILY WOMEN'S) 18 mg iron-400 mcg-25 mcg tab Take 2 tablets by mouth once daily. lactulose (DUPHALAC, CONSTULOSE) 10 gram/15 mL solution Take 15 mL by mouth once daily as needed (constipation). omeprazole (PRILOSEC) 20 mg capsule Take 1 capsule by mouth once daily. calcitonin,salmon, (MIACALCIN, FORTICAL) 200 unit/actuation nasal spray Use 1 [place] in the nose once daily. Alternate nostrils. byxumfot-nypj-IL-calcium-mins (ONE-A-DAY WOMEN'S PETITES) 9 mg iron-200 mcg tab Take 2 tablets by mouth once daily. zinc jdrud-fqtl-tacgtfk E-clove oil (PINXAV) oint Apply with each diaper change. (Patient taking differently: Apply 1 application topically with each diaper change.) OYSTER SHELL CALCIUM-VITAMIN D 500 mg-5 mcg (200 unit) per tablet TAKE 1 TABLET BY MOUTH TWICE A DAY WITH MEALS onabotulinum toxin type A (BOTOX) 100 unit solr Injected every 3 months for spasticity as directed. Diaper,Brief, Adult,Disposable Use as directed. Size XL (N39.498) Other urinary incontinence, (T73.8XXA) Sensory deprivation, initial encounter Disposable Gloves misc Use as directed, latex, XL, N39.498, T73.8XXA Miscellaneous Medical Supply Washable chux pads ondansetron orally disintegrating (ZOFRAN ODT) 4 mg disintegrating tablet Take 1 tablet by mouth twice daily. X 1 week calcium carbonate (TUMS) 500 mg chew Take 1 tablet by mouth twice daily for 7 days. fluticasone (FLONASE) 50 mcg/actuation nasal spray Use 2 Sprays in each nostril once daily. X 2 weeks. guaiFENesin (MUCINEX) 600 mg 12 hr tablet Take 2 tablets by mouth twice daily. X 2 week. Okay to crush COMPOUNDED PRESCRIPTION Liquid thickener. All liquids should be consistency of honey-thickened liquid. Diaper,Brief, Adult,Disposable (BRIEFS) misc Pull ups size XL Use as directed (N39.498) Other urinary incontinence, (T73.8XXA) Sensory deprivation, initial encounter COMPOUNDED PRESCRIPTION Washable cloth chux pad, use as directed. (N39.498) Other urinary incontinence, (T73.8XXA) Sensory deprivation, initial encounter COMPOUNDED PRESCRIPTION Washable chucks: urinary incontinence n39.498, sensory deprivation t73.8xxa Diaper,Brief, Adult,Disposable misc Use as directed. Size XL (N39.498) Other urinary incontinence, (T73.8XXA) Sensory deprivation, initial encounter COMPOUNDED PRESCRIPTION Washable chucks: urinary incontinence n39.498, sensory deprivation t73.8xxa sunscreen lotn Apply 1 application to affected area as needed. SPF 30 No current facility-administered medications on file prior to visit. Social History Social History Tobacco Use Smoking status: Never Smokeless tobacco: Never Substance Use Topics Alcohol use: No EXAM: There were no vitals taken for this visit. Limited exam as visit was completed over the virtual platform. Virtual visit completed using video, limited exam completed. Patient sounds or appears ill: No General Appearance: Well appearing, alert, in no acute distress, well-hydrated, well nourished. Skin: Skin color normal Head: Normocephalic. No facial swelling or redness. EENT: Eyes nonreddened. No discharge. External ears nonreddened and no swelling. Neck: No mass or lesions. No swelling. FROM Patient is unable to speak in complete sentences: N/A Patient has labored breathing: No. Patient is audibly coughing: No Psych: Attitude - cooperative Affect - Euthymic, normal mood for patient Mental status: Alert. Appearance - Normal hygiene and grooming appropriate Health Maintenance List SHINGRIX VACCINE(1 of 2) Never done PNEUMOCOCCAL: 65+(2 - PCV) due on 12/22/2015 COVID-19 VACCINE(4 - Booster for Moderna series) due on 02/06/2022 ADVANCE DIRECTIVE DISCUSSION Never done DEPRESSION ASSESSMENT Never done COLORECTAL CANCER SCREENING due on 10/13/2023 DTAP,TDAP,TD(2 - Tdap) due on 02/07/2024 DIABETES SCREEN due on 05/27/2025 LIPID SCREEN due on 05/27/2027 BONE DENSITY Completed INFLUENZA Completed HEPATITIS C SCREENING Completed MAMMOGRAM Discontinued HIV SCREENING Discontinued Data reviewed Last 5 Encounter BP Readings: Date: BP: 08/17/2022 110/70 08/11/2022 122/78 07/30/2022 126/78 07/28/2022 [pt don't sit still[ 05/27/2022 124/70 BMI Readings from Last 5 Encounters: 05/21/21 : (P) 20.35 kg/m 03/03/21 : 20.03 kg/m 02/20/21 : 20.60 kg/m 03/09/19 : 24.64 kg/m 12/12/18 : 23.37 kg/m Last 5 Encounter Wt Readings: Date: Wt: 07/28/2022 0 kg () 03/03/2021 57.2 kg (126 lb) 02/20/2021 58.8 kg (129 lb 9.6 oz) 03/09/2019 70.3 kg (155 lb) 12/12/2018 66.7 kg (147 lb) Medication and allergy list reviewed, reconciled and updated 11/16/2022 ASSESSMENT/PLAN: 1. Osteoporosis, unspecified osteoporosis type, unspecified pathological fracture presence - ICD9: 733.00, ICD10: M81.0 (primary diagnosis) - begin tx with prolia - DENOSUMAB 60 MG/ML SUBCUTANEOUS SYRINGE 2. Age-related osteoporosis without current pathological fracture - ICD9: 733.01, ICD10: M81.0 Will await pt to be scheduled for prolia. D/x nasal spray the day prior. - CALCITONIN (SALMON) 200 UNIT/ACTUATION NASAL SPRAY 3. Contracture of left knee - ICD9: 718.46, ICD10: M24.562 Script done for pt/ot. - CONSULT TO PT/OT WHEELCHAIR EVALUATION 4. Decreased mobility - ICD9: 781.99, ICD10: R26.89 As above. - CONSULT TO PT/OT WHEELCHAIR EVALUATION 5. Developmental disability - ICD9: 315.9, ICD10: F89 As above. - CONSULT TO PT/OT WHEELCHAIR EVALUATION 6. Constipation, unspecified constipation type - ICD9: 564.00, ICD10: K59.00 Has not needed lactulose. Caregiver has been able to manage with diet alone. Would like discontinued. Discussed treatment plan and patient/caregiver voice understanding. Patient's/caregiver's questions answered appropriately. Medications and potential side effects were discussed and patient voices understanding. Return to the office as scheduled or as needed for worsening/no improvement. Debi Mejia APRN.RILEY documented in this encounter [facility] 11-09-2022 Miscellaneous Notes Last seen 09/29/22: She continues to take oral baclofen 10 mg up to twice a day. Last script written 06/09/22 for 6 months Source : electronic from pharmacy requesting refill. Delivery : e-script Requested Prescriptions Pending Prescriptions Disp Refills baclofen (LIORESAL) 10 mg tablet [Pharmacy Med Name: Baclofen 10MG TABS] 60 tablet 5 Sig: TAKE 1 TABLET BY MOUTH TWICE A DAY DX : Patient last seen 09/29/2022 Next Appointment : None Michelle Horton documented in this encounter [facility] 11-06-2022 Miscellaneous Notes Patient has been identified by name and date of : Yes, Provider Dr. Wilkes Date 11-06-22 Time 10:03am Pharmacy phones for refill(s): Requested Prescriptions Pending Prescriptions Disp Refills mirtazapine (REMERON) 30 mg tablet 30 tablet 5 Sig: Take 1 tablet by mouth daily at bedtime. Date of last office visit with pcp: 08-18-22. Next appt: none Last 2 Encounter Wt Readings: Date: Wt: 07/28/2022 0 kg () 03/03/2021 57.2 kg (126 lb) Previous labs/tests for medication: Blood Pressure: BUN (mg/dL) Date Value 05/27/2022 13 02/20/2021 22 Sodium (mmol/L) Date Value 05/27/2022 143 02/20/2021 145 Last 1 Encounter BP Readings: Date: BP: 08/17/2022 110/70 Liver Function: ALT (U/L) Date Value 05/27/2022 16 02/20/2021 14 AST (U/L) Date Value 05/27/2022 20 02/20/2021 20 Please advise. Thank you. Ernestina Merida RN documented in this encounter [facility] 11-04-2022 Miscellaneous Notes See Refill encounter [facility] calling, states the multivitamin serving size is for 2 tablets daily. Asking if the script can be changed and have a quantity of #60 tablets for a 30 day supply. Please advise. documented in this encounter [facility] 11-04-2022 Miscellaneous Notes Last Office Visit: 08/18/2022 Future Office Visit: None Requested Prescriptions Pending Prescriptions Disp Refills Starch, Thickening, (THICK-IT) powd 1020 g 5 Sig: Take by mouth daily as indicated. Lactobacillus Acidophilus (ACIDOPHILUS) chew 124 tablet 11 Si caplets by mouth twice daily cetirizine (ZYRTEC) 10 mg tablet 31 tablet 11 Sig: Take 1 tablet by mouth daily at bedtime. oxybutynin (DITROPAN) 5 mg tablet 62 tablet 11 Sig: Take 1 tablet by mouth twice daily. (for drooling) Date of Last Labs: 05/27/2022 documented in this encounter [facility] 10-13-2022 Miscellaneous Notes See below. Needs reordered. ----- Message from Luz Hicks sent at 10/13/2022 3:07 PM EST ----- Regarding: New lab order needed/Specimen in lab. Please place a new order for IFOBT, if clinically indicated. This notification serves to inform you that a test(s) have been canceled for reason(s) denoted on the result report within the Epic chart. Thank you. If any questions, please contact Laboratory Client Services. DO NOT REPLY TO THIS MESSAGE. documented in this encounter [facility] 10-05-2022 Miscellaneous Notes Barbara with [facility] called asking for the prescription below to be sent in for 2 once a day. We get a message coming up that it exceeds qty but Barbara reports it is covered by the pt's insurance. Natty VILLALPANDO Patient has been identified by name and date of : Yes, Provider Dr. Wilkes Date 10/05/22 Time 10:39 am Pharmacy phones for refill(s): Requested Prescriptions Pending Prescriptions Disp Refills qbssqjcuqusw-jum-mmwu-FA-vit K (ONE DAILY WOMEN'S) 18 mg iron-400 mcg-25 mcg tab 60 tablet 11 Sig: Take 2 tablets by mouth once daily. Date of last office visit in primary care: 08/18/22 Last 2 Encounter Wt Readings: Date: Wt: 07/28/2022 0 kg () 03/03/2021 57.2 kg (126 lb) Previous labs/tests for medication: Not applicable Thank you. Natty Phillip LPN documented in this encounter [facility] 09-29-2022 History of Present illness Narrative VIRTUAL VISIT PROGRESS NOTE This is a virtual visit using [employer] video visit. It required patient-provider interaction for the medical decision making as documented below. Malka Kimball is a 67 year old female seen for spasticity. She was in the office on 07/28/2022 for Botox injections. Brand of toxin injected: Botox. After skin preparation with alcohol, a total dose of 200 units were injected as follows: Muscle Limb/Side Dose Guidance Comments Semimembranosis LLE 75 units EMG 2 sites Semitendinosis LLE 75 units EMG 1 sites Biceps femoris LLE 50 units EMG 1 sites Total Dose: 200 units injected, 0 units discarded. She participated in PT for at least four sessions. The injections along with home PT, focused on PROM, did not lead to any noticeable changes in the stiffness of the LLE. She continues to take oral baclofen 10 mg up to twice a day. [facility] is designing and outfitting a new wheelchair to accommodate the patient's needs. HISTORY REVIEWED (electronic chart updated): PAST MEDICAL HISTORY Diagnosis Date Leo's palsy mild Chronic constipation hx of Swazi measles hx of Hypoglycemia Profound mental retardation Skin sensitivity UTI (urinary tract infection) hx of Vitamin D deficiency PAST SURGICAL HISTORY Procedure Laterality Date TONSILLECTOMY PRIMARY/SECONDARY <AGE 14 Tonsillectomy TOTAL ABDOMINAL HYSTERECT W/WO RMVL TUBE OVARY Hysterectomy, MARCIA FAMILY HISTORY Problem Relation Age of Onset Heart Mother other (htn [Other]) Mother other (arteriosclerosis [Other]) Father Heart Father Stroke Father Colon Cancer Mother Glaucoma Mother Glaucoma Sister Social History Tobacco Use Smoking status: Never Smokeless tobacco: Never Substance Use Topics Alcohol use: No Current Outpatient Medications Medication Sig omeprazole (PRILOSEC) 20 mg capsule Take 1 capsule by mouth once daily. lactulose (DUPHALAC, CONSTULOSE) 10 gram/15 mL solution Take 15 mL by mouth once daily as needed. (Patient taking differently: Take 15 mL by mouth once daily as needed (constipation).) calcitonin,salmon, (MIACALCIN, FORTICAL) 200 unit/actuation nasal spray Use 1 [place] in the nose once daily. Alternate nostrils. mirtazapine (REMERON) 30 mg tablet Take 1 tablet by mouth daily at bedtime. baclofen (LIORESAL) 10 mg tablet Take 1 tablet by mouth twice daily. tugfucab-uxyw-PQ-calcium-mins (ONE-A-DAY WOMEN'S PETITES) 9 mg iron-200 mcg tab Take 2 tablets by mouth once daily. Starch, Thickening, (THICK-IT) powd Take by mouth daily as indicated. (Patient taking differently: Take1 application by mouth daily as indicated to thicken liquids) zinc ylupc-urix-sluuphp E-clove oil (PINXAV) oint Apply with each diaper change. (Patient taking differently: Apply 1 application topically with each diaper change.) ONE DAILY WOMEN'S 18 mg iron-400 mcg-25 mcg tab TAKE 1 TABLET BY MOUTH DAILY OYSTER SHELL CALCIUM-VITAMIN D 500 mg-5 mcg (200 unit) per tablet TAKE 1 TABLET BY MOUTH TWICE A DAY WITH MEALS onabotulinum toxin type A (BOTOX) 100 unit solr Injected every 3 months for spasticity as directed. Lactobacillus Acidophilus (ACIDOPHILUS) chew 2 caplets by mouth twice daily cetirizine (ZYRTEC) 10 mg tablet Take 1 tablet by mouth daily at bedtime. oxybutynin (DITROPAN) 5 mg tablet Take 1 tablet by mouth twice daily. (for drooling) Diaper,Brief, Adult,Disposable Use as directed. Size XL (N39.498) Other urinary incontinence, (T73.8XXA) Sensory deprivation, initial encounter Disposable Gloves misc Use as directed, latex, XL, N39.498, T73.8XXA Miscellaneous Medical Supply Washable chux pads ondansetron orally disintegrating (ZOFRAN ODT) 4 mg disintegrating tablet Take 1 tablet by mouth twice daily. X 1 week calcium carbonate (TUMS) 500 mg chew Take 1 tablet by mouth twice daily for 7 days. fluticasone (FLONASE) 50 mcg/actuation nasal spray Use 2 Sprays in each nostril once daily. X 2 weeks. guaiFENesin (MUCINEX) 600 mg 12 hr tablet Take 2 tablets by mouth twice daily. X 2 week. Okay to crush COMPOUNDED PRESCRIPTION Liquid thickener. All liquids should be consistency of honey-thickened liquid. Diaper,Brief, Adult,Disposable (BRIEFS) misc Pull ups size XL Use as directed (N39.498) Other urinary incontinence, (T73.8XXA) Sensory deprivation, initial encounter COMPOUNDED PRESCRIPTION Washable cloth chux pad, use as directed. (N39.498) Other urinary incontinence, (T73.8XXA) Sensory deprivation, initial encounter COMPOUNDED PRESCRIPTION Washable chucks: urinary incontinence n39.498, sensory deprivation t73.8xxa Diaper,Brief, Adult,Disposable misc Use as directed. Size XL (N39.498) Other urinary incontinence, (T73.8XXA) Sensory deprivation, initial encounter COMPOUNDED PRESCRIPTION Washable chucks: urinary incontinence n39.498, sensory deprivation t73.8xxa sunscreen lotn Apply 1 application to affected area as needed. SPF 30 No current facility-administered medications for this visit. ALLERGIES No Known Allergies REVIEW OF SYSTEMS: Not completed PHYSICAL EXAMINATION: VIDEO EXAM: (if completed, performed via video enabled technology) No exam performed ASSESSMENT: (R25.2) Spasticity (primary encounter diagnosis) (M24.562) Contracture of left knee (G80.9) Cerebral palsy, unspecified type (HCC) Patient with cerebral palsy, severe spasticity/dystonia and muscle contracture in the left knee and ankle from unknown etiology. Botulinum toxin injections were repeated in June with the hopes that the combination of home PT focused on PROM would assist with improved symptoms. No demonstrable change was seen by the pt's grain grader in terms of ease of care and ROM. We agreed to hold off on further injections in the left leg. She is to continue with oral baclofen as instructed and to maintain home stretches as instructed. PLAN: 1 - Repeat injections - We decided against this 2 - PT/OT: Home PT was completed 3 - Letter Dr Issac Wilkes, Dr Jamey Sánchez There are no Patient Instructions on file for this visit. I spent a total of 12 minutes including the virtual visit,chart prep and documentation Jennifer Guerrero MD documented in this encounter [facility] 08-31-2022 Miscellaneous Notes Last Office Visit: 08/18/2022 Future Office Visit: None Requested Prescriptions Pending Prescriptions Disp Refills omeprazole (PRILOSEC) 20 mg capsule 30 capsule 5 Sig: Take 1 capsule by mouth once daily. Date of Last Labs: 05/27/2022 documented in this encounter [facility] 08-25-2022 Miscellaneous Notes Order and OV notes faxed to [facility] Jhonny Darling LPN Script done. Can please fax w/ last office note. Debi Mejia APRN.RILEY Vivi spoke with Sherri and they have set up an in home apt for custom wheel chair/chair for pt's room for 09/28/22 at 2:30 pm. Sherri are in need of the followin) office visit that discussed the custom chair 2)prescription for custom wheel chair/chair PH: [phone] FAX: [phone] Any problems please call Vivi. Natty Phillip LPN Vivi notified. She will check with [facility] and get back to us. Jhonny Darling LPN Can please let Eliza know that I heard back from PT. I would recommend that they have an assessment done by a W/C DME provider who can better assess what products they have available that meet her needs. Eliza would need to find out who is covered by [employer] insurance and then you could place an order for them to assess. Please tell Eliza to let us know where she would like us to fax the order. Debi Mejia APRN.RILEY Good afternoon. Suzy is currently following with [facility] home PT. I just did a virtual visit with Suzy and Vivi. Because of being more dependent on a wheelchair, they are questioning what would be the best wheelchair/gerichair for her, or even a custom chair. She is currently using a wheelchair, however Vivi doesn't necessarily feel this is safe, even with positional devices, do to Suzy not realizing that she cannot get up unassisted and potential injury/fall. Per Vivi, they also have the added issue re: the structure of the house. So a reclining chair may not be able to be moved from the bedroom to the rest of the house where Suzy would be able to socialize with others. Would you be able to make a recommendation re: what would be the most appropriate device to help Suzy be comfortable, prevent injury, and still be able to be able to be in different areas of the home? Thanks, Debi Mejia APRN.PHOTOENGRAVING PROOFER APPRENTICE documented in this encounter [facility] 08-19-2022 Miscellaneous Notes PT contacted Dr. Guerrero and Luz Mejias cnp on 08/17/22 for the following: gave recommendations for [employer] company to evaluate for a proper seatign system and for MD to write an order for staff to have on hand so they can provide the PROM New orders: None Follow up needed: None documented in this encounter [facility] 08-18-2022 History of Present illness Narrative Chief Complaint Patient presents with: Telemedicine Patient was offered a virtual/telemedicine appointment in lieu of an office visit due to recommendations to reduce patient exposure to COVID-19. Video was used for evaluation of this patient. Patient is aware of limitations of performing the visit without a face to face visit in the office setting and agrees. Patient agrees to the visit: Yes Patient Location: [facility] Malka Kimball is a 67 year old female who is contacted today for a virtual visit This is an established patient of Dr. Issac Wilkes MD Reports: Needs prescription for modified wheelchair. Has to use a wheelchair to get around, now. She never used a wheelchair predominantly. She has never been one to sit a lot, however, now with the worsening of her leg, she is having to be seated more. It has been a safety issue now, despite having tried different positioning devices/belts. Refers that in the home females are all on the first floor. She doesn't need to navigate any stairs, but there is a staircase which would make it difficult to navigate a chair around from her bedroom to the other living area. Refers that she would likely need two chairs. D/t the structure of the house, likely would not be able to push a chair around the staircase/stair railing. Questions a possible gerichair vs recliner. She currently has home PT coming in. Past medical history, appointments, medications, allergies reviewed 08/18/2022 Previous Medical History PAST MEDICAL HISTORY Diagnosis Date Leo's palsy mild Chronic constipation hx of Swazi measles hx of Hypoglycemia Profound mental retardation Skin sensitivity UTI (urinary tract infection) hx of Vitamin D deficiency Previous Surgical History PAST SURGICAL HISTORY Procedure Laterality Date TONSILLECTOMY PRIMARY/SECONDARY <AGE 14 Tonsillectomy TOTAL ABDOMINAL HYSTERECT W/WO RMVL TUBE OVARY Hysterectomy, MARCIA Family History FAMILY HISTORY Problem Relation Age of Onset Heart Mother other (htn [Other]) Mother other (arteriosclerosis [Other]) Father Heart Father Stroke Father Colon Cancer Mother Glaucoma Mother Glaucoma Sister Patient Allergies ALLERGIES No Known Allergies Current Medications Current Outpatient Medications on File Prior to Visit Medication Sig lactulose (DUPHALAC, CONSTULOSE) 10 gram/15 mL solution Take 15 mL by mouth once daily as needed. (Patient taking differently: Take 15 mL by mouth once daily as needed (constipation).) calcitonin,salmon, (MIACALCIN, FORTICAL) 200 unit/actuation nasal spray Use 1 [place] in the nose once daily. Alternate nostrils. mirtazapine (REMERON) 30 mg tablet Take 1 tablet by mouth daily at bedtime. baclofen (LIORESAL) 10 mg tablet Take 1 tablet by mouth twice daily. twoqzxxl-mava-TI-calcium-mins (ONE-A-DAY WOMEN'S PETITES) 9 mg iron-200 mcg tab Take 2 tablets by mouth once daily. Starch, Thickening, (THICK-IT) powd Take by mouth daily as indicated. (Patient taking differently: Take1 application by mouth daily as indicated to thicken liquids) omeprazole (PRILOSEC) 20 mg capsule Take 1 capsule by mouth once daily. zinc hfdjv-qerb-xtcmalb E-clove oil (PINXAV) oint Apply with each diaper change. (Patient taking differently: Apply 1 application topically with each diaper change.) ONE DAILY WOMEN'S 18 mg iron-400 mcg-25 mcg tab TAKE 1 TABLET BY MOUTH DAILY OYSTER SHELL CALCIUM-VITAMIN D 500 mg-5 mcg (200 unit) per tablet TAKE 1 TABLET BY MOUTH TWICE A DAY WITH MEALS onabotulinum toxin type A (BOTOX) 100 unit solr Injected every 3 months for spasticity as directed. Lactobacillus Acidophilus (ACIDOPHILUS) chew 2 caplets by mouth twice daily cetirizine (ZYRTEC) 10 mg tablet Take 1 tablet by mouth daily at bedtime. oxybutynin (DITROPAN) 5 mg tablet Take 1 tablet by mouth twice daily. (for drooling) Diaper,Brief, Adult,Disposable Use as directed. Size XL (N39.498) Other urinary incontinence, (T73.8XXA) Sensory deprivation, initial encounter Disposable Gloves misc Use as directed, latex, XL, N39.498, T73.8XXA Miscellaneous Medical Supply Washable chux pads ondansetron orally disintegrating (ZOFRAN ODT) 4 mg disintegrating tablet Take 1 tablet by mouth twice daily. X 1 week calcium carbonate (TUMS) 500 mg chew Take 1 tablet by mouth twice daily for 7 days. fluticasone (FLONASE) 50 mcg/actuation nasal spray Use 2 Sprays in each nostril once daily. X 2 weeks. guaiFENesin (MUCINEX) 600 mg 12 hr tablet Take 2 tablets by mouth twice daily. X 2 week. Okay to crush COMPOUNDED PRESCRIPTION Liquid thickener. All liquids should be consistency of honey-thickened liquid. Diaper,Brief, Adult,Disposable (BRIEFS) misc Pull ups size XL Use as directed (N39.498) Other urinary incontinence, (T73.8XXA) Sensory deprivation, initial encounter COMPOUNDED PRESCRIPTION Washable cloth chux pad, use as directed. (N39.498) Other urinary incontinence, (T73.8XXA) Sensory deprivation, initial encounter COMPOUNDED PRESCRIPTION Washable chucks: urinary incontinence n39.498, sensory deprivation t73.8xxa Diaper,Brief, Adult,Disposable misc Use as directed. Size XL (N39.498) Other urinary incontinence, (T73.8XXA) Sensory deprivation, initial encounter COMPOUNDED PRESCRIPTION Washable chucks: urinary incontinence n39.498, sensory deprivation t73.8xxa sunscreen lotn Apply 1 application to affected area as needed. SPF 30 No current facility-administered medications on file prior to visit. Social History Social History Tobacco Use Smoking status: Never Smokeless tobacco: Never Substance Use Topics Alcohol use: No EXAM: There were no vitals taken for this visit. Limited exam as visit was completed over the virtual platform. Virtual visit completed using video, limited exam completed. Patient sounds or appears ill: No General Appearance: Well appearing, alert, in no acute distress, well-hydrated, well nourished. Skin: Skin color normal Head: Normocephalic. No facial swelling or redness. EENT: Eyes nonreddened. No discharge. External ears nonreddened and no swelling. Neck: No mass or lesions. No swelling. FROM Patient is unable to speak in complete sentences: N/A Patient has labored breathing: No. Patient is audibly coughing: No Affect - normal mood per patient Mental status: Alert. Appearance - Normal hygiene and grooming appropriate Coordination: No abnormal or extraneous movements. Gait/Stance: Posture is normal. Health Maintenance List SHINGRIX VACCINE(1 of 2) Never done PNEUMOCOCCAL: 65+(2 - PCV) due on 12/22/2015 DEPRESSION ASSESSMENT Never done ADVANCE DIRECTIVE DISCUSSION Never done COVID-19 VACCINE(4 - Booster for Moderna series) due on 02/06/2022 COLORECTAL CANCER SCREENING due on 04/16/2022 DTAP,TDAP,TD(2 - Tdap) due on 02/07/2024 DIABETES SCREEN due on 05/27/2025 LIPID SCREEN due on 05/27/2027 BONE DENSITY Completed INFLUENZA Completed HEPATITIS C SCREENING Completed MAMMOGRAM Discontinued HIV SCREENING Discontinued Data reviewed Last 5 Encounter BP Readings: Date: BP: 08/17/2022 110/70 08/11/2022 122/78 07/30/2022 126/78 07/28/2022 [pt don't sit still[ 05/27/2022 124/70 BMI Readings from Last 5 Encounters: 05/21/21 : (P) 20.35 kg/m 03/03/21 : 20.03 kg/m 02/20/21 : 20.60 kg/m 03/09/19 : 24.64 kg/m 12/12/18 : 23.37 kg/m Last 5 Encounter Wt Readings: Date: Wt: 07/28/2022 0 kg () 03/03/2021 57.2 kg (126 lb) 02/20/2021 58.8 kg (129 lb 9.6 oz) 03/09/2019 70.3 kg (155 lb) 12/12/2018 66.7 kg (147 lb) Medication and allergy list reviewed, reconciled and updated 08/18/2022 ASSESSMENT/PLAN: 1. Contracture of left knee - ICD9: 718.46, ICD10: M24.562 (primary diagnosis) - CONSULT TO PHYSICAL THERAPY 2. Decreased mobility - ICD9: 781.99, ICD10: R26.89 - CONSULT TO PHYSICAL THERAPY Will message current home PT providers and see if any recommendations re: chair can be made. Discussed treatment plan and patient voices understanding. Patient's questions answered appropriately. Medications and potential side effects were discussed and patient voices understanding. Return to the office as scheduled or as needed for worsening/no improvement. documented in this encounter [facility] 08-17-2022 Miscellaneous Notes SITUATION: private duty caregiver present during today's visit. caregiver reports the following since the last homecare visit: medications/allergies--no changes, no fall. caregiver reports she has not noticed any changes in left knee/leg motion. CG also reports that they have an appt with the primary tomorrow and will discuss order for a custom w/c as pt does not sit in a chair normally. She prefers to lay. Even prior to the contractures she di dnot sit . Whe would either be walking or laying . BACKGROUND: Diagnoses (reason for Home Care): Spasticity [R25.2] , Profound ID Weight Bearing/Precaution Changes: no changes ASSESSMENT: Focus of visit PROM to LLE in supine and seated positions. Patient very guarded throughout. No changes in ROM at this time. Spasticity noted left knee flexion and extension Discussed lack of progress with CG and pts mother . Will report findings to MD but do not feel that PT is benefitting pt at this time . CG is competent to do PROM for her daily but will need a specific order Current Discharge Plan: d/c to care of staff Anticipate discharge by 08/17/22 RECOMMENDATION: WIll report findings to MD and most likely dc to care of senior care See intervention summary for intervention/education details. documented in this encounter [facility] 08-11-2022 Miscellaneous Notes SITUATION: private duty caregiver present during today's visit. caregiver reports the following since the last homecare visit: medications/allergies--no changes, no fall. caregiver reports she has not noticed any changes in left knee/leg motion. BACKGROUND: Diagnoses (reason for Home Care): Spasticity [R25.2] Weight Bearing/Precaution Changes: no changes ASSESSMENT: Focus of visit PROM to LLE in supine and seated positions. Patient very guarded throughout. No changes in ROM at this time. Spasticity noted left knee flexion and extension Plan of care, goals, and visit frequency reviewed and agreed upon with patient and/or caregiver. Current Discharge Plan: current senior care setting Anticipate discharge by 08/17/22 RECOMMENDATION: Next visit to focus on cont w/ PROM /stretching to LLE See intervention summary for intervention/education details. documented in this encounter [facility] 08-06-2022 Miscellaneous Notes SITUATION: private duty caregiver present during today's visit. caregiver reports the following since the last homecare visit: medications/allergies--no changes, no fall. caregiver reports she has not noticed any changes in Lknee ROM . BACKGROUND: Diagnoses (reason for Home Care): Spasticity [R25.2] Contracture of left knee [M24.562] Cerebral palsy, unspecified type (HCC) [G8 0.9] Weight Bearing/Precaution Changes: no changes Mentally handicap/non verbal ASSESSMENT: Focus of visit PROM LLE/knee.in seated and supine positons . / Much resistance w/ PROM Patient ubale to follow verbal tactile cues for relaxing/ not resisting stretches. Plan of care, goals, and visit frequency reviewed and agreed upon with patient and/or caregiver. Current Discharge Plan: caregiver support Anticipate discharge by 08/22/22 RECOMMENDATION: Next visit to focus on PROM Left knee /LE See intervention summary for intervention/education details. documented in this encounter [facility] 08-02-2022 Miscellaneous Notes Fax to [phone] Attn Darcy Vizcarra, Can you please fax a prescription/order as stated below (or similar) to the number, so that the caregiver can complete the ROM and stretching. Caregiver states an order is needed, due to the senior care setting. Caregiver to perform range of motion and stretching on left lower extremity to prevent further contracture/improve range of motion, as trained by physical therapist, 2-3x/day. Please let me know if you have any questions or concerns. Thank you, Neha Johnson PT documented in this encounter [facility] 07-30-2022 Miscellaneous Notes SITUATION: private duty caregiver present during today's visit. caregiver reports that she has been doing well. Patient lives in senior care and caregiver . Patient is non-verbal, all visits will need to be scheduled with caregivers for caregiver training Caregiver is concerned that she is not permitted to perform ROM on patient without appropriate orders. Caregiver reports that she is not uncomfortable performing any PROM/stretching without appropriate orders and does not want to cause any harm to patient. - Spoke with wardrobe manager Ezra Burgess and requested order from Dr. Guerrero. BACKGROUND: Diagnoses (reason for Home Care): Spasticity [R25.2] Contracture of left knee [M24.562] Cerebral palsy, unspecified type (HCC) [G8 0.9] Per MD, caregiver training for PROM and stretching program is needed Past Medical History: Intellectual Disability, Urinary Incontinence, Constipation, Mixed Incontinence, Drooling, Diaper Dermatitis, Vitamin D Deficiency, Allergic Rhinitis, Hypoglycemia, Aspiration into Airway, Developmental Disability, Osteoporosis Weight Bearing or Surgical Precautions: mentally handicapped, high fall risk, non-verbal ASSESSMENT: Patient evaluated by [facility] physical therapy. Reviewed and explained homecare services. Plan of care, goals, and visit frequency developed, reviewed, and agreed upon with patient and/or caregiver. Patient Goal: Per caregiver, to improve ROM, improve independence for mobility Patient will benefit from continued physical therapy 1w1, 2w2, 1w1 to address the following deficits: L knee joint ROM and transfers. Current Discharge Plan: caregiver support. Anticipate discharge by 08/22/2022. RECOMMENDATION: Next visit to focus on: caregiver training for PROM/stretching L knee Agreeable to PT; declining none. See intervention summary for intervention/education details. documented in this encounter [facility] 07-29-2022 Miscellaneous Notes Last office visit: 05/27/22 Next appointment scheduled: 08/04/22 Pharmacy calls in requesting the following refill(s): Requested Prescriptions Pending Prescriptions Disp Refills lactulose (DUPHALAC, CONSTULOSE) 10 gram/15 mL solution 946 mL 0 Sig: Take 15 mL by mouth once daily as needed. documented in this encounter [facility] 07-29-[address] Guerrero, Attempted to schedule patient today for PT SOC, with caregiver declining due to another conflicting appt. Will reattempt tomorrow. Please let me know if you have any questions or concerns Thank you, Ezra PT documented in this encounter [facility] 07-02-2022 Miscellaneous Notes Patient has been identified by name and date of : Yes Pharmacy phones for refill(s): Requested Prescriptions Pending Prescriptions Disp Refills calcitonin,salmon, (MIACALCIN, FORTICAL) 200 unit/actuation nasal spray 3.7 mL 5 Sig: Use 1 [place] in the nose once daily. Alternate nostrils. Date of last office visit in primary care: 05/27/22, NOV: 11/24/22 Last 2 Encounter Wt Readings: Date: Wt: 03/03/2021 57.2 kg (126 lb) 02/20/2021 58.8 kg (129 lb 9.6 oz) Please advise. Thank you. Jane Liang RN documented in this encounter [facility] 06-23-2022 Miscellaneous Notes I think we already told her I have no idea. I have not heard of anyone in the area that does. Not sure if anyone else knows of anyone. They may have to call around and research. documented in this encounter [facility] 06-09-2022 Miscellaneous Notes Chart reviewed (calculated CrCl of 77 mL/min based on creat of 0.67 mg/dL, LFTs WNL on labs from 05/2022). Okay to refill medication. The following approved medication requests have been transmitted electronically. Requested Prescriptions Signed Prescriptions Disp Refills baclofen (LIORESAL) 10 mg tablet 180 tablet 1 Sig: Take 1 tablet by mouth twice daily. Authorizing Provider: LISA SAMUEL APRN.CNP June 09, 2022 Source : electronic from pharmacy requesting refill. Delivery : e-script Requested Prescriptions Pending Prescriptions Disp Refills baclofen (LIORESAL) 10 mg tablet [Pharmacy Med Name: Baclofen 10MG TABS] 60 tablet 5 Sig: TAKE 1 TABLET BY MOUTH TWICE A DAY DX : Patient last seen 02/10/2022 Next Appointment : 06/23/2022 Michelle Horton documented in this encounter [facility] 06-09-2022 Miscellaneous Notes Patient has been identified by name and date of : Yes Pharmacy phones for refill(s): Requested Prescriptions Pending Prescriptions Disp Refills mirtazapine (REMERON) 30 mg tablet 30 tablet 5 Sig: Take 1 tablet by mouth daily at bedtime. Date of last office visit with pcp: 05-27-22. Next appt: 11-24-22 Last 2 Encounter Wt Readings: Date: Wt: 03/03/2021 57.2 kg (126 lb) 02/20/2021 58.8 kg (129 lb 9.6 oz) Previous labs/tests for medication: Blood Pressure: BUN (mg/dL) Date Value 05/27/2022 13 02/20/2021 22 Sodium (mmol/L) Date Value 05/27/2022 143 02/20/2021 145 Last 1 Encounter BP Readings: Date: BP: 05/27/2022 124/70 Liver Function: ALT (U/L) Date Value 05/27/2022 16 02/20/2021 14 AST (U/L) Date Value 05/27/2022 20 02/20/2021 20 Please advise. Thank you. Ernestina Merida RN documented in this encounter [facility] 05-27-2022 Instructions Debi Mejia APRN.PHOTOENGRAVING PROOFER APPRENTICE - 05/27/2022 10:59 AM EDT Decrease the lactulose to as needed daily. Okay to stop physical therapy and knee brace. Get labwork done. Do the stool test. Recheck in 6 months. documented in this encounter [facility] 05-27-2022 Miscellaneous Notes Discussed at OV. Jhonny Darling LPN There were sent a message regarding this from the providers office. TC diego De La Cruz message to return call to office. Jhonny Darling LPN Not that I know of. I don't know if the providers she was to see would know of anyone? Pt had an appt scheduled today at [facility] for botox injections for her knees. Pt's care provider Eliza Morris called to state she was taking pt to appt & they got in the bus k[place] & was stuck in traffic. Pt then soiled her self so they are on their way back home, did not make it to the appt. Eliza is asking if there is someplace local or closer that pt can get these injections? Please advise. Theresa Turner LPN documented in this encounter [facility] 05-27-2022 History of Present illness Narrative This is a 67 year old female who presents today with: Patient presents with: Yearly Exam: Discuss lactulose; PT for knee HISTORY OF PRESENT ILLNESS: Malka Kimball is a 67 year old female. Patient presents with: Yearly Exam: Discuss lactulose; PT for knee Pt here for a recheck. Presents w/ caregiver Vivi. Stools. Refers that she doesn't think that daily lactulose is needed any longer. Refers retired from [employer]. She is getting adequate nutrition and feel this has been controlling constipation. Thinks the lactolose is too much now. Currently stooling three times daily -- soft. Contracture of the left knee. Refers that they have been unable to locate anyone to come for home PT. Caregiver reports that she has made multiple phone calls and no one has the staff to send. Refers that she was also given a knee brace, but caregiver does not feel comfortable with using the knee brace as unsure if it is on properly and unsure if discomfort associated with it. Plans to continue with the botox injections and will get set up. Caregiver reports that she is still able to bear weight on the right leg. PAST MEDICAL HISTORY: PAST MEDICAL HISTORY Diagnosis Date Leo's palsy mild Chronic constipation hx of Swazi measles hx of Hypoglycemia Profound mental retardation Skin sensitivity UTI (urinary tract infection) hx of Vitamin D deficiency PAST SURGICAL HISTORY Procedure Laterality Date TONSILLECTOMY PRIMARY/SECONDARY <AGE 14 Tonsillectomy TOTAL ABDOMINAL HYSTERECT W/WO RMVL TUBE OVARY Hysterectomy, MARCIA ALLERGIES Patient has no known allergies. MEDICATIONS Current Outpatient Medications Medication Sig cgmhkvjt-ofzb-UM-calcium-mins (ONE-A-DAY WOMEN'S PETITES) 9 mg iron-200 mcg tab Take 2 tablets by mouth once daily. Starch, Thickening, (THICK-IT) powd Take by mouth daily as indicated. omeprazole (PRILOSEC) 20 mg capsule Take 1 capsule by mouth once daily. lactulose (DUPHALAC, CONSTULOSE) 10 gram/15 mL solution Take 15 mL by mouth once daily. ONE DAILY WOMEN'S 18 mg iron-400 mcg-25 mcg tab TAKE 1 TABLET BY MOUTH DAILY OYSTER SHELL CALCIUM-VITAMIN D 500 mg-5 mcg (200 unit) per tablet TAKE 1 TABLET BY MOUTH TWICE A DAY WITH MEALS Lactobacillus Acidophilus (ACIDOPHILUS) chew 2 caplets by mouth twice daily cetirizine (ZYRTEC) 10 mg tablet Take 1 tablet by mouth daily at bedtime. oxybutynin (DITROPAN) 5 mg tablet Take 1 tablet by mouth twice daily. (for drooling) Diaper,Brief, Adult,Disposable Use as directed. Size XL (N39.498) Other urinary incontinence, (T73.8XXA) Sensory deprivation, initial encounter Disposable Gloves misc Use as directed, latex, XL, N39.498, T73.8XXA Miscellaneous Medical Supply Washable chux pads sunscreen lotn Apply 1 application to affected area as needed. SPF 30 zinc aazxf-yahz-fibkcbb E-clove oil (PINXAV) oint Apply with each diaper change. baclofen (LIORESAL) 10 mg tablet Take 1 tablet by mouth twice daily. onabotulinum toxin type A (BOTOX) 100 unit solr Injected every 3 months for spasticity as directed. calcitonin,salmon, (MIACALCIN, FORTICAL) 200 unit/actuation nasal spray Use 1 [place] in the nose once daily. Alternate nostrils. mirtazapine (REMERON) 30 mg tablet Take 1 tablet by mouth daily at bedtime. ondansetron orally disintegrating (ZOFRAN ODT) 4 mg disintegrating tablet Take 1 tablet by mouth twice daily. X 1 week calcium carbonate (TUMS) 500 mg chew Take 1 tablet by mouth twice daily for 7 days. fluticasone (FLONASE) 50 mcg/actuation nasal spray Use 2 Sprays in each nostril once daily. X 2 weeks. guaiFENesin (MUCINEX) 600 mg 12 hr tablet Take 2 tablets by mouth twice daily. X 2 week. Okay to crush COMPOUNDED PRESCRIPTION Liquid thickener. All liquids should be consistency of honey-thickened liquid. Diaper,Brief, Adult,Disposable (BRIEFS) misc Pull ups size XL Use as directed (N39.498) Other urinary incontinence, (T73.8XXA) Sensory deprivation, initial encounter COMPOUNDED PRESCRIPTION Washable cloth chux pad, use as directed. (N39.498) Other urinary incontinence, (T73.8XXA) Sensory deprivation, initial encounter COMPOUNDED PRESCRIPTION Washable chucks: urinary incontinence n39.498, sensory deprivation t73.8xxa Diaper,Brief, Adult,Disposable misc Use as directed. Size XL (N39.498) Other urinary incontinence, (T73.8XXA) Sensory deprivation, initial encounter COMPOUNDED PRESCRIPTION Washable chucks: urinary incontinence n39.498, sensory deprivation t73.8xxa No current facility-administered medications for this visit. FAMILY HISTORY Problem Relation Age of Onset Heart Mother other (htn [Other]) Mother other (arteriosclerosis [Other]) Father Heart Father Stroke Father Colon Cancer Mother Glaucoma Mother Glaucoma Sister Social History Tobacco Use Smoking status: Never Smokeless tobacco: Never Substance Use Topics Alcohol use: No EXAM: BP 124/70 Pulse (!) 46 Resp 18 SpO2 98% PHYSICAL EXAM: General Appearance: Well appearing, alert, in no acute distress, well-hydrated, well nourished.. Skin: Skin color, texture, turgor normal, no suspicious rashes or lesions. Head: Normocephalic, no masses, lesions, tenderness or abnormalities. Eyes: Anicteric sclera. Extraocular movements are intact. . Lungs: Lungs clear to auscultation. No wheezing, rhonchi, rales.. Heart: RRR without murmur, gallop, or rubs. No ectopy. Extremities: No edema, skin discoloration. + contracture of the left knee. Neurologic: non-verbal. Unable to make needs known. ASSESSMENT/PLAN: 1. Constipation, unspecified constipation type - ICD9: 564.00, ICD10: K59.00 (primary diagnosis) Resolved. Okay to decrease lactulose to daily as needed. - LACTULOSE 10 GRAM/15 ML ORAL SOLUTION 2. Hypokalemia - ICD9: 276.8, ICD10: E87.6 CMP 3. Elevated alkaline phosphatase level - ICD9: 790.5, ICD10: R74.8 - COMP METABOLIC PANEL 4. Hypoglycemia - ICD9: 251.2, ICD10: E16.2 - COMP METABOLIC PANEL 5. Screening for colon cancer - ICD9: V76.51, ICD10: Z12.11 Due for yearly screen. - FECAL OCCULT BLOOD TEST 6. Screening for hyperlipidemia - ICD9: V77.91, ICD10: Z13.220 - LIPID PANEL BASIC 7. Gastroesophageal reflux disease without esophagitis - ICD9: 530.81, ICD10: K21.9 Stable. - CBC + DIFF - MAGNESIUM BLD 8. Contracture of left knee - ICD9: 718.46, ICD10: M24.562 Follow-up w/ specialist, as indicated. Discussed treatment plan and patient voices understanding. Patient's questions answered appropriately. Medications and potential side effects were discussed and patient voices understanding. Return to the office as scheduled or as needed for worsening/no improvement. Debi Mejia APRN.[facility] documented in this encounter [facility] 04-24-2022 Miscellaneous Notes Patient has been identified by name and date of : Yes Pharmacy phones for refill(s): Pending Prescriptions Disp Refills THICK-IT ORAL POWDER 1020 g 5 Sig: Take by mouth daily as indicated. ERWIN: No Date of last office visit in primary care: 11/13/21, NOV: not scheduled Last 2 Encounter Wt Readings: Date: Wt: 03/03/2021 57.2 kg (126 lb) 02/20/2021 58.8 kg (129 lb 9.6 oz) Please advise. Thank you. Jane Liang RN documented in this encounter [facility] 04-01-2022 Miscellaneous Notes Patient has been identified by name and date of : Yes Pending Prescriptions Disp Refills OMEPRAZOLE 20 MG CAPSULE,DELAYED RELEASE 30 capsule 5 Sig: Take 1 capsule by mouth once daily. ERWIN: No LACTULOSE 10 GRAM/15 ML ORAL SOLUTION 946 mL 3 Sig: Take 15 mL by mouth once daily. ERWIN: No ALEXSANDER-11/13/21 Labs-02/20/21 NOV-04/06/22 RX INSTRUCTIONS: Patient aware RX will be sent to pharmacy. No need to notify patient. Kaila Low documented in this encounter [facility] 03-10-2022 Miscellaneous Notes RX was printed on 02/25/2022, Pharmacy never received. Patient has been identified by name and date of : Yes Pharmacy phones for refill(s): Pending Prescriptions Disp Refills ZINC OXIDE-METHYL [id number] OIL OINTMENT 341.2 g 11 Sig: Apply with each diaper change. ERWIN: No Date of last office visit in primary care: 11/13/2021 No future appt scheduled. Last 2 Encounter Wt Readings: Date: Wt: 03/03/2021 57.2 kg (126 lb) 02/20/2021 58.8 kg (129 lb 9.6 oz) Previous labs/tests for medication: Not applicable Please advise. Thank you. Katina Huertas LPN documented in this encounter [facility] 02-25-2022 Miscellaneous Notes Last Office Visit: 11/13/2021 Future Office Visit: 03/10/2022 Last Medication Refill: Pinxav 03/03/2021 34.2 g 11 refill Date of Last Labs: 02/20/2021 documented in this encounter [facility] 02-10-2022 Instructions Lisa Samuel APRN.PHOTOENGRAVING PROOFER APPRENTICE - 02/10/2022 1:23 PM EDT You have received botulinum toxin injections today. The skin around the site of injections should be monitored for a couple of days. If redness or swelling occur, the skin should be examined by a health career consultant to rule out infection. Please contact our office via [employer] or by phone at [phone] in 2 weeks to report on the effects of the injections, or any time with any questions or concerns. Please note that your next injections should not be scheduled less than 90 days from today. If your health insurance changes before the next injections, please contact our office at [phone] as soon as possible so we can submit a new pre-authorization if needed. Please note that we may not be able to perform the injections if your insurance changes and the treatment is not pre-authorized. documented in this encounter [facility] 02-10-2022 History of Present illness Narrative BOTULINUM TOXIN THERAPY Patient accompanied by: caregiver, Eliza Current complaints / history since last visit: pt. is here for 1st round of botox injections today. She was seen in initial evaluation with Dr. Sánchez on 01/16 and botox was recommended for the Left hamstring (100 units), gastroc/soleus muscles (100 units), total of 200 units. Pt. is nonverbal, so information obtained from her caregiver, Eliza. She reports pt. has ongoing stiffness and tightness in the Left leg. This has been present since she suffered a foot fracture and had to wear a boot for 2 months. Eliza states patient did not know how to walk with the boot on, so she constantly held her knee in a flexed position and the joint is now very tight and contracted. Eliza does not feel pt. is in constant/ongoing pain. Pt. recently started oral baclofen 10 mg BID. Eliza has not noticed any significant improvement from the medication, but denies any side effects. Pt. had home therapies ordered earlier this year, but only underwent 2 sessions, as Eliza reports the therapists did not know what to do with Suzy. They did give her a dynasplint, but Eliza was not shown how to use this. Eliza would also like orders for pt. be released back to her day program, -, 830-2 pm, but she would like the order to read that pt. can go to the program as tolerated so she can keep her home if needed. Illnesses / hospitalizations since the last visit: None Anticoagulation: None Home stretching/exercise routine: No routine stretching PT/OT: Had 2 sessions of home PT in November as above. Eliza would like pt. to resume home therapies through a different agency and is asking for a new order today. BT therapy effective? [facility] BOTOX - BT THERAPY EFFECTIVE: pt. is here for first botox injections today. Spasm scale: 0=No spasm Pain related to the purpose of the visit: Pt. unable to report, but Eliza does not feel she is in constant/ongoing pain Patient Entered Data PROMIS No flowsheet data found. Spasticity NRS No flowsheet data found. Spasm Scale No flowsheet data found. Global Impression of Change No flowsheet data found. Treatments for Spasticity and Results of Treatments: Stretching/exercise: She does not perform stretching exercises regularly. 2 sessions of home PT in November. Oral medications: oral baclofen 10 mg BID Botulinum toxin injections: here for 1st round of injections today Intrathecal baclofen therapy: No Other: No Evolution of disability: Gait disturbance since July 2021. She was independent in ambulation prior to sustaining Left foot fracture. She is currently non-ambulatory and uses a wheelchair for mobility. Memory: She is developmental delayed and is non-verbal Bowel: Incontinent, issues with chronic constipation, on bowel regimen Bladder: chronic incontinence, no changes or issues reported, no recent UTIs Skin: Intact per Eliza's report Nutritional status: appetite is good, weight is stable, swallowing with dysphagia, diet is pureed with honey thickened liquids Driving issues: NA- does not drive Safety concerns regarding living situations and safety at home: No, she lives with caregiver in a 3 level home. Pt. lives on the first level. There is a ramp at the main entrance. Risk of falls: Yes, but no recent falls Examination: General: awake and alert, NAD, non-verbal Spasticity Right Left Hip adduction 0 0 Knee extension 0. 0 Knee flexion 0 3 Plantarflexion 0 1+ Modified Adali Scale 0 - No increase in tone 1 - Slight increase in tone (catch and release at end of ROM) 1+ - Slight increase in tone, manifested by a catch, followed by minimal resistance throughout remainder (less than half of ROM) 2 - Marked increase in tone through most of the ROM, but affected part(s) easily moved 3 - Considerable increase in tone; passive movement difficult 4 - Affected part(s) rigid in flexion or extension Spasms observed: RUE: no right upper extremity spasms LUE: no left upper extremity spasms RLE: no right lower extremity spasms LLE: no left lower extremity spasms Timed 25 foot walk: N/A Assistance required: wheelchair Ambulation Index Score: 9 - Restricted to wheelchair, dependent for transfers UNIVERSAL PROTOCOL / SAFETY CHECKLIST Procedure to be Performed: Botulinum Toxin Injections Sign In: A Moment of CARE was completed. Personnel directly involved with the procedure wore the appropriate PPE (Personal Protective Equipment). Special equipment: EMG guided injections Patient/Surrogate Stated/Verified: PATIENT VERIFIED(optional for EMERGENT procedures): Patient name, Date of , Relevant allergies, The intended procedure and all this was confirmed iwht pt.'s caregiver Time Out Communication: Intended patient and procedure match the source documents. Consent documented and matches the intended procedure. No relevant labs, photos, and/or imaging studies were applicable for review. Correct side/site marked and visible. Medications required for procedure verified. No implant(s) inserted. Sign Out: SIGN OUT (optional for EMERGENT procedures): No specimen collected. No instruments, equipment or retained foreign bodies applicable. Post-procedure follow-up management communicated and Plan of Care Visit completed when applicable. Lisa Samuel APRN.[facility] UNIVERSAL PROTOCOL / SAFETY CHECKLIST The risks, benefits and alternatives of the procedure were explained. Written Consent Obtained: yes (Eliza is authroized to sign consent for pt., injections were discussed with pt.'s POA, who is in agreement with proceeding) - 02/10/2022 Clinician(s) performing the injections: Lisa Samuel APRN-[facility]LEY Steamfitter Apprentice: Aleksandra Valero LPN Brand of toxin injected: Botox. After skin preparation with alcohol, a total dose of 200 unitswere injected as follows: Muscle Limb/Side Dose Guidance Comments Left hamstring LLE 100 units EMG 2 sites Left medial gastroc LLE 25 units EMG 1 sites Left lateral gastroc LLE 25 units EMG 1 sites Left soleus LLE 50 units EMG 1 sites Total Dose: 2000 units discarded. Dilution: 100 units / 1 ml LOT #: [id number] Expiration Date: Month: 5 Year: 24 The injections were tolerated fairly well. Minimal bleeding occurred at the injection sites. Assessment: (R25.2) Spasticity (primary encounter diagnosis) (G24.9) Dystonia (M24.562) Contracture of left knee (R26.9) Abnormality of gait (G80.9) Cerebral palsy, unspecified type (HCC) 67 yo female with cerebral palsy, severe spasticity/dystonia and muscle contracture in the Left knee and ankle following a Left foot fracture and utilization of a boot on the limb for approx. 8 weeks. Pt. was previously ambulatory, but now uses a wheelchair for mobility. She was seen by Dr. Sánchez for initial evaluation and found to be a good candidate for botox injections; she is here today for her 1st round of injections today. Reviewed the plan laid out by Dr. Sánchez to inject the hamstring, gastroc, solues in the LLE, total dose of 200 units. Eliza is agreeable to proceeding with injections, consent was signed. Injections were performed as above without immediate complications. Plan will be to repeat injections in 3 months, same distribution, dose of 200-300 units. Recommend that pt. continue with oral baclofen 10 mg BID for now- can consider dose adjustment based on how she tolerates/responds to botox. Eliza has asked for a new order for home therapy, as she wants pt. to do this through a different agency. New order placed today and printed a copy for Eliza. Encouraged her to discuss the use of dynasplint with pt.'s new therapist(s). Orders also written for pt. to return to her day program as tolerated per Eliza's request. She plans to have pt. resume this next week. Plan: 1 - Repeat injections in 3 months, same distribution, dose of 200-300 units. Dependent for transfers 2 - Asked Eliza to provide an update on how pt. is doing in a few weeks via [employer] or phone 3 - Continue oral baclofen 10 mg BID. Consider a dose adjustment if needed depending on how pt. responds to botox 4 - Resume home therapies. Eliza will discuss use of dynasplint for LLE with the therapists. 5 - Eliza knows to contact the office with any questions, problems, concerns following today's visit Time spent with patient: 45 min. Lisa Samuel APRN.PHOTOENGRAVING PROOFER APPRENTICE February 10, 2022 12:58 PM documented in this encounter [facility] 01-30-2022 Miscellaneous Notes Patient phones requesting refills as follows: Pending Prescriptions Disp Refills OYSTER SHELL CALCIUM-VITAMIN D3 500 MG-5 MCG (200 UNIT) TABLET 62 tablet 11 Sig: TAKE 1 TABLET BY MOUTH TWICE A DAY WITH MEALS ERWIN: Yes ALEXSANDER 11/13/21 NOV 03/11/22 Please review and advise. Jhonny Darling LPN documented in this encounter [facility] 01-16-2022 Instructions Jamey Sánchez MD - 01/16/2022 1:45 PM EDT Baclofen 10 mg tablets Take 1 tablet at 8 pm for 1 week then Take 1 tablet at 8 am and 8 pm. Contact the office in 2 weeks with a report ([employer] or [phone]). documented in this encounter [facility] 01-16-2022 History of Present illness Narrative REFERRAL SOURCE: Ramses Campbell [address] [facility] [id number] FOLLOWED BY: Issac Wilkes MD REASON FOR CONSULTATION: rehabilitation consult. PRINCIPAL NEUROLOGIC DIAGNOSIS: Contracture of left knee Muscle spasticity HISTORY OF ILLNESS: Date of Onset: July 2021 BRIEF NARRATIVE DESCRIBING HISTORY: This 67 year old left handed female was referred by Ramses Campbell MD for a spasticity consult. The patient was accompanied by Vivi Morris, senior care staff. Medical records from [facility] were reviewed. The patient is non-verbal and does not follow commands. Caregiver Vivi Morris answered questions. Patient has a history of a anoxic brain injury at and has developmental delay. She ambulated independently prior to July 2021 when she developed a left ankle fracture. She was in a boot and was non-weight bearing (no surgery was required). Per caregiver, the left leg started to bend and they were unable to straighten it. After left ankle fracture healed, she was unable to walk. She has had physical therapy and gvien a dynasplint with no improvement. She was evaluated by orthopedics who referred to PM&R for possible botox injections. Patient has severe stiffness in her left leg. She has difficulty straighten her left leg. Staff denies spasms. Stiffness has hindered her ability to walk and perform stand pivot transfers. She has not tried baclofen, tizanidine or botulinum toxin injections. She last had physical therapy in October 2021. She does not perform stretching exercises regularly. Symptoms/Functional Limitations Related to Spasticity: Stiffness: Stiffness in the left leg Spasms: No spasms Spasticity interferes with sleep: No Spasticity interferes with function: Yes, with walking and ADLs SPASM SCALE: No spasm Pain related to the purpose of the visit: No 0 on a scale of 0 to 10 Patient Entered Data PROMIS No flowsheet data found. Spasticity NRS No flowsheet data found. Spasm Scale No flowsheet data found. Global Impression of Change No flowsheet data found. Treatments for Spasticity and Results of Treatments: Stretching/exercise: She does not perform stretching exercises regularly. She last had physical therapy in October 2021 Oral medications: No Botulinum toxin injections: No Intrathecal baclofen therapy: No Other: No Evolution of disability: Gait disturbance since July 2021. She was independent in ambulation. She is currently non-ambulatory and uses a wheelchair for mobility. Current functional status: She is independent in feeding (set up). She is dependent in dressing and bathing. She does not maneuver stairs. She requires assistance entering/exiting shower or tub. She requires assistance with transfers (stand-pivot). She requires assistance with grooming. Mood: Good, occasional depression, takes remeron with improvement, no suicidal thoughts Memory: She had developmental delay and non-verbal Bowel: Chronic constipation improved with medications, incontinent Bladder: Incontinence Fatigue: No issues Current functional status: Incapacity Status Scale Stair Climbin Ambulation: 4 Toilet/Chair/Bed Transfer: 3 Bowel Function: 3 Bladder Function: 3 Bathin Dressin Groomin Feedin Vision: 2 Speech and Hearin Medical Problems: 1 Mood and Thought Disturbance: 2 Mentation: 3 Fatigability: 0 Sexual Function: Not asked Total score: 40 Skin: Intact Nutritional status: appetite is good, weight is stable, swallowing with dysphagia, diet is pureed and honey thickened liquids Driving issues: NA Safety concerns regarding living situations and safety at home: No, she lives with caregiver in a 3 level home. She lives on the first level. There is a ramp at the main entrance. Risk of falls: Yes, but no recent falls Review of Systems Constitutional: Negative. Skin: Negative. HENT: Positive for trouble swallowing. Musculoskeletal: Positive for muscle weakness. Eyes: Positive for visual disturbance. Respiratory: Negative. Cardiovascular: Negative. Gastrointestinal: Positive for constipation. Endocrine: Negative. Genitourinary: Positive for incontinence. Hematologic/Lymphatic: Negative. Allergic/Immunologic: Negative. Psychiatric: Positive for behavioral problem and dysphoric mood. All other systems reviewed and are negative. Review of Diagnostic Studies: 08/11/21 X-ray Left Ankle Impression: 1. Beltran B lateral malleolus fracture. Soft tissue swelling. 2. Mild widening of the medial ankle mortice. 3. OCD of the medial talus. Labs reviewed: None pertinent PAST MEDICAL HISTORY Diagnosis Date Leo's palsy mild Chronic constipation hx of Swazi measles hx of Hypoglycemia Profound mental retardation Skin sensitivity UTI (urinary tract infection) hx of Vitamin D deficiency PAST SURGICAL HISTORY Procedure Laterality Date TONSILLECTOMY PRIMARY/SECONDARY <AGE 14 Tonsillectomy TOTAL ABDOMINAL HYSTERECT W/WO RMVL TUBE OVARY Hysterectomy, MARCIA Social History Tobacco Use Smoking status: Never Smoker Smokeless tobacco: Never Used Substance Use Topics Alcohol use: No Drug use: Not on file FAMILY HISTORY Problem Relation Age of Onset Heart Mother other (htn [Other]) Mother other (arteriosclerosis [Other]) Father Heart Father Stroke Father Colon Cancer Mother Glaucoma Mother Glaucoma Sister PHYSICAL EXAMINATION: Musculoskeletal: Limited passive range of motion is noted in the right finger flexors, left knee flexors and ankle plantarfexors due to spasticity/dystonia and muscle contractures. Cognitive/Behavioral: The patient was awake and non-verbal. Formal neuropsychological testing was not performed today. The patient did not exhibit signs of pathological anxiety or depression during the interview and examination. Cranial Nerves: Unable to assess Spasticity Right Left Shoulder 0 0 Elbow flexion 0 0 Elbow extension 0 0 Wrist flexion 0 0 Wrist extension 0 0 Finger flexion 3 0 Finger extension 0 0 Hip adduction 0 0 Knee extension 0. 0 Knee flexion 0 3 Plantarflexion 0 2 Modified Adali Scale 0 - No increase in tone 1 - Slight increase in tone (catch and release at end of ROM) 1+ - Slight increase in tone, manifested by a catch, followed by minimal resistance throughout remainder (less than half of ROM) 2 - Marked increase in tone through most of the ROM, but affected part(s) easily moved 3 - Considerable increase in tone; passive movement difficult 4 - Affected part(s) rigid in flexion or extension Spasms observed: RUE: no right upper extremity spasms LUE: no left upper extremity spasms RLE: no right lower extremity spasms LLE: no left lower extremity spasms Timed 25 foot walk: N/A Assistance required: wheelchair Ambulation Index Score: 9 - Restricted to wheelchair, dependent for transfers Cerebellar: Unable to assess Sensory: Unable to assess ASSESSMENT: (G24.9) Dystonia (primary encounter diagnosis) (G80.9) Cerebral palsy, unspecified type (HCC) (M25.562) Acute pain of left knee (M24.562) Contracture of left knee Patient with cerebral palsy, severe spasticity/dystonia and muscle contracture in the left knee and ankle from unknown etiology. She is a good candidate for botulinum toxin injections. I discussed the procedure, risks and benefits of botox injections. Goals are less stiffness, spasms and discomfort with improved passive range of motion, ease of care, better positioning, prevention of pressure sores and muscle contractures. Ie explained that botox will not treat the etiology of her spasticity/dystonia and may not improve function. Caregiver states that she understands and wants to proceed with botox injections. Initial plan is to target the left hamstrings (100 units) and gastrocnemius/soleus muscles (100 units). We will repeat botox injections every 3 months and prior to each session, we will reassess to determine if changes are needed in the muscles targeted or the dose injected. We may increase to a maximum dose of 400 units if needed. In the meantime, she is to take baclofen 10 mg twice daily as instructed. Caregiver may contact the office in 2 weeks with a report and at that time, we will consider further medication adjustments if needed. She would benefit from home physical therapy after initial botox injections to include teaching caregiver home stretching program . She will discuss with physical therapist use of dynasplint. Initial pre-authorization Medication: Botox [id number] Dose (units every 90 days): 400 If initial pre-authorization; list treatments failed: PT/OT and Baclofen CPT Codes: Limbs: 03324 EMG guidance: 86982 Limb(s) / area(s) injected: Left hamstrings and gastrocnemius/soleus muscles Educational materials provided: None Checklist for botulinum toxin or intrathecal baclofen therapy Severe spinal deformity: no History of trauma to the spine: no History of spinal surgery: no History of seizures: no Pacemaker: no Anticoagulation: no Bleeding disorder: no Ability to provide consent: yes Her mother is her legal guardian, Caregver can give consent Allergy to lidocaine: no Allergy to betadine: no Transportation problems: yes She lives in [place], [place] Other: no PLAN: 1. Oral antispasticity medications: Baclofen 10 mg twice daily as instructed. 2. Schedule botox injections, 200 units. Transfers with assistance. 3. Physical/occupational therapy: Home physical and occupational therapies after initial botox injections. Perform stretching exercises regularly. 4. Please fax note to Ramses Campbell MD and Issac Wilkes MD. Time spent with patient: 60 minutes. More than 50% of the face to face time was dedicated to education and counseling regarding treatment options for spasticity. Jamey Sánchez MD documented in this encounter [facility] 01-05-2022 Miscellaneous Notes Last appt: 11/13/21 - Next scheduled appt; 03/11 Patient has been identified by name and date of : Yes Pending Prescriptions Disp Refills CALCITONIN (SALMON) 200 UNIT/ACTUATION NASAL SPRAY 3.7 mL 5 Sig: Use 1 [place] in the nose once daily. Alternate nostrils. ERWIN: No RX INSTRUCTIONS: Pharmacy initiated this request. No need to notify patient. Peg Sherwood LPN documented in this encounter [facility] 12-22-2021 Miscellaneous Notes Vivi Morris, caregiver for pt called and was not able to see Letter done on [employer]. Spoke with nurse in Dr wilkes's office and reqested letter from 12-18-21 to be printed and taken to Medical Records for fish bait picker on 12-23-21. Natty Phillip LPN documented in this encounter [facility] 12-18-2021 Miscellaneous Notes See letter Vivi Morris, caregiver for pt in her senior care. Vivi states requesting a letter to give Insurance that a flat walk in shower is needed and rip out the walk in tub. Pt is 100 % total care in wheel chair and needs accomodations to bathe and lift, along with mobility required issues with bathing and lifting. Now they have a walk in tub and both pt and caregiver do not fit and pt can not walk. . Pt had a left broken foot and will not put weight on left leg. Vivi states a letter in MyChart is fine and she can print off or a letter can be put in Medical Records and she can fish bait picker. Please advise Vivi when completed. Also let her know if there is a problem. Natty Phillip LPN documented in this encounter [facility] 12-11-2021 History of Present illness Narrative Ramses Campbell MD Department of Orthopaedics Orthopaedics [address] [place] [address] Dept: [phone] Dept December 11, [address] Wilkes for an opinion regarding left knee contracture. My final recommendations will be communicated back to the requesting physician by way of shared Medical record or letter to requesting physician via US mail. CHIEF COMPLAINT: New of the Left Knee and Fracture and New of the Left Foot HPI Patient's caregiver reports some sort of a distal fibula fracture back in July , which I do not have x-rays to review, however she was in a boot of some sort and nonweightbearing. During that timeframe, she developed a left knee contracture which she states at first was almost all the way with her heel touching her but. She had some intermittent physical therapy and was placed in a splint to help with extension, but the therapy was short lived and no but he has been managing the brace. ASSESSMENT: M24.562 Contracture of left knee M25.562 Acute pain of left knee PLAN: A bit of a complex problem. Out of my expertise. I will help track down likely one of the neuromuscular docs or PM and R to see if possible Botox may be helpful. Certainly some continued and more focused physical therapy should help somewhat. Order was placed. FOLLOW UP INSTRUCTIONS: As above Ms. Malka Kimball was advised as to contrast therapies and/or to take analgesics/anti-inflammatories as needed and all contraindications were reviewed. OBJECTIVE: Ms. Malka Kimball is a pleasant 66 year old in no apparent distress. Gen:There were no vitals taken for this visit. nl development, non obese, no deformities ENT: Normocephalic, normal hearing, moist mucosa CV: Pulses:DP/PT= 2+ and symmetric, capillary refill < 2 secs, no peripheral edema/varicosities Skin: no rash, bruising or lesions. Good turgor. Psych: cooperative and appropriate, alert and oriented x 3, good mood and affect. Musculoskeletal: Patient is in the office today in a wheelchair. Right leg has full range of motion and normal function. Left knee with 110 of flexion contracture. Passively, can get her to 100. IMAGING: Unable to perform secondary to the contracture Supporting Subjective Information Below: Past Medical History: PAST MEDICAL HISTORY Diagnosis Date Leo's palsy mild Chronic constipation hx of Swazi measles hx of Hypoglycemia Profound mental retardation Skin sensitivity UTI (urinary tract infection) hx of Vitamin D deficiency Past Surgical History: PAST SURGICAL HISTORY Procedure Laterality Date REMOVAL OF TONSILS,<14 Y/O Tonsillectomy TOTAL ABDOM HYSTERECTOMY Hysterectomy, MARCIA Family History: FAMILY HISTORY Problem Relation Age of Onset Heart Mother other (htn [Other]) Mother other (arteriosclerosis [Other]) Father Heart Father Stroke Father Colon Cancer Mother Glaucoma Mother Glaucoma Sister Social History: Social History Tobacco Use Smoking status: Never Smoker Smokeless tobacco: Never Used Substance Use Topics Alcohol use: No Drug use: Not on file Medications: Current Outpatient Medications Medication Sig Starch, Thickening, (THICK-IT) powd Take by mouth daily as indicated. Lactobacillus Acidophilus (ACIDOPHILUS) chew 2 caplets by mouth twice daily cetirizine (ZYRTEC) 10 mg tablet Take 1 tablet by mouth daily at bedtime. oxybutynin (DITROPAN) 5 mg tablet Take 1 tablet by mouth twice daily. (for drooling) omeprazole (PRILOSEC) 20 mg capsule Take 1 capsule by mouth once daily. mirtazapine (REMERON) 30 mg tablet Take 1 tablet by mouth daily at bedtime. lactulose (DUPHALAC, CONSTULOSE) 10 gram/15 mL solution Take 15 mL by mouth once daily. calcitonin,salmon, (MIACALCIN, FORTICAL) 200 unit/actuation nasal spray Use 1 [place] in the nose once daily. Alternate nostrils. Diaper,Brief, Adult,Disposable Use as directed. Size XL (N39.498) Other urinary incontinence, (T73.8XXA) Sensory deprivation, initial encounter Disposable Gloves misc Use as directed, latex, XL, N39.498, T73.8XXA Miscellaneous Medical Supply Washable chux pads zinc gdimv-jfap-pbuejtr E-clove oil (PINXAV) oint Apply with each diaper change. jtugczw-jcvjmwkzi-bplpypj D3 (OYSTER SHELL CALCIUM-VITAMIN D) 500 mg(1,250mg) -200 unit per tablet Take 1 tablet by mouth twice daily with meals. ondansetron orally disintegrating (ZOFRAN ODT) 4 mg disintegrating tablet Take 1 tablet by mouth twice daily. X 1 week fluticasone (FLONASE) 50 mcg/actuation nasal spray Use 2 Sprays in each nostril once daily. X 2 weeks. guaiFENesin (MUCINEX) 600 mg 12 hr tablet Take 2 tablets by mouth twice daily. X 2 week. Okay to crush COMPOUNDED PRESCRIPTION Liquid thickener. All liquids should be consistency of honey-thickened liquid. Diaper,Brief, Adult,Disposable (BRIEFS) misc Pull ups size XL Use as directed (N39.498) Other urinary incontinence, (T73.8XXA) Sensory deprivation, initial encounter COMPOUNDED PRESCRIPTION Washable cloth chux pad, use as directed. (N39.498) Other urinary incontinence, (T73.8XXA) Sensory deprivation, initial encounter COMPOUNDED PRESCRIPTION Washable chucks: urinary incontinence n39.498, sensory deprivation t73.8xxa Diaper,Brief, Adult,Disposable misc Use as directed. Size XL (N39.498) Other urinary incontinence, (T73.8XXA) Sensory deprivation, initial encounter COMPOUNDED PRESCRIPTION Washable chucks: urinary incontinence n39.498, sensory deprivation t73.8xxa sunscreen lotn Apply 1 application to affected area as needed. SPF 30 ga-al-yeaa-FA-Ca carb-vit K (WOMEN'S MULTIVITAMIN) 18 mg iron-400 mcg-500 mg tab Take 1 tablet by mouth once daily. calcium carbonate (TUMS) 500 mg chew Take 1 tablet by mouth twice daily for 7 days. No current facility-administered medications for this visit. Allergies: Patient has no known allergies. ROS: General (negative for fatigue, malaise, weight loss/gain) HEENT (negative for headache, earache, recent vision changes, sinus pain, sore throat) Respiratory (no recent shortness of breath, hemoptysis) CV (negative for chest tightness, palpitations) Musculoskeletal (see HPI) Psych (no depression, anxiety) REFERRING PHYSICIAN: Ms. Malka Kimball was referred to me for consultation by the following physician. This consultation note will be sent to the following physician by either mail or electronic medical record. Issac Wilkes [address] [facility] [id number] Issac Wilkes MD [address] [facility] [id number] Ramses Campbell MD documented in this encounter [facility] 12-11-2021 History of Present illness Narrative documented in this encounter [facility] 03-01-2016 History of Past i llness Narrative Problem Noted Date Resolved Date Bilateral impacted cerumen 03/01/201609/08 documented as of this encounter (statuses as of 12/11/2021) [facility] History of Past illness Narrative* Problem Noted Date Resolved Date Bilateral impacted cerumen 03/01/201609/08 documented as of this encounter (statuses as of 12/12/2021) [facility] History of Past illness Narrative* Problem Noted Date Resolved Date Bilateral impacted cerumen 03/01/201609/08 documented as of this encounter (statuses as of 12/18/2021) [facility] History of Past illness Narrative* Problem Noted Date Resolved Date Bilateral impacted cerumen 03/01/201609/08 documented as of this encounter (statuses as of 12/22/2021) [facility] History of Past illness Narrative* Problem Noted Date Resolved Date Bilateral impacted cerumen 03/01/201609/08 documented as of this encounter (statuses as of 01/06/2022) [facility] of Past illness Narrative* Problem Noted Date Resolved Date Bilateral impacted cerumen 03/01/201609/08 documented as of this encounter (statuses as of 01/16/2022) [facility] of Past illness Narrative* Problem Noted Date Resolved Date Bilateral impacted cerumen 03/01/201609/08 documented as of this encounter (statuses as of 01/30/2022) [facility] of Past illness Narrative* Problem Noted Date Resolved Date Bilateral impacted cerumen 03/01/201609/08 documented as of this encounter (statuses as of 01/30/2022) [address]2016 History of Past illness Narrative* Problem Noted Date Resolved Date Bilateral impacted cerumen 03/01/201609/08 documented as of this encounter (statuses as of 02/11/2022) [address]2016 History of Past illness Narrative* Problem Noted Date Resolved Date Bilateral impacted cerumen 03/01/201609/08 documented as of this encounter (statuses as of 02/25/2022) [address]2016 History of Past illness Narrative* Problem Noted Date Resolved Date Bilateral impacted cerumen 03/01/201609/08 documented as of this encounter (statuses as of 03/10/2022) [address]2016 History of Past illness Narrative* Problem Noted Date Resolved Date Bilateral impacted cerumen 03/01/201609/08 documented as of this encounter (statuses as of 04/01/2022) [address]2016 History of Past illness Narrative* Problem Noted Date Resolved Date Bilateral impacted cerumen 03/01/201609/08 documented as of this encounter (statuses as of 04/09/2022) [address]2016 History of Past illness Narrative* Problem Noted Date Resolved Date Bilateral impacted cerumen 03/01/201609/08 documented as of this encounter (statuses as of 04/24/2022) [facility] History of Past illness Narrative* Problem Noted Date Resolved Date Bilateral impacted cerumen 03/01/201609/08 documented as of this encounter (statuses as of 05/27/2022) [address]2016 History of Past illness Narrative* Problem Noted Date Resolved Date Bilateral impacted cerumen 03/01/201609/08 documented as of this encounter (statuses as of 05/27/2022) [address]2016 History of Past illness Narrative* Problem Noted Date Resolved Date Bilateral impacted cerumen 03/01/201609/08 documented as of this encounter (statuses as of 06/09/2022) [address]2016 History of Past illness Narrative* Problem Noted Date Resolved Date Bilateral impacted cerumen 03/01/201609/08 documented as of this encounter (statuses as of 06/10/2022) [address]2016 History of Past illness Narrative* Problem Noted Date Resolved Date Bilateral impacted cerumen 03/01/201609/08 documented as of this encounter (statuses as of 06/23/2022) [address]2016 History of Past illness Narrative* Problem Noted Date Resolved Date Bilateral impacted cerumen 03/01/201609/08 documented as of this encounter (statuses as of 07/02/2022) [address]2016 History of Past illness Narrative* Problem Noted Date Resolved Date Bilateral impacted cerumen 03/01/201609/08 documented as of this encounter (statuses as of 07/29/2022) [address]2016 History of Past illness Narrative* Problem Noted Date Resolved Date Bilateral impacted cerumen 03/01/201609/08 documented as of this encounter (statuses as of 07/29/2022) [address]2016 History of Past illness Narrative* Problem Noted Date Resolved Date Bilateral impacted cerumen 03/01/201609/08 documented as of this encounter (statuses as of 07/29/2022) [address]2016 History of Past illness Narrative* Problem Noted Date Resolved Date Bilateral impacted cerumen 03/01/201609/08 documented as of this encounter (statuses as of 08/02/2022) [address]2016 History of Past illness Narrative* Problem Noted Date Resolved Date Bilateral impacted cerumen 03/01/201609/08 documented as of this encounter (statuses as of 08/03/2022) [address]2016 History of Past illness Narrative* Problem Noted Date Resolved Date Bilateral impacted cerumen 03/01/201609/08 documented as of this encounter (statuses as of 08/03/2022) [address]2016 History of Past illness Narrative* Problem Noted Date Resolved Date Bilateral impacted cerumen 03/01/201609/08 documented as of this encounter (statuses as of 08/05/2022) [address]2016 History of Past illness Narrative* Problem Noted Date Resolved Date Bilateral impacted cerumen 03/01/201609/08 documented as of this encounter (statuses as of 08/05/2022) [address]2016 History of Past illness Narrative* Problem Noted Date Resolved Date Bilateral impacted cerumen 03/01/201609/08 documented as of this encounter (statuses as of 08/06/2022) [address]2016 History of Past illness Narrative* Problem Noted Date Resolved Date Bilateral impacted cerumen 03/01/201609/08 documented as of this encounter (statuses as of 08/11/2022) [address]2016 History of Past illness Narrative* Problem Noted Date Resolved Date Bilateral impacted cerumen 03/01/201609/08 documented as of this encounter (statuses as of 08/14/2022) [address]2016 History of Past illness Narrative* Problem Noted Date Resolved Date Bilateral impacted cerumen 03/01/201609/08 documented as of this encounter (statuses as of 08/18/2022) [address]2016 History of Past illness Narrative* Problem Noted Date Resolved Date Bilateral impacted cerumen 03/01/201609/08 documented as of this encounter (statuses as of 08/18/2022) [address]2016 History of Past illness Narrative* Problem Noted Date Resolved Date Bilateral impacted cerumen 03/01/201609/08 documented as of this encounter (statuses as of 08/18/2022) [address]2016 History of Past illness Narrative* Problem Noted Date Resolved Date Bilateral impacted cerumen 03/01/201609/08 documented as of this encounter (statuses as of 08/25/2022) [address]2016 History of Past illness Narrative* Problem Noted Date Resolved Date Bilateral impacted cerumen 03/01/201609/08 documented as of this encounter (statuses as of 08/31/2022) [address]2016 History of Past illness Narrative* Problem Noted Date Resolved Date Bilateral impacted cerumen 03/01/201609/08 documented as of this encounter (statuses as of 09/24/2022) [address]2016 History of Past illness Narrative* Problem Noted Date Resolved Date Bilateral impacted cerumen 03/01/201609/08 documented as of this encounter (statuses as of 09/29/2022) [address]2016 History of Past illness Narrative* Problem Noted Date Resolved Date Bilateral impacted cerumen 03/01/201609/08 documented as of this encounter (statuses as of 10/05/2022) [address]2016 History of Past illness Narrative* Problem Noted Date Resolved Date Bilateral impacted cerumen 03/01/201609/08 documented as of this encounter (statuses as of 10/13/2022) [address]2016 History of Past illness Narrative* Problem Noted Date Resolved Date Bilateral impacted cerumen 03/01/201609/08 documented as of this encounter (statuses as of 11/05/2022) [address]2016 History of Past illness Narrative* Problem Noted Date Resolved Date Bilateral impacted cerumen 03/01/201609/08 documented as of this encounter (statuses as of 11/05/2022) [address]2016 History of Past illness Narrative* Problem Noted Date Resolved Date Bilateral impacted cerumen 03/01/201609/08 documented as of this encounter (statuses as of 11/06/2022) [address]2016 History of Past illness Narrative* Problem Noted Date Resolved Date Bilateral impacted cerumen 03/01/201609/08 documented as of this encounter (statuses as of 11/09/2022) [address]2016 History of Past illness Narrative* Problem Noted Date Resolved Date Bilateral impacted cerumen 03/01/201609/08 documented as of this encounter (statuses as of 11/17/2022) [address]2016 History of Past illness Narrative* Problem Noted Date Resolved Date Bilateral impacted cerumen 03/01/201609/08 documented as of this encounter (statuses as of 11/18/2022) [address]2016 History of Past illness Narrative* Problem Noted Date Resolved Date Bilateral impacted cerumen 03/01/201609/08 documented as of this encounter (statuses as of 11/20/2022) [address]2016 History of Past illness Narrative* Problem Noted Date Resolved Date Bilateral impacted cerumen 03/01/201609/08 documented as of this encounter (statuses as of 12/02/2022) [address]2016 History of Past illness Narrative* Problem Noted Date Resolved Date Bilateral impacted cerumen 03/01/201609/08 documented as of this encounter (statuses as of 12/10/2022) [address]2016 History of Past illness Narrative* Problem Noted Date Resolved Date Bilateral impacted cerumen 03/01/201609/08 documented as of this encounter (statuses as of 12/10/2022) [address]2016 History of Past illness Narrative* Problem Noted Date Resolved Date Bilateral impacted cerumen 03/01/201609/08 documented as of this encounter (statuses as of 01/28/2023) [address]2016 History of Past illness Narrative* Problem Noted Date Resolved Date Bilateral impacted cerumen 03/01/201609/08 documented as of this encounter (statuses as of 02/03/2023) [address]2016 History of Past illness Narrative* Problem Noted Date Diagnosed Date Resolved Date Bilateral impacted cerumen 03/01/2016 1 11/09/2020 documented as of this encounter (statuses as of 05/05/2023) [address]2016 History of Past illness Narrative* Problem Noted Date Diagnosed Date Resolved Date Bilateral impacted cerumen 03/01/2016 1 11/09/2020 documented as of this encounter (statuses as of 05/12/2023) [address]2016 History of Past illness Narrative* Problem Noted Date Diagnosed Date Resolved Date Bilateral impacted cerumen 03/01/2016 1 11/09/2020 documented as of this encounter (statuses as of 05/13/2023) [address]2016 History of Past illness Narrative* Problem Noted Date Diagnosed Date Resolved Date Bilateral impacted cerumen 03/01/2016 1 11/09/2020 documented as of this encounter (statuses as of 06/15/2023) [address]2016 History of Past illness Narrative* Problem Noted Date Diagnosed Date Resolved Date Bilateral impacted cerumen 03/01/2016 1 11/09/2020 documented as of this encounter (statuses as of 07/02/2023) [address]2016 History of Past illness Narrative* Problem Noted Date Diagnosed Date Resolved Date Bilateral impacted cerumen 03/01/2016 1 11/09/2020 documented as of this encounter (statuses as of 07/15/2023) [address]2016 History of Past illness Narrative* Problem Noted Date Diagnosed Date Resolved Date Bilateral impacted cerumen 03/01/2016 1 11/09/2020 documented as of this encounter (statuses as of 07/16/2023) [address]2016 History of Past illness Narrative* Problem Noted Date Diagnosed Date Resolved Date Bilateral impacted cerumen 03/01/2016 1 11/09/2020 documented as of this encounter (statuses as of 08/04/2023) [address]2016 History of Past illness Narrative* Problem Noted Date Diagnosed Date Resolved Date Bilateral impacted cerumen 03/01/2016 1 11/09/2020 documented as of this encounter (statuses as of 08/09/2023) [address]2016 History of Past illness Narrative* Problem Noted Date Diagnosed Date Resolved Date Bilateral impacted cerumen 03/01/2016 1 11/09/2020 documented as of this encounter (statuses as of 08/11/2023) [address]2016 History of Past illness Narrative* Problem Noted Date Diagnosed Date Resolved Date Bilateral impacted cerumen 03/01/2016 1 11/09/2020 documented as of this encounter (statuses as of 09/04/2023) [address]2016 History of Past illness Narrative* Problem Noted Date Diagnosed Date Resolved Date Bilateral impacted cerumen 03/01/2016 1 11/09/2020 documented as of this encounter (statuses as of 11/08/2023) [address]2016 History of Past illness Narrative* Problem Noted Date Diagnosed Date Resolved Date Bilateral impacted cerumen 03/01/2016 1 11/09/2020 documented as of this encounter (statuses as of 11/12/2023) [facility] History of Past illness Narrative* Problem Noted Date Diagnosed Date Resolved Date Bilateral impacted cerumen 03/01/2016 1 11/09/2020 documented as of this encounter (statuses as of 12/09/2023) [facility] History of Past illness Narrative* Problem Noted Date Diagnosed Date Resolved Date Bilateral impacted cerumen 03/01/2016 1 11/09/2020 documented as of this encounter (statuses as of 12/09[facility]2023) [facility] Contracture of left knee Contracture of lower leg joint Acute pain of left knee [facility] Contracture of left knee Contracture of lower leg joint Acute pain of left [facility] Diagnosis Age-related osteoporosis without current pathological fracture Senile osteoporosis [facility] Diagnosis Dystonia- Primary Abnormal involuntary movements Cerebral palsy, unspecified type ([facility]) Acute pain of left knee Contracture of left knee Contracture of lower leg joint [facility] Diagnosis Well adult exam Routine general medical examination at a health care facility [facility] Diagnosis Spasticity- Primary Abnormal involuntary movements Dystonia Abnormal involuntary movements Contracture of left knee Contracture of lower leg joint Abnormality of gait Cerebral palsy, unspecified type (HCC) [facility] Diagnosis Developmental disability Unspecified delay in development Drooling Disturbance of salivary secretion [facility] Diagnosis Developmental disability Unspecified delay in development Drooling Disturbance of salivary secretion [facility] Diagnosis Decreased appetite Anorexia Constipation, unspecified constipation type [facility] Diagnosis Constipation, unspecified constipation type- Primary Hypokalemia Hypopotassemia Elevated alkaline phosphatase level Other nonspecific abnormal serum enzyme levels Hypoglycemia Hypoglycemia, unspecified Screening for colon cancer Special screening for malignant neoplasms, colon Screening for hyperlipidemia Screening for lipoid disorders Gastroesophageal reflux disease without esophagitis Esophageal reflux Contracture of left knee Contracture of lower leg joint [facility] Diagnosis Difficulty sleeping Sleep disturbance, unspecified [facility] Diagnosis Age-related osteoporosis without current pathological fracture Senile osteoporosis [facility] Diagnosis Constipation, unspecified constipation type [facility] Diagnosis Contracture of left knee- Primary Contracture of lower leg joint Decreased mobility Other symptoms involving nervous and musculoskeletal systems [facility] Diagnosis Contracture of left knee- Primary Contracture of lower leg joint Decreased mobility Other symptoms involving nervous and musculoskeletal systems Age-related osteoporosis without current pathological fracture Senile osteoporosis Developmental disability Unspecified delay in development Acute pain of left knee [facility] Diagnosis Decreased appetite Anorexia [facility] Diagnosis Spasticity- Primary Abnormal involuntary movements Contracture of left knee Contracture of lower leg joint Cerebral palsy, unspecified type (HCC) [facility] Diagnosis Screening for colon cancer- Primary Special screening for malignant neoplasms, colon [facility] Diagnosis Recurrent urinary tract infection Urinary tract infection, site not specified Constipation, unspecified constipation type Dermatitis Contact dermatitis and other eczema, due to unspecified cause Drooling Disturbance of salivary secretion [facility]* Diagnosis Difficulty sleeping Sleep disturbance, unspecified [facility] Diagnosis Osteoporosis, unspecified osteoporosis type, unspecified pathological fracture presence- Primary Age-related osteoporosis without current pathological fracture Senile osteoporosis Contracture of left knee Contracture of lower leg joint Decreased mobility Other symptoms involving nervous and musculoskeletal systems Developmental disability Unspecified delay in development Constipation, unspecified constipation type [facility] Diagnosis Complete edentulism, unspecified edentulism class- Primary Recurrent urinary tract infection Urinary tract infection, site not specified Constipation, unspecified constipation type Decreased appetite Anorexia Developmental disability Unspecified delay in development Drooling Disturbance of salivary secretion Well adult exam Routine general medical examination at a health care facility Hypoglycemia Hypoglycemia, unspecified Care refused by patient Screening for hyperlipidemia Screening for lipoid disorders Decreased mobility Other symptoms involving nervous and musculoskeletal systems [facility]* Diagnosis Osteoporosis, unspecified osteoporosis type, unspecified pathological fracture presence- Primary [facility]* Diagnosis Developmental disability Unspecified delay in development Drooling Disturbance of salivary secretion documented in this encounter [facility]* Diagnosis Decreased appetite Anorexia Well adult exam Routine general medical examination at a health care facility documented in this encounter [facility] noteNo assessment information availableWEly[facility] Work Phone: [facility] note* Diagnosis Complete edentulism, unspecified edentulism class documented in this encounter [facility] note* Diagnosis Decreased appetite Anorexia documented in this encounter [facility] note* Diagnosis Osteoporosis, unspecified osteoporosis type, unspecified pathological fracture presence- Primary Encounter for immunization Need for other specified prophylactic vaccination against single bacterial disease Screening for colon cancer Special screening for malignant neoplasms, colon Screening for hyperlipidemia Screening for lipoid disorders Constipation, unspecified constipation type Complete edentulism, unspecified edentulism class Intellectual disability Unspecified intellectual disabilities Decreased appetite Anorexia documented in this encounter [facility] note* Diagnosis Elevated glucose- Primary Other abnormal glucose documented in this encounter [facility] note* Diagnosis Asymptomatic postmenopausal status Senile osteoporosis documented in this encounter [facility] note* Diagnosis Difficulty sleeping Sleep disturbance, unspecified documented in this encounter [facility] note* Diagnosis Complete edentulism, unspecified edentulism class Recurrent urinary tract infection Urinary tract infection, site not specified Constipation, unspecified constipation type Drooling Disturbance of salivary secretion Dermatitis Contact dermatitis and other eczema, due to unspecified cause [facility] Diagnosis Decreased appetite Anorexia Developmental disability Unspecified delay in development Drooling Disturbance of salivary secretion documented in this encounter [facility] note* Diagnosis Well adult exam Routine general medical examination at a health care facility Difficulty sleeping Sleep disturbance, unspecified documented in this encounter [facility] note* Diagnosis Decreased mobility- Primary Other symptoms involving nervous and musculoskeletal systems Developmental disability Unspecified delay in development Intellectual disability Unspecified intellectual disabilities Complete edentulism, unspecified edentulism class Gastroesophageal reflux disease without esophagitis Esophageal reflux Decreased activity tolerance Cerebral palsy, unspecified type (HCC) * Assessment & Plan Note - Debi Mejia APRN.PHOTOENGRAVING [employer]OOFER APPRENTICE - 02/29/2024 11:58 AM EDT Associated Problem(s): Cerebral palsy, unspecified type (HCC) Stable based upon symptoms and exam. Continue current treatment plan and follow up at least yearly. documented [facility]* Diagnosis Complete edentulism, unspecified edentulism class Decreased appetite Anorexia documented [facility] this [facility]* Diagnosis Decreased mobility- Primary Other symptoms involving nervous and musculoskeletal systems Developmental disability Unspecified delay in development Intellectual disability Unspecified intellectual disabilities Complete edentulism, unspecified edentulism class Gastroesophageal reflux disease without esophagitis Esophageal reflux Decreased activity tolerance Cerebral palsy, unspecified type (HCC) Difficulty sleeping Sleep disturbance, unspecified documented in this encounter [facility] note* Diagnosis Decreased mobility- Primary Other symptoms involving nervous and musculoskeletal systems Developmental disability Unspecified delay in development Intellectual disability Unspecified intellectual disabilities Complete edentulism, unspecified edentulism class Gastroesophageal reflux disease without esophagitis Esophageal reflux Decreased activity tolerance Cerebral palsy, unspecified type (HCC) Screening for colon cancer- Primary Special screening for malignant neoplasms, colon documented in this encounter [facility] note* Diagnosis Decreased mobility- Primary Other symptoms involving nervous and musculoskeletal systems Developmental disability Unspecified delay in development Intellectual disability Unspecified intellectual disabilities Complete edentulism, unspecified edentulism class Gastroesophageal reflux disease without esophagitis Esophageal reflux Decreased activity tolerance Cerebral palsy, unspecified type (HCC) Decreased appetite Anorexia documented in this encounter [facility] note* Diagnosis Decreased mobility- Primary Other symptoms involving nervous and musculoskeletal systems Developmental disability Unspecified delay in development Intellectual disability Unspecified intellectual disabilities Complete edentulism, unspecified edentulism class Gastroesophageal reflux disease without esophagitis Esophageal reflux Decreased activity tolerance Cerebral palsy, unspecified type (HCC) Dermatitis Contact dermatitis and other eczema, due to unspecified cause Recurrent urinary tract infection Urinary tract infection, site not specified Constipation, unspecified constipation type Drooling Disturbance of salivary secretion Complete edentulism, unspecified edentulism class documented in this encounter [facility]* Diagnosis Decreased mobility- Primary Other symptoms involving nervous and musculoskeletal systems Developmental disability Unspecified delay in development Intellectual disability Unspecified intellectual disabilities Complete edentulism, unspecified edentulism class Gastroesophageal reflux disease without esophagitis Esophageal reflux Decreased activity tolerance Cerebral palsy, unspecified type (HCC) Difficulty sleeping Sleep disturbance, unspecified Developmental disability Unspecified delay in development Drooling Disturbance of salivary secretion [facility] Diagnosis Decreased mobility- Primary Other symptoms involving nervous and musculoskeletal systems Developmental disability Unspecified delay in development Intellectual disability Unspecified intellectual disabilities Complete edentulism, unspecified edentulism class Gastroesophageal reflux disease without esophagitis Esophageal reflux Decreased activity tolerance Cerebral palsy, unspecified type (HCC) NO SHOW- Primary [facility]* Diagnosis Decreased mobility- Primary Other symptoms involving nervous and musculoskeletal systems Developmental disability Unspecified delay in development Intellectual disability Unspecified intellectual disabilities Complete edentulism, unspecified edentulism class Gastroesophageal reflux disease without esophagitis Esophageal reflux Decreased activity tolerance Cerebral palsy, unspecified type (HCC) Well adult exam Routine general medical examination at a health care facility [facility] Diagnosis Decreased mobility- Primary Other symptoms involving nervous and musculoskeletal systems Developmental disability Unspecified delay in development Intellectual disability Unspecified intellectual disabilities Complete edentulism, unspecified edentulism class Gastroesophageal reflux disease without esophagitis Esophageal reflux Decreased activity tolerance Cerebral palsy, unspecified type (HCC) Medicare annual wellness visit, subsequent- Primary Routine general medical examination at a health care facility Cerebral palsy, unspecified type (HCC) Aspiration into airway, subsequent encounter Constipation, unspecified constipation type Osteoporosis, unspecified osteoporosis type, unspecified pathological fracture presence Complete edentulism, unspecified edentulism class Intellectual disability Unspecified intellectual disabilities 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) Drooling Disturbance of salivary secretion Hypoglycemia Hypoglycemia, unspecified Developmental disability Unspecified delay in development Ptosis of both eyelids Unspecified ptosis of eyelid Hypertriglyceridemia Pure hyperglyceridemia Chronic insomnia Insomnia, unspecified Bilateral impacted cerumen Impacted cerumen [facility] Diagnosis Decreased mobility- Primary Other symptoms involving nervous and musculoskeletal systems Developmental disability Unspecified delay in development Intellectual disability Unspecified intellectual disabilities Complete edentulism, unspecified edentulism class Gastroesophageal reflux disease without esophagitis Esophageal reflux Decreased activity tolerance Cerebral palsy, unspecified type (HCC) Decreased appetite Anorexia [facility] Diagnosis Decreased mobility- Primary Other symptoms involving nervous and musculoskeletal systems Developmental disability Unspecified delay in development Intellectual disability Unspecified intellectual disabilities Complete edentulism, unspecified edentulism class Gastroesophageal reflux disease without esophagitis Esophageal reflux Decreased activity tolerance Cerebral palsy, unspecified type (HCC) Hyperglycemia- Primary Other abnormal glucose Abnormal TSH Other abnormal clinical finding Hypertriglyceridemia Pure hyperglyceridemia [facility] Diagnosis Decreased mobility- Primary Other symptoms involving nervous and musculoskeletal systems Developmental disability Unspecified delay in development Intellectual disability Unspecified intellectual disabilities Complete edentulism, unspecified edentulism class Gastroesophageal reflux disease without esophagitis Esophageal reflux Decreased activity tolerance Cerebral palsy, unspecified type (HCC) Difficulty sleeping Sleep disturbance, unspecified Complete edentulism, unspecified edentulism class documented in this encounter [facility] Plan of care note* Visit Details Visit Type -PT SOC Discipline -Physical Therapy Problems Problem Description Start Date Status Goals Interve ntions Medication Education Disciplines: Skilled Services 07/30/2022 Active 1 goal linked to scheduled/document ed intervention 1 goal intervention scheduled/document ed in this visit Sepsis Disciplines: Skilled Services 07/30/2022 Active 1 goal linked to scheduled/document ed intervention 1 goal intervention scheduled/document ed in this visit Risk for skin breakdown Disciplines: Skilled Services 07/30/2022 Active 1 goal linked to scheduled/document ed intervention 1 goal intervention scheduled/document ed in this visit Physician Specific Parameters Disciplines: Skilled Services 07/30/2022 Active 1 goal linked to scheduled/document ed intervention 1 goal intervention scheduled/document ed in this visit Risk for Falls Disciplines: Skilled Services 07/30/2022 Active 1 goal linked to scheduled/document ed intervention 1 goal intervention scheduled/document ed in this visit Pain Disciplines: Skilled Services 07/30/2022 Active 1 goal linked to scheduled/document ed intervention 1 goal intervention scheduled/document ed in this visit Discharge Disciplines: Skilled Services 07/30/2022 Active 1 goal linked to scheduled/document ed intervention 1 goal intervention scheduled/document ed in this visit Advance Directives Disciplines: Skilled Services 07/30/2022 Resolved on 07/30/2022 1 goal linked to scheduled/document ed intervention 1 goal intervention scheduled/document ed in this visit PT Learning Assessment Disciplines: PT 07/30/2022 Active 1 goal linked to scheduled/document ed intervention 1 goal intervention scheduled/document ed in this visit Goals Goal Associated Problem Outcome Goal Met? Visit Notes Patient/caregiver will demonstrate ability to obtain, store, identify and administer ordered medications, keep accurate medication list in home, and adhere to medication schedule Description: Patient/caregiver will demonstrate ability to obtain, store, identify and administer ordered medications, keep accurate medication list in home, and adhere to medication schedule by 08/22/2022. Medication Education No Patient/caregiver will be able to identify and report symptoms of sepsis Description: Patient/caregiver will be able to identify signs/symptoms of sepsis infection and will verbalize actions to take if suspected by 08/22/2022. Sepsis No Manage risk for skin breakdown Description: Patient/caregiver will verbalize and demonstrate understanding of the risks and measures to be taken to monitor and prevent skin breakdown by 08/22/2022. Risk for skin breakdown No Patient to maintain parameters within physician-specified ranges throughout certification period Physician Specific Parameters No Manage Risk for falls Description: Patient/caregiver will verbalize knowledge of individualized fall prevention strategies by 08/22/2022. Risk for Falls No Manage Pain Description: Patient/caregiver will verbalize knowledge and understanding of appropriate techniques to control pain, including pain medication and non-pharmacological techniques. Patient will verbalize or demonstrate an acceptable level of pain as evidenced by a pain score of 2/10 and improvement in ability to perform activities of daily living to be achieved by 08/22/2022. Pain No Manage discharge planning Description: Patient/caregiver will verbalize understanding of ongoing discharge plan provided related to disease management, arrangements for outpatient and/or community services, obtaining medications, supplies, and DME, as needed throughout certification period. Discharge No Patient/caregiver will make healthcare providers aware of and any changes to Advance Directives throughout certification period Advance Directives Completed Yes Demonstrate understanding of education Description: Patient and/or caregiver will understand educational instruction to be achieved by 08/22/2022. PT Learning Assessment No Interventions Intervention Associated Problem/Goal Status Variance Visit Notes Medication Education Description: Evaluate/instruct patient/caregiver on obtaining, storing, identifying and administering ordered medications as well as keeping accurate medication list in the home and adhereing to medication schedule Problem:Medication Education Goal:Patient/caregive r will demonstrate ability to obtain, store, identify and administer ordered medications, keep accurate medication list in home, and adhere to medication schedule Completed Caregiver instructed on importance of keeping accurate medication list in home and adhering to medication schedule. Risk of Sepsis Description: Patient is at risk for sepsis. Monitor closely for s/s of sepsis. Problem:Sepsis Goal:Patient/caregive r will be able to identify and report symptoms of sepsis Completed Instruct on the risks and measures to be taken to prevent skin breakdown Description: Patient's Rich Score is: 14. A Rich score <= to 18 indicates risk for skin breakdown. Problem:Risk for skin breakdown Goal:Manage risk for skin breakdown Completed caregiver instructed on maintaining skin integrity including: The need for every 1-2 hour turns, position changes, and maintaining activity as tolerated, Reducing risk of friction and shear, including use of draw sheet as appropriate, Elevating and protecting heels, Incontinence care, Inspecting bony prominences, Routine skin care and Notifying [facility] clinician of changes to skin integrity SPO2 Description: Notify Dr. Guerrero if pulse ox is <92% at rest. Problem:Physician Specific Parameters Goal:Patient to maintain parameters within physician-specified ranges throughout certification period Completed Instruct on individual fall risk factors and strategies to prevent falls and injuries caused by falls. Problem:Risk for Falls Goal:Manage Risk for falls Completed PT: Caregiver instructed on Eliminating Environmental Hazards: Keep pathways clear and Remove unsafe rugs Managing Impaired Functional Mobility: Caregiver to provide assist with: Transfers and ADL/IADLs Managing Pain Instruct on pain and instruct on strategies to control pain Problem:Pain Goal:Manage Pain Completed caregiver instructed on techniques to control pain including Pharmacological measures and Non-Pharmacological measures; positioning/elevation and mobility/therapeutic exercise. Instruct on ongoing discharge plan Problem:Discharge Goal:Manage discharge planning Completed Ongoing Discharge plan: Discharge plan discussed with caregiver including frequency and duration for home PT and plan for transition to: caregiver assistance. Determine patient's Advance Directive Status Description: Patient does not have advance directives. Patient/Caregiver declined Advance Directive information. Problem:Advance Directives Goal:Patient/caregive r will make healthcare providers aware of and any changes to Advance Directives throughout certification period Completed Discussed Advance Directives with Patient and/or Caregiver. Referred patient to Home Care handbook for further information on Healthcare DPOA & Living Will. Instruct and educate on knowledge deficits Problem:PT Learning Assessment Goal:Demonstrate understanding of education Completed caregiver verbalize and/or demonstrate understanding of physical therapy education including pain management and home safety. Education methods include: verbal cues, tactile cues and visual cues. Further education required to improve knowledge and compliance with fall prevention strategies, home safety and home exercise program. [facility] Visit Details Visit Type -DESCRIPTIVE CATALOG LIBRARIAN ROUTINE Discipline -Physical Therapy Problems Problem Description Start Date Status Goals Interve ntions Medication Education Disciplines: Skilled Services 07/30/2022 Active 1 goal linked to scheduled/document ed intervention 1 goal intervention scheduled/document ed in this visit Sepsis Disciplines: Skilled Services 07/30/2022 Active 1 goal linked to scheduled/document ed intervention 1 goal intervention scheduled/document ed in this visit Risk for skin breakdown Disciplines: Skilled Services 07/30/2022 Active 1 goal linked to scheduled/document ed intervention 1 goal intervention scheduled/document ed in this visit Physician Specific Parameters Disciplines: Skilled Services 07/30/2022 Active 1 goal linked to scheduled/document ed intervention 1 goal intervention scheduled/document ed in this visit Risk for Falls Disciplines: Skilled Services 07/30/2022 Active 1 goal linked to scheduled/document ed intervention 1 goal intervention scheduled/document ed in this visit Pain Disciplines: Skilled Services 07/30/2022 Active 1 goal linked to scheduled/document ed intervention 1 goal intervention scheduled/document ed in this visit Discharge Disciplines: Skilled Services 07/30/2022 Active 1 goal linked to scheduled/document ed intervention 1 goal intervention scheduled/document ed in this visit PT Impaired muscle performance and/or ROM Disciplines: PT 07/30/2022 Active 1 goal linked to scheduled/document ed intervention 1 goal intervention scheduled/document ed in this visit PT Learning Assessment Disciplines: PT 07/30/2022 Active 1 goal linked to scheduled/document ed intervention 1 goal intervention scheduled/document ed in this visit Goals Goal Associated Problem Outcome Goal Met? Visit Notes Patient/caregiver will demonstrate ability to obtain, store, identify and administer ordered medications, keep accurate medication list in home, and adhere to medication schedule Description: Patient/caregiver will demonstrate ability to obtain, store, identify and administer ordered medications, keep accurate medication list in home, and adhere to medication schedule by 08/22/2022. Medication Education No Patient/caregiver will be able to identify and report symptoms of sepsis Description: Patient/caregiver will be able to identify signs/symptoms of sepsis infection and will verbalize actions to take if suspected by 08/22/2022. Sepsis No Manage risk for skin breakdown Description: Patient/caregiver will verbalize and demonstrate understanding of the risks and measures to be taken to monitor and prevent skin breakdown by 08/22/2022. Risk for skin breakdown No Patient to maintain parameters within physician-specified ranges throughout certification period Physician Specific Parameters No Manage Risk for falls Description: Patient/caregiver will verbalize knowledge of individualized fall prevention strategies by 08/22/2022. Risk for Falls No Manage Pain Description: Patient/caregiver will verbalize knowledge and understanding of appropriate techniques to control pain, including pain medication and non-pharmacological techniques. Patient will verbalize or demonstrate an acceptable level of pain as evidenced by a pain score of 2/10 and improvement in ability to perform activities of daily living to be achieved by 08/22/2022. Pain No Manage discharge planning Description: Patient/caregiver will verbalize understanding of ongoing discharge plan provided related to disease management, arrangements for outpatient and/or community services, obtaining medications, supplies, and DME, as needed throughout certification period. Discharge No Improved Muscle Performance and/or ROM Description: LTG: Patient and/or caregiver will verbalize/demonstrate independence with home exercise program of PROM/stretching program for LLE, to improve functional mobility, to be achieved by 08/22/2022. PT Impaired muscle performance and/or ROM No Demonstrate understanding of education Description: Patient and/or caregiver will understand educational instruction to be achieved by 08/22/2022. PT Learning Assessment No Interventions Intervention Associated Problem/Goal Status Variance Visit Notes Medication Education Description: Evaluate/instruct patient/caregiver on obtaining, storing, identifying and administering ordered medications as well as keeping accurate medication list in the home and adhereing to medication schedule Problem:Medication Education Goal:Patient/caregive r will demonstrate ability to obtain, store, identify and administer ordered medications, keep accurate medication list in home, and adhere to medication schedule Completed Caregiver instructed on importance of keeping accurate medication list in home. Risk of Sepsis Description: Patient is at risk for sepsis. Monitor closely for s/s of sepsis. Problem:Sepsis Goal:Patient/caregive r will be able to identify and report symptoms of sepsis Completed Instruct on the risks and measures to be taken to prevent skin breakdown Description: Patient's Rich Score is: 14. A Rich score <= to 18 indicates risk for skin breakdown. Problem:Risk for skin breakdown Goal:Manage risk for skin breakdown Completed caregiver instructed on maintaining skin integrity including: The need for every 1-2 hour turns, position changes, and maintaining activity as tolerated SPO2 Description: Notify Dr. Guerrero if pulse ox is <92% at rest. Problem:Physician Specific Parameters Goal:Patient to maintain parameters within physician-specified ranges throughout certification period Completed Instruct on individual fall risk factors and strategies to prevent falls and injuries caused by falls. Problem:Risk for Falls Goal:Manage Risk for falls Completed PT: Caregiver instructed on Eliminating Environmental Hazards: Keep pathways clear Instruct on pain and instruct on strategies to control pain Problem:Pain Goal:Manage Pain Completed caregiver instructed on techniques to control pain including Pharmacological measures and Non-Pharmacological measures; positioning/elevation. Instruct on ongoing discharge plan Problem:Discharge Goal:Manage discharge planning Completed Ongoing Discharge plan: Discharge plan discussed with caregiver including frequency and duration for home PT and plan for transition to: caregiver assistance. Physical Therapy Therapeutic Exercises Problem:PT Impaired muscle performance and/or ROM Goal:Improved Muscle Performance and/or ROM Completed Performed irange of motion exercises including PROM Left knee /LE with verbal and tactile cues for relaxing and not resisting . Peformed in seated and supine positions Instruct and educate on knowledge deficits Problem:PT Learning Assessment Goal:Demonstrate understanding of education Completed caregiver verbalize and/or demonstrate understanding of physical therapy education including integumentary and incision/wound care management. frequent positional changes Education methods include: verbal cues. Further education required to improve knowledge and compliance with home exercise program. [facility] Visit Details Visit Type -DESCRIPTIVE CATALOG LIBRARIAN ROUTINE Discipline -Physical Therapy Problems Problem Description Start Date Status Goals Interve ntions Medication Education Disciplines: Skilled Services 07/30/2022 Active 1 goal linked to scheduled/document ed intervention 1 goal intervention scheduled/documente d in this visit Sepsis Disciplines: Skilled Services 07/30/2022 Active 1 goal linked to scheduled/document ed intervention 1 goal intervention scheduled/documente d in this visit Risk for skin breakdown Disciplines: Skilled Services 07/30/2022 Active 1 goal linked to scheduled/document ed intervention 1 goal intervention scheduled/documente d in this visit Physician Specific Parameters Disciplines: Skilled Services 07/30/2022 Active 1 goal linked to scheduled/document ed intervention 1 goal intervention scheduled/documente d in this visit Risk for Falls Disciplines: Skilled Services 07/30/2022 Active 1 goal linked to scheduled/document ed intervention 1 goal intervention scheduled/documente d in this visit Pain Disciplines: Skilled Services 07/30/2022 Active 1 goal linked to scheduled/document ed intervention 1 goal intervention scheduled/documente d in this visit Discharge Disciplines: Skilled Services 07/30/2022 Active 1 goal linked to scheduled/document ed intervention 1 goal intervention scheduled/documente d in this visit PT Learning Assessment Disciplines: PT 07/30/2022 Active 1 goal linked to scheduled/document ed intervention 1 goal intervention scheduled/documente d in this visit Goals Goal Associated Problem Outcome Goal Met? Visit Notes Patient/caregiver will demonstrate ability to obtain, store, identify and administer ordered medications, keep accurate medication list in home, and adhere to medication schedule Description: Patient/caregiver will demonstrate ability to obtain, store, identify and administer ordered medications, keep accurate medication list in home, and adhere to medication schedule by 08/22/2022. Medication Education No Patient/caregiver will be able to identify and report symptoms of sepsis Description: Patient/caregiver will be able to identify signs/symptoms of sepsis infection and will verbalize actions to take if suspected by 08/22/2022. Sepsis No Manage risk for skin breakdown Description: Patient/caregiver will verbalize and demonstrate understanding of the risks and measures to be taken to monitor and prevent skin breakdown by 08/22/2022. Risk for skin breakdown No Patient to maintain parameters within physician-specified ranges throughout certification period Physician Specific Parameters No Manage Risk for falls Description: Patient/caregiver will verbalize knowledge of individualized fall prevention strategies by 08/22/2022. Risk for Falls No Manage Pain Description: Patient/caregiver will verbalize knowledge and understanding of appropriate techniques to control pain, including pain medication and non-pharmacological techniques. Patient will verbalize or demonstrate an acceptable level of pain as evidenced by a pain score of 2/10 and improvement in ability to perform activities of daily living to be achieved by 08/22/2022. Pain No Manage discharge planning Description: Patient/caregiver will verbalize understanding of ongoing discharge plan provided related to disease management, arrangements for outpatient and/or community services, obtaining medications, supplies, and DME, as needed throughout certification period. Discharge No Demonstrate understanding of education Description: Patient and/or caregiver will understand educational instruction to be achieved by 08/22/2022. PT Learning Assessment No Interventions Intervention Associated Problem/Goal Status Variance Visit Notes Medication Education Description: Evaluate/instruct patient/caregiver on obtaining, storing, identifying and administering ordered medications as well as keeping accurate medication list in the home and adhereing to medication schedule Problem:Medication Education Goal:Patient/caregive r will demonstrate ability to obtain, store, identify and administer ordered medications, keep accurate medication list in home, and adhere to medication schedule Completed Caregiver instructed on importance of keeping accurate medication list in home. Risk of Sepsis Description: Patient is at risk for sepsis. Monitor closely for s/s of sepsis. Problem:Sepsis Goal:Patient/caregive r will be able to identify and report symptoms of sepsis Completed Instruct on the risks and measures to be taken to prevent skin breakdown Description: Patient's Rich Score is: 14. A Rich score <= to 18 indicates risk for skin breakdown. Problem:Risk for skin breakdown Goal:Manage risk for skin breakdown Completed caregiver instructed on maintaining skin integrity including: The need for every 1-2 hour turns, position changes, and maintaining activity as tolerated SPO2 Description: Notify Dr. Guerrero if pulse ox is <92% at rest. Problem:Physician Specific Parameters Goal:Patient to maintain parameters within physician-specified ranges throughout certification period Completed Instruct on individual fall risk factors and strategies to prevent falls and injuries caused by falls. Problem:Risk for Falls Goal:Manage Risk for falls Completed PT: Caregiver instructed on Managing Impaired Functional Mobility: Use assistive device(s): wheelchair Instruct on pain and instruct on strategies to control pain Problem:Pain Goal:Manage Pain Completed caregiver instructed on techniques to control pain including Non-Pharmacological measures; rest. Instruct on ongoing discharge plan Problem:Discharge Goal:Manage discharge planning Completed Ongoing Discharge plan: Discharge plan discussed with caregiver including frequency and duration for home PT and plan for transition to: caregiver assistance. Instruct and educate on knowledge deficits Problem:PT Learning Assessment Goal:Demonstrate understanding of education Completed caregiver verbalize and/or demonstrate understanding of physical therapy education including home exercise program. Education methods include: verbal cues and visual cues. Further education required to improve knowledge and compliance with home exercise program. [facility] Visit Details Visit Type -PT REASSESSMENT Discipline -Physical Therapy Problems Problem Description Start Date Status Goals Interve ntions Sepsis Disciplines: Skilled Services 07/30/2022 Active 1 goal linked to scheduled/document ed intervention 1 goal intervention scheduled/document ed in this visit Risk for skin breakdown Disciplines: Skilled Services 07/30/2022 Active 1 goal linked to scheduled/document ed intervention 1 goal intervention scheduled/document ed in this visit Physician Specific Parameters Disciplines: Skilled Services 07/30/2022 Active 1 goal linked to scheduled/document ed intervention 1 goal intervention scheduled/document ed in this visit Risk for Falls Disciplines: Skilled Services 07/30/2022 Active 1 goal linked to scheduled/document ed intervention 1 goal intervention scheduled/document ed in this visit PT Impaired muscle performance and/or ROM Disciplines: PT 07/30/2022 Active 1 goal linked to scheduled/document ed intervention 1 goal intervention scheduled/document ed in this visit PT Impaired mobility Disciplines: PT 07/30/2022 Active 1 goal linked to scheduled/document ed intervention 1 goal intervention scheduled/document ed in this visit PT Learning Assessment Disciplines: PT 07/30/2022 Active 1 goal linked to scheduled/document ed intervention 1 goal intervention scheduled/document ed in this visit Goals Goal Associated Problem Outcome Goal Met? Visit Notes Patient/caregiver will be able to identify and report symptoms of sepsis Description: Patient/caregiver will be able to identify signs/symptoms of sepsis infection and will verbalize actions to take if suspected by 08/22/2022. Sepsis No Manage risk for skin breakdown Description: Patient/caregiver will verbalize and demonstrate understanding of the risks and measures to be taken to monitor and prevent skin breakdown by 08/22/2022. Risk for skin breakdown No Patient to maintain parameters within physician-specified ranges throughout certification period Physician Specific Parameters No Manage Risk for falls Description: Patient/caregiver will verbalize knowledge of individualized fall prevention strategies by 08/22/2022. Risk for Falls No Improved Muscle Performance and/or ROM Description: LTG: Patient and/or caregiver will verbalize/demonstrate independence with home exercise program of PROM/stretching program for LLE, to improve functional mobility, to be achieved by 08/22/2022. PT Impaired muscle performance and/or ROM No Improved Transfers Description: STG: Patient will demonstrate safe transfers to/from bed and wheelchair with mod assistance, to be achieved by 08/15/2022. LTG: Patient will demonstrate safe transfers to/from bed and wheelchair with min assistance, to be achieved by 08/22/2022. PT Impaired mobility No Demonstrate understanding of education Description: Patient and/or caregiver will understand educational instruction to be achieved by 08/22/2022. PT Learning Assessment No Interventions Intervention Associated Problem/Goal Status Variance Visit Notes Risk of Sepsis Description: Patient is at risk for sepsis. Monitor closely for s/s of sepsis. Problem:Sepsis Goal:Patient/caregiver will be able to identify and report symptoms of sepsis Completed Instruct on the risks and measures to be taken to prevent skin breakdown Description: Patient's Rich Score is: 14. A Rich score <= to 18 indicates risk for skin breakdown. Problem:Risk for skin breakdown Goal:Manage risk for skin breakdown Completed caregiver instructed on maintaining skin integrity including: Notifying [facility] clinician of changes to skin integrity Evaluation for pressure reduction surfaces completed for bed . SPO2 Description: Notify Dr. Guerrero if pulse ox is <92% at rest. Problem:Physician Specific Parameters Goal:Patient to maintain parameters within physician-specified ranges throughout certification period Completed Instruct on individual fall risk factors and strategies to prevent falls and injuries caused by falls. Problem:Risk for Falls Goal:Manage Risk for falls Completed PT: Patient instructed on Managing Impaired Functional Mobility: Caregiver to provide assist with: Ambulation, Steps, Transfers and ADL/IADLs Physical Therapy Therapeutic Exercises Problem:PT Impaired muscle performance and/or ROM Goal:Improved Muscle Performance and/or ROM Completed Performed irange of motion exercises including PROM Left knee /LE with verbal and tactile cues for relaxing and not resisting . Peformed in seated and supine positions PROM L knee 80-140 Physical Therapy Transfer Training Problem:PT Impaired mobility Goal:Improved Transfers Completed Transfer training and instruction to caregiver on safe transfers to and from wheelchair with moderate assist and verbal cues for tech Instruct and educate on knowledge deficits Problem:PT Learning Assessment Goal:Demonstrate understanding of education Completed caregiver verbalize and/or demonstrate understanding of physical therapy education including fall prevention strategies, home safety and home exercise program. Education methods include: verbal cues and visual cues. [facility])No reason for referral information availableWElyria Memorial Hospital Work Phone: Reason for Referral Specialty Diagnoses / Procedures Referred By Contac t Referred To Contact [facility] Diagnoses Contracture of left knee Acute pain of left knee Procedures CONSULT TO PHYSICAL THERAPY PHYSICAL THERAPY EVALUATION HIGH COMPLEX 45 MINS Ramses Campbell MD [address] [place] [address] [facility] [place] [address] [place] [id number] Referral ID Status Reason Start Date Expiration Date Visits Requested Visits Authorized [id number] Authorized PCP Requested Referral Auto-Generate d Referral 12/11/2021 12/11/2022 99 99 Specialty Diagnoses / Procedures Referred By Contac t Referred To Contact [facility] Diagnoses Contracture of left knee Decreased mobility Procedures CONSULT TO PHYSICAL THERAPY PHYSICAL THERAPY EVALUATION HIGH COMPLEX 45 MINS Debi Mejia, ASSOCIATE SOFTWARE DEVELOPMENT ENGINEER.PHOTOENGRAVING PROOFER APPRENTICE [address] [place] [address] [facility] [address] [address] Referral ID Status Reason Start Date Expiration Date Visits Requested Visits Authorized [id number] Authorized PCP Requested Referral Auto-Generate d Referral 2 08/18/2023 99 99 Specialty Diagnoses / Procedures Referred By Contac t Referred To Contact [facility] Diagnoses Contracture of left knee Decreased mobility Developmental disability Procedures CONSULT TO PT/OT WHEELCHAIR EVALUATION OFFICE/OUTPATIENT [facility] 60-74 MINUTES Debi Mejia, ASSOCIATE SOFTWARE DEVELOPMENT ENGINEER.PHOTOENGRAVING PROOFER APPRENTICE [address] [place] [address] [facility] [address] [address] Referral ID Status Reason Start Date Expiration Date Visits Requested Visits Authorized [id number] Pending Review Auto-Generat ed Referral 11/16/2022 11/16/2023 1 1 Specialty Diagnoses / Procedures Referred By Contac t Referred To Contact [facility] Diagnoses Developmental disability Intellectual disability Decreased mobility Procedures CONSULT TO PT/OT WHEELCHAIR EVALUATION OFFICE/OUTPATIENT [facility] 60 MINUTES Debi Mejia, ASSOCIATE SOFTWARE DEVELOPMENT ENGINEER.PHOTOENGRAVING PROOFER APPRENTICE [address] [place] [address] [facility] [address] [address] Referral ID Status Reason Start Date Expiration Date Visits Requested Visits Authorized [id number] Authorized Auto-Generat ed Referral 02/29/2024 02/28/2025 1 1 Advance Directives No Advanced Directives Records FoundLatest Code Status on File Code Status Date Activated Date Inactivated Comments Full Code 07/30/2022 3:49 PM Latest Code Status on File Code Status Date Activated Date Inactivated Comments Full Code 07/30/2022 3:49 PM Advance Directive Response Recorded Date/ Time Living Will No August 11 6:03pm Power of Machined [employer] Metal Sprayer No August 11, 2021 6:03pm Latest Code Status on File Code Status Date Activated Date Inactivated Comments Full Code 07/30/2022 3:49 PM Date Activated Date Inactivated Comments 07/30/2022 3:49 PM Date Activated Date Inactivated Comments 07/30/2022 3:49 PM Medications Administered Section Active Administered Medications - up to 3 most recent administrations Medication Order MAR Action Action Date Dose Rate Site denosumab 60 mg injection (PROLIA) 60 mg, SUBCUTANEOUS, EVERY 6 MONTHS, 2 doses, First dose on 11/18/22 at 0000, Last dose on Wed05/17/23 at 0000, Allow To Come To Room Temperature Before Administration. REFRIGERATE Given 12/02/2022 1:23 PM EDT 60 mg Arm, Left Chief Complaint and Reason for Visit Chief Complaint DECREASED MOBILITY,W HEELCHAIR EVAL/RX HERE Chief Complaint PROLIA Chief Complaint Admit Date PROLIA February 23, 2025 10:32 am Summary Purpose Family History No Family History Records FoundNo Family History Records Found Additional Source Comments Source Comments (unrecognize d section and content) In the event this informatio n is protected by the Federal Confidentiality of Alcohol and Drug Abuse Patient Records regulations: The Federal rules restrict any use of the information to criminally investigate or prosecute any alcohol or drug abuse patient.[facility] the event this information is protected by the Federal Confidentiality of Alcohol and Drug Abuse Patient Records regulations: The Federal rules restrict any use of the information to criminally investigate or prosecute any alcohol or drug abuse patient.[facility] HospitalIn the event this information is protected by the Federal Confidentiality of Alcohol and Drug Abuse Patient Records regulations: The Federal rules restrict any use of the information to criminally investigate or prosecute any alcohol or drug abuse patient.[facility] HospitalIn the event this information is protected by the Federal Confidentiality of Alcohol and Drug Abuse Patient Records regulations: The Federal rules restrict any use of the information to criminally investigate or prosecute any alcohol or drug abuse patient.[facility] HospitalIn the event this information is protected by the Federal Confidentiality of Alcohol and Drug Abuse Patient Records regulations: The Federal rules restrict any use of the information to criminally investigate or prosecute any alcohol or drug abuse patient.[facility] HospitalIn the event this information is protected by the Federal Confidentiality of Alcohol and Drug Abuse Patient Records regulations: The Federal rules restrict any use of the information to criminally investigate or prosecute any alcohol or drug abuse patient.[facility] HospitalIn the event this information is protected by the Federal Confidentiality of Alcohol and Drug Abuse Patient Records regulations: The Federal rules restrict any use of the information to criminally investigate or prosecute any alcohol or drug abuse patient.[facility] HospitalIn the event this information is protected by the Federal Confidentiality of Alcohol and Drug Abuse Patient Records regulations: The Federal rules restrict any use of the information to criminally investigate or prosecute any alcohol or drug abuse patient.[facility] HospitalIn the event this information is protected by the Federal Confidentiality of Alcohol and Drug Abuse Patient Records regulations: The Federal rules restrict any use of the information to criminally investigate or prosecute any alcohol or drug abuse patient.[facility] HospitalIn the event this information is protected by the Federal Confidentiality of Alcohol and Drug Abuse Patient Records regulations: The Federal rules restrict any use of the information to criminally investigate or prosecute any alcohol or drug abuse patient.[facility] HospitalIn the event this information is protected by the Federal Confidentiality of Alcohol and Drug Abuse Patient Records regulations: The Federal rules restrict any use of the information to criminally investigate or prosecute any alcohol or drug abuse patient.[facility] HospitalIn the event this information is protected by the Federal Confidentiality of Alcohol and Drug Abuse Patient Records regulations: The Federal rules restrict any use of the information to criminally investigate or prosecute any alcohol or drug abuse patient.[facility] HospitalIn the event this information is protected by the Federal Confidentiality of Alcohol and Drug Abuse Patient Records regulations: The Federal rules restrict any use of the information to criminally investigate or prosecute any alcohol or drug abuse patient.[facility] HospitalIn the event this information is protected by the Federal Confidentiality of Alcohol and Drug Abuse Patient Records regulations: The Federal rules restrict any use of the information to criminally investigate or prosecute any alcohol or drug abuse patient.[facility] HospitalIn the event this information is protected by the Federal Confidentiality of Alcohol and Drug Abuse Patient Records regulations: The Federal rules restrict any use of the information to criminally investigate or prosecute any alcohol or drug abuse patient.[facility] HospitalIn the event this information is protected by the Federal Confidentiality of Alcohol and Drug Abuse Patient Records regulations: The Federal rules restrict any use of the information to criminally investigate or prosecute any alcohol or drug abuse patient.[facility] HospitalIn the event this information is protected by the Federal Confidentiality of Alcohol and Drug Abuse Patient Records regulations: The Federal rules restrict any use of the information to criminally investigate or prosecute any alcohol or drug abuse patient.[facility] HospitalIn the event this information is protected by the Federal Confidentiality of Alcohol and Drug Abuse Patient Records regulations: The Federal rules restrict any use of the information to criminally investigate or prosecute any alcohol or drug abuse patient.[facility] HospitalIn the event this information is protected by the Federal Confidentiality of Alcohol and Drug Abuse Patient Records regulations: The Federal rules restrict any use of the information to criminally investigate or prosecute any alcohol or drug abuse patient.[facility] HospitalIn the event this information is protected by the Federal Confidentiality of Alcohol and Drug Abuse Patient Records regulations: The Federal rules restrict any use of the information to criminally investigate or prosecute any alcohol or drug abuse patient.[facility] HospitalIn the event this information is protected by the Federal Confidentiality of Alcohol and Drug Abuse Patient Records regulations: The Federal rules restrict any use of the information to criminally investigate or prosecute any alcohol or drug abuse patient.[facility] HospitalIn the event this information is protected by the Federal Confidentiality of Alcohol and Drug Abuse Patient Records regulations: The Federal rules restrict any use of the information to criminally investigate or prosecute any alcohol or drug abuse patient.[facility] HospitalIn the event this information is protected by the Federal Confidentiality of Alcohol and Drug Abuse Patient Records regulations: The Federal rules restrict any use of the information to criminally investigate or prosecute any alcohol or drug abuse patient.[facility] HospitalIn the event this information is protected by the Federal Confidentiality of Alcohol and Drug Abuse Patient Records regulations: The Federal rules restrict any use of the information to criminally investigate or prosecute any alcohol or drug abuse patient.[facility] HospitalIn the event this information is protected by the Federal Confidentiality of Alcohol and Drug Abuse Patient Records regulations: The Federal rules restrict any use of the information to criminally investigate or prosecute any alcohol or drug abuse patient.[facility] HospitalIn the event this information is protected by the Federal Confidentiality of Alcohol and Drug Abuse Patient Records regulations: The Federal rules restrict any use of the information to criminally investigate or prosecute any alcohol or drug abuse patient.[facility] HospitalIn the event this information is protected by the Federal Confidentiality of Alcohol and Drug Abuse Patient Records regulations: The Federal rules restrict any use of the information to criminally investigate or prosecute any alcohol or drug abuse patient.[facility] HospitalIn the event this information is protected by the Federal Confidentiality of Alcohol and Drug Abuse Patient Records regulations: The Federal rules restrict any use of the information to criminally investigate or prosecute any alcohol or drug abuse patient.[facility] HospitalIn the event this information is protected by the Federal Confidentiality of Alcohol and Drug Abuse Patient Records regulations: The Federal rules restrict any use of the information to criminally investigate or prosecute any alcohol or drug abuse patient.[facility] HospitalIn the event this information is protected by the Federal Confidentiality of Alcohol and Drug Abuse Patient Records regulations: The Federal rules restrict any use of the information to criminally investigate or prosecute any alcohol or drug abuse patient.[facility] HospitalIn the event this information is protected by the Federal Confidentiality of Alcohol and Drug Abuse Patient Records regulations: The Federal rules restrict any use of the information to criminally investigate or prosecute any alcohol or drug abuse patient.[facility] HospitalIn the event this information is protected by the Federal Confidentiality of Alcohol and Drug Abuse Patient Records regulations: The Federal rules restrict any use of the information to criminally investigate or prosecute any alcohol or drug abuse patient.[facility] HospitalIn the event this information is protected by the Federal Confidentiality of Alcohol and Drug Abuse Patient Records regulations: The Federal rules restrict any use of the information to criminally investigate or prosecute any alcohol or drug abuse patient.[facility] HospitalIn the event this information is protected by the Federal Confidentiality of Alcohol and Drug Abuse Patient Records regulations: The Federal rules restrict any use of the information to criminally investigate or prosecute any alcohol or drug abuse patient.[facility] HospitalIn the event this information is protected by the Federal Confidentiality of Alcohol and Drug Abuse Patient Records regulations: The Federal rules restrict any use of the information to criminally investigate or prosecute any alcohol or drug abuse patient.[facility] HospitalIn the event this information is protected by the Federal Confidentiality of Alcohol and Drug Abuse Patient Records regulations: The Federal rules restrict any use of the information to criminally investigate or prosecute any alcohol or drug abuse patient.[facility] HospitalIn the event this information is protected by the Federal Confidentiality of Alcohol and Drug Abuse Patient Records regulations: The Federal rules restrict any use of the information to criminally investigate or prosecute any alcohol or drug abuse patient.[facility] HospitalIn the event this information is protected by the Federal Confidentiality of Alcohol and Drug Abuse Patient Records regulations: The Federal rules restrict any use of the information to criminally investigate or prosecute any alcohol or drug abuse patient.[facility] HospitalIn the event this information is protected by the Federal Confidentiality of Alcohol and Drug Abuse Patient Records regulations: The Federal rules restrict any use of the information to criminally investigate or prosecute any alcohol or drug abuse patient.[facility] HospitalIn the event this information is protected by the Federal Confidentiality of Alcohol and Drug Abuse Patient Records regulations: The Federal rules restrict any use of the information to criminally investigate or prosecute any alcohol or drug abuse patient.[facility] HospitalIn the event this information is protected by the Federal Confidentiality of Alcohol and Drug Abuse Patient Records regulations: The Federal rules restrict any use of the information to criminally investigate or prosecute any alcohol or drug abuse patient.[facility] HospitalIn the event this information is protected by the Federal Confidentiality of Alcohol and Drug Abuse Patient Records regulations: The Federal rules restrict any use of the information to criminally investigate or prosecute any alcohol or drug abuse patient.[facility] HospitalIn the event this information is protected by the Federal Confidentiality of Alcohol and Drug Abuse Patient Records regulations: The Federal rules restrict any use of the information to criminally investigate or prosecute any alcohol or drug abuse patient.[facility] HospitalIn the event this information is protected by the Federal Confidentiality of Alcohol and Drug Abuse Patient Records regulations: The Federal rules restrict any use of the information to criminally investigate or prosecute any alcohol or drug abuse patient.[facility] HospitalIn the event this information is protected by the Federal Confidentiality of Alcohol and Drug Abuse Patient Records regulations: The Federal rules restrict any use of the information to criminally investigate or prosecute any alcohol or drug abuse patient.[facility] HospitalIn the event this information is protected by the Federal Confidentiality of Alcohol and Drug Abuse Patient Records regulations: The Federal rules restrict any use of the information to criminally investigate or prosecute any alcohol or drug abuse patient.[facility] HospitalIn the event this information is protected by the Federal Confidentiality of Alcohol and Drug Abuse Patient Records regulations: The Federal rules restrict any use of the information to criminally investigate or prosecute any alcohol or drug abuse patient.[facility] HospitalIn the event this information is protected by the Federal Confidentiality of Alcohol and Drug Abuse Patient Records regulations: The Federal rules restrict any use of the information to criminally investigate or prosecute any alcohol or drug abuse patient.[facility] HospitalIn the event this information is protected by the Federal Confidentiality of Alcohol and Drug Abuse Patient Records regulations: The Federal rules restrict any use of the information to criminally investigate or prosecute any alcohol or drug abuse patient.[facility] HospitalIn the event this information is protected by the Federal Confidentiality of Alcohol and Drug Abuse Patient Records regulations: The Federal rules restrict any use of the information to criminally investigate or prosecute any alcohol or drug abuse patient.[facility] HospitalIn the event this information is protected by the Federal Confidentiality of Alcohol and Drug Abuse Patient Records regulations: The Federal rules restrict any use of the information to criminally investigate or prosecute any alcohol or drug abuse patient.[facility] HospitalIn the event this information is protected by the Federal Confidentiality of Alcohol and Drug Abuse Patient Records regulations: The Federal rules restrict any use of the information to criminally investigate or prosecute any alcohol or drug abuse patient.[facility] HospitalIn the event this information is protected by the Federal Confidentiality of Alcohol and Drug Abuse Patient Records regulations: The Federal rules restrict any use of the information to criminally investigate or prosecute any alcohol or drug abuse patient.[facility] HospitalIn the event this information is protected by the Federal Confidentiality of Alcohol and Drug Abuse Patient Records regulations: The Federal rules restrict any use of the information to criminally investigate or prosecute any alcohol or drug abuse patient.[facility] HospitalIn the event this information is protected by the Federal Confidentiality of Alcohol and Drug Abuse Patient Records regulations: The Federal rules restrict any use of the information to criminally investigate or prosecute any alcohol or drug abuse patient.[facility] HospitalIn the event this information is protected by the Federal Confidentiality of Alcohol and Drug Abuse Patient Records regulations: The Federal rules restrict any use of the information to criminally investigate or prosecute any alcohol or drug abuse patient.[facility] HospitalIn the event this information is protected by the Federal Confidentiality of Alcohol and Drug Abuse Patient Records regulations: The Federal rules restrict any use of the information to criminally investigate or prosecute any alcohol or drug abuse patient.[facility] HospitalIn the event this information is protected by the Federal Confidentiality of Alcohol and Drug Abuse Patient Records regulations: The Federal rules restrict any use of the information to criminally investigate or prosecute any alcohol or drug abuse patient.[facility] HospitalIn the event this information is protected by the Federal Confidentiality of Alcohol and Drug Abuse Patient Records regulations: The Federal rules restrict any use of the information to criminally investigate or prosecute any alcohol or drug abuse patient.[facility] HospitalIn the event this information is protected by the Federal Confidentiality of Alcohol and Drug Abuse Patient Records regulations: The Federal rules restrict any use of the information to criminally investigate or prosecute any alcohol or drug abuse patient.[facility] HospitalIn the event this information is protected by the Federal Confidentiality of Alcohol and Drug Abuse Patient Records regulations: The Federal rules restrict any use of the information to criminally investigate or prosecute any alcohol or drug abuse patient.[facility] HospitalIn the event this information is protected by the Federal Confidentiality of Alcohol and Drug Abuse Patient Records regulations: The Federal rules restrict any use of the information to criminally investigate or prosecute any alcohol or drug abuse patient.[facility] HospitalIn the event this information is protected by the Federal Confidentiality of Alcohol and Drug Abuse Patient Records regulations: The Federal rules restrict any use of the information to criminally investigate or prosecute any alcohol or drug abuse patient.[facility] HospitalIn the event this information is protected by the Federal Confidentiality of Alcohol and Drug Abuse Patient Records regulations: The Federal rules restrict any use of the information to criminally investigate or prosecute any alcohol or drug abuse patient.[facility] HospitalIn the event this information is protected by the Federal Confidentiality of Alcohol and Drug Abuse Patient Records regulations: The Federal rules restrict any use of the information to criminally investigate or prosecute any alcohol or drug abuse patient.[facility] HospitalIn the event this information is protected by the Federal Confidentiality of Alcohol and Drug Abuse Patient Records regulations: The Federal rules restrict any use of the information to criminally investigate or prosecute any alcohol or drug abuse patient.[facility] HospitalIn the event this information is protected by the Federal Confidentiality of Alcohol and Drug Abuse Patient Records regulations: The Federal rules restrict any use of the information to criminally investigate or prosecute any alcohol or drug abuse patient.[facility] HospitalIn the event this information is protected by the Federal Confidentiality of Alcohol and Drug Abuse Patient Records regulations: The Federal rules restrict any use of the information to criminally investigate or prosecute any alcohol or drug abuse patient.[facility] HospitalIn the event this information is protected by the Federal Confidentiality of Alcohol and Drug Abuse Patient Records regulations: The Federal rules restrict any use of the information to criminally investigate or prosecute any alcohol or drug abuse patient.[facility] HospitalIn the event this information is protected by the Federal Confidentiality of Alcohol and Drug Abuse Patient Records regulations: The Federal rules restrict any use of the information to criminally investigate or prosecute any alcohol or drug abuse patient.[facility] HospitalIn the event this information is protected by the Federal Confidentiality of Alcohol and Drug Abuse Patient Records regulations: The Federal rules restrict any use of the information to criminally investigate or prosecute any alcohol or drug abuse patient.[facility] HospitalIn the event this information is protected by the Federal Confidentiality of Alcohol and Drug Abuse Patient Records regulations: The Federal rules restrict any use of the information to criminally investigate or prosecute any alcohol or drug abuse patient.[facility] HospitalIn the event this information is protected by the Federal Confidentiality of Alcohol and Drug Abuse Patient Records regulations: The Federal rules restrict any use of the information to criminally investigate or prosecute any alcohol or drug abuse patient.[facility] HospitalIn the event this information is protected by the Federal Confidentiality of Alcohol and Drug Abuse Patient Records regulations: The Federal rules restrict any use of the information to criminally investigate or prosecute any alcohol or drug abuse patient.[facility] HospitalIn the event this information is protected by the Federal Confidentiality of Alcohol and Drug Abuse Patient Records regulations: The Federal rules restrict any use of the information to criminally investigate or prosecute any alcohol or drug abuse patient.[facility] HospitalIn the event this information is protected by the Federal Confidentiality of Alcohol and Drug Abuse Patient Records regulations: The Federal rules restrict any use of the information to criminally investigate or prosecute any alcohol or drug abuse patient.[facility] HospitalIn the event this information is protected by the Federal Confidentiality of Alcohol and Drug Abuse Patient Records regulations: The Federal rules restrict any use of the information to criminally investigate or prosecute any alcohol or drug abuse patient.[facility] HospitalIn the event this information is protected by the Federal Confidentiality of Alcohol and Drug Abuse Patient Records regulations: The Federal rules restrict any use of the information to criminally investigate or prosecute any alcohol or drug abuse patient.[facility] HospitalIn the event this information is protected by the Federal Confidentiality of Alcohol and Drug Abuse Patient Records regulations: The Federal rules restrict any use of the information to criminally investigate or prosecute any alcohol or drug abuse patient.[facility] HospitalIn the event this information is protected by the Federal Confidentiality of Alcohol and Drug Abuse Patient Records regulations: The Federal rules restrict any use of the information to criminally investigate or prosecute any alcohol or drug abuse patient.[facility] HospitalIn the event this information is protected by the Federal Confidentiality of Alcohol and Drug Abuse Patient Records regulations: The Federal rules restrict any use of the information to criminally investigate or prosecute any alcohol or drug abuse patient.[facility] HospitalIn the event this information is protected by the Federal Confidentiality of Alcohol and Drug Abuse Patient Records regulations: The Federal rules restrict any use of the information to criminally investigate or prosecute any alcohol or drug abuse patient.[facility] HospitalIn the event this information is protected by the Federal Confidentiality of Alcohol and Drug Abuse Patient Records regulations: The Federal rules restrict any use of the information to criminally investigate or prosecute any alcohol or drug abuse patient.[facility] HospitalIn the event this information is protected by the Federal Confidentiality of Alcohol and Drug Abuse Patient Records regulations: The Federal rules restrict any use of the information to criminally investigate or prosecute any alcohol or drug abuse patient.[facility] HospitalIn the event this information is protected by the Federal Confidentiality of Alcohol and Drug Abuse Patient Records regulations: The Federal rules restrict any use of the information to criminally investigate or prosecute any alcohol or drug abuse patient.[facility] HospitalIn the event this information is protected by the Federal Confidentiality of Alcohol and Drug Abuse Patient Records regulations: The Federal rules restrict any use of the information to criminally investigate or prosecute any alcohol or drug abuse patient.[facility] HospitalIn the event this information is protected by the Federal Confidentiality of Alcohol and Drug Abuse Patient Records regulations: The Federal rules restrict any use of the information to criminally investigate or prosecute any alcohol or drug abuse patient.[facility] HospitalIn the event this information is protected by the Federal Confidentiality of Alcohol and Drug Abuse Patient Records regulations: The Federal rules restrict any use of the information to criminally investigate or prosecute any alcohol or drug abuse patient.[facility] HospitalIn the event this information is protected by the Federal Confidentiality of Alcohol and Drug Abuse Patient Records regulations: The Federal rules restrict any use of the information to criminally investigate or prosecute any alcohol or drug abuse patient.[facility] HospitalIn the event this information is protected by the Federal Confidentiality of Alcohol and Drug Abuse Patient Records regulations: The Federal rules restrict any use of the information to criminally investigate or prosecute any alcohol or drug abuse patient.[facility] HospitalIn the event this information is protected by the Federal Confidentiality of Alcohol and Drug Abuse Patient Records regulations: The Federal rules restrict any use of the information to criminally investigate or prosecute any alcohol or drug abuse patient.[facility] HospitalIn the event this information is protected by the Federal Confidentiality of Alcohol and Drug Abuse Patient Records regulations: The Federal rules restrict any use of the information to criminally investigate or prosecute any alcohol or drug abuse patient.[facility] HospitalIn the event this information is protected by the Federal Confidentiality of Alcohol and Drug Abuse Patient Records regulations: The Federal rules restrict any use of the information to criminally investigate or prosecute any alcohol or drug abuse patient.[facility] HospitalIn the event this information is protected by the Federal Confidentiality of Alcohol and Drug Abuse Patient Records regulations: The Federal rules restrict any use of the information to criminally investigate or prosecute any alcohol or drug abuse patient.[facility] HospitalIn the event this information is protected by the Federal Confidentiality of Alcohol and Drug Abuse Patient Records regulations: The Federal rules restrict any use of the information to criminally investigate or prosecute any alcohol or drug abuse patient.[facility] Reason for Visit (unrecogniz ed section and content) Reason Comments New Fracture Specialty Diagnoses / Procedures Referred By Contac t Referred To Contact Orthopedics Diagnoses Contracture of left knee Acute pain of left knee Procedures CONSULT TO ORTHOPAEDICS OFFICE/OUTPATIENT [facility] 60-74 MINUTES Issac Wilkes MD [address] [place] [address] Referral ID Status Reason Start Date Expiration Date V isits Requested Visits Authorized [id number] Closed PCP Requested Referral 11/13/2021 11/13/2022 1 1 Reason Comments Letter 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 Reason Onset Date Comments Refill Request 01/05/2022 Reason Comments Spasticity Specialty Diagnoses / Procedures Referred By Contac t Referred To Contact [facility] Diagnoses Contracture of left knee Acute pain of left knee Procedures CONSULT TO PHYSICAL MEDICINE AND REHABILITATION OFFICE/OUTPATIENT [facility] 60-74 MINUTES Ramses Campbell MD [address] [place] [address] [facility] [place] [address] [place] [address] Referral ID Status Reason Start Date Expiration Date V isits Requested Visits Authorized [id number] Closed PCP Requested Referral Auto-Generated Referral 12/22/2021 12/22/2022 1 1 Reason Comments Refill Request Reason Onset Date Comments Refill Request 02/25/2022 Reason Onset Date Comments Refill Request 03/10/2022 Reason Onset Date Comments Refill Request 04/01/2022 Reason Onset Date Comments Refill Request 04/24/2022 Reason Comments Consult Reason Comments Yearly Exam Discuss lactulose; P T for knee Reason Onset Date Comments Refill Request 06/09/2022 Reason Onset Date Comments Refill Request 07/02/2022 Reason Comments Home Care Reason Onset Date Comments Refill Request 07/29/2022 Reason Comments 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 Reason Comments Erroneous encounter-disregard Reason Comments Home Care Missed visit Reason Comments Telemedicine Reason Comments Patient Question Orders Reason Onset Date Comments Refill Request 08/31/2022 Reason Comments Spasticity Reason Onset Date Comments Refill Request 10/05/2022 Reason Comments Orders Reason Comments Medication Problem Reason Onset Date Comments Refill Request 11/04/2022 Reason Onset Date Comments Refill Request 11/06/2022 Reason Comments Telemedicine Reason Onset Date Comments Refill Request 11/20/2022 Reason Comments Imm/Inj Reason Comments Appointment Reason Comments Forms Reason Onset Date Comments Refill Request 02/02/2023 Reason Onset Date Comments Refill Request 05/04/2023 Reason Onset Date Comments Refill Request 07/01/2023 Reason Comments Recheck Annual medication re view Reason Comments Results Reason Onset Date Comments Refill Request 09/03/2023 Reason Onset Date Comments Refill Request 11/08/2023 Reason Onset Date Comments Refill Request 11/12/2023 Reason Onset Date Comments Refill Request 12/08/2023 Reason Onset Date Comments Refill Request 02/01/2024 Reason Comments Follow Up Yearly Exam Reason Onset Date Comments Population Health Navigation Outreach 04/06/2024 [employer] AWV/HCC and care gaps Reason Onset Date Comments Refill Request 05/03/2024 Reason Onset Date Comments Refill Request 07/05/2024 Reason Onset Date Comments Population Health Navigation Outreach 08/14/2024 [employer],Shana Hinkle Reason Onset Date Comments Refill Request 10/06/2024 Reason Onset Date Comments Refill Request 11/01/2024 Reason Onset Date Comments Refill Request 11/24/2024 Reason Onset Date Comments Population Health Navigation Outreach 11/26/2024 [employer] High Risk- Attempt 1 Reason Onset Date Comments Population Health Navigation Outreach 12/13/2024 [employer] high risk attempt 2 Reason Comments No Show Reason Onset Date Comments Refill Request 01/31/2025 Reason Onset Date Comments Case Review 02/05/2025 Reason Comments Medicare Wellness Exam Reason Onset Date Comments Refill Request 03/02/2025 Reason Comments FYI-No Action Needed Reason Onset Date Comments Refill Request 05/08/2025 Care Teams (unrecognized sec tion and content) Welding Pantograph Operator Relationship Specialty Start Date End Date Issac Wilkes MD [address] [facility] [place] [address] PCP - General Family Practice 02/18/17 Welding Pantograph Operator Relationship Specialty Start Date End Date Issac Wilkes MD [address] [facility] [place] [address] PCP - General Family Practice 02/18/17 Welding Pantograph Operator Relationship Specialty Start Date End Date Issac Wilkes MD [address] [facility] [place] [address] PCP - General Family Practice 02/18/17 Welding Pantograph Operator Relationship Specialty Start Date End Date Issac Wilkes MD [address] [facility] [place] [address] PCP - General Family Practice 02/18/17 Welding Pantograph Operator Relationship Specialty Start Date End Date Issac Wilkes MD [address] [facility] [place] [address] PCP - General Family Practice 02/18/17 Welding Pantograph Operator Relationship Specialty Start Date End Date Issac Wilkes MD [address] [facility] [place] [address] PCP - General Family Practice 02/18/17 Welding Pantograph Operator Relationship Specialty Start Date End Date Issac Wilkes MD [address] [facility] [place] [address] PCP - General Family Practice 02/18/17 Welding Pantograph Operator Relationship Specialty Start Date End Date Issac Wilkes MD [address] [facility] [place] [address] PCP - General Family Practice 02/18/17 Welding Pantograph Operator Relationship Specialty Start Date End Date Issac Wilkes MD [address] [facility] [place] [address] PCP - General Family Practice 02/18/17 Welding Pantograph Operator Relationship Specialty Start Date End Date Issac Wilkes MD [address] [facility] [place] [address] PCP - General Family Practice 02/18/17 Welding Pantograph Operator Relationship Specialty Start Date End Date Issac Wilkes MD [address] [place] [address] PCP - General Family Practice 02/18/17 Welding Pantograph Operator Relationship Specialty Start Date End Date Issac Wilkes MD [address] [place] [address] PCP - General Family Practice 02/18/17 Welding Pantograph Operator Relationship Specialty Start Date End Date Issac Wilkes MD [address] [place] [address] PCP - General Family Medicine 02/18/17 Welding Pantograph Operator Relationship Specialty Start Date End Date Issac Wilkes MD [address] [place] [address] PCP - General Family Medicine 02/18/17 Welding Pantograph Operator Relationship Specialty Start Date End Date Issac Wilkes MD [address] [place] [address] PCP - General Family Medicine 02/18/17 Welding Pantograph Operator Relationship Specialty Start Date End Date Issac Wilkes MD [address] [place] [address] PCP - General Family Medicine 02/18/17 Welding Pantograph Operator Relationship Specialty Start Date End Date Issac Wilkes MD [address] [place] [address] PCP - General Family Medicine 02/18/17 Jennifer Guerrero MD [address] [place] [address] Referring Physical Medicine and Rehab 07/28/22 Jennifer Guerrero MD [address] [facility] [place] [place] [id number] Home Care Provider Physical Medicine and Rehab 07/28/22 Isha Moreland, PT [address] [place] [address] Hydropulper Operator Post Acute Care 07/28/22 Welding Pantograph Operator Relationship Specialty Start Date End Date Issac Wilkes MD [address] [place] [address] PCP - General Family Medicine 02/18/17 Jennifer Guerrero MD [address] [place] [address] Referring Physical Medicine and Rehab 07/28/22 Jennifer Guerrero MD [address] [place] [address] Home Care Provider Physical Medicine and Rehab 07/28/22 Isha Moreland, PT [address] [place] [address] Hydropulper Operator Post Acute Care 07/28/22 Welding Pantograph Operator Relationship Specialty Start Date End Date Issca Wilkes MD [address] [place] [address] PCP - General Family Medicine 02/18/17 Jennifer Guerrero MD [address] [place] [address] Referring Physical Medicine and Rehab 07/28/22 Jennifer Guerrero MD [address] [place] [address] Home Care Provider Physical Medicine and Rehab 07/28/22 Isha Moreland, PT [address] [place] [address] Hydropulper Operator Post Acute Care 07/28/22 Welding Pantograph Operator Relationship Specialty Start Date End Date Issac Wilkes MD [address] [place] [address] PCP - General Family Medicine 02/18/17 Jennifer Guerrero MD [address] [place] [address] Referring Physical Medicine and Rehab 07/28/22 Jennifer Guerrero MD [address] [place] [address] Home Care Provider Physical Medicine and Rehab 07/28/22 Isha Moreland, PT [address] [place] [address] Hydropulper Operator Post Acute Care 07/28/22 Welding Pantograph Operator Relationship Specialty Start Date End Date Issac Wilkes MD [address] [place] [address] PCP - General Family Medicine 02/18/17 Jennifer Guerrero MD [address] [place] [address] Referring Physical Medicine and Rehab 07/28/22 Jennifer Guerrero MD [address] [place] [address] Home Care Provider Physical Medicine and Rehab 07/28/22 Isha Moreland, PT [address] [place] [address] Hydropulper Operator Post Acute Care 07/28/22 Welding Pantograph Operator Relationship Specialty Start Date End Date Issac Wilkes MD [address] [place] [address] PCP - General Family Medicine 02/18/17 Jennifer Guerrero MD [address] [place] [address] Referring Physical Medicine and Rehab 07/28/22 Jennifer Guerrero MD [address] [place] [address] Home Care Provider Physical Medicine and Rehab 07/28/22 Isha Moreland, PT [address] [place] [address] Hydropulper Operator Post Acute Care 07/28/22 Welding Pantograph Operator Relationship Specialty Start Date End Date Issac Wilkes MD [address] [place] [address] PCP - General Family Medicine 02/18/17 Jennifer Guerrero MD [address] [place] [address] Referring Physical Medicine and Rehab 07/28/22 Jennifer Guerrero MD [address] [place] [address] Home Care Provider Physical Medicine and Rehab 07/28/22 Isha Moreland, PT [address] [place] [address] Hydropulper Operator Post Acute Care 07/28/22 Welding Pantograph Operator Relationship Specialty Start Date End Date Issac Wilkes MD [address] [place] [address] PCP - General Family Medicine 02/18/17 Jennifer Guerrero MD [address] [place] [address] Referring Physical Medicine and Rehab 07/28/22 Jennifer Guerrero MD [address] [place] [address] Home Care Provider Physical Medicine and Rehab 07/28/22 Isha Moreland, PT [address] [place] [address] Hydropulper Operator Post Acute Care 07/28/22 Welding Pantograph Operator Relationship Specialty Start Date End Date Issac Wilkes MD [address] [place] [address] PCP - General Family Medicine 02/18/17 Jennifer Guerrero MD [address] [place] [address] Referring Physical Medicine and Rehab 07/28/22 Jennifer Guerrero MD [address] [place] [address] Home Care Provider Physical Medicine and Rehab 07/28/22 Isha Moreland, PT [address] [place] [address] Hydropulper Operator Post Acute Care 07/28/22 Welding Pantograph Operator Relationship Specialty Start Date End Date Issac Wilkes MD [facility] [place] [address] PCP - General Family Medicine 02/18/17 Jennifer Guerrero MD [address] [place] [address] Referring Physical Medicine and Rehab 07/28/22 Jennifer Guerrero MD [address] [place] [address] Home Care Provider Physical Medicine and Rehab 07/28/22 Isha Moreland, PT [address] [place] [address] Hydropulper Operator Post Acute Care 07/28/22 Welding Pantograph Operator Relationship Specialty Start Date End Date Issac Wilkes MD [address] [place] [address] PCP - General Family Medicine 02/18/17 Jennifer Guerrero MD [address] [place] [address] Referring Physical Medicine and Rehab 07/28/22 Jennifer Guerrero MD [address] [place] [address] Home Care Provider Physical Medicine and Rehab 07/28/22 Isha Moreland, PT [address] [place] [address] Hydropulper Operator Post Acute Care 07/28/22 Welding Pantograph Operator Relationship Specialty Start Date End Date Issac Wilkes MD [address] [place] [address] PCP - General Family Medicine 02/18/17 Jennifer Guerrero MD [address] [place] [address] Referring Physical Medicine and Rehab 07/28/22 Jennifer Guerrero MD [address] [place] [address] Home Care Provider Physical Medicine and Rehab 07/28/22 Isha Moreland, PT [address] [place] [address] Hydropulper Operator Post Acute Care 07/28/22 Welding Pantograph Operator Relationship Specialty Start Date End Date Issac Wilkes MD [address] [place] [address] PCP - General Family Medicine 02/18/17 Jennifer Guerrero MD [address] [place] [address] Referring Physical Medicine and Rehab 07/28/22 Jennifer Guerrero MD [address] [place] [address] Home Care Provider Physical Medicine and Rehab 07/28/22 Isha Moreland, PT [address] [place] [address] Hydropulper Operator Post Acute Care 07/28/22 Welding Pantograph Operator Relationship Specialty Start Date End Date Issac Wilkes MD [address] [place] [address] PCP - General Family Medicine 02/18/17 Jennifer Guerrero MD [address] [place] [address] Referring Physical Medicine and Rehab 07/28/22 Jennifer Guerrero MD [address] [place] [address] Home Care Provider Physical Medicine and Rehab 07/28/22 Isha Moreland, PT [address] [place] [address] Hydropulper Operator Post Acute Care 07/28/22 Welding Pantograph Operator Relationship Specialty Start Date End Date Issac Wilkes MD [address] [place] [address] PCP - General Family Medicine 02/18/17 Jennifer Guerrero MD [address] [place] [address] Referring Physical Medicine and Rehab 07/28/22 Jennifer Guerrero MD [address] [place] [address] Home Care Provider Physical Medicine and Rehab 07/28/22 Isha Moreland, PT [address] [place] [address] Hydropulper Operator Post Acute Care 07/28/22 Welding Pantograph Operator Relationship Specialty Start Date End Date Issac Wilkes MD [address] [place] [address] PCP - General Family Medicine 02/18/17 Jennifer Guerrero MD [address] [place] [address] Referring Physical Medicine and Rehab 07/28/22 Jennifer Guerrero MD [address] [place] [address] Home Care Provider Physical Medicine and Rehab 07/28/22 Isha Moreland, PT [address] [place] [address] Hydropulper Operator Post Acute Care 07/28/22 Welding Pantograph Operator Relationship Specialty Start Date End Date Issac Wilkes MD [address] [place], [place] [address] PCP - General Family Medicine 02/18/17 Jennifer Guerrero MD [address] [place] [address] Referring Physical Medicine and Rehab 07/28/22 Jennifer Guerrero MD [address] [place] [address] Home Care Provider Physical Medicine and Rehab 07/28/22 Isha Moreland, PT [address] [place] [address] Hydropulper Operator Post Acute Care 07/28/22 Welding Pantograph Operator Relationship Specialty Start Date End Date Issac Wilkes MD [address] [place] [address] PCP - General Family Medicine 02/18/17 Jennifer Guerrero MD [address] [place] [address] Referring Physical Medicine and Rehab 07/28/22 Jennifer Guerrero MD [address] [place] [address] Home Care Provider Physical Medicine and Rehab 07/28/22 Isha Moreland, PT [address] [place] [address] Hydropulper Operator Post Acute Care 07/28/22 Welding Pantograph Operator Relationship Specialty Start Date End Date Issac Wilkes MD [address] [place] [address] PCP - General Family Medicine 02/18/17 Jennifer Guerrero MD [address] [place] [address] Referring Physical Medicine and Rehab 07/28/22 Jennifer Guerrero MD [address] [place] [address] Home Care Provider Physical Medicine and Rehab 07/28/22 Isha Moreland, PT [address] [place] [address] Hydropulper Operator Post Acute Care 07/28/22 Welding Pantograph Operator Relationship Specialty Start Date End Date Issac Wilkes MD [address] [place] [address] PCP - General Family Medicine 02/18/17 Jennifer Guerrero MD [address] [place] [address] Referring Physical Medicine and Rehab 07/28/22 Jennifer Guerrero MD [address] [place] [address] Home Care Provider Physical Medicine and Rehab 07/28/22 Isha Moreland, PT [address] [place] [address] Hydropulper Operator Post Acute Care 07/28/22 Team Status: Active Member Role Status Dates Dr. Issac Wilkes MD Family Provider Active Dr. Issac Wilkes MD Primary Care Provider Active Team Status: Inactive Member Role Status Dates Dr. Issac Wilkes MD Primary Care Provider Active Debi Mejia METER REPAIR SHOP SUPERVISOR, METER REPAIR SHOP SUPERVISOR-C Attending Provider, Referring Provider Active Welding Pantograph Operator Relationship Specialty Start Date End Date Issac Wilkes MD [address] [place] [address] PCP - General Family Medicine 02/18/17 Jennifer Guerrero MD [address] [place] [address] Referring Physical Medicine and Rehab 07/28/22 Jennifer Guerrero MD [address] [place] [address] Home Care Provider Physical Medicine and Rehab 07/28/22 Isha Moreland, PT [address] [place] [address] Hydropulper Operator Post Acute Care 07/28/22 Welding Pantograph Operator Relationship Specialty Start Date End Date Issac Wilkes MD [address] [place] [address] PCP - General Family Medicine 02/18/17 Jennifer Guerrero MD [address] [place] [address] Referring Physical Medicine and Rehab 07/28/22 Jennifer Guerrero MD [address] [place] [address] Home Care Provider Physical Medicine and Rehab 07/28/22 Isha Moreland, PT [address] [place] [address] Hydropulper Operator Post Acute Care 07/28/22 Welding Pantograph Operator Relationship Specialty Start Date End Date Issac Wilkes MD [address] [place], [place] [address] PCP - General Family Medicine 02/18/17 Jennifer Guerrero MD [address] [place] [address] Referring Physical Medicine and Rehab 07/28/22 Jennifer Guerrero MD [address] [place] [address] Home Care Provider Physical Medicine and Rehab 07/28/22 Isha Moreland, PT [address] [place] [address] Hydropulper Operator Post Acute Care 07/28/22 Welding Pantograph Operator Relationship Specialty Start Date End Date Issac Wilkes MD [address] [place] [address] PCP - General Family Medicine 02/18/17 Jennifer Guerrero MD [address] [place] [address] Referring Physical Medicine and Rehab 07/28/22 Jennifer Guerrero MD [address] [place] [address] Home Care Provider Physical Medicine and Rehab 07/28/22 Isha Moreland, PT [address] [place] [address] Hydropulper Operator Post Acute Care 07/28/22 Welding Pantograph Operator Relationship Specialty Start Date End Date Issac Wilkes MD [address] [place], [place] [address] PCP - General Family Medicine 02/18/17 Jennifer Guerrero MD [address] [place] [address] Referring Physical Medicine and Rehab 07/28/22 Jennifer Guerrero MD [address] [place] [address] Home Care Provider Physical Medicine and Rehab 07/28/22 Team Status: Inactive Member Role Status Dates Dr. Issac Wilkes MD Primary Care Provi jaspreet, Attending Provider, Referring Provider Active Welding Pantograph Operator Relationship Specialty Start Date End Date Issac Wilkes MD [address] [place] [address] PCP - General Family Medicine 02/18/17 Jennifer Guerrero MD [address] [place] [address] Referring Physical Medicine and Rehab 07/28/22 Jennifer Guerrero MD [address] [place], [place] [address] Home Care Provider Physical Medicine and Rehab 07/28/22 Welding Pantograph Operator Relationship Specialty Start Date End Date Issac Wilkes MD [address] [place] [address] PCP - General Family Medicine 02/18/17 Jennifer Guerrero MD [address] [place] [address] Referring Physical Medicine and Rehab 07/28/22 Jennifer Guerrero MD [address] [place] [address] Home Care Provider Physical Medicine and Rehab 07/28/22 Welding Pantograph Operator Relationship Specialty Start Date End Date Issac Wilkes MD [address] [place] [address] PCP - General Family Medicine 02/18/17 Jennifer Guerrero MD [address] [place] [address] Referring Physical Medicine and Rehab 07/28/22 Jennifer Guerrero MD [address] [place] [address] Home Care Provider Physical Medicine and Rehab 07/28/22 Welding Pantograph Operator Relationship Specialty Start Date End Date Issac Wilkes MD [address] [place] [address] PCP - General Family Medicine 02/18/17 Jennifer Guerrero MD [address] [place] [address] Referring Physical Medicine and Rehab 07/28/22 Jennifer Guerrero MD [address] [place] [address] Home Care Provider Physical Medicine and Rehab 07/28/22 Welding Pantograph Operator Relationship Specialty Start Date End Date Issac Wilkes MD [address] [place] [address] PCP - General Family Medicine 02/18/17 Jennifer Guerrero MD [address] [place] [address] Referring Physical Medicine and Rehab 07/28/22 Jennifer Guerrero MD [address] [place] [address] Home Care Provider Physical Medicine and Rehab 07/28/22 Welding Pantograph Operator Relationship Specialty Start Date End Date Issac Wilkes MD [address] [place] [address] PCP - General Family Medicine 02/18/17 Jennifer Guerrero MD [address] [place] [address] Referring Physical Medicine and Rehab 07/28/22 Jennifer Guerrero MD [address] [place] [address] Home Care Provider Physical Medicine and Rehab 07/28/22 Welding Pantograph Operator Relationship Specialty Start Date End Date Issac Wilkes MD [address] [place] [address] PCP - General Family Medicine 02/18/17 Jennifer Guerrero MD [address] [place] [address] Referring Physical Medicine and Rehab 07/28/22 Jennifer Guerrero MD [address] [place] [address] Home Care Provider Physical Medicine and Rehab 07/28/22 Welding Pantograph Operator Relationship Specialty Start Date End Date Issac Wilkes MD [address] [place] [address] PCP - General Family Medicine 02/18/17 Jennifer Guerrero MD [address] [place] [address] Referring Physical Medicine and Rehab 07/28/22 Jennifer Guerrero MD [address] [place], [place] [address] Home Care Provider Physical Medicine and Rehab 07/28/22 Welding Pantograph Operator Relationship Specialty Start Date End Date Issac Wilkes MD [address] [place] [address] PCP - General Family Medicine 02/18/17 Jennifer Guerrero MD [address] [place] [address] Referring Physical Medicine and Rehab 07/28/22 Jennifer Guerrero MD [address] [place] [address] Home Care Provider Physical Medicine and Rehab 07/28/22 Welding Pantograph Operator Relationship Specialty Start Date End Date Issac Wilkes MD [address] [place] [address] PCP - General Family Medicine 02/18/17 Jennifer Guerrero MD [address] [place] [address] Referring Physical Medicine and Rehab 07/28/22 Jennifer Guerrero MD [address] [place] [address] Home Care Provider Physical Medicine and Rehab 07/28/22 Welding Pantograph Operator Relationship Specialty Start Date End Date Issac Wilkes MD [address] [place], [place] [address] PCP - General Family Medicine 02/18/17 Jennifer Guerrero MD [address] [place], [place] [address] Referring Physical Medicine and Rehab 07/28/22 Jennifer Guerrero MD [address] [place], [place] [address] Home Care Provider Physical Medicine and Rehab 07/28/22 Debi Mejia APRN.PHOTOENGRAVING PROOFER APPRENTICE [address] [place] [address] Phd Intern Family Medicine 08/28/24 Meg Tomas APRN.PHOTOENGRAVING PROOFER APPRENTICE [address] [place] [address] Phd Intern Family Medicine 08/28/24 Welding Pantograph Operator Relationship Specialty Start Date End Date Issac Wilkes MD [address] [place] [address] PCP - General Family Medicine 02/18/17 Jennifer Guerrero MD [address] [place] [address] Referring Physical Medicine and Rehab 07/28/22 Jennifer Guerrero MD [address] [place] [address] Home Care Provider Physical Medicine and Rehab 07/28/22 Debi Mejia APRN.PHOTOENGRAVING PROOFER APPRENTICE [address] [place] [address] Phd Intern Family Medicine 08/28/24 Meg Tomas APRN.PHOTOENGRAVING PROOFER APPRENTICE [address] [place] [address] Phd Intern Family Medicine 08/28/24 Welding Pantograph Operator Relationship Specialty Start Date End Date Issac Wilkes MD [address] [place] [address] PCP - General Family Medicine 02/18/17 Jennifer Guerrero MD [address] [place] [address] Referring Physical Medicine and Rehab 07/28/22 Jennifer Guerrero MD [address] [place] [address] Home Care Provider Physical Medicine and Rehab 07/28/22 Debi Mejia APRN.PHOTOENGRAVING PROOFER APPRENTICE [address] [place] [address] Phd Intern Family Medicine 08/28/24 Meg Tomas APRN.PHOTOENGRAVING PROOFER APPRENTICE [address] [place] [address] Phd Intern Family [facility] 08/28/24 Welding Pantograph Operator Relationship Specialty Start Date End Date Issac Wilkes MD [address] [place], [place] [address] PCP - General Family Medicine 02/18/17 Jennifer Guerrero MD [address] [place] [address] Referring Physical Medicine and Rehab 07/28/22 Jennifer Guerrero MD [address] [place] [address] Home Care Provider Physical Medicine and Rehab 07/28/22 Debi Mejia APRN.PHOTOENGRAVING PROOFER APPRENTICE [address] [place], [place] [id number] Phd Intern Family Medicine 08/28/24 Meg Tomas APRN.PHOTOENGRAVING PROOFER APPRENTICE [address] [place] [address] Phd Intern Family [facility] 08/28/24 Welding Pantograph Operator Relationship Specialty Start Date End Date Issac Wilkes MD [address] [place], [place] [address] PCP - General Family Medicine 02/18/17 Jennifer Guerrero MD [address] [place] [address] Referring Physical Medicine and Rehab 07/28/22 Jennifer Guerrero MD [address] [place] [address] Home Care Provider Physical Medicine and Rehab 07/28/22 Debi Mejia APRN.PHOTOENGRAVING PROOFER APPRENTICE [address] [place], [place] [id number] [facility] 08/28/24 Meg Tomas ASSOCIATE SOFTWARE DEVELOPMENT ENGINEER.PHOTOENGRAVING PROOFER APPRENTICE [address] [place], [place] [id number] [facility] 08/28/24 Welding Pantograph Operator Relationship Specialty Start Date End Date Issac Wilkes MD [address] [place], [place] [address] PCP - General Family Medicine 02/18/17 Jennifer Guerrero MD [address] [place] [address] Referring Physical Medicine and Rehab 07/28/22 Jennifer Guerrero MD [address] [place] [address] Home Care Provider Physical Medicine and Rehab 07/28/22 Debi Mejia APRN.PHOTOENGRAVING PROOFER APPRENTICE [address] [place] [address] [facility] 08/28/24 Meg Tomas ASSOCIATE SOFTWARE DEVELOPMENT ENGINEER.PHOTOENGRAVING PROOFER APPRENTICE [address] [place] [address] [facility] 08/28/24 Welding Pantograph Operator Relationship Specialty Start Date End Date Issac Wilkes MD [address] [place], [place] [id number] PCP - General Family Medicine 02/18/17 Jennifer Guerrero MD [address] [place] [address] Referring Physical Medicine and Rehab 07/28/22 Jennifer Guerrero MD [address] [place], [place] [id number] Home Care Provider Physical Medicine and Rehab 07/28/22 Debi Mejia APRN.PHOTOENGRAVING PROOFER APPRENTICE [address] [place], [place] [address] Phd Intern Family [facility] 08/28/24 Meg Tomas APRN.PHOTOENGRAVING PROOFER APPRENTICE [address] [place], [place] [id number] Phd Intern [facility] 08/28/24 Welding Pantograph Operator Relationship Specialty Start Date End Date Issac Wilkes MD [address] [place], [place] [id number] PCP - General Family Medicine 02/18/17 Jennifer Guerrero MD [address] [place], [place] [id number] Referring Physical Medicine and Rehab 07/28/22 Jennifer Guerrero MD [address] [place], [place] [id number] Home Care Provider Physical Medicine and Rehab 07/28/22 Debi Mejia APRN.PHOTOENGRAVING PROOFER APPRENTICE [address] [place] [address] Phd Intern Family Medicine 08/28/24 Meg Tomas APRN.PHOTOENGRAVING PROOFER APPRENTICE [address] [place] [address] Phd Intern Family Medicine 08/28/24 Welding Pantograph Operator Relationship Specialty Start Date End Date Issac Wilkes MD [address] [place], [place] [address] PCP - General Family Medicine 02/18/17 Jennifer Guerrero MD [address] [place], [place] [id number] Referring Physical Medicine and Rehab 07/28/22 Jennifer Guerrero MD [address] [place] [address] Home Care Provider Physical Medicine and Rehab 07/28/22 Debi Mejia APRN.PHOTOENGRAVING PROOFER APPRENTICE [address] [place], [place] [address] Phd Intern [facility] 08/28/24 Meg Tomas ASSOCIATE SOFTWARE DEVELOPMENT ENGINEER.PHOTOENGRAVING PROOFER APPRENTICE [address] [place], [place] [address] [facility] Team Status: Active Member Role Status Dates Dr. Issac Wilkes MD Primary Care Provider Active Team Status: Inactive Member Role Status Dates Dr. Issac Wilkes MD Primary Care Provider Active Start: February 23, 2025 End: February 23, 2025 Dr. Issac Wilkes MD Attending Provider Active Start: February 23, 2025 End: February 23, 2025 Dr. Issac Wilkes MD Referring Provider Active Start: February 23, 2025 End: February 23, 2025 Welding Pantograph Operator Relationship Specialty Start Date End Date Issac Wilkes MD [address] [place], [place] [id number] PCP - General Family Medicine 02/18/17 Jennifer Guerrero MD [address] [place] [address] Referring Physical Medicine and Rehab 07/28/22 Jennifer Guerrero MD [address] [place] [address] Home Care Provider Physical Medicine and Rehab 07/28/22 Debi Mejia APRN.PHOTOENGRAVING PROOFER APPRENTICE [address] [place], [place] [address] Phd Intern [facility] 08/28/24 Meg Tomas APRN.PHOTOENGRAVING PROOFER APPRENTICE [address] [place] [address] [facility] 08/28/24 Team Status: Active Member Role/Relationship Status Dates Dr. Issac Wilkes MD Primary Care Provider Active Team Status: Inactive Member Role/Relationship Status Dates Dr. Issac Wilkes MD Primary Care Provider Active Start: February 23, 2025 End: February 23, 2025 Dr. Issac Wilkes MD Attending Provider Active Start: February 23, 2025 End: February 23, 2025 Dr. Issac Wilkes MD Referring Provider Active Start: February 23, 2025 End: February 23, 2025 Team Status: Inactive Member Role/Relationship Status Dates Dr. Issac Wilkes MD Primary Care Provider Active Start: March 16, 2025 End: March 16, 2025 Dr. Issac Wilkes MD Attending Provider Active Start: March 16, 2025 End: March 16, 2025 Dr. Issac Wilkes MD Referring Provider Active Start: March 16, 2025 End: March 16, 2025 Welding Pantograph Operator Relationship Specialty Start Date End Date Issac Wilkes MD [address] [place], [place] [id number] PCP - General Family Medicine 02/18/17 Jennifer Guerrero MD [address] [place], [place] [id number] Referring Physical Medicine and Rehab 07/28/22 Jennifer Guerrero MD [address] [place] [address] Home Care Provider Physical Medicine and Rehab 07/28/22 Debi Mejia APRN.PHOTOENGRAVING PROOFER APPRENTICE [address] [place], [place] [address] [facility] 08/28/24 Meg Tomas APRN.PHOTOENGRAVING PROOFER APPRENTICE [address] [place], [place] [id number] [facility] 08/28/24 Welding Pantograph Operator Relationship Specialty Start Date End Date Issac Wilkes MD [address] [place], [place] [id number] PCP - General Family Medicine 02/18/17 Jennifer Guerrero MD [address] [place] [address] Referring Physical Medicine and Rehab 07/28/22 Jennifer Guerrero MD [address] [place] [address] Home Care Provider Physical Medicine and Rehab 07/28/22 Debi Mejia APRN.PHOTOENGRAVING PROOFER APPRENTICE [address] [place], [place] [address] [facility] 08/28/24 Meg Tomas APRN.PHOTOENGRAVING PROOFER APPRENTICE [address] [place], [place] [id number] [facility] 08/28/24 Goals (unrecognized section and content) Goals may be documented in a n alternate sectionGoals may be documented in an alternate sectionGoals may be documented in an alternate sectionGoals may be documented in an alternate sectionGoals may be documented in an alternate section INFORMATION SOURCE (unrecogn ized section and content) DATE CREATED AUTHOR 03/24/2025 [facility] DATE CREATED AUTHOR AUTHORElizabeth ABRAMS 08/01/2025 [facility] FOR RECORDS PERTAINING TO PATIENTS WHO ARE OR HAVE BEEN ENROLLED IN A CHEMICAL DEPENDENCY/SUBSTANCEABUSE PROGRAM, SOME INFORMATION MAY BE OMITTED. This clinical summary was aggregated from multiple sources. Caution should be exercised in using it in the provision of clinical care. This summary normalizes information from multiple sources, and as a consequence, information in this document may materially change the coding, format and clinical context of patient data. In addition, data may be omitted in some cases. CLINICAL DECISIONS SHOULD BE BASED ON THE PRIMARY CLINICAL RECORDS. [facility] [employer] [facility]. provides no warranty or guarantee of the accuracy or completeness of information in this document.
== END 2025-08-31 23:59 | disposition home or self-care (01) ==
LOC: MEDOUTP 12:02
PROVIDERS: PCP Family Medicine; Referring Provider Family Medicine; Visit Provider Family Medicine
DX: M81.0 Age-related osteoporosis without current pathological fracture (principal)
CPT/HCPCS: 96372; J0897